=== PATIENT | male | born 1965 | race Caucasian/White ===

== ENCOUNTER 2023-03-08 15:14 | Inpatient (IN) | payer OTHER, SELFPAY ==
[2023-03-08] VITALS (13 sets, daily range): BP systolic 145–207; BP diastolic 92–119; PULSE 109–125; RESP 22–39; TEMP 37.2; O2SAT 87–97
--- NOTE | ~2023-03-08 | XR_ITS ---
Portable chest x-ray Comparison: 03/17/2023 Clinical History: Respiratory failure Findings: Endotracheal tube and NG tube are in satisfactory positions. Lungs remain clear. Cardiome diastinal silhouette is stable. Bones and soft tissues are unremarkable. Impression: Clear lungs. Stable support tubes. Reviewed, dictated and finalized at location . OCK MAKER Impression: Clear lungs. Stable support tubes.
--- NOTE | ~2023-03-08 | CT_ITS ---
EXAMINATION: CT brain wo con DATE: 03/14/2023 19:49 INDICATION: Altered mental status . TECHNIQUE: Computed tomography (CT) of the head was performed without intravenous contrast. The mA wa s adjusted according to patient size. Iterative reconstruction technique was employed. The dose-lengt h product was 681.00 mGy-cm. COMPARISON: 03/12/2023. FINDINGS: No acute intracranial hemorrhage or extra-axial fluid collection. No hydrocephalus, mass, or herniation. No acute ischemic infarct. Unremarkable dural venous sinus attenuation. No acute osseous abnormality. The aerated spaces are clear. Moderate atrophy and chronic white matter change. Atherosclerotic intracranial calcification. IMPRESSION: No acute intracranial process. Reviewed, dictated and finalized at location K. SAW OPERATOR
--- NOTE | ~2023-03-08 | CT_ITS ---
EXAMINATION: CT chest abdomen pelvis wo con DATE: 03/14/2023 19:49 INDICATION: Hypo, ANTWAN, sepsis, renal stone- combining orders . TECHNIQUE: Computed tomography (CT) of the chest, abdomen, and pelvis was performed without intraveno us contrast. Automated exposure control and iterative reconstruction technique were employed. The dos e-length product was 1492.78 mGy-cm. COMPARISON: CTPA 03/08/2023; CT abdomen pelvis 03/10/2023 FINDINGS: Examination is limited by lack of contrast, motion artifact, particularly in the upper abdomen, and b eam hardening from arm down positioning. CHEST: NG tube, terminating in the stomach. Thoracic aorta: No significant dilation or calcification. Lung parenchyma and airways: Dependent centrilobular nodular and reticular opacities in the bilateral lower lobes. Debris in dependent lower lobe bronchi. Thoracic inlet, axillae and chest wall: Heterogeneous, likely jeff mass measuring 3.5 x 11.5 in the right axilla. Large heterogeneous intramuscular collection in the latissimus dorsi muscle on the righ t with suggestion of layering, incompletely included in the [id number]. Multifocal intramuscular c ollections within the muscles of the right shoulder, also incompletely visualized. Considerable fat s tranding in the subcutaneous fat and intermuscular fat of the right shoulder. Small calcified right t hyroid nodule which requires no additional evaluation at this time. Mediastinum: No mass or lymphadenopathy. Heart and pericardium: Normal heart size. Trace pericardial effusion. Coronary artery calcifications: Absent. Pleura: No effusion or mass. Thoracic bones: No acute osseous finding in the chest. ABDOMEN/PELVIS: Liver: Normal. Biliary/Gallbladder: Gallbladder is distended. Multiple gallstones. No bile duct dilation. Pancreas: No mass or duct dilation. Spleen: Rim calcified mass in the splenic fossa, near the tip of the pancreas, with surrounding surgi loco clips, now measuring up to 4.4 cm. Adrenals:Left adrenal adenoma. Kidneys: Right renal atrophy. Unremarkable left kidney. Right renal stent, in good position, bypassin g a 16 mm proximal right ureteral stone. GI tract: No small or large bowel dilation. Normal appendix. Diverticulosis without diverticulitis. A fecal management system is in place. Mesentery/Peritoneum: No ascites, mass, or free air. Retroperitoneum: No mass Atherosclerotic abdominal aortic and/or arterial calcifications. Pelvis: The urinary bladder is decompressed by a Wilson catheter. Soft Tissues: Nodular subcutaneous opacities in the left lower quadrant, possible injection sites. Abdominopelvic bones: No acute osseous finding in the abdomen/pelvis. IMPRESSION: Bilateral dependent lower lobe mucous plugging/aspiration. Trace pericardial effusion. Considerable inflammatory/infectious change in the soft tissues and muscles of the right shoulder, wi th multiple intramuscular collections and heterogeneous axillary lymph node enlargement. These findin gs are new since the prior CTPA 03/08/2023. Gallbladder hydrops with cholelithiasis. Slightly decreased size of the rim calcified left upper quadrant mass near the tail of the pancreas. Reviewed, dictated and finalized at location K. RATURE TEACHER IMPRESSION: Bilateral dependent lower lobe mucous plugging/aspiration. Trace pericardial effusion. Considerable inflammatory/infectious change in the soft tissues and muscles of the right shoulder, with multiple intramuscular collections and heterogeneous a xillary lymph node enlargement. These findings are new since the prior CTPA 03/08/2023. Gallbladder hydrops with cholelithiasis. Slightly decreased size of the rim calcified left upper quadrant mass near the tail of the pancreas.
--- NOTE | ~2023-03-08 | XR_ITS ---
Portable chest x-ray Comparison: 03/10/2023 Clinical History: Respiratory failure Findings: Endotracheal tube and NG tube are in satisfactory positions. Lungs are clear, without foca l consolidation or pleural effusion. Cardiomediastinal silhouette is stable. Bones and soft tissues are unremarkable. Impression: Clear lungs. Support tubes, as above. Reviewed, dictated and finalized at location . H MAKER Impression: Clear lungs. Support tubes, as above.
--- NOTE | ~2023-03-08 | XR_ITS ---
Portable chest x-ray Comparison: 03/14/2023 Clinical History: Mucous plugging Findings: NG tube in satisfactory position. Lungs are clear, without focal consolidation or pleural effusion. Cardiomediastinal silhouette is stable. Bones and soft tissues are unremarkable. Impression: Clear lungs. NG tube. Reviewed, dictated and finalized at location . TENANCE OF WAY SUPERINTENDENT Impression: Clear lungs. NG tube.
--- NOTE | ~2023-03-08 | XR_ITS ---
Portable chest x-ray Comparison: 03/18/2023 Clinical History: Respiratory failure Findings: Endotracheal tube, NG tube, and right IJ line are in satisfactory positions. Lungs are xu ar, without focal consolidation or pleural effusion. Cardiomediastinal silhouette is stable. Bones a nd soft tissues are unremarkable. Impression: Clear lungs. Stable support tubes. Reviewed, dictated and finalized at location . ORT MERCHANDISER Impression: Clear lungs. Stable support tubes.
--- NOTE | ~2023-03-08 | XR_ITS ---
XR chest 1V portable 03/20/2023 06:26 Indication: Respiratory failure Procedure: AP portable chest Comparison: Comparison to multiple prior studies sequentially, with oldest reviewed study dated 03/05. Findings: NG tube in the stomach. Endotracheal tube tip 4.5 cm above the rashmi. Right IJ central juju e tip in the SVC. Heart size normal. No focal air space disease, pulmonary edema, pleural effusion or suspected pneumothorax. Impression: 1: No acute cardiopulmonary disease. Reviewed, dictated and finalized at location A. TER AIRCRAFT Impression: 1: No acute cardiopulmonary disease.
--- NOTE | ~2023-03-08 | CT_ITS ---
EXAMINATION: CT UE LT wo con DATE: 03/12/2023 10:48 INDICATION: Left elbow and forearm swelling. TECHNIQUE: Computed tomography (CT) of the left upper limb was performed without intravenous contrast . Automated exposure control and iterative reconstruction technique were employed. The dose-length pr oduct was 648.73 mGy-cm. COMPARISON: None FINDINGS: Bone alignment is normal. No fracture. There is mild elbow joint osteoarthritis. In the pro ximal left forearm, there is posterolateral skin thickening and subcutaneous fat stranding. There is a 7.4 x 2.9 x 6.6 cm subcutaneous mass. Lateral to the left ilium, there is a 13 x 11 mm subcutaneous mass. IMPRESSION: 1. Subcutaneous mass and fat stranding and skin thickening in the posterolateral proximal forearm, li darrian hematoma. 2. Nonspecific 13 mm subcutaneous mass lateral to the left ilium, most likely a hematoma or injection site. Reviewed, dictated and finalized at location E. Y GO ROUND ATTENDANT IMPRESSION: 1. Subcutaneous mass and fat stranding and skin thickening in the posterolatera l proximal forearm, likely hematoma. 2. Nonspecific 13 mm subcutaneous mass lateral to the left ilium, most likely a hematoma or injection site.
--- NOTE | ~2023-03-08 | XR_ITS ---
Portable chest x-ray Comparison: 03/20/2023 Clinical History: Respiratory failure Findings: Endotracheal tube, NG tube, and right IJ line are in place. Lungs are clear, without focal consolidation or pleural effusion. Cardiomediastinal silhouette is stable. Bones and soft tissues a re unremarkable. Impression: Clear lungs. Support tubes, as above. Reviewed, dictated and finalized at location . SSIAN ADMINISTRATOR Impression: Clear lungs. Support tubes, as above.
--- NOTE | ~2023-03-08 | XR_ITS ---
Portable chest x-ray Comparison: 03/15/2023 Clinical History: Respiratory failure Findings: Endotracheal tube and NG tube are in satisfactory positions. Lungs are clear, without foca l consolidation or pleural effusion. Cardiomediastinal silhouette is stable. Bones and soft tissues are unremarkable. Impression: Clear lungs. Support tubes, as above. Reviewed, dictated and finalized at location . OLEUM ENGINEERING TEACHER Impression: Clear lungs. Support tubes, as above.
--- NOTE | ~2023-03-08 | CT_ITS ---
CT head without contrast Indication: Unequal pupils COMPARISON: 03/08/2023 Technique: Serial scans were obtained through the brain without the administration of contrast. Dose reduction technique was used on this scan by utilizing automated exposure control and iterative recon struction technique. The dose-length product (DLP) was 681.00 mGy-cm. Findings: There is no evidence of intracranial hemorrhage, mass lesion, or acute infarct. The ventri cles and subarachnoid spaces are dilated, consistent with mild atrophy. Low attenuation regions are seen within the periventricular white matter bilaterally, likely representing changes from chronic mi crovascular ischemic disease. There is no evidence of edema, mass effect or midline shift. The visu alized paranasal sinuses and mastoid air cells are clear. Impression: No intracranial hemorrhage, mass, or acute infarct. Atrophy and chronic white matter changes, as above. Reviewed, dictated and finalized at location . PRINTING AND PHOTOCOPY SUPERVISOR Impression: No intracranial hemorrhage, mass, or acute infarct. Atrophy and chronic white matter changes, as above.
--- NOTE | ~2023-03-08 | US_ITS ---
EXAMINATION: US venous doppler UE RT DATE: 03/24/2023 22:38 INDICATION: Right upper limb swelling. TECHNIQUE: Grayscale ultrasound images without and with compression and Doppler ultrasound images of the right upper extremity veins were obtained. COMPARISON: Chest CT 03/14/2023 FINDINGS: The visualized portions of the right internal jugular vein, subclavian vein, axillary vein, brachial veins, basilic vein, and cephalic vein are patent. The right radial vein and ulnar vein are not evalu ated. There is a 13.5 x 3.8 cm hypoechoic and anechoic mass in anterior right upper arm. IMPRESSION: 1. No deep venous thrombosis. 2. Mass in anterior right upper arm, likely a hematoma. Reviewed, dictated and finalized at location E. RPRISE SYSTEMS ARCHITECT
--- NOTE | ~2023-03-08 | CT_ITS ---
EXAMINATION: CT brain wo con INDICATION: Encephalopathy COMPARISON: 03/14/2023 TECHNIQUE: Standard unenhanced head CT. The dose-length product (DLP) was 681.00 mGy-cm. The mA was a djusted according to patient size. Iterative reconstruction technique was employed. FINDINGS: No intracranial hemorrhage, acute infarction, or abnormal mass lesion. Old lacunar infarcts are again noted in the bilateral basal ganglia. The ventricles are normal. No abnormal mass effect o r midline shift. The mayberry-white matter differentiation is normal. The basal cisterns are patent. The orbits are normal. There is mild mucosal thickening of the paranasal sinuses. IMPRESSION: 1. Old lacunar infarctions bilateral basal ganglia without acute intracranial abnormality. Reviewed, dictated and finalized at location L. D COORDINATOR IMPRESSION: 1. Old lacunar infarctions bilateral basal ganglia without acute intracranial a bnormality.
--- NOTE | ~2023-03-08 | US_ITS ---
EXAMINATION: US_ABSCYSTIMG_US DATE: 03/15/2023 15:49 INDICATION: Right latissimus dorsi mass. TECHNIQUE: The skin overlying the right latissimus dorsi was prepped and draped in usual sterile fas ion. Anesthetic was administered with 1% lidocaine subcutaneously. An 18 gauge spinal needle was th en used to aspirate fluid under continuous sonographic guidance. The entry site was cleaned and dress ed. There were no immediate complications. FINDINGS: Ultrasound images demonstrate the needle in the right latissimus dorsi muscle. IMPRESSION: 1. Ultrasound-guided needle aspiration of a mass of the right latissimus dorsi muscle yielding 6 mL d ark red fluid. Reviewed, dictated and finalized at location A. FLOORMAN IMPRESSION: 1. Ultrasound-guided needle aspiration of a mass of the right latissimus dorsi muscle yielding 6 mL dark red fluid.
--- NOTE | ~2023-03-08 | XR_ITS ---
EXAMINATION: XR chest 1V portable INDICATION: Respiratory failure TECHNIQUE: Portable AP chest at 0542 hours COMPARISON: 03/12/2023 FINDINGS: There is mild retrocardiac opacity the left lung base. No pleural effusion or pneumothorax. The cardiomediastinal silhouette is normal. Surgical changes are noted in the left upper quadrant. IMPRESSION: 1. Minimal retrocardiac opacity of the left lung base, consistent with atelectasis versus pneumonia. Reviewed, dictated and finalized at location F. MAKER GIFT WRAPPING IMPRESSION: 1. Minimal retrocardiac opacity of the left lung base, consistent with atelecta sis versus pneumonia.
--- NOTE | ~2023-03-08 | XR_ITS ---
EXAMINATION: XR chest port-a-cath/central DATE: 03/18/2023 13:47 INDICATION: Central line placement. TECHNIQUE: A single frontal view of the chest was obtained. COMPARISON: Chest single view at 5:24 AM, chest CT 03/14/2023 FINDINGS: There are airspace opacities in the lower lung zones. No pleural effusion or pneumothorax. The heart size is normal. There are surgical clips in left abdomen. The endotracheal tube tip is 4.0 cm above the rashmi. The nasogastric tube tip is in the stomach. A right internal jugular central raymond ous catheter is seen with tip in the superior vena cava. IMPRESSION: 1. Central line tip in the superior vena cava. 2. Airspace opacities in the lower lung zones, consistent with atelectasis versus pneumonia. Reviewed, dictated and finalized at location A. LINE COOK IMPRESSION: 1. Central line tip in the superior vena cava. 2. Airspace opacities in the lower lung zones, consistent with atelectasis vers us pneumonia.
--- NOTE | ~2023-03-08 | CT_ITS ---
EXAMINATION: CTA chest PE protocol DATE: 03/08/2023 22:29 INDICATION: Hypoxia. COVID-19 positive. TECHNIQUE: Computed tomography angiography (CTA) of the chest was performed with 100 mL Omnipaque-350 intravenous contrast timed to evaluate the pulmonary arteries. Coronal maximum intensity projection 3D-reconstructions were created by the technologist. Automated exposure control and iterative reconst ruction technique were employed. The dose-length product was 869.24 mGy-cm. COMPARISON: None. FINDINGS: There is mild atelectasis bilaterally. There is mucous plugging in right mainstem bronchus. No pleural effusion. The heart size is normal. No pericardial effusion. There are acute pulmonary em boli in all lobes. There are gallstones in the gallbladder. Partially visualized is right-sided hydro nephrosis. There is a 5.1 cm mass in left upper quadrant with peripheral calcifications. There are guzman rgical clips in left upper quadrant. There is mild thoracic spondylosis. IMPRESSION: 1. Acute pulmonary emboli in all lobes. I called this result to Dr. Salguero. 2. Mucous plugging in right mainstem bronchus. 3. 5.1 cm mass with peripheral calcifications in the left upper quadrant of the abdomen. This finding may be an infarcted spleen. Correlate with surgical history. 4. Partially visualized right-sided hydronephrosis. Reviewed, dictated and finalized at location E. GATOR SPRINKLING SYSTEM IMPRESSION: 1. Acute pulmonary emboli in all lobes. I called this result to Dr. Salguero. 2. Mucous plugging in right mainstem bronchus. 3. 5.1 cm mass with peripheral calcifications in the left upper quadrant of the abdomen. This finding may be an infarcted spleen. Correlate with surgical hist ory. 4. Partially visualized right-sided hydronephrosis.
--- NOTE | ~2023-03-08 | XR_ITS ---
EXAMINATION: XR retrograde pyelo w/stent RT DATE: 03/10/2023 17:00 BATCH WEIGHER INDICATION: CYSTO RT RETROGRADE WITH STENT . TECHNIQUE: 4 fluoroscopic images and a cine clip of 76 images of the abdomen were obtained during cys toscopy and right retrograde pyelography with stent placement performed by the surgeon. I was not pre sent in the operating room. Fluoroscopy exposure time was 274.4 seconds. Air Kerma 78.97 mGy. DAP 3.7 8 mGym2. COMPARISON: CT abdomen pelvis, same date. FINDINGS: Multiple gallstones. Large right UPJ stone. Wire access to an upper pole calyx followed by stent plac ement with the proximal coil and upper pole calyx and the distal coil projecting over the bladder. IMPRESSION: Fluoroscopic documentation of cystoscopy and right retrograde pyelography with stent placement. Nikki agustin refer to the operative note for complete procedural details . Reviewed, dictated and finalized at location K. H WEIGHER IMPRESSION: Fluoroscopic documentation of cystoscopy and right retrograde pyelography with stent placement. Please refer to the operative note for complete procedural det ails .
--- NOTE | ~2023-03-08 | CT_ITS ---
EXAMINATION: CT abdomen pelvis wo con DATE: 03/10/2023 10:42 INDICATION: Renal stone. Hydronephrosis. TECHNIQUE: Computed tomography (CT) of the abdomen and pelvis was performed without intravenous contr ast. The dose-length product was 1282.05 mGy-cm. Automated exposure control and iterative reconstruct ion technique were employed. COMPARISON: Renal ultrasound dated 03/09/2023. FINDINGS: There is a proximal right ureteral stone near the UPJ at the L3 level measuring 1.8 x 0.9 x 0.9 cm. There is hydronephrosis with residual contrast in the right renal collecting system. Right k idney is atrophic. There are gallstones. NG tube in the stomach. There is a peripherally calcified pa ncreatic tail mass measuring 5.7 x 4.8 cm measuring 45 Hounsfield units. There are metallic foreign b odies in the left upper abdomen. There is dependent atelectasis. There is a small pericardial effusion. No significant pleural effusio n. Nonobstructive bowel gas pattern. Wilson catheter present in the bladder which is decompressed. Col onic diverticulosis without evidence for diverticulitis. IMPRESSION: 1. Proximal right ureteral stone near the UPJ measuring 1.8 cm with moderate hydronephrosis. 2: Hypodense peripherally calcified mass left upper abdomen consider infarcted spleen and pancreatic tail mass consider correlation with MRI abdomen without and with contrast.. 3: Cholelithiasis. Reviewed, dictated and finalized at location B. OYMENT SUPERVISOR IMPRESSION: 1. Proximal right ureteral stone near the UPJ measuring 1.8 cm with moderate hy dronephrosis. 2: Hypodense peripherally calcified mass left upper abdomen consider infarcted spleen and pancreatic tail mass consider correlation with MRI abdomen without a nd with contrast.. 3: Cholelithiasis.
--- NOTE | ~2023-03-08 | XR_ITS ---
EXAMINATION: XR chest 1V portable DATE: 03/08/2023 15:55 INDICATION: Altered mental status. TECHNIQUE: A single frontal view of the chest was obtained. COMPARISON: None. FINDINGS: There is no pneumonia, pleural effusion, or pneumothorax. The heart size is normal. There a re surgical clips in left abdomen. IMPRESSION: 1. No acute cardiopulmonary disease. Reviewed, dictated and finalized at location E. ER TENDER
--- NOTE | ~2023-03-08 | US_ITS ---
EXAMINATION: US venous doppler [facility] DATE: 03/10/2023 15:36 INDICATION: PE, recent hx of DVT . TECHNIQUE: Grayscale images without and with compression and Doppler images of the bilateral lower ex tremity veins were obtained. COMPARISON: None FINDINGS: Eccentric, nonocclusive and partially compressible thrombus in the right popliteal vein. The right co mmon femoral vein, profunda (deep) femoral vein, femoral vein, peroneal vein, posterior tibial veins, and greater saphenous vein are patent. Eccentric, nonocclusive and partially compressible thrombus in the left distal femoral vein and poste rior tibial vein. Occlusive noncompressible thrombus in the left posterior tibial vein. The left comm on femoral vein, profunda (deep) femoral vein, femoral vein, popliteal vein, peroneal vein, and grea ter saphenous vein are patent. IMPRESSION: Acute DVT in the left posterior tibial vein. Subacute nonocclusive DVT in the left distal femoral vein and right popliteal vein. Reviewed, dictated and finalized at location K. N WEIGHER IMPRESSION: Acute DVT in the left posterior tibial vein. Subacute nonocclusive DVT in the left distal femoral vein and right popliteal v ein.
--- NOTE | ~2023-03-08 | XR_ITS ---
Portable chest x-ray Comparison: 03/08/2023 Clinical History: Tube placement Findings: Endotracheal tube and NG tube are in satisfactory positions. Lungs are clear, without foca l consolidation or pleural effusion. Cardiomediastinal silhouette is stable. Bones and soft tissues are unremarkable. Impression: Support tubes, as above. Clear lungs. Reviewed, dictated and finalized at location . RACT LENS GENERATOR Impression: Support tubes, as above. Clear lungs.
--- NOTE | ~2023-03-08 | XR_ITS ---
EXAMINATION: XR chest 1V portable DATE: 03/30/2023 05:50 INDICATION: Mechanical ventilation. TECHNIQUE: A single frontal view of the chest was obtained. COMPARISON: Chest single view 03/26/2023, chest CT 03/29/2023 FINDINGS: There is no pneumonia, pleural effusion, or pneumothorax. The heart size is normal. The end otracheal tube tip is 3.8 cm above the rashmi. The nasogastric tube tip is in the stomach. A right in ternal jugular central venous catheter is seen with tip in the superior vena cava. There are surgical clips in left abdomen. IMPRESSION: 1. No acute cardiopulmonary disease. Reviewed, dictated and finalized at location E. LLE TYPIST
--- NOTE | ~2023-03-08 | XR_ITS ---
EXAMINATION: XR abdomen gastric tube insert INDICATION: Nasogastric tube placement TECHNIQUE: Portable AP KUB-NG at 1259 hours COMPARISON: None available FINDINGS: The nasogastric tube is in the stomach. There are surgical clips in the left upper quadrant . Stones are noted in the gallbladder. There is a partially imaged right internal ureteral stent with an adjacent 2.1 cm stone of the proximal ureter. IMPRESSION: 1. Nasogastric tube in the stomach. Reviewed, dictated and finalized at location F. K SHOP MECHANIC
--- NOTE | ~2023-03-08 | XR_ITS ---
Portable chest x-ray Comparison: 03/16/2023 Clinical History: Respiratory failure Findings: Endotracheal tube and NG tube are in satisfactory position. Lungs are clear, without focal consolidation or pleural effusion. Cardiomediastinal silhouette is stable. Bones and soft tissues a re unremarkable. Impression: Clear lungs. Support tubes, as above. Reviewed, dictated and finalized at location . ET ENGINEER Impression: Clear lungs. Support tubes, as above.
--- NOTE | ~2023-03-08 | XR_ITS ---
Portable chest x-ray Comparison: 03/24/2023 Clinical History: Respiratory failure Findings: Endotracheal tube, NG tube, and right IJ line are in satisfactory positions. Lungs remain clear. Cardiomediastinal silhouette is stable. Bones and soft tissues are unremarkable. Impression: Clear lungs. Support tubes, as above. Reviewed, dictated and finalized at location . MARKETING SALES REPRESENTATIVE Impression: Clear lungs. Support tubes, as above.
--- NOTE | ~2023-03-08 | US_ITS ---
US renal BI 03/09/2023 13:52 Procedure: Realtime transabdominal ultrasound of the kidneys and bladder. Indication: Right hydronephrosis Comparison: CT dated 03/08/2023 Findings: Renal echotexture is normal bilaterally without contour deforming mass. There is moderate r ight hydronephrosis. There is a proximal right ureteral stone near the expected location of the UPJ. This stone measures approximately 1.6 cm. The right kidney measures 10.1 cm and left kidney measures 11.6 cm. Bladder contains a Wilson catheter. Impression: 1: Right proximal ureteral stone measuring 1.6 cm causing moderate hydronephrosis. Reviewed, dictated and finalized at location L. ICULTURE SUPERVISOR Impression: 1: Right proximal ureteral stone measuring 1.6 cm causing moderate hydronephros is.
--- NOTE | ~2023-03-08 | XR_ITS ---
Portable chest x-ray Comparison: 03/09/2023 Clinical History: Respiratory failure Findings: Endotracheal tube and NG tube are in satisfactory positions. Lungs remain clear. Cardiome diastinal silhouette is stable. Bones and soft tissues are unremarkable. Impression: Stable support tubes. Clear lungs. Reviewed, dictated and finalized at location . SH MILL OPERATOR Impression: Stable support tubes. Clear lungs.
--- NOTE | ~2023-03-08 | CT_ITS ---
EXAMINATION: CT brain wo con DATE: 03/08/2023 20:31 INDICATION: Altered mental status. TECHNIQUE: Computed tomography (CT) of the head was performed without intravenous contrast. The mA wa s adjusted according to patient size. Iterative reconstruction technique was employed. The dose-lengt h product was 1059.33 mGy-cm. COMPARISON: None FINDINGS: There are old lacunar infarcts in the bilateral basal ganglia. There is no intracranial hem orrhage, acute infarction, or abnormal intracranial mass lesion. There are scattered areas of low att enuation in the cerebral white matter. The ventricles are normal in size. The orbits are normal. Ther e is mild mucosal thickening in the paranasal sinuses. The mastoid air cells are normal. IMPRESSION: 1. Old lacunar infarcts in the bilateral basal ganglia. 2. Moderate nonspecific cerebral white matter disease, which likely represents chronic small vessel i schemic disease. Reviewed, dictated and finalized at location E. LINES LABORER IMPRESSION: 1. Old lacunar infarcts in the bilateral basal ganglia. 2. Moderate nonspecific cerebral white matter disease, which likely represents chronic small vessel ischemic disease.
--- NOTE | ~2023-03-08 | XR_ITS ---
Portable chest x-ray Comparison: 03/11/2023 Clinical History: Respiratory failure Findings: Probable minimal central congestive change. No consolidation or pleural effusion. Cardiom ediastinal silhouette is stable. Bones and soft tissues are unremarkable. Impression: Probable minimal central congestive change. Reviewed, dictated and finalized at [facility]. LANE NAVIGATOR Impression: Probable minimal central congestive change.
--- NOTE | ~2023-03-08 | XR_ITS ---
EXAMINATION: XR chest 1V portable INDICATION: Respiratory failure TECHNIQUE: Portable AP chest at 0638 hours COMPARISON: 03/13/2023 FINDINGS: Left retrocardiac airspace opacities persist but have improved. No pleural effusion or pneu mothorax. The cardiomediastinal silhouette is normal. Surgical changes are noted in the left upper qu adrant. IMPRESSION: 1. Improving retrocardiac opacity of the left lung base, consistent with atelectasis versus pneumonia . Reviewed, dictated and finalized at location F. TY ANALYST IMPRESSION: 1. Improving retrocardiac opacity of the left lung base, consistent with atelec tasis versus pneumonia.
--- NOTE | ~2023-03-08 | CT_ITS ---
EXAMINATION: CT chest abdomen pelvis wo con DATE: 03/29/2023 09:59 INDICATION: Growing mass TECHNIQUE: Computed tomography (CT) of the chest, abdomen, and pelvis was performed without intraveno us contrast. Automated exposure control and iterative reconstruction technique were employed. Exam do se: 1680.50 mGy-cm total exam DLP. COMPARISON: 03/26/2023 portable AP chest 03/14/2023 CT chest abdomen pelvis 03/08/2023 CTA chest 03/10/2023 CT abdomen FINDINGS: CHEST CT: This noncontrast examination is not sensitive for detection of pulmonary emboli. Pulmonary embolism w as noted on 03/08/2023 CTA chest examination. Mild bilateral lower lobe infiltrate and/or atelectasis, right greater than left. Endotracheal tube is present in expected location. There is a nasogastric tube in the stomach. Normal heart size. No pericardial or pleural effusion. No thoracic aortic aneurysm. No hilar or mediastinal mass lesion or lymphadenopathy is detected. ABDOMEN/PELVIS CT: There are numerous stones in the dependent aspect of the gallbladder. No gallbladder wall thickening or pericholecystic fluid or fat stranding. No bile duct or pancreatic duct dilatation. No hepatic or pancreatic space-occupying mass lesion. Normal morphology of the adrenal glands. Approximately 4.3 x 5.2 cm posterior left upper quadrant soft tissue density within peripheral calcif ied rim is again noted, adjacent to multiple left upper quadrant surgical clips. Smooth small right kidney compared to normal size left kidney. There is right perinephric fluid/fat s tranding. Again noted is a large proximal right ureteral calculus measuring up to approximately 1.7 mm transver se, up to 1.46 cm AP and 2.1 cm vertical dimension. There is a right internal urinary stent with prox imal pigtail in the right renal pelvis, distal pigtail in the urinary bladder. The Wilson catheter in urinary bladder. The bladder is nearly completely evacuated, which may account for moderate prominenc e of the urinary bladder wall. Prostate calcifications. Normal appendix. No bowel obstruction or intraperitoneal free air is evident. Normal caliber of the abdominal aorta. No intraperitoneal or retroperitoneal or pelvic mass lesion or adenopathy or ascites is noted other than the previously reported left upper quadrant mass. There is an IVC filter beneath the level of renal veins. There are healing left anterior second, third and fourth rib fractures. Diffuse idiopathic skeletal hyperostosis of the thoracic spine. No suspicious osteolytic or osteoblastic lesions are noted. IMPRESSION: Mild bilateral lower lobe infiltrate and/or atelectasis, right greater than left ET and NG tubes in satisfactory position Cholelithiasis Posterior left upper quadrant peripherally calcified mass, stable since 03/08/2023 Large proximal right ureteral calculus; right internal urinary stent Right renal atrophy Prostate calcifications Normal appendix IVC filter Healing left anterior second through fourth rib fractures Reviewed, dictated and finalized at Location A. Reviewed, dictated and finalized at location A. IGINAL COMM[employer] COUNC[employer] MEMBER IMPRESSION: Mild bilateral lower lobe infiltrate and/or atelectasis, right gre ater than left ET and NG tubes in satisfactory position Cholelithiasis Posterior left upper quadrant peripherally calcified mass, stable since 03/08/20 23 Large proximal right ureteral calculus; right internal urinary stent Right renal atrophy Prostate calcifications Normal appendix IVC filter Healing left anterior second through fourth rib fractures
--- NOTE | ~2023-03-08 | XR_ITS ---
EXAMINATION: XR chest ET placement INDICATION: Endotracheal tube placement TECHNIQUE: Portable AP chest at 0941 hours COMPARISON: 0514 hours FINDINGS: An endotracheal tube has been inserted which ends approximately 4.5 cm above the rashmi. Th e nasogastric tube is in the stomach. The lungs are free of acute opacities. No pleural effusion or p neumothorax. Surgical changes are noted in the left upper quadrant. IMPRESSION: 1. Endotracheal tube in adequate position. Reviewed, dictated and finalized at location B. R REPAIRER
--- NOTE | 2023-03-08 15:22 | ECG_ITS ---
Measurements Intervals [place] Rate: 111 P: 55 AR: 152 QRS: -81 QRSD: 86 T: 3 QT: 362 QTc: 493 Interpretive Statements SINUS TACHYCARDIA POSSIBLE LEFT ATRIAL ENLARGEMENT [-0.1mV P WAVE IN V1/V2] PATTERN CONSISTENT WITH PULMONARY DISEASE POSSIBLE RIGHT VENTRICULAR CONDUCTION DELAY [RSR (QR) IN V1/V2] LEFT ANTERIOR FASCICULAR BLOCK [QRS AXIS <= -45, QR IN I, RS IN II] BASELINE ARTIFACT POOR R-WAVE PROGRESSION NO PREVIOUS ECG AVAILABLE FOR COMPARISON Electronically Signed On 03-09-2023 13:23:49 RN RADIATION by Sharon Wade M.D.
--- NOTE | 2023-03-08 15:35 | ED.GENADULT ---
HPI - General Adult General Chief complaint: Altered Mental Status <Ho Palafox MD - Last Filed: 03/08/23 19:56> Stated complaint: AMS, FTT <Ho Palafox MD - Last Filed: 03/08/23 19:56> Time Seen by Provider: 03/08/23 15:16 <Ho Palafox MD - Last Filed: 03/08/23 19:56> History of Present Illness HPI narrative: patient is a 57-year-old male who presents ER with reports of failure to thrive and altered mental status from his [facility]. There is very limited information on the patient. Apparently last month he was found by the side of the road and presented to a separate hospital. He then coded. it appears he is intubated on 02/22 and extubated on 02/26. This occurred at [facility] [place]. At this time patient is awake and alert and can follow commands but does not provide any answers. He appears very dry. <Ho Palafox MD - Last Filed: 03/08/23 19:56> Related Data Allergies/adverse reactions: Allergies Allergy/AdvReac Type Severity Reaction Status Date / Time No Known Allergies Allergy Verified 03/08/23 18:36 <Ho Palafox MD - Last Filed: 03/08/23 19:56> Review of Systems Review of Systems: ROS unobtainable: Yes unobtainable due to mental status <Ho Palafox MD - Last Filed: 03/08/23 19:56> [facility] Past Medical History Medical History: Medical History (Updated 03/08/23 @ 21:47 by Norma Salguero MD) CHF (congestive heart failure) DVT (deep venous thrombosis) Hypertension Psychiatric disorder <Ho Palafox MD - Last Filed: 03/08/23 19:56> Surgical History Surgical History: Surgical History (Updated 03/08/23 @ 17:32 by Ho Palafox MD) Surgical history unknown <Ho Palafox MD - Last Filed: 03/08/23 19:56> Exam Narrative: GENERAL: Chronically ill-appearing, well-nourished, and in no acute distress. HEAD: Normocephalic, atraumatic. EYES: PERRL and EOMI. ENT: Mucous membranes moist. dry mucous membranes with caked saliva to the teeth and lips. CHEST: Clear to auscultation. No respiratory distress. HEART: tachycardic and regular. Normal peripheral pulses. ABDOMEN: Soft, nontender, nondistended. EXTREMITIES: Normal range of motion. No edema. Lipoma versus hematoma left proximal forearm. SKIN: Warm, dry, no rash. NEURO: Awake alert but not oriented. Moves all extremities well. PSYCH: Normal mood and affect. <Ho Palafox MD - Last Filed: 03/08/23 19:56> Course Course Emergency Course: 1800: records requested from [facility] [place]. 1954: Awaiting records request. Patient did have a negative COVID test at his facility today but we will repeat another 1. Patient has been on 3 L at 93% according to [facility] records. It appears he is also on Lasix 20 mg, hydralazine 10 mg, metoprolol 25 mg, and Xarelto. Given lack of improvement after IV fluids will add on a CT scan of the brain. Urinalysis still pending. <Ho Palafox MD - Last Filed: 03/08/23 19:56> 1800: records requested from [facility] [place]. 1954: Awaiting records request. Patient did have a negative COVID test at his facility today but we will repeat another 1. Patient has been on 3 L at 93% according to [facility] records. It appears he is also on Lasix 20 mg, hydralazine 10 mg, metoprolol 25 mg, and Xarelto. Given lack of improvement after IV fluids will add on a CT scan of the brain. Urinalysis still pending. 2114: Head CT without acute abnormality. Patient is positive for COVID-19. Spoke with the hospitalist who has accepted him to IMU. Decadron has been ordered. <Norma Salguero MD - Last Filed: 03/08/23 21:47> Vital Signs Vital signs: Vital Signs Pulse Rate 116 H 03/08/23 15:12 Respiratory Rate 22 H 03/08/23 15:12 Blood Pressure 145/119 H 03/08/23 15:12 Pulse Oximetry 87 L 03/08/23 15:12 Oxygen Delivery Room Air 03/08/23 15:12 Temperature 99 F 03/08/23 15:30
[2023-03-08] MEDS: SODIUM CHLORIDE 0.9% IV 2,700 ML/1,000 ML BAG 999 ML IV CONT ×2 (16:40→19:34)
[2023-03-08 17:23] LABS: Basophils Absolute Auto 0.1 K/mm3 (0.0-0.1); Basophils Percent Auto 0.4 % (0.2-1.2); Eosinophils Absolute Auto 0.1 K/mm3 (0-0.3); Eosinophils Percent Auto 0.8 % (0-4.4); Hematocrit 49.2 % (42.0-52.0); Hemoglobin 15.8 g/dL (14.0-18.0); Immature Granulocyte Absolute 0.09 K/mm3 (0.00-0.031); Immature Granulocyte Percent A 0.6 % (0-0.5); Lymphocytes Absolute Auto 1.34 K/mm3 (0.9-3.2); Lymphocytes Percent Auto 8.3 % (18.3-44.2); Mean Corpuscular HGB Conc 32.1 g/dl (32-36); Mean Corpuscular Hemoglobin 31.2 pg (26-34); Mean Corpuscular Volume 97.2 fl (80-100); Mean Platelet Volume 10.6 fl (7.4-10.4); Monocytes Absolute Auto 2.1 K/mm3 (0.1-0.6); Monocytes Percent Auto 12.9 % (2.6-8.5); Neutrophils Absolute Auto 12.4 K/mm3 (1.3-6.7); Platelet Count Result 409 k/mm3 (150-375); Red Blood Count 5.06 M/mm3 (4.6-6.20); Red Cell Distribution Width 16.2 % (11.5-14.5); White Blood Count 16.2 K/mm3 (4.5-10.0)
[2023-03-08 17:37] LABS: INR 1.5; Prothrombin Time 18.5 Seconds (11.1-14.7)
[2023-03-08 17:38] LABS: Partial Thromboplastin Time 29.4 SECONDS (22.3-36.8)
[2023-03-08 17:44] LABS: Lactic Acid Reflex 1.3 mmol/L (0.7-2.0)
[2023-03-08 17:55] LABS: NT Pro B Type Natriuretic Pept 675 pg/mL (19.9-100)
[2023-03-08 18:01] LABS: Alanine Aminotransferase 55 U/L (6-50); Albumin Level 3.9 g/dL (3.5-5.1); Alkaline Phosphatase 207 U/L (38-126); Anion Gap 11 mmol/L (8-16); Aspartate Amino Transferase 46 U/L (17-59); Bilirubin,Total 4.2 mg/dL (0.2-1.3); Blood Urea Nitrogen 29 mg/dL (9-20); CRP 2.4 mg/dL (<1.0); Calcium 8.8 mg/dL (8.4-10.2); Carbon Dioxide 22 mmol/L (22-30); Chloride 114 mmol/L (98-107); Estimated CRCL calculation 59 ml/min; Estimated Glomerular Filt Rate 57; Glucose 108 mg/dL (65-110); Potassium 4.5 mmol/L (3.4-5.0); Sodium 147 mmol/L (137-145)
[2023-03-08] MEDS: hydrALAZINE HCL 20 MG/ML VIAL 10 MG IV PUSH (20:03)
[2023-03-08 20:07] LABS: Appearance Urine Cloudy (Clear); Bacteria Urine None Seen /hpf; Bilirubin Urine 2+ (Negative); Blood Urine 3+ (Negative); Color Urine Dark Yellow (Yellow); Glucose Urine UA Negative (Negative); Hyaline Casts Urine Present /lpf; Ketones Urine 1+ mg/dL (Negative); Leukocyte Esterase Ur 1+ LEU/UL (Negative); Nitrate Urine Negative (Negative); Protein Urine 1+ mg/dL (Negative); RBC Urine 51-100 /hpf (0-2); Specific Grav Ur 1.021 (1.001-1.035); Squamous Epithelial Cell Urine None seen /hpf (Few)
[2023-03-08 20:09] LABS: Add Urine Microscopic? YES
[2023-03-08 21:04] LABS: Alveolar/Arterial O2 Gradient 115.6 mmHg; Base Excess ABG -2.1 mEq/l (+/-2.0); Carboxyhemoglobin 1.8 % THb (0-2.0); Fractional Inspired Oxygen 28 %; HCO3 ABG 20.6 mEq/l (22.0-26.0); Methemoglobin ABG 0.5 %THb (0-1.5); Oxygen Content ABG 19.5 %vol (16.0-22.0); PCO2 ABG 30.4 mmHg (35.0-45.0); PO2 FiO2 Ratio Arterial Blood 1.72 %; Reduced Hemoglobin 13.2 %THb (0-5.0); Total Hemoglobin 16.5 g/dL (12.0-18.0); pH ABG 7.448 (7.350-7.450)
[2023-03-08 21:06] LABS: Oxygen Saturation ABG 86.3 % (95.0-100.0); Oxyhemoglobin 84.5 % THb (90.0-100.0); PO2 ABG 48.2 mmHg (80.0-100.0); Site Drawn RIGHT BRACHIAL
[2023-03-08 21:07] LABS: Device NASAL CANNULA; Modified Allen's Test Pass
[2023-03-08 21:12] LABS: Influenza A QL RT-PCR Negative (Negative); Influenza B QL RT-PCR Negative (Negative); SARS-CoV-2 RNA PCR Positive (Negative)
[2023-03-08 21:26] LABS: Ammonia < 9 umol/L (9-30)
[2023-03-08 21:42] LABS: Amphetamine Screen Urine Negative (Negative); Barbiturate Screen Urine Negative (Negative); Benzodiazepines Screen Urine Negative (Negative); Cannabinoid Screen Urine Negative (Negative); Cocaine Screen Urine Negative (Negative); Methadone Screen Urine Negative (Negative); Opiate Screen Urine Negative (Negative); Phencyclidine Screen Urine Negative (Negative)
[2023-03-08] MEDS: cefTRIAXone 2 GM/NS 100 ML 2 GM/100 ML BAG IVPB (21:47)
[2023-03-08] MEDS: AZITHROMYCIN 500 MG/NS 250 ML 500 MG/250 ML BAG 250 MG IVPB (22:26)
--- NOTE | 2023-03-08 23:00 | PC.NURSE ---
Pt O2 sensor placed on forehead. Pt satting at 91% on 4L NC. EDP Dr. Salguero made aware and okay with pt sats.
[2023-03-08] MEDS: HEPARIN SODIUM 5,000 UNITS/ML VIAL 6500 UNITS IV PUSH (23:11)
[2023-03-08] MEDS: HEPARIN SOD/D5W 100 UNITS/ML 25,000 UNITS/250 ML BAG 14 UNITS IV CONT (23:12)
[2023-03-09] VITALS (48 sets, daily range): BP systolic 96–182; BP diastolic 76–104; PULSE 88–123; RESP 16–35; TEMP 37.3–38.1; O2SAT 88–100; BMI 27.5
--- NOTE | 2023-03-09 | ECHO_ITS ---
Patient Info Name: Jacky Chavez Age: 57 years : 1965 Gender: Male Ht: 71 in Wt: 197 lbs BSA: 2.13 m2 HR: 107 bpm BP: 111 / 84 mmHg Heart Rhythm: Sinus Rhythm Technical Quality: Poor Exam Date: 03/09/2023 4:47 PM Exam Location: Echo Lab Patient Status: Inpatient Admit Date: 03/08/2023 Staff Ordering Physician: Virginia Aquino DO Cloth Examiner Hand: Margo Escamilla RDCS Attending Provider: Virginia Aquino DO Referring Physician: Miles NAIK; Exam Type: CA echo doppler color flow Study Info Indications - pul embolisim Complete two-dimensional, color flow and Doppler transthoracic echocardiogram is performed. Reason for Poor Study: poor echocardiographic windows Summary 1. Complete two-dimensional, color flow and Doppler transthoracic echocardiogram is performed. 2. Normal left ventricular size and with mild concentric hypertrophy, and with hyperdynamic left ventricular systolic function. Ejection fraction greater than 70%. Grade 1 diastolic dysfunction is present. 3. Right ventricle not well visualized but appears mildly hypokinetic. 4. Dilated inferior vena cava consistent with elevated right heart pressure. 5. Right ventricular systolic pressure cannot be adequate evaluated by this study. 6. No significant valve disease. 7. Normal sinus rhythm. 8. Technically difficult study due to the patient being on a ventilator etc. Left Ventricle Left ventricular chamber dimension is normal. Left ventricular systolic function is hyperdynamic, estimated at >70%. There is mildly increased left ventricular wall thickness. Left ventricular septal wall motion is normal. The left ventricular diastolic function is grade I diastolic dysfunction. Right Ventricle Right ventricular chamber dimension is normal. Right ventricular systolic function is reduced. Left Atria Left atrial chamber dimension is normal. Right Atria Right atrial chamber dimension is normal. Aortic Valve The aortic valve is trileaflet. There is no aortic valve sclerosis. There is no aortic valve stenosis. There is no aortic valve regurgitation. Pulmonic Valve The pulmonic valve is normal. There is no pulmonic valve stenosis. There is no pulmonic regurgitation. Mitral Valve The mitral valve has normal leaflets. There is no mitral valve stenosis. There is no mitral valve regurgitation. Tricuspid Valve The tricuspid valve leaflets are normal. There is no significant tricuspid valve stenosis. There is trace tricuspid valve regurgitation. No pulmonary hypertension, estimated pulmonary arterial systolic pressure is 22 mmHg. Pericardium/Pleural The pericardium appears normal. There is no pericardial effusion. Inferior Vena Cava Dilated inferior vena cava with >50% collapse upon inspiration consistent with Empty right atrial pressure, 15 mmHg. Aorta The aortic root size at the sinus of Valsalva is normal. The prox ascending aorta size is normal. Left Ventricular Outflow Tract Name Value Normal LVOT 2D LVOT Diameter 2.1 cm LVOT Doppler LVOT Peak Gradient 5 mmHg LVOT Mean Gradient 3 mmHg LVOT VTI 16 cm LVOT VT
[2023-03-09 00:12] LABS: Basophils Percent Auto 0.2 % (0.2-1.2); Eosinophils Absolute Auto 0.1 K/mm3 (0-0.3); Eosinophils Percent Auto 0.8 % (0-4.4); Hematocrit 51.4 % (42.0-52.0); Hemoglobin 16.3 g/dL (14.0-18.0); Immature Granulocyte Absolute 0.07 K/mm3 (0.00-0.031); Immature Granulocyte Percent A 0.4 % (0-0.5); Lymphocytes Absolute Auto 0.72 K/mm3 (0.9-3.2); Lymphocytes Percent Auto 4.4 % (18.3-44.2); Mean Corpuscular HGB Conc 31.7 g/dl (32-36); Mean Corpuscular Hemoglobin 31.3 pg (26-34); Mean Corpuscular Volume 98.7 fl (80-100); Mean Platelet Volume 10.7 fl (7.4-10.4); Monocytes Absolute Auto 1.8 K/mm3 (0.1-0.6); Neutrophils Absolute Auto 13.5 K/mm3 (1.3-6.7); Neutrophils Percent Auto 83.2 % (45.5-73.1); Platelet Count Result 375 k/mm3 (150-375); Red Blood Count 5.21 M/mm3 (4.6-6.20); Red Cell Distribution Width 16.7 % (11.5-14.5); White Blood Count 16.2 K/mm3 (4.5-10.0)
[2023-03-09 00:22] LABS: INR 1.7; Prothrombin Time 20.6 Seconds (11.1-14.7)
--- NOTE | 2023-03-09 00:44 | PC.NURSE ---
Heparin titrated at this time to pause for 1 hour. Will start again in 1 hour at 12mL/hr and redraw labs in 6 hours.
--- NOTE | 2023-03-09 01:52 | PC.NURSE ---
This RN contacted provider, Dr. Aquino regarding pt status. Pt is working harder to breathe and satting lower on same oxygen delivery method. Dr. Aquino to be down to assess pt shortly.
--- NOTE | 2023-03-09 01:54 | PM.IMHP ---
H&P: HPI History of Present Illness Date/Time: 03/09/23 01:54 Chief Complaint: ?Failure to thrive? Narrative: 57-year-old male who presented to the ER from [facility] via EMS due to failure to thrive. The patient's original medical history is not exactly known. The patient was found on the side of the road on February 04 in taken to [facility] (I am assuming in [place]). The patient was coded at that time and required intubation and was extubated on the 26 of February. He was discharged to the [facility] facility on a pureed diet. According to longterm records patient has history of psychiatric illness. On arrival to ER patient was noted to be tachycardic and hypoxic. Patient's COVID PCR was positive. Patient's blood pressures were uncontrolled with systolic blood pressures ranging between 150 and 210. The patient's temperature was elevated to 99?. Initially the patient's respiratory rate was in the 20s. But throughout the course of the ER stay the patient became progressively more tachypneic. He was mouth breathing his nasal cannula was placed into his oropharynx. Patient was continuing to desat requiring increasing oxygen up to 5 L and oxygen saturations were only 88%. Patient had accessory muscle use in nursing staff called. I went down to assess the patient and the patient had no gag reflex on exam and was not following commands. The patient was unable to protect his airway and subsequently intubated patient in the ER on intubation patient was noted have a large amount of purulence appearing mucus in the back of his oropharynx and required extensive amount of suctioning from his ET tube secretions were thick and difficult to suction. USP paperwork was reviewed. Patient case was discussed with the ER provider respiratory therapy and nursing staff at bedside. Patient was intubated emergently due to condition. Review of Systems Review of Systems: ROS unobtainable: Yes unobtainable due to endotracheal tube PMFSH Past Medical History Medical History CHF (congestive heart failure) DVT (deep venous thrombosis) Hypertension Psychiatric disorder Surgical History Surgical History Surgical history unknown Family History Family History (Updated 03/09/23 @ 03:58 by Virginia Aquino DO) Other Unknown family medical history Social History Social History (Updated 03/09/23 @ 04:00 by Virginia Aquino DO) Social History: Specific sulcal history is unknown. Patient is currently residing at [facility] since his hospitalization in late February. Code status: Full code Smoking status: Unknown if ever smoked Alcohol intake: unknown Substance use: unknown Meds Home Medications and Allergies Allergies Allergy/AdvReac Type Severity Reaction Status Date / Time No Known Allergies Allergy Verified 03/08/23 18:36 Vital Signs Vital Signs - 24 hr 03/08/23 15:12 03/08/23 15:18 03/08/23 15:30 Temperature 99 F Pulse Rate 116 H 118 H Respiratory Rate 22 H 30 H Blood Pressure 145/119 H 145/109 H Pulse Oximetry 87 L 94 94 Oxygen Delivery Room Air Nasal Cannula Room Air Oxygen Flow Rate 2 03/08/23 15:30 03/08/23 16:45 03/08/23 17:47 Temperature Pulse Rate 110 H 109 H Respiratory Rate 28 H 32 H Blood Pressure 170/99 H 162/102 H Pulse Oximetry 95 95 Oxygen Delivery Room Air Oxygen Flow Rate 03/08/23 19:46 03/08/23 20:16 03/08/23 20:34 Temperature Pulse Rate 119 H 119 H 119 H Respiratory Rate 28 H 34 H 34 H Blood Pressure 189/96 H 207/92 H 178/102 H Pulse Oximetry 95 97 90 Oxygen Delivery Oxygen Flow Rate 03/08/23 21:46 03/08/23 22:27 03/08/23 22:31 Temperature Pulse Rate 119 H 125 H 125 H Respiratory Rate 32 H 32 H 33 H Blood Pressure 192/104 H 187/102 H 182/112 H Puls
[2023-03-09] MEDS: PROPOFOL IV EMULSION 100 ML 2.69 MG IV CONT (02:28)
--- NOTE | 2023-03-09 02:40 | PC.NURSE ---
Addendum entered by Thuan Summers RN 03/09/23 05:58: 0220 - HR 132, 98% BVM by RT, RR 25, 150/99 220 - OG placed by Dr. Aquino 222 - HR 117, 100% BVM by RT, 20RR, 159/225 - xray at bedside for post ET placement and OG XR 227 - prop started at 5mcg/min VORB from Dr. Aquino. All completed at 0200, not 1999. Original Note: 021- Dr. Aquino to intubate pt. VORB 20 etomidate, 100 succinylcholine. RT called, suction and BVM set up. Crash cart and glidecope at bedside. 0216 - HR 122, 90% BVM by RT, 36RR, 182/116 0217 - 20 etomidate pushed by GINGER Trimble and flushed 0218 - 100 succinylcholine pushed by GINGER Trimble and flushed HR 98, 93% bagged by RT 0219 - ET tube palced by Dr. Aquino. 26 at the lip. color change, equal chest rise and fall, bilat breath sounds, RT bagging pt. 2020 - HR 132, 98% BVM by RT, RR 25, 150/99 2020 - OG placed by Dr. Aquino 2022 - HR 117, 100% BVM by RT, 20RR, 159/2025 - xray at bedside for post ET placement and OG XR 2027 - prop started at 5mcg/min VORB from Dr. Aquino.
[2023-03-09 03:50] LABS: Alveolar/Arterial O2 Gradient 332.4 mmHg; Arterial Blood Gas PEEP 5 cmH2O; Arterial Blood Gas Tidal Volume 500 ml; Arterial Blood Gas Vent Mode CMV; Arterial Blood Gas Ventilator rate 18 /MIN; Base Excess ABG -4.7 mEq/l (+/-2.0); Device VENTILATOR; Fractional Inspired Oxygen 100 %; HCO3 ABG 19.3 mEq/l (22.0-26.0); Oxygen Content ABG 23.2 %vol (16.0-22.0); Oxygen Saturation ABG 99.8 % (95.0-100.0); Oxyhemoglobin 97.8 % THb (90.0-100.0); PCO2 ABG 33.1 mmHg (35.0-45.0); PO2 ABG 347.5 mmHg (80.0-100.0); PO2 FiO2 Ratio Arterial Blood 3.47 %; Site Drawn RIGHT BRACHIAL; Total Hemoglobin 16.3 g/dL (12.0-18.0); pH ABG 7.383 (7.350-7.450)
[2023-03-09] MEDS: VANCOMYCIN 1,250 MG/NS 250 ML 1,250 MG/250 ML BAG 166.67 MG IVPB (04:09)
--- NOTE | 2023-03-09 04:31 | WPDPROCEDUR ---
Procedures Intubation Intubation Date: 03/09/23 Intubation Time: 02:15 Consent: Performed emergently Sedative: etomidate Mg given: 20 Paralytic: succinylcholine Mg given: 100 Laryngoscope: fiber optic video scope ET tube size: 8 Tube secured depth (cm): 26 Tube secured location: lips Tube placement confirmation: visualized tube passing through cords, equal breath sounds bilaterally, no breath sounds over epigastrium and confirmation by capnometry Patient tolerated procedure: well Intubation complications: none
[2023-03-09 04:58] LABS: MRSA (PCR) NOT DETECTED (NOT DETECTE)
[2023-03-09] MEDS: REMDESIVIR 200 MG/NS 250 ML 200 MG/250 ML BAG 250 MG IVPB (05:42)
[2023-03-09 05:52] LABS: Basophils Percent Auto 0.2 % (0.2-1.2); Hematocrit 47.3 % (42.0-52.0); Immature Granulocyte Absolute 0.11 K/mm3 (0.00-0.031); Immature Granulocyte Percent A 0.8 % (0-0.5); Lymphocytes Absolute Auto 0.32 K/mm3 (0.9-3.2); Lymphocytes Percent Auto 2.2 % (18.3-44.2); Mean Corpuscular HGB Conc 31.7 g/dl (32-36); Mean Corpuscular Hemoglobin 31.4 pg (26-34); Mean Corpuscular Volume 99.2 fl (80-100); Mean Platelet Volume 10.9 fl (7.4-10.4); Monocytes Absolute Auto 1.1 K/mm3 (0.1-0.6); Monocytes Percent Auto 7.3 % (2.6-8.5); Neutrophils Percent Auto 89.5 % (45.5-73.1); Platelet Count Result 337 k/mm3 (150-375); Red Blood Count 4.77 M/mm3 (4.6-6.20); Red Cell Distribution Width 16.8 % (11.5-14.5); White Blood Count 14.5 K/mm3 (4.5-10.0)
[2023-03-09 06:07] LABS: Triglycerides 88 mg/dL (<150)
--- NOTE | 2023-03-09 06:45 | ADMGEN ---
0635 This patient, Jacky Chavez, was admitted to Intensive Care Unit-1. Patient/family oriented to hospital policies and general routines including ID bracelet, bed and alarms, visiting hours, pain management, procedures, bathroom and other care routines, personal items, smoking policy, room service/diet, and visiting hours. Information on how to activate the Rapid Response Team has been discussed. Patient/Family are encouraged to report perceived risks to care and to ask questions if they do not understand what they are told or what they should do.
[2023-03-09] MEDS: IPRATROPIUM BR 0.02% INH SOLN 0.5 MG/2.5 ML VIAL INHALATION ×3 (07:41→20:41)
[2023-03-09] MEDS: LEVALBUTEROL NEB 1.25 MG/3 ML INHALATION ×3 (07:41→20:42)
[2023-03-09] MEDS: ACETYLCYSTEINE 20% INHAL SOLN 800 MG/4 ML VIAL 200 MG INHALATION ×2 (07:42→14:10)
[2023-03-09 08:24] LABS: Alanine Aminotransferase 47 U/L (6-50); Albumin Level 3.5 g/dL (3.5-5.1); Alkaline Phosphatase 165 U/L (38-126); Anion Gap 10 mmol/L (8-16); Aspartate Amino Transferase 45 U/L (17-59); Bilirubin,Total 2.4 mg/dL (0.2-1.3); Blood Urea Nitrogen 31 mg/dL (9-20); Calcium 8.5 mg/dL (8.4-10.2); Carbon Dioxide 22 mmol/L (22-30); Chloride 115 mmol/L (98-107); Creatine Kinase 103 U/L (55-170); Estimated CRCL calculation 51 ml/min; Estimated Glomerular Filt Rate 48; Glucose 139 mg/dL (65-110); Magnesium 2.2 mg/dL (1.6-2.3); Phosphorus 4.3 mg/dL (2.5-4.5); Potassium 4.9 mmol/L (3.4-5.0); Sodium 147 mmol/L (137-145)
[2023-03-09 08:25] LABS: Lactic Acid Reflex 1.4 mmol/L (0.7-2.0)
[2023-03-09 08:27] LABS: Partial Thromboplastin Time 59.8 SECONDS (22.3-36.8)
[2023-03-09] MEDS: HEPARIN SOD/D5W 100 UNITS/ML 25,000 UNITS/250 ML BAG 14 UNITS IV CONT (08:37)
[2023-03-09] MEDS: SODIUM CHLORIDE 0.9% IV 1,000 ML 100 ML IV CONT (08:38)
[2023-03-09] MEDS: PANTOPRAZOLE SODIUM IV 40 MG VIAL IV PUSH (08:39)
[2023-03-09] MEDS: predniSONE 10 MG TABLET FEED TUBE (08:39)
[2023-03-09] MEDS: PIPERACILLIN/TAZ 4.5G/NS 100ML 4.5 GM/100 ML BAG IVPB ×4 (08:39→23:13)
[2023-03-09] MEDS: MINERAL OIL/WHITE PETROLATUM OINTMENT 1 APPLIC EACH EYE ×2 (08:39→20:40)
[2023-03-09 08:47] LABS: Procalcitonin 0.3 ng/mL
[2023-03-09] MEDS: HEPARIN SODIUM 5,000 UNITS/ML VIAL 3000 UNITS IV PUSH (09:05)
[2023-03-09] MEDS: ZIPRASIDONE HCL 20 MG CAPSULE FEED TUBE ×3 (09:05→17:35)
[2023-03-09] MEDS: VANCOMYCIN 1,000 MG/NS 250 ML 1,000 MG/250 ML BAG 250 MG IVPB (09:05)
--- NOTE | 2023-03-09 10:28 | PHAR ---
03/09 TALKED TO SHIVANI GARCIA BARICITINIB RENAL DOSE ADJUSTMENT TO 2 MG DAILY (GFR = 48)
[2023-03-09] MEDS: SODIUM CHLORIDE 0.45% 1,000 ML 100 ML IV CONT (10:54)
[2023-03-09] MEDS: BARICITINIB 2 MG TABLET PO (10:54)
[2023-03-09] MEDS: PROPOFOL IV EMULSION 100 ML 13.43 MG IV CONT ×2 (10:55→17:35)
--- NOTE | 2023-03-09 11:05 | WPDCNINT ---
Assessment and Plan Assessment and plan (1) Acute hypoxic respiratory failure: Code(s): J96.01 - Acute respiratory failure with hypoxia Status: Acute Assessment and Plan: Patient presented with altered mental status, bilateral PEs, acute hypoxic respiratory failure -03/08: intubated in the ER -remains on CMV mode of ventilation, peep of 5, 60% FiO2 wean FiO2 to maintain O2 sats greater than 92% -will tidal volume strategy -continue bronchodilators -start Pulmozyme and Mucomyst -continue propofol for sedation, maintain RASS of 0 to -2 (2) Bilateral pulmonary embolism: Code(s): I26.99 - Other pulmonary embolism without acute cor pulmonale Status: Acute Assessment and Plan: Continue heparin infusion -check echocardiogram (3) COVID-19: Code(s): U07.1 - COVID-19 Status: Acute Assessment and Plan: Patient was positive COVID-19 PCR here in the ER on admission -lungs are clear on chest x-ray -started on dexamethasone -will discontinue Remdesivir -start baricitinib, renally dosed (4) Sepsis: Qualifiers: Sepsis type: sepsis due to unspecified organism Sepsis acute organ dysfunction status: with acute organ dysfunction Severe sepsis acute organ dysfunction type: acute respiratory failure Acute respiratory failure type: with hypoxia Severe sepsis shock status: without septic shock Qualified Code(s): A41.9 - Sepsis, unspecified organism; R65.20 - Severe sepsis without septic shock; J96.01 - Acute respiratory failure with hypoxia Code(s): A41.9 - Sepsis, unspecified organism Status: Acute Assessment and Plan: Patient presented with acute respiratory failure, tachycardia, tachypnea, normal lactic acid -patient started on vancomycin and Zosyn for possible aspiration -sputum, urine and blood cultures have been obtained and pending -patient is not requiring any pressors -adequately fluid-resuscitated (5) Encephalopathy: Code(s): G93.40 - Encephalopathy, unspecified Status: Acute Assessment and Plan: Encephalopathy could be related to sepsis, hypoxia -ammonia levels within normal limits -will treat underlying cause Plan DVT prophylaxis: Heparin infusion for pulmonary embolism Stress ulcer prophylaxis: Protonix Nutrition: Will start tube feeds Code Status: Full code Critical Care Time Spent: 47 minutes Due to a high probability of clinically significant, life threatening deterioration, the patient required my highest level of preparedness to intervene emergently and I personally spent this critical care time directly and personally managing the patient. This critical care time included obtaining a history; examining the patient; pulse oximetry; ordering and review of studies; arranging urgent treatment with development of a management plan; evaluation of patient's response to treatment; frequent reassessment; and discussions with other providers. It was exclusive of separately billable procedures and treating other patients and teaching time. Please see Assessment and Plan section and the rest of the note for further information on patient assessment and treatment This dictation may have been done utilizing a voice recognition system. Attempts have been made to correct errors. However, there may be uncorrected grammatical, spelling, and recognitions errors present. [employer] Consult Note Consult date: 03/09/23 Reason for consult: Acute hypoxic respiratory failure, pulmonary embolism, altered mental status, tachycardia, HPI: Jacky Chavez is a 57 year old male with past medical history of DVT, CHF, essential hypertension, psychiatric disorder presented to the ER on 03/08/2023 with complains of acute hypoxia altered mental status, tachycardia, patient was recently admitted at [facility] in [facility] when he had a cardiac arrest requiring intubation. Extubated on 02/26/2023. [facility]
[2023-03-09] MEDS: DORNASE ALFA INH SOLN 1 MG/ML 2.5 ML AMP 2.5 MG INHALATION ×2 (14:16→20:41)
[2023-03-09 15:18] LABS: Partial Thromboplastin Time 151.3 SECONDS (22.3-36.8)
[2023-03-09 21:51] LABS: Partial Thromboplastin Time 118.5 SECONDS (22.3-36.8)
[2023-03-09 23:30] LABS: Glucose Point of Care 126 mg/dl (65-105)
[2023-03-10] VITALS (30 sets, daily range): BP systolic 92–124; BP diastolic 67–86; PULSE 80–102; RESP 17–25; TEMP 36.6–37.2; O2SAT 95–100
[2023-03-10] MEDS: PROPOFOL IV EMULSION 100 ML 13.43 MG IV CONT ×3 (01:30→14:16)
[2023-03-10] MEDS: IPRATROPIUM BR 0.02% INH SOLN 0.5 MG/2.5 ML VIAL INHALATION ×4 (01:47→21:23)
[2023-03-10] MEDS: LEVALBUTEROL NEB 1.25 MG/3 ML INHALATION ×4 (01:47→21:23)
[2023-03-10] MEDS: VANCOMYCIN 1,250 MG/NS 250 ML 1,250 MG/250 ML BAG 166.67 MG IVPB (04:04)
[2023-03-10 04:18] LABS: Basophils Percent Auto 0.2 % (0.2-1.2); Hematocrit 43.2 % (42.0-52.0); Hemoglobin 13.7 g/dL (14.0-18.0); Immature Granulocyte Absolute 0.06 K/mm3 (0.00-0.031); Immature Granulocyte Percent A 0.5 % (0-0.5); Lymphocytes Absolute Auto 1.81 K/mm3 (0.9-3.2); Lymphocytes Percent Auto 14.9 % (18.3-44.2); Mean Corpuscular HGB Conc 31.7 g/dl (32-36); Mean Corpuscular Hemoglobin 31.6 pg (26-34); Mean Corpuscular Volume 99.8 fl (80-100); Mean Platelet Volume 11.1 fl (7.4-10.4); Monocytes Absolute Auto 2.1 K/mm3 (0.1-0.6); Monocytes Percent Auto 17.4 % (2.6-8.5); Neutrophils Absolute Auto 8.1 K/mm3 (1.3-6.7); Platelet Count Result 320 k/mm3 (150-375); Red Blood Count 4.33 M/mm3 (4.6-6.20); White Blood Count 12.1 K/mm3 (4.5-10.0)
[2023-03-10 04:27] LABS: Lactic Acid Reflex 1.2 mmol/L (0.7-2.0)
[2023-03-10 04:28] LABS: Alanine Aminotransferase 36 U/L (6-50); Albumin Level 3.2 g/dL (3.5-5.1); Alkaline Phosphatase 134 U/L (38-126); Anion Gap 11 mmol/L (8-16); Aspartate Amino Transferase 33 U/L (17-59); Bilirubin,Total 1.2 mg/dL (0.2-1.3); Blood Urea Nitrogen 49 mg/dL (9-20); Calcium 8.2 mg/dL (8.4-10.2); Carbon Dioxide 21 mmol/L (22-30); Chloride 113 mmol/L (98-107); Estimated CRCL calculation 32 ml/min; Estimated Glomerular Filt Rate 28; Glucose 127 mg/dL (65-110); Magnesium 2.4 mg/dL (1.6-2.3); Phosphorus 5.2 mg/dL (2.5-4.5); Potassium 4.2 mmol/L (3.4-5.0); Sodium 145 mmol/L (137-145)
[2023-03-10 04:51] LABS: Alveolar/Arterial O2 Gradient 151.7 mmHg; Base Excess ABG -3.5 mEq/l (+/-2.0); Carboxyhemoglobin 0.2 % THb (0-2.0); Fractional Inspired Oxygen 40 %; Methemoglobin ABG 0.2 %THb (0-1.5); Modified Allen's Test Pass; Oxygen Content ABG 19.4 %vol (16.0-22.0); Oxygen Saturation ABG 96.1 % (95.0-100.0); Oxyhemoglobin 95.5 % THb (90.0-100.0); PCO2 ABG 41.1 mmHg (35.0-45.0); PO2 ABG 86.2 mmHg (80.0-100.0); PO2 FiO2 Ratio Arterial Blood 2.15 %; Reduced Hemoglobin 4.1 %THb (0-5.0); Site Drawn RIGHT RADIAL; Total Hemoglobin 14.4 g/dL (12.0-18.0); pH ABG 7.346 (7.350-7.450)
[2023-03-10 04:52] LABS: Arterial Blood Gas PEEP 5 cmH2O; Arterial Blood Gas Tidal Volume 480 ml; Arterial Blood Gas Vent Mode CMV; Arterial Blood Gas Ventilator rate 16 /MIN; Device VENTILATOR
[2023-03-10] MEDS: PIPERACILLIN/TAZ 4.5G/NS 100ML 4.5 GM/100 ML BAG IVPB (05:51)
[2023-03-10] MEDS: ACETYLCYSTEINE 20% INHAL SOLN 800 MG/4 ML VIAL 200 MG INHALATION ×3 (07:50→21:23)
[2023-03-10] MEDS: DORNASE ALFA INH SOLN 1 MG/ML 2.5 ML AMP 2.5 MG INHALATION ×2 (07:51→21:23)
--- NOTE | 2023-03-10 08:26 | PM.IMPN ---
Progress Note: A&P Assessment and Plan (1) Acute hypoxic respiratory failure: Code(s): J96.01 - Acute respiratory failure with hypoxia Status: Acute Assessment and Plan: Patient presented to the ED from a NH with altered mental status and found to have bilateral PEs and acute hypoxic respiratory failure -On presentation (03/08), patient unable to protect airway and noted to have a large amount of purulent mat'l in the oropharynx requiring suctioning. He was intubated in the ER. -CXR was clear. CTA chest showing acute PE in all lobes with mucous plugging in right mainstem bronchus. COVID positive. -Consider aspiration -Remains on mechanical ventilation, peep of 5, FiO2 30% -Continue bronchodilators. Continue anticoagulation. Continue Baricitinib and Dexamethasone -Also on Zosyn and Vanco. Consider adjusting since he has ANTWAN. -Pulmozyme and Mucomyst started -Continue propofol for sedation Apprecaite tool profiling machine set up operator input (2) Bilateral pulmonary embolism: Code(s): I26.99 - Other pulmonary embolism without acute cor pulmonale Status: Acute Assessment and Plan: Patient presents with altered mental status and found to have respiratory distress. -CXR was clear -CTA chest showing acute PE in all lobes with mucous plugging in right mainstem bronchus. -Patient with Bilat LE DVT at prior hospital and was on Xarelto at the [facility] prior to admission. --No DVT in the Bilat UE but had left cephalic vein thrombus. -Echo at the outside hosp showed moderately dilated RV with moderately reduced systolic fxn -Echo here showing EF 70%, Grade i diastolic dysfunction and RV hypokinesis -Probably had PE prior to admission at outside hospital -Continue heparin infusion -check doppler (3) COVID-19: Code(s): U07.1 - COVID-19 Status: Acute Assessment and Plan: Patient was positive COVID-19 PCR here in the ER on admission -Lungs are clear on chest x-ray -Started on dexamethasone and baricitinib, renally dosed -Repeat CXR remains clear and is 100% on 30% FiO2 -Resp failure felt related to mucous plug (4) Sepsis: Code(s): A41.9 - Sepsis, unspecified organism Status: Acute Assessment and Plan: Patient presented with acute respiratory failure, tachycardia, tachypnea, elevated WBC but normal lactic acid -patient started on vancomycin and Zosyn for possible aspiration -sputum, urine and blood cultures have been obtained and pending -patient is not requiring any pressors -adequately fluid-resuscitated -consider changing to Unasyn from Zosyn to decrease risk of worsening ANTWAN (5) Encephalopathy: Code(s): G93.40 - Encephalopathy, unspecified Status: Acute Assessment and Plan: Encephalopathy could be related to sepsis and hypoxia -ammonia levels within normal limits -Head CT showin gold lacunar infarcts in the bilateral basal ganglia and moderate nonspecific white matter dz. -reassess off sedation. (6) ANTWAN (acute kidney injury): Status: Acute Assessment and Plan: Patient with normal renal function on admission at 1.3 -Cr climbed today to 2.4 -Etilogy probably sepsis and/or obstructing stone and/or contrast and/or ATN -Consider also dehydration. Was on Lasix prior to admission -Renal US showing right proximal ureteral stone measuring 1.6cm causing moderate hydro but with normal renal echotexture. -UOP 500 yesterday and 375mL so far today. -start IV fluids if okay with tool profiling machine set up operator. Monitor UOP, electorlytes and renal function (7) Hydronephrosis with renal and ureteral calculous obstruction: Status: Acute Assessment and Plan: Patient with ANTWAN prompting a renal US which showed right proximal ureteral stone measuring 1.6cm causing moderate hydro -May be contributing to the sepsis picture. UA concerning for UTI. -Urology consult -Continue abx. -Follow up on UCx results Plan Patient on Prednisone 20mg daily on admission
[2023-03-10] MEDS: PANTOPRAZOLE SODIUM IV 40 MG VIAL IV PUSH (08:29)
[2023-03-10] MEDS: MINERAL OIL/WHITE PETROLATUM OINTMENT 1 APPLIC EACH EYE ×2 (08:29→21:40)
[2023-03-10] MEDS: ZIPRASIDONE HCL 20 MG CAPSULE FEED TUBE ×3 (08:29→18:05)
--- NOTE | 2023-03-10 10:48 | PCNFU ---
Nutrition Follow-Up Complete: Inadequate Oral Intake as related to mechanical vent as evidenced by NPO. goal: Meet estimated nutritional needs. Patient is progressing towards goal. We will continue current goal. Pt current nutrition is Vital AF 1.2 at 60 ml/hr. Last recorded weight is 88.6 kg, up from 87 kg on admit. Bowel Motility:No BM reported. Labs Reviewed:Glu 127,BUN 49, GFR 28, Mg 2.4,Alb 3.2 Meds Noted:Heparin, Vancomycin, Zosyn,, Protonix, Decadron, Propofol at 30 jxft=381 kcals. Skin:Bilateral Buttock-maceration Additional Notes: Patient remains on mechanical vent. Tube feedings on hold for CT scan. Vital AF 1.2 at 60 ml/hr providing 1584 kcals/99 gms protein/1071 ml water. Flush 30 ml q 4 hours. Propofol providing an additional 355 kcals. TG being monitored 03/09 TG 88 WNL. Agree with diet orders at this time. Will monitor weight, labs, skin, tube feeding tolerance in ICU rounds and reassessing every Wednesday and Wednesday.
[2023-03-10 11:33] LABS: Partial Thromboplastin Time 38.8 SECONDS (22.3-36.8)
[2023-03-10] MEDS: HEPARIN SODIUM 5,000 UNITS/ML VIAL 6500 UNITS IV PUSH (11:47)
[2023-03-10] MEDS: PIPERACILLN/TAZ 3.375GM/NS50ML 3.375 GM/50 ML BAG IVPB ×3 (11:48→23:45)
[2023-03-10] MEDS: BARICITINIB 2 MG TABLET PO (11:49)
--- NOTE | 2023-03-10 12:23 | WPDURCON ---
Assessment and Plan Assessment and plan (1) Hydronephrosis with renal and ureteral calculous obstruction: Status: Acute (2) ANTWAN (acute kidney injury): Status: Acute (3) Encephalopathy: Code(s): G93.40 - Encephalopathy, unspecified Status: Acute (4) Sepsis: Qualifiers: Sepsis type: sepsis due to unspecified organism Sepsis acute organ dysfunction status: with acute organ dysfunction Severe sepsis acute organ dysfunction type: acute respiratory failure Acute respiratory failure type: with hypoxia Severe sepsis shock status: without septic shock Qualified Code(s): A41.9 - Sepsis, unspecified organism; R65.20 - Severe sepsis without septic shock; J96.01 - Acute respiratory failure with hypoxia Code(s): A41.9 - Sepsis, unspecified organism Status: Acute Plan 57-year-old man with sepsis, possibly of urinary origin, acute renal insufficiency, large right proximal ureteral stone --I reviewed the imaging and laboratory studies. I discussion with the patient's ICU physician. Recommend intervention to drain the right kidney which hopefully will improve his clinical picture. As the patient has no family available consent will be obtained via hospital staff physicians. --risk of ureteral stent insertion include but are not limited to inability to place a stent, each for additional operations, injury to the kidney ureter bladder, complications from anesthetic, worsening sepsis, inability of stent placement to improve his clinical picture. --plan emergent cystoscopy, right retrograde pyelogram right ureteral stent insertion. --continue broad-spectrum antibiotics, laboratory monitoring, and ICU care. Urology Consult Note HPI Date Seen: 03/10/23 Requesting Physician: Virginia Aquino DO Primary Care Provider: Tomás Alvares MD Consult Narrative Narrative: Jacky Chavez is a 57 year old male admitted to the [facility]ensive [facility]. History obtained from the chart as well as from the ICU team. The patient apparently was found down initially and managed at [facility], discharged to a nursing facility and then admitted to [facility] yesterday with concerns in regards to respiratory sepsis. Patient underwent renal ultrasound this morning showing right hydronephrosis, therefore a CT scan was performed showing moderate right hydronephrosis secondary to a 1.8cm proximal ureteral stone. Urology was called to assess the patient. [facility] Past Medical History Medical History CHF (congestive heart failure) DVT (deep venous thrombosis) Hypertension Psychiatric disorder Surgical History Surgical History Surgical history unknown Family History Family History (Updated 03/09/23 @ 03:58 by Virginia Aquino DO) Other Unknown family medical history Social History Social History (Updated 03/09/23 @ 04:00 by Virginia Aquino DO) Social History: Specific sulcal history is unknown. Patient is currently residing at [facility] since his hospitalization in late February. Code status: Full code Smoking status: Unknown if ever smoked Additional smoking assessment comments: unknown Alcohol intake: unknown Substance use: unknown Lack of Transportation: No Lack of Food: Never True Current Housing: I Have Housing Concerned About Future Housing: No Difficulty Paying Gas/Electric Bills: No Difficulty Paying for Meds: No Currently Unemployed: No Education: Don't Know Difficulty w/ Childcare or Family Care: No Spiritual care concerns: No Meds Home Medications and Allergies Home Medications Medication Instructions Recorded Confirmed Type acetaminophen 650 mg rectal 650 mg RECTAL Q8H PRN pain 1-3 or 03/09/23 03/09/23 History suppository fever albuterol sulfate 2.5 mg/3 mL 2.5 mg inhalation
--- NOTE | 2023-03-10 12:57 | WPDANESEPP ---
Anes - Eval Pre Procedure Procedure: Operation Date: 03/10/23 15:00 Proposed Procedures p Cystoscopy, Right Retrograde Pyelogram, Right Stent Placement - Ash Tracy MD Date/Time: 03/10/23 12:57 Surgeon: Rajinder<del>patricio,</del> <del>Ash</del> Preop Diagnosis: Right Hydronephrosis with renal and ureteral calculus Pre Op Diagnosis: COVID Pneumonia Patient Data Age: 57 Gender: M Height: 1.78 m Weight: 88.6 kg Last Vital Signs Temp 98.9 F 03/10/23 12:00 Pulse 96 03/10/23 12:00 Resp 23 H 03/10/23 12:00 BP 118/81 03/10/23 12:00 Pulse Ox 100 03/10/23 12:00 O2 Del Method Mechanical Ventilation 03/10/23 12:00 O2 Flow Rate 4 03/09/23 01:58 FiO2 30 03/10/23 12:00 Allergies Allergy/AdvReac Type Severity Reaction Status Date / Time No Known Allergies Allergy Verified 03/08/23 18:36 Home Medications Medication Instructions Recorded Confirmed Type acetaminophen 650 mg rectal 650 mg RECTAL Q8H PRN pain 1-3 or 03/09/23 03/09/23 History suppository fever albuterol sulfate 2.5 mg/3 mL 2.5 mg inhalation Q6H 03/09/23 03/09/23 History (0.083 %) solution for nebulization furosemide 20 mg tablet 20 mg PO DAILY 03/09/23 03/09/23 History hydralazine 10 mg tablet 10 mg PO Q8H 03/09/23 03/09/23 History metoprolol tartrate 25 mg tablet 25 mg PO BID 03/09/23 03/09/23 History prednisone 10 mg tablet 10 mg PO DAILY 03/09/23 03/09/23 History rivaroxaban 15 mg tablet (Xarelto) 15 mg PO BID 03/09/23 03/09/23 History ziprasidone HCl 20 mg capsule 20 mg PO TID 03/09/23 03/09/23 History Laboratory Tests 03/09/23 03/09/23 03/09/23 14:58 21:29 23:13 WBC RBC Hgb Hct MCV MCH MCHC RDW Plt Count MPV Immature Gran % (Auto) Neut % (Auto) Lymph % (Auto) [place] % (Auto) Eos % (Auto) Baso % (Auto) Lymph # (Auto) [place] # (Auto) Eos # (Auto) Baso # (Auto) Abs Immat Gran (auto) Absolute Neuts (auto) Absolute Nucleated RBC Nucleated RBC % APTT 151.3 H SECONDS 118.5 H SECONDS (22.3-36.8) (22.3-36.8) Puncture Site ABG pH ABG pCO2 ABG pO2 ABG PO2/FiO2 Ratio ABG HCO3 ABG O2 Saturation ABG O2 Content ABG Base Excess A-a Gradient Oxyhemoglobin Carboxyhemoglobin Methemoglobin Reduced Hemoglobin Total Hemoglobin O2 Delivery Device O2 Liters/Min Minute Volume Vent Rate Vent Mode FiO2 Tidal Volume PEEP Peak Inspir Pressure Pressure Support Sodium Potassium Chloride Carbon Dioxide Anion Gap BUN Creatinine Estim Creat Clear Calc Estimated GFR Glucose POC Capillary Glucose 126 H mg/dl (65-105) Lactic Acid Calcium Phosphorus Magnesium Total Bilirubin AST ALT Alkaline Phosphatase Total Protein Albumin 03/10/23 03/10/23 03/10/23 04:05 04:38 11:17 WBC 12.1 H K/mm3 (4.5-10.0) RBC 4.33 L M/mm3 (4.6-6.20) Hgb 13.7 L g/dL (14.0-18.0) Hct 43.2 % (42.0-52.0) MCV 99.8 fl (80-100) MCH 31.6 pg (26-34) MCHC 31.7 L g/dl (32-36) RDW 17.0 H % (11.5-14.5) Plt Count 320 k/mm3 (150-375) MPV 11.1 H fl (7.4-10.4) Immature Gran % (Auto) 0.5 %
--- NOTE | 2023-03-10 13:34 | WPDINTPN ---
Progress Note: A&P Assessment and Plan (1) Acute hypoxic respiratory failure: Code(s): J96.01 - Acute respiratory failure with hypoxia Status: Acute Assessment and Plan: Patient presented with altered mental status, bilateral PEs, acute hypoxic respiratory failure, mucus plugging question aspiration -03/08: intubated in the ER -remains on CMV mode of ventilation, peep of 5, 60% FiO2 wean FiO2 to maintain O2 sats greater than 92% -low tidal volume strategy -continue bronchodilators -start Pulmozyme and Mucomyst -continue propofol for sedation, maintain RASS of 0 to -2 -hold weaning as patient is going to operating room - Continue Zosyn (2) Bilateral pulmonary embolism: Code(s): I26.99 - Other pulmonary embolism without acute cor pulmonale Status: Acute Assessment and Plan: CTA chest-acute pulmonary embolism in all lobes Continue heparin infusion Echocardiogram Summary ? 1. Complete two-dimensional, color flow and Doppler transthoracic echocardiogram is performed. ? 2. Normal left ventricular size and with mild concentric hypertrophy, and with hyperdynamic left ventricular systolic function.? Ejection fraction greater than 70%.? Grade 1 diastolic dysfunction is present. ? 3. Right ventricle not well visualized but appears mildly hypokinetic. ? 4. Dilated inferior vena cava consistent with elevated right heart pressure. ? 5. Right ventricular systolic pressure cannot be adequate evaluated by this study. ? 6. No significant valve disease. ? 7. Normal sinus rhythm. ? 8. Technically difficult study due to the patient being on a ventilator etc. (3) COVID-19: Code(s): U07.1 - COVID-19 Status: Acute Assessment and Plan: Patient was positive COVID-19 PCR here in the ER on admission -lungs are clear on chest x-ray -patient was started on dexamethasone which will be continued -not on Remdesivir -although patient is on ventilator, patient does not appear to have COVID pneumonia. Will discontinue baricitinib in light of sepsis from UTI and aspiration pneumonia (4) Sepsis: Qualifiers: Sepsis type: sepsis due to unspecified organism Sepsis acute organ dysfunction status: with acute organ dysfunction Severe sepsis acute organ dysfunction type: acute respiratory failure Acute respiratory failure type: with hypoxia Severe sepsis shock status: without septic shock Qualified Code(s): A41.9 - Sepsis, unspecified organism; R65.20 - Severe sepsis without septic shock; J96.01 - Acute respiratory failure with hypoxia Code(s): A41.9 - Sepsis, unspecified organism Status: Acute Assessment and Plan: Patient presented with acute respiratory failure, tachycardia, tachypnea, normal lactic acid -patient was started on vancomycin and Zosyn for possible aspiration and UTI -blood cultures growing Gram-positive bacilli in 1 bottle, urine and sputum cultures are pending -patient is not requiring any pressors -adequately fluid-resuscitated -discontinue vancomycin but continue Zosyn (5) Encephalopathy: Code(s): G93.40 - Encephalopathy, unspecified Status: Acute Assessment and Plan: Encephalopathy could be related to sepsis, hypoxia -ammonia levels within normal limits Head CT IMPRESSION: 1. Old lacunar infarcts in the bilateral basal ganglia. 2. Moderate nonspecific cerebral white matter disease, which likely represents chronic small vessel ischemic disease. (6) Hydronephrosis with renal and ureteral calculous obstruction: Status: Acute Assessment and Plan: Renal ultrasound - Right proximal ureteral stone measuring 1.6 cm causing moderate hydronephrosis. CT abdomen pelvis - 1. Proximal right ureteral stone near the UPJ measuring 1.8 cm with moderate hydronephrosis. Patient has a right ureteral stone which is obstructing and causing hydronephrosis and renal. Discussed with Urology and plan to place a stent. Patient does not have any family or guardian to pr
--- NOTE | 2023-03-10 15:00 | WPDHPUPDATE1 ---
History and Physical Update Update Date/Time: 03/10/23 15:00 History and Physical has been reviewed, including an updated exam of the patient. There are NO changes in the patient's condition. Risks, benefits, and alternatives have been discussed and questions answered. Patient agrees to proceed with procedure.
--- NOTE | 2023-03-10 16:43 | P.PNAN_ITS ---
Anes - Eval Final PreProcedure Day of Procedure 03/10/23 16:43 Patient weight: overweight Heart: regular rate and rhythm Lungs: clear to auscultation Airway: other (intubated) Neurological: other (sedated) Last oral intake: >/= 8 hours ASA classification: IV Emergent: yes Anesthetic plan: proceed Anesthesia type and monitoring: general ETT and standard monitoring Results Review: All pre-operative results and documents have been reviewed as part of the pre- operative evaluation. Informed Consent: The patient's anesthetic plan and its attendant risks and benefits were discussed with the patient/family/POA. Questions were solicited and answers provided to the satisfaction of the patient/family/POA.
--- NOTE | 2023-03-10 17:30 | P.OP_ITS ---
Procedure Note - Detailed Date of Procedure 03/10/23 Pre-op Diagnosis Right ureteral stone, hydronephrosis, sepsis Post-op Diagnosis Same Procedure Performed Cystoscopy, right retrograde pyelogram, right ureteral stent insertion Surgeon Ash Tracy MD Anesthesia General Findings Large right proximal ureteral stone and associated hydronephrosis. Extreme tortuosity of the right ureter. Description of Procedure Consent was obtained from medical team. Patient taken the operating room. He is receiving IV antibiotics in the ICU. He was prepped and draped in the normal sterile fashion in the dorsal lithotomy position. A 22 [place] cystoscope was inserted through the urethra into the bladder. Inspection of the bladder revealed trabeculation and many small stone fragments. No mass. Plain film x- ray revealed the large stone in the area of the right proximal ureter. The right ureteral orifice was cannulated in a retrograde pyelogram was performed. Retrograde pyelogram revealed extreme tortuosity of the right ureter and then hydronephrosis above the level of the stone. We were able to manipulate the wire beyond the level of the stone with some difficulty. We were unable to advance a 5 [place] open-ended catheter over the wire. We therefore removed the angiographic catheter. Under fluoroscopic guidance, pressure was placed onto the 4.8 very blink stent and we were able to manipulate the stent beyond the level of the stone into the renal pelvis. There was a curl in the renal pelvis and then a curl the bladder. We then cannulated the distal end of the ureter with a 5 [place] catheter and again retrograde pyelogram was performed confirming appropriate placement of the stent. We then emptied the bladder with an 18 [place] Wilson catheter. Patient was then taken back to the ICU in critical condition Pathology None sent Complications No immediate complications Condition Critical Disposition ICU
[2023-03-10 18:19] LABS: Glucose Point of Care 110 mg/dl (65-105)
[2023-03-10] MEDS: HEPARIN SOD/D5W 100 UNITS/ML 25,000 UNITS/250 ML BAG 13 UNITS IV CONT (21:39)
[2023-03-10] MEDS: FLUCONAZOLE 200 MG/NACL 100 ML 200 MG/100 ML BAG 100 MG IVPB (21:40)
[2023-03-10] MEDS: PROPOFOL IV EMULSION 100 ML 8.06 MG IV CONT (21:40)
[2023-03-10 23:52] LABS: Glucose Point of Care 103 mg/dl (65-105)
[2023-03-11] VITALS (28 sets, daily range): BP systolic 89–158; BP diastolic 63–100; PULSE 83–111; RESP 17–29; TEMP 37–38.7; O2SAT 93–100
[2023-03-11 01:26] LABS: Partial Thromboplastin Time 40.1 SECONDS (22.3-36.8)
[2023-03-11] MEDS: HEPARIN SODIUM 5,000 UNITS/ML VIAL 6500 UNITS IV PUSH (01:59)
[2023-03-11] MEDS: IPRATROPIUM BR 0.02% INH SOLN 0.5 MG/2.5 ML VIAL INHALATION ×4 (02:52→20:36)
[2023-03-11] MEDS: ACETYLCYSTEINE 20% INHAL SOLN 800 MG/4 ML VIAL 200 MG INHALATION ×4 (02:52→20:36)
[2023-03-11] MEDS: LEVALBUTEROL NEB 1.25 MG/3 ML INHALATION ×4 (02:52→20:37)
[2023-03-11 03:58] LABS: Basophils Absolute Auto 0.1 K/mm3 (0.0-0.1); Basophils Percent Auto 0.3 % (0.2-1.2); Eosinophils Percent Auto 0.1 % (0-4.4); Hematocrit 45.5 % (42.0-52.0); Hemoglobin 14.3 g/dL (14.0-18.0); Immature Granulocyte Absolute 0.07 K/mm3 (0.00-0.031); Immature Granulocyte Percent A 0.4 % (0-0.5); Lymphocytes Percent Auto 15.8 % (18.3-44.2); Mean Corpuscular HGB Conc 31.4 g/dl (32-36); Mean Corpuscular Hemoglobin 31.4 pg (26-34); Mean Platelet Volume 11.4 fl (7.4-10.4); Monocytes Absolute Auto 1.7 K/mm3 (0.1-0.6); Monocytes Percent Auto 10.2 % (2.6-8.5); Neutrophils Absolute Auto 12.5 K/mm3 (1.3-6.7); Neutrophils Percent Auto 73.2 % (45.5-73.1); Platelet Count Result 335 k/mm3 (150-375); Red Blood Count 4.55 M/mm3 (4.6-6.20); Red Cell Distribution Width 17.6 % (11.5-14.5); White Blood Count 17.1 K/mm3 (4.5-10.0)
[2023-03-11 04:17] LABS: Lactic Acid Reflex 2.1 mmol/L (0.7-2.0)
[2023-03-11 04:18] LABS: Alanine Aminotransferase 33 U/L (6-50); Albumin Level 3.5 g/dL (3.5-5.1); Alkaline Phosphatase 129 U/L (38-126); Anion Gap 10 mmol/L (8-16); Aspartate Amino Transferase 40 U/L (17-59); Bilirubin,Total 1.1 mg/dL (0.2-1.3); Blood Urea Nitrogen 54 mg/dL (9-20); Calcium 8.2 mg/dL (8.4-10.2); Carbon Dioxide 21 mmol/L (22-30); Chloride 115 mmol/L (98-107); Estimated CRCL calculation 39 ml/min; Estimated Glomerular Filt Rate 35; Glucose 119 mg/dL (65-110); Magnesium 2.3 mg/dL (1.6-2.3); Phosphorus 4.1 mg/dL (2.5-4.5); Potassium 4.3 mmol/L (3.4-5.0); Sodium 146 mmol/L (137-145); Triglycerides 80 mg/dL (<150)
[2023-03-11 05:43] LABS: Alveolar/Arterial O2 Gradient 97.6 mmHg; Base Excess ABG -2.6 mEq/l (+/-2.0); Carboxyhemoglobin 0.3 % THb (0-2.0); Fractional Inspired Oxygen 30 %; HCO3 ABG 21.4 mEq/l (22.0-26.0); Methemoglobin ABG 0.3 %THb (0-1.5); Oxygen Saturation ABG 95.1 % (95.0-100.0); Oxyhemoglobin 94.5 % THb (90.0-100.0); PCO2 ABG 35.5 mmHg (35.0-45.0); PO2 ABG 74.6 mmHg (80.0-100.0); PO2 FiO2 Ratio Arterial Blood 2.49 %; Reduced Hemoglobin 4.9 %THb (0-5.0); Total Hemoglobin 16.6 g/dL (12.0-18.0); pH ABG 7.399 (7.350-7.450)
[2023-03-11 05:45] LABS: Arterial Blood Gas Vent Mode CMV; Arterial Blood Gas Ventilator rate 16 /MIN; Device VENTILATOR; Modified Allen's Test Pass; Site Drawn LEFT RADIAL
[2023-03-11 05:46] LABS: Arterial Blood Gas PEEP 5 cmH2O; Arterial Blood Gas Tidal Volume 480 ml
[2023-03-11] MEDS: PIPERACILLN/TAZ 3.375GM/NS50ML 3.375 GM/50 ML BAG IVPB ×3 (05:58→17:30)
[2023-03-11 06:55] LABS: Reflex Lactic Acid Yes or No Add Lactic
[2023-03-11] MEDS: PROPOFOL IV EMULSION 100 ML 13.43 MG IV CONT (07:03)
--- NOTE | 2023-03-11 07:23 | WPDUROPN2 ---
Progress Note: A&P Assessment and Plan (1) Hydronephrosis with renal and ureteral calculous obstruction: Status: Acute (2) ANTWAN (acute kidney injury): Status: Acute (3) Sepsis: Qualifiers: Sepsis type: sepsis due to unspecified organism Sepsis acute organ dysfunction status: with acute organ dysfunction Severe sepsis acute organ dysfunction type: acute respiratory failure Acute respiratory failure type: with hypoxia Severe sepsis shock status: without septic shock Qualified Code(s): A41.9 - Sepsis, unspecified organism; R65.20 - Severe sepsis without septic shock; J96.01 - Acute respiratory failure with hypoxia Code(s): A41.9 - Sepsis, unspecified organism Status: Acute Assessment and Plan: Marginal u/o but serum creat. improved ovenight. Large, calcified right proximal ureteral calculus - will need definitive intervention once medically improved/stable. Likely, best option will be with serial ESWL. Subjective Subjective Date/Time Seen: 03/11/23 07:23 Interval history: Intubated/sedated Review of Systems Review of Systems: ROS unobtainable: Yes unobtainable due to endotracheal tube Exam Const: General: no acute distress Resp: Effort & Inspection: normal respiratory effort GI: Inspection: non-distended GI Palp: No abdominal tenderness and No Guarding due to palpation present (GI) Auscultation: normal bowel sounds Urinary Catheter: Urinary Catheter: patent and draining and urine clear Objective Data Vital Signs Vital Signs: Vital Signs - 24 hr 03/10/23 07:55 03/10/23 07:55 03/10/23 08:00 Temperature 98.7 F Pulse Rate 88 88 89 Respiratory Rate 18 23 H Blood Pressure 122/79 Pulse Oximetry 100 100 Oxygen Delivery Mechanical Ventilation Fraction of Inspired Oxygen 30 03/10/23 08:31 03/10/23 08:00 03/10/23 08:00 Temperature Pulse Rate 90 89 Respiratory Rate 23 H Blood Pressure Pulse Oximetry Oxygen Delivery Fraction of Inspired Oxygen 30 03/10/23 08:00 03/10/23 10:00 03/10/23 10:00 Temperature Pulse Rate 88 86 Respiratory Rate 20 Blood Pressure 92/67 L Pulse Oximetry 100 100 Oxygen Delivery Mechanical Ventilation Fraction of Inspired Oxygen 30 03/10/23 10:45 03/10/23 12:00 03/10/23 12:00 Temperature 98.9 F Pulse Rate 86 98 Respiratory Rate 23 H Blood Pressure 118/81 Pulse Oximetry 99 100 100 Oxygen Delivery Mechanical Ventilation Mechanical Ventilation Fraction of Inspired Oxygen 30 30 03/10/23 12:00 03/10/23 12:00 03/10/23 13:35 Temperature Pulse Rate 96 95 Respiratory Rate Blood Pressure Pulse Oximetry 100 Oxygen Delivery Mechanical Ventilation Fraction of Inspired Oxygen 30 30 03/10/23 13:35 03/10/23 13:52 03/10/23 14:16 Temperature Pulse Rate 95 100 100 Respiratory Rate 24 H 25 H 25 H Blood Pressure Pulse Oximetry Oxygen Delivery Fraction of Inspired Oxygen 03/10/23 14:00 03/10/23 14:00 03/10/23 16:00 Temperature Pulse Rate 95 102 H 95 Respiratory Rate 23 H Blood Pressure 123/83 Pulse Oximetry 100 Oxygen Delivery Fraction of Inspired Oxygen 03/10/23 16:00 03/10/23 16:00 03/10/23 16:00 Temperature 98 F Pulse Rate 93 Respiratory Rate 22 H Blood Pressure 104/78 Pulse Oximetry 100 100 Oxygen Delivery Mechanical Ventilation Fraction of Inspired Oxygen 30 30 03/10/23 18:00 03/10/23 18:00 03/10/23 16:00 Temperature Pulse Rate 91 85 85 Respiratory Rate 24 H 24 H Blood Pressure 119/82 Pulse Oximetry 100 Oxygen Delivery Fraction of Inspired Oxygen 03/10/23 18:00 03/10/23 19:16 03/10/23 19:38 Temperature Pulse Rate 85 81 81 Respiratory Rate 24 H 20 Blood Pressure Pulse Oximetry Oxygen Delivery Fraction of Inspired Oxygen 03/10/23 19:39 03/10/23 19:39 03/10/23 20:00 Temperature 98.1 F Pulse Rate 81 81 Respiratory Rate 20 20 Blood Press
[2023-03-11] MEDS: DORNASE ALFA INH SOLN 1 MG/ML 2.5 ML AMP 2.5 MG INHALATION ×2 (07:53→20:36)
[2023-03-11 07:55] LABS: Lactic Acid 1.4 mmol/L (0.7-2.0)
[2023-03-11 08:10] LABS: Partial Thromboplastin Time 98.6 SECONDS (22.3-36.8)
[2023-03-11] MEDS: PANTOPRAZOLE SODIUM IV 40 MG VIAL IV PUSH (08:34)
[2023-03-11] MEDS: ZIPRASIDONE HCL 20 MG CAPSULE FEED TUBE ×3 (08:34→17:32)
[2023-03-11] MEDS: MINERAL OIL/WHITE PETROLATUM OINTMENT 1 APPLIC EACH EYE (08:34)
[2023-03-11] MEDS: DEXTROSE 5% 1,000 ML 1,000 ML 100 ML IVPB (09:12)
--- NOTE | 2023-03-11 09:30 | WPDINTPN ---
Progress Note: A&P Assessment and Plan (1) Acute hypoxic respiratory failure: Code(s): J96.01 - Acute respiratory failure with hypoxia Status: Acute Assessment and Plan: Patient presented with altered mental status, bilateral PEs, acute hypoxic respiratory failure, mucus plugging question aspiration -03/08: intubated in the ER -remains on CMV mode of ventilation, peep of 5, 30% FiO2 wean FiO2 to maintain O2 sats greater than 92% With discontinue sedation and placed patient on PSV. Patient is tolerating 8/8 at this time. Will evaluate for extubation depending on his mental status and results of pressure support trial - Continue Zosyn (2) Bilateral pulmonary embolism: Code(s): I26.99 - Other pulmonary embolism without acute cor pulmonale Status: Acute Assessment and Plan: CTA chest-acute pulmonary embolism in all lobes Continue heparin infusion Not in shock Echocardiogram Summary ? 1. Complete two-dimensional, color flow and Doppler transthoracic echocardiogram is performed. ? 2. Normal left ventricular size and with mild concentric hypertrophy, and with hyperdynamic left ventricular systolic function.? Ejection fraction greater than 70%.? Grade 1 diastolic dysfunction is present. ? 3. Right ventricle not well visualized but appears mildly hypokinetic. ? 4. Dilated inferior vena cava consistent with elevated right heart pressure. ? 5. Right ventricular systolic pressure cannot be adequate evaluated by this study. ? 6. No significant valve disease. ? 7. Normal sinus rhythm. ? 8. Technically difficult study due to the patient being on a ventilator etc. (3) COVID-19: Code(s): U07.1 - COVID-19 Status: Acute Assessment and Plan: Patient was positive COVID-19 PCR here in the ER on admission -lungs are clear on chest x-ray accept the mucus plugging and probable aspiration pneumonia -patient was started on dexamethasone which will be continued -he was not started on Remdesivir -although patient is on ventilator, patient does not appear to have COVID pneumonia. Will discontinue baricitinib in light of sepsis from UTI and aspiration pneumonia (4) Sepsis: Qualifiers: Acute respiratory failure type: with hypoxia Sepsis acute organ dysfunction status: with acute organ dysfunction Sepsis type: sepsis due to unspecified organism Severe sepsis acute organ dysfunction type: acute respiratory failure Severe sepsis shock status: without septic shock Qualified Code(s): A41.9 - Sepsis, unspecified organism; R65.20 - Severe sepsis without septic shock; J96.01 - Acute respiratory failure with hypoxia Code(s): A41.9 - Sepsis, unspecified organism Status: Acute Assessment and Plan: Patient presented with acute respiratory failure, tachycardia, tachypnea, normal lactic acid -patient was started on vancomycin and Zosyn for possible aspiration and UTI -blood cultures growing Gram-positive bacilli in 1 bottle, urine and sputum cultures are pending -patient is not requiring any pressors -adequately fluid-resuscitated -discontinued vancomycin but continue Zosyn Urine culture is also growing Shanon glabrata-started on high-dose fluconazole (5) Encephalopathy: Code(s): G93.40 - Encephalopathy, unspecified Status: Acute Assessment and Plan: Encephalopathy could be related to sepsis, hypoxia -ammonia levels within normal limits Head CT IMPRESSION: 1. Old lacunar infarcts in the bilateral basal ganglia. 2. Moderate nonspecific cerebral white matter disease, which likely represents chronic small vessel ischemic disease. Hold propofol (6) Hydronephrosis with renal and ureteral calculous obstruction: Status: Acute Assessment and Plan: Renal ultrasound - Right proximal ureteral stone measuring 1.6 cm causing moderate hydronephrosis. CT abdomen pelvis - 1. Proximal right ureteral stone near the UPJ measuring 1.8 cm with moderate hydronephrosis. 03/10 Patient
--- NOTE | 2023-03-11 10:48 | PCFNICU ---
ICU Rounding Note: Pt current nutrition is Vital AF 1.2 at 60 ml/hr. Last recorded weight is 86.5 kg-stable Bowel Motility:loosing stools noted per nursing. No documentation on BM. Labs Reviewed:Glu 119, BUN 54, Cr 2.0,GFR 35 Meds Noted:Propofol 13.43 ml/gm=368 kcals,Heparin, Vancomycin Skin: WNL Additional Notes: Patient remains on mechanical vent and tube feedings of Vital AF 1.2 at 60 ml/hr. Tolerating per nursing. Patient is having large amounts of stool. Discussed with Plush Finisher today recommending Banatrol Plus TF BID for stool bulking. Agree with diet orders. Following daily in ICU rounds. Will monitor weight, labs, skin, tube feeding tolerance in ICU rounds and reassessing every Wednesday and Wednesday.
[2023-03-11] MEDS: HEPARIN SOD/D5W 100 UNITS/ML 25,000 UNITS/250 ML BAG 16 UNITS IV CONT (12:41)
[2023-03-11] MEDS: FLUCONAZOLE 100 MG TABLET 200 MG PO (12:42)
[2023-03-11 12:57] LABS: Glucose Point of Care 153 mg/dl (65-105)
--- NOTE | 2023-03-11 13:51 | WPDANESPN ---
Anes - Prog Note Post-Op Date/Time: 03/11/23 13:51 Vital Signs: Last Vital Signs Temp 37.6 C 03/11/23 12:00 Pulse 96 03/11/23 12:00 Resp 22 H 03/11/23 12:00 BP 135/80 03/11/23 12:00 Pulse Ox 96 03/11/23 12:00 O2 Del Method Mechanical Ventilation 03/11/23 12:00 O2 Flow Rate 4 03/09/23 01:58 FiO2 30 03/11/23 12:00 Pain Score (VAS): 0 I/O: Intake & Output 03/10/23 03/11/23 03/11/23 23:59 07:59 15:59 Intake Total 367 880 250 Output Total 410 650 Balance -43 230 250 Laboratory Tests 03/11/23 03:37 03/11/23 03:37 03/10/23 03/10/23 03/11/23 18:00 23:44 00:21 WBC RBC Hgb Hct MCV MCH MCHC RDW Plt Count MPV Immature Gran % (Auto) Neut % (Auto) Lymph % (Auto) Eagle % (Auto) Eos % (Auto) Baso % (Auto) Lymph # (Auto) Eagle # (Auto) Eos # (Auto) Baso # (Auto) Abs Immat Gran (auto) Absolute Neuts (auto) Absolute Nucleated RBC Nucleated RBC % APTT 40.1 H Puncture Site ABG pH ABG pCO2 ABG pO2 ABG PO2/FiO2 Ratio ABG HCO3 ABG O2 Saturation ABG O2 Content ABG Base Excess A-a Gradient Oxyhemoglobin Carboxyhemoglobin Methemoglobin Reduced Hemoglobin Total Hemoglobin O2 Delivery Device O2 Liters/Min Minute Volume Vent Rate Vent Mode FiO2 Tidal Volume PEEP Peak Inspir Pressure Pressure Support Sodium Potassium Chloride Carbon Dioxide Anion Gap BUN Creatinine Estim Creat Clear Calc Estimated GFR Glucose POC Capillary Glucose 110 H 103 Lactic Acid Calcium Phosphorus Magnesium Total Bilirubin AST ALT Alkaline Phosphatase Total Protein Albumin Triglycerides 03/11/23 03/11/23 03/11/23 03:37 05:15 07:38 WBC 17.1 H RBC 4.55 L Hgb 14.3 Hct 45.5 MCV 100.0 MCH 31.4 MCHC 31.4 L RDW 17.6 H Plt Count 335 MPV 11.4 H Immature Gran % (Auto) 0.4 Neut % (Auto) 73.2 H Lymph % (Auto) 15.8 L Eagle % (Auto) 10.2 H Eos % (Auto) 0.1 Baso % (Auto) 0.3 Lymph # (Auto) 2.70 Eagle # (Auto) 1.7 H Eos # (Auto) 0.0 Baso # (Auto) 0.1 Abs Immat Gran (auto) 0.07 H Absolute Neuts (auto) 12.5 H Absolute Nucleated RBC 0.0 Nucleated RBC % 0.0 APTT 98.6 H Puncture Site Left radial ABG pH 7.399 ABG pCO2 35.5 ABG pO2 74.6 L ABG PO2/FiO2 Ratio 2.49 ABG HCO3 21.4 L ABG O2 Saturation 95.1 ABG O2 Content 22.0 ABG Base Excess -2.6 A-a Gradient 97.6 Oxyhemoglobin 94.5 Carboxyhemoglobin 0.3 Methemoglobin 0.3 Reduced Hemoglobin 4.9 Total Hemoglobin 16.6 O2 Delivery Device Ventilator O2 Liters/Min Not Reportable Minute Volume Not Reportable Vent Rate 16 Vent Mode Cmv FiO2 30 Tidal Volume 480 PEEP 5 Peak Inspir Pressure Not Reportable Pressure Support Not Reportable Sodium 146 H Potassium 4.3 Chloride 115 H Carbon Dioxide 21 L Anion Gap 10 BUN 54 H Creatinine 2.00 H Estim Creat Clear Calc 39 Estimated GFR 35 L Glucose 119 H POC Capillary Glucose Lactic Acid 2.1 H 1.4 Calcium 8.2 L Phosphorus 4.1 Magnesium 2.3 Total Bilirubin 1.1 AST 40 ALT 33 Alkaline Phosphatase 129 H Total Protein 8.0 Albumin 3.5 Triglycerides 80 03/11/23 12:12 WBC RBC Hgb Hct MCV MCH MCHC RDW Plt Count MPV Immature Gran % (Auto) Neut % (Auto) Lymph % (Auto) Eagle % (Auto) Eos % (Auto) Baso % (Auto) Lymph # (Auto) Eagle # (Auto) Eos # (Auto) Baso # (Auto) Abs Immat Gran (auto) Absolute Neuts (auto) Absolute Nucleated RBC Nucleated RBC % APTT Puncture Site ABG pH ABG pCO2 ABG pO2 ABG PO2/FiO2 Ratio ABG HCO3 ABG O2 Saturation ABG O2 Content ABG Base Excess A-a Gradient Oxyhemoglobin Carboxyhemoglobin
[2023-03-11 14:13] LABS: Partial Thromboplastin Time 110.6 SECONDS (22.3-36.8)
[2023-03-11 14:44] LABS: Alveolar/Arterial O2 Gradient 94.9 mmHg; Base Excess ABG -1.5 mEq/l (+/-2.0); Carboxyhemoglobin 0.3 % THb (0-2.0); Fractional Inspired Oxygen 30 %; HCO3 ABG 22.4 mEq/l (22.0-26.0); Methemoglobin ABG 0.3 %THb (0-1.5); Oxygen Content ABG 18.9 %vol (16.0-22.0); Oxygen Saturation ABG 95.8 % (95.0-100.0); PCO2 ABG 35.1 mmHg (35.0-45.0); PO2 ABG 77.8 mmHg (80.0-100.0); PO2 FiO2 Ratio Arterial Blood 2.59 %; Reduced Hemoglobin 4.4 %THb (0-5.0); Total Hemoglobin 14.1 g/dL (12.0-18.0); pH ABG 7.422 (7.350-7.450)
[2023-03-11 15:19] LABS: Device VENTILATOR; Modified Allen's Test Pass; Site Drawn RIGHT RADIAL
[2023-03-11 15:20] LABS: Arterial Blood Gas PEEP 5 cmH2O; Arterial Blood Gas Vent Mode SPONTANEOUS
[2023-03-11 15:21] LABS: Arterial Blood Gas Pressure Support 8 cmH2O
--- NOTE | 2023-03-11 16:58 | PM.IMPN ---
Progress Note: A&P Assessment and Plan (1) Acute hypoxic respiratory failure: Code(s): J96.01 - Acute respiratory failure with hypoxia Status: Acute Assessment and Plan: Patient presented to the ED from a NH with altered mental status and found to have bilateral PEs and acute hypoxic respiratory failure -On presentation (03/08), patient unable to protect airway and noted to have a large amount of purulent mat'l in the oropharynx requiring suctioning. He was intubated in the ER. -CXR was clear. CTA chest showing acute PE in all lobes with mucous plugging in right mainstem bronchus. COVID positive. -Consider aspiration and/or mucous plugging and/or PE causing the resp failure -Weaned vent and was able to be extubated on 03/11 -Continue bronchodilators. Continue anticoagulation. Continue Dexamethasone; Baricitinib stopped 03/10 -On Zosyn and Vanco on admission but narrowed to Zosyn only -Pulmozyme and Mucomyst started -Continue propofol for sedation Appreciate marketing program manager input (2) Bilateral pulmonary embolism: Code(s): I26.99 - Other pulmonary embolism without acute cor pulmonale Status: Acute Assessment and Plan: Patient presents with altered mental status and found to have respiratory distress. -CXR was clear -CTA chest showing acute PE in all lobes with mucous plugging in right mainstem bronchus. -Patient with Bilat LE DVT at prior hospital and was on Xarelto at the senior care prior to admission. -Echo at the outside hosp showed moderately dilated RV with moderately reduced systolic fxn -Echo here showing EF 70%, Grade i diastolic dysfunction and RV hypokinesis -Doppler here showing acute DVT in left posterior tibial vein and subacute nonocclusive DVT in the left distal femoral vein and right popliteal vein -Probably had PE prior to admission at outside hospital -Continue heparin infusion (3) COVID-19: Code(s): U07.1 - COVID-19 Status: Acute Assessment and Plan: Patient was positive COVID-19 PCR here in the ER on admission -Lungs are clear on chest x-ray -Started on dexamethasone and baricitinib, renally dosed -Repeat CXR today showing clear lungs -Extubated today. -Baricitinib stopped. Cont Dexa (4) Sepsis: Qualifiers: Sepsis type: sepsis due to unspecified organism Sepsis acute organ dysfunction status: with acute organ dysfunction Severe sepsis acute organ dysfunction type: acute respiratory failure Acute respiratory failure type: with hypoxia Severe sepsis shock status: without septic shock Qualified Code(s): A41.9 - Sepsis, unspecified organism; R65.20 - Severe sepsis without septic shock; J96.01 - Acute respiratory failure with hypoxia Code(s): A41.9 - Sepsis, unspecified organism Status: Acute Assessment and Plan: Patient presented with acute respiratory failure, tachycardia, tachypnea, elevated WBC but normal lactic acid -patient started on vancomycin and Zosyn for possible aspiration but narrowed to Zosyn -BCx 03/08: GPB in aerobic bottle -UCx 03/08: Shanon glabrata -Sputum Cx 03/09: pending -patient is not requiring any pressors -adequately fluid-resuscitated -continue Zosyn; Diflucan added (5) Encephalopathy: Code(s): G93.40 - Encephalopathy, unspecified Status: Acute Assessment and Plan: Encephalopathy could be related to sepsis and hypoxia -ammonia levels within normal limits -Head CT showing old lacunar infarcts in the bilateral basal ganglia and moderate nonspecific white matter dz. -alert nut obtunded. Continue to monitor. Call NH to find out his baseline mental function (6) ANTWAN (acute kidney injury): Status: Acute Assessment and Plan: Patient with normal renal function on admission at 1.3 -Cr climbed to 2.4 -Etiology probably sepsis and/or obstructing stone and/or contrast and/or ATN -Consider also dehydration. Was on Lasix prior to admission -Renal US showing right proxim
[2023-03-11 18:06] LABS: Glucose Point of Care 125 mg/dl (65-105)
[2023-03-11 18:46] LABS: Pneumococcal Antigen Urine Not Detected (Not Detected)
[2023-03-11 21:45] LABS: Partial Thromboplastin Time 89.4 SECONDS (22.3-36.8)
[2023-03-12] VITALS (20 sets, daily range): BP systolic 123–173; BP diastolic 84–115; PULSE 68–96; RESP 19–24; TEMP 36.5–37.1; O2SAT 92–100
[2023-03-12] MEDS: DEXTROSE 50% 25 GM/50 ML SYRINGE IV PUSH (00:48)
[2023-03-12] MEDS: PIPERACILLN/TAZ 3.375GM/NS50ML 3.375 GM/50 ML BAG IVPB ×4 (00:48→17:14)
[2023-03-12] MEDS: hydrALAZINE HCL 20 MG/ML VIAL 10 MG IV PUSH ×2 (00:50→09:50)
[2023-03-12 00:54] LABS: Glucose Point of Care 71 mg/dl (65-105)
[2023-03-12] MEDS: IPRATROPIUM BR 0.02% INH SOLN 0.5 MG/2.5 ML VIAL INHALATION ×2 (03:03→07:15)
[2023-03-12] MEDS: ACETYLCYSTEINE 20% INHAL SOLN 800 MG/4 ML VIAL 200 MG INHALATION ×2 (03:03→07:15)
[2023-03-12] MEDS: LEVALBUTEROL NEB 1.25 MG/3 ML INHALATION ×2 (03:04→07:15)
[2023-03-12 04:54] LABS: Basophils Percent Auto 0.1 % (0.2-1.2); Hematocrit 43.2 % (42.0-52.0); Hemoglobin 13.5 g/dL (14.0-18.0); Immature Granulocyte Absolute 0.04 K/mm3 (0.00-0.031); Immature Granulocyte Percent A 0.4 % (0-0.5); Lymphocytes Percent Auto 12.9 % (18.3-44.2); Mean Corpuscular HGB Conc 31.3 g/dl (32-36); Mean Corpuscular Hemoglobin 31.2 pg (26-34); Mean Corpuscular Volume 99.8 fl (80-100); Monocytes Percent Auto 18.8 % (2.6-8.5); Neutrophils Absolute Auto 7.4 K/mm3 (1.3-6.7); Neutrophils Percent Auto 67.8 % (45.5-73.1); Platelet Count Result 306 k/mm3 (150-375); Red Blood Count 4.33 M/mm3 (4.6-6.20); Red Cell Distribution Width 17.2 % (11.5-14.5); White Blood Count 10.9 K/mm3 (4.5-10.0)
[2023-03-12 05:30] LABS: Partial Thromboplastin Time 119.7 SECONDS (22.3-36.8)
[2023-03-12 05:45] LABS: Alveolar/Arterial O2 Gradient 174.7 mmHg; Base Excess ABG 0.5 mEq/l (+/-2.0); Carboxyhemoglobin 0.3 % THb (0-2.0); Device NASAL CANNULA; Fractional Inspired Oxygen 32 %; HCO3 ABG 23.4 mEq/l (22.0-26.0); Methemoglobin ABG 0.2 %THb (0-1.5); Modified Allen's Test Pass; Oxygen Content ABG 18.9 %vol (16.0-22.0); Oxyhemoglobin 93.9 % THb (90.0-100.0); PO2 FiO2 Ratio Arterial Blood 2.16 %; Reduced Hemoglobin 5.6 %THb (0-5.0); Site Drawn RIGHT RADIAL; Total Hemoglobin 14.3 g/dL (12.0-18.0); pH ABG 7.469 (7.350-7.450)
[2023-03-12] MEDS: LABETALOL HCL INJ 100 MG/20 ML VIAL 20 MG IV PUSH ×2 (05:46→11:46)
[2023-03-12 05:48] LABS: Alanine Aminotransferase 29 U/L (6-50); Albumin Level 3.3 g/dL (3.5-5.1); Alkaline Phosphatase 119 U/L (38-126); Anion Gap 7 mmol/L (8-16); Aspartate Amino Transferase 35 U/L (17-59); Bilirubin,Total 1.1 mg/dL (0.2-1.3); Blood Urea Nitrogen 35 mg/dL (9-20); Calcium 8.4 mg/dL (8.4-10.2); Carbon Dioxide 22 mmol/L (22-30); Chloride 114 mmol/L (98-107); Estimated CRCL calculation 55 ml/min; Estimated Glomerular Filt Rate 52; Glucose 96 mg/dL (65-110); Magnesium 2.2 mg/dL (1.6-2.3); Phosphorus 2.7 mg/dL (2.5-4.5); Potassium 4.2 mmol/L (3.4-5.0); Sodium 143 mmol/L (137-145)
[2023-03-12 06:54] LABS: Legionella pneumophila Ag Ur Not Detected (Not Detected)
[2023-03-12] MEDS: DORNASE ALFA INH SOLN 1 MG/ML 2.5 ML AMP 2.5 MG INHALATION (07:33)
[2023-03-12] MEDS: PANTOPRAZOLE SODIUM IV 40 MG VIAL IV PUSH (08:25)
[2023-03-12] MEDS: ZIPRASIDONE HCL 20 MG CAPSULE FEED TUBE ×3 (08:25→16:58)
[2023-03-12] MEDS: FLUCONAZOLE 100 MG TABLET 200 MG PO (08:25)
[2023-03-12] MEDS: MINERAL OIL/WHITE PETROLATUM OINTMENT 1 APPLIC EACH EYE (08:26)
[2023-03-12] MEDS: HEPARIN SOD/D5W 100 UNITS/ML 25,000 UNITS/250 ML BAG 12 UNITS IV CONT (08:28)
--- NOTE | 2023-03-12 09:09 | PCSTNOTE ---
Please refer to the Bedside Swallow Evaluation in the EMR. Please note, silent aspiration cannot be ruled out at bedside. Bedside swallow Evaluation: This confused pt was positioned upright in the bed for testing; pt was verbalizing but nonsensical. Vocal quality was clear. Prior to oral presentations and upon positioning pt upright, weak coughing was noted. Upon oral exam: secretions noted on tongue, poor dentition/missing teeth. Pt did not follow directions for oral motor exam and did not dry swallow on command; Pt was presented with multiple trials of ice chips which elicited intermittent weak coughing, sluggish laryngeal elevation but clear vocal quality. No oral leakage occurred but lingual pumping was noted. Upon completion of pudding trials no overt s/s of aspiration were exhibited, sluggish laryngeal elevation was noted ; vocal quality clear. Oral stage appeared to be within functional limits with no pocketing or leakage, but again, lingual pumping. Applesauce trials: functional oral stage; sluggish laryngeal elevation and delayed weak cough but clear vocal quality. Impression: unable to definitively r/o aspiration. Pt presented with weak laryngeal elevation and inconsistent overt s/s of aspiration. Recommendation: ice chips for next 24 hours in order to facilitate & promote swallowing; repeat bedside swallow evaluation tomorrow. If any pulmonary distress is noted and felt to be related to ice chips, strict NPO then recommended. Thank you for this referral.
--- NOTE | 2023-03-12 10:11 | WPDINTPN ---
Progress Note: A&P Assessment and Plan (1) Acute hypoxic respiratory failure: Code(s): J96.01 - Acute respiratory failure with hypoxia Status: Acute Assessment and Plan: Patient presented with altered mental status, bilateral PEs, acute hypoxic respiratory failure, mucus plugging question aspiration -03/08: intubated in the ER -remains on CMV mode of ventilation, peep of 5, 30% FiO2 wean FiO2 to maintain O2 sats greater than 92% With discontinue sedation and placed patient on PSV. Patient is tolerating 8/8 at this time. Will evaluate for extubation depending on his mental status and results of pressure support trial - Continue Zosyn (2) Bilateral pulmonary embolism: Code(s): I26.99 - Other pulmonary embolism without acute cor pulmonale Status: Acute Assessment and Plan: CTA chest-acute pulmonary embolism in all lobes Continue heparin infusion Not in shock Echocardiogram Summary ? 1. Complete two-dimensional, color flow and Doppler transthoracic echocardiogram is performed. ? 2. Normal left ventricular size and with mild concentric hypertrophy, and with hyperdynamic left ventricular systolic function.? Ejection fraction greater than 70%.? Grade 1 diastolic dysfunction is present. ? 3. Right ventricle not well visualized but appears mildly hypokinetic. ? 4. Dilated inferior vena cava consistent with elevated right heart pressure. ? 5. Right ventricular systolic pressure cannot be adequate evaluated by this study. ? 6. No significant valve disease. ? 7. Normal sinus rhythm. ? 8. Technically difficult study due to the patient being on a ventilator etc. (3) COVID-19: Code(s): U07.1 - COVID-19 Status: Acute Assessment and Plan: Patient was positive COVID-19 PCR here in the ER on admission -lungs are clear on chest x-ray accept the mucus plugging and probable aspiration pneumonia -patient was started on dexamethasone which will be continued -he was not started on Remdesivir -although patient is on ventilator, patient does not appear to have COVID pneumonia. Will discontinue baricitinib in light of sepsis from UTI and aspiration pneumonia (4) Sepsis: Qualifiers: Sepsis type: sepsis due to unspecified organism Sepsis acute organ dysfunction status: with acute organ dysfunction Severe sepsis acute organ dysfunction type: acute respiratory failure Acute respiratory failure type: with hypoxia Severe sepsis shock status: without septic shock Qualified Code(s): A41.9 - Sepsis, unspecified organism; R65.20 - Severe sepsis without septic shock; J96.01 - Acute respiratory failure with hypoxia Code(s): A41.9 - Sepsis, unspecified organism Status: Acute Assessment and Plan: Patient presented with acute respiratory failure, tachycardia, tachypnea, normal lactic acid -patient was started on vancomycin and Zosyn for possible aspiration and UTI -blood cultures growing Gram-positive bacilli in 1 bottle, urine and sputum cultures are pending -patient is not requiring any pressors -adequately fluid-resuscitated -discontinued vancomycin but continue Zosyn Urine culture is also growing Shanon glabrata-started on high-dose fluconazole (5) Encephalopathy: Code(s): G93.40 - Encephalopathy, unspecified Status: Acute Assessment and Plan: Encephalopathy could be related to sepsis, hypoxia Patient has background psychiatric illness -ammonia levels within normal limits Head CT IMPRESSION: 1. Old lacunar infarcts in the bilateral basal ganglia. 2. Moderate nonspecific cerebral white matter disease, which likely represents chronic small vessel ischemic disease. Now weak and alert but not oriented (6) Hydronephrosis with renal and ureteral calculous obstruction: Status: Acute Assessment and Plan: Renal ultrasound - Right proximal ureteral stone measuring 1.6 cm causing moderate hydronephrosis. CT abdomen pelvis - 1. Proximal right ureteral stone near the
--- NOTE | 2023-03-12 11:09 | PCFNICU ---
ICU Rounding Note: Pt current nutrition is NPO. Nutrition recommendation: advance diet as tolerated when medically ready. Last recorded weight is 84.7 kg, down from 87 kg on admit. Bowel Motility:FMS Labs Reviewed:GFR 52, BUN 35, Alb 3.3,Hgb 13.5 Meds Noted:Protonix,Zosyn, Heparin Skin:Bilateral Buttock-Maceration. Additional Notes: Patient has been extubated. Tube feedings have been discontinued. Bedside swallow evaluation inconclusive. Will repeat tomorrow. Discussion with Poultry Scalder changing Banatrol Plus to PO. okayed orders. Following in ICU rounds. Will monitor weight, labs, skin, tube feeding tolerance in ICU rounds and reassessing every 3 days.
[2023-03-12 11:41] LABS: Glucose Point of Care 75 mg/dl (65-105)
--- NOTE | 2023-03-12 11:47 | PCOTNOTE ---
Initiated evaluation for occupational therapy. Pt. demonstrated limited awareness and orientation, unable to follow directions. Pt. not appropriate for skilled services at this time. Nursing aware.
[2023-03-12] MEDS: FUROSEMIDE INJ 40 MG/4 ML VIAL IV PUSH (11:48)
--- NOTE | 2023-03-12 18:12 | PM.IMPN ---
Progress Note: A&P Assessment and Plan (1) Acute hypoxic respiratory failure: Code(s): J96.01 - Acute respiratory failure with hypoxia Status: Acute Assessment and Plan: Patient presented to the ED from a NH with altered mental status and found to have bilateral PEs and acute hypoxic respiratory failure -On presentation (03/08), patient unable to protect airway and noted to have a large amount of purulent mat'l in the oropharynx requiring suctioning. He was intubated in the ER. -CXR was clear. CTA chest showing acute PE in all lobes with mucous plugging in right mainstem bronchus. COVID positive. -Consider aspiration and/or mucous plugging and/or PE causing the resp failure -Weaned vent and was able to be extubated on 03/11 -Bronchodilators stopped. Continue anticoagulation. Continue Dexamethasone; Baricitinib stopped 03/10 -On Zosyn and Vanco on admission but narrowed to Zosyn only for possible aspiration -Pulmozyme and Mucomyst started but now stopped -ST evaluation noted and to be repeated tomorrow. Okay for ice chips Appreciate survey compiler input (2) Bilateral pulmonary embolism: Code(s): I26.99 - Other pulmonary embolism without acute cor pulmonale Status: Acute Assessment and Plan: Patient presents with altered mental status and found to have respiratory distress. -CXR was clear -CTA chest showing acute PE in all lobes with mucous plugging in right mainstem bronchus. -Patient with Bilat LE DVT at prior hospital and was on Xarelto at the skilled nursing prior to admission. -Echo at the outside hosp showed moderately dilated RV with moderately reduced systolic fxn -Echo here showing EF 70%, Grade I diastolic dysfunction and RV hypokinesis -Doppler here showing acute DVT in left posterior tibial vein and subacute nonocclusive DVT in the left distal femoral vein and right popliteal vein -Probably had PE prior to admission at outside hospital -Continue heparin infusion (3) COVID-19: Code(s): U07.1 - COVID-19 Status: Acute Assessment and Plan: Patient was positive COVID-19 PCR here in the ER on admission -Lungs are clear on chest x-ray -Started on dexamethasone and baricitinib, renally dosed -Repeat CXR today showing clear lungs -Extubated 03/11 -Baricitinib stopped. Cont Dexa (4) Sepsis: Qualifiers: Sepsis type: sepsis due to unspecified organism Sepsis acute organ dysfunction status: with acute organ dysfunction Severe sepsis acute organ dysfunction type: acute respiratory failure Acute respiratory failure type: with hypoxia Severe sepsis shock status: without septic shock Qualified Code(s): A41.9 - Sepsis, unspecified organism; R65.20 - Severe sepsis without septic shock; J96.01 - Acute respiratory failure with hypoxia Code(s): A41.9 - Sepsis, unspecified organism Status: Acute Assessment and Plan: Patient presented with acute respiratory failure, tachycardia, tachypnea, elevated WBC but normal lactic acid -patient started on vancomycin and Zosyn for possible aspiration but narrowed to Zosyn -BCx 03/08: Corynebacterium species -UCx 03/08: Shanon glabrata -Sputum Cx 03/09: Yeast -patient is not requiring any pressors -adequately fluid-resuscitated -continue Zosyn; Diflucan (5) Encephalopathy: Code(s): G93.40 - Encephalopathy, unspecified Status: Acute Assessment and Plan: Encephalopathy could be related to sepsis and hypoxia -ammonia levels within normal limits -Head CT showing old lacunar infarcts in the bilateral basal ganglia and moderate nonspecific white matter dz. -alert but obtunded. Continue to monitor. (6) ANTWAN (acute kidney injury): Status: Acute Assessment and Plan: Patient with normal renal function on admission at 1.3 -Cr climbed to 2.4 -Etiology probably sepsis and/or obstructing stone and/or contrast and/or ATN -Consider also dehydration. Was on Lasix prior to admission -Renal US s
[2023-03-12 18:13] LABS: Partial Thromboplastin Time 75.2 SECONDS (22.3-36.8)
[2023-03-12 18:14] LABS: Glucose Point of Care 104 mg/dl (65-105)
[2023-03-12 23:14] LABS: Glucose Point of Care 83 mg/dl (65-105)
[2023-03-13] VITALS (13 sets, daily range): BP systolic 128–160; BP diastolic 91–100; PULSE 69–94; RESP 16–25; TEMP 36.1–36.8; O2SAT 94–100
[2023-03-13] MEDS: PIPERACILLN/TAZ 3.375GM/NS50ML 3.375 GM/50 ML BAG IVPB ×4 (00:28→17:28)
[2023-03-13 04:38] LABS: Basophils Percent Auto 0.1 % (0.2-1.2); Hematocrit 48.8 % (42.0-52.0); Immature Granulocyte Absolute 0.03 K/mm3 (0.00-0.031); Immature Granulocyte Percent A 0.4 % (0-0.5); Lymphocytes Absolute Auto 1.33 K/mm3 (0.9-3.2); Lymphocytes Percent Auto 17.8 % (18.3-44.2); Mean Corpuscular HGB Conc 30.7 g/dl (32-36); Mean Corpuscular Hemoglobin 31.3 pg (26-34); Mean Corpuscular Volume 101.9 fl (80-100); Mean Platelet Volume 11.2 fl (7.4-10.4); Monocytes Percent Auto 13.7 % (2.6-8.5); Neutrophils Absolute Auto 5.1 K/mm3 (1.3-6.7); Platelet Count Result 298 k/mm3 (150-375); Red Blood Count 4.79 M/mm3 (4.6-6.20); Red Cell Distribution Width 17.3 % (11.5-14.5); White Blood Count 7.5 K/mm3 (4.5-10.0)
[2023-03-13 04:52] LABS: Alanine Aminotransferase 29 U/L (6-50); Albumin Level 3.7 g/dL (3.5-5.1); Alkaline Phosphatase 114 U/L (38-126); Anion Gap 10 mmol/L (8-16); Aspartate Amino Transferase 33 U/L (17-59); Bilirubin,Total 1.4 mg/dL (0.2-1.3); Blood Urea Nitrogen 36 mg/dL (9-20); Calcium 8.7 mg/dL (8.4-10.2); Carbon Dioxide 20 mmol/L (22-30); Chloride 112 mmol/L (98-107); Estimated CRCL calculation 48 ml/min; Estimated Glomerular Filt Rate 45; Glucose 106 mg/dL (65-110); Magnesium 2.2 mg/dL (1.6-2.3); Phosphorus 4.2 mg/dL (2.5-4.5); Potassium 4.1 mmol/L (3.4-5.0); Sodium 142 mmol/L (137-145); Triglycerides 135 mg/dL (<150)
[2023-03-13 04:56] LABS: Partial Thromboplastin Time 77.7 SECONDS (22.3-36.8)
[2023-03-13 05:24] LABS: Alveolar/Arterial O2 Gradient 90.8 mmHg; Base Excess ABG 1.9 mEq/l (+/-2.0); Carboxyhemoglobin 0.3 % THb (0-2.0); Fractional Inspired Oxygen 28 %; HCO3 ABG 25.5 mEq/l (22.0-26.0); Methemoglobin ABG 0.1 %THb (0-1.5); Oxygen Content ABG 19.7 %vol (16.0-22.0); Oxygen Saturation ABG 93.9 % (95.0-100.0); Oxyhemoglobin 92.8 % THb (90.0-100.0); PCO2 ABG 36.9 mmHg (35.0-45.0); PO2 ABG 65.3 mmHg (80.0-100.0); PO2 FiO2 Ratio Arterial Blood 2.33 %; Reduced Hemoglobin 6.8 %THb (0-5.0); Total Hemoglobin 15.1 g/dL (12.0-18.0); pH ABG 7.458 (7.350-7.450)
[2023-03-13 05:25] LABS: Modified Allen's Test Pass; Site Drawn RIGHT RADIAL
[2023-03-13 05:27] LABS: Device NASAL CANNULA
[2023-03-13] MEDS: HEPARIN SOD/D5W 100 UNITS/ML 25,000 UNITS/250 ML BAG 12 UNITS IV CONT (05:39)
--- NOTE | 2023-03-13 05:56 | PC.NURSE ---
This patient, Jacky Chavez, was transferred to [[id number]] on 03/13/23 at 0552. Personal belongings sent with patient. Report given to [Kristyn Isabel RN]. Appropriate documentation sent with patient.
--- NOTE | 2023-03-13 06:41 | PC.NURSE ---
This patient, Jacky Chavez, was received from ICU-1 on 03/13/23 at 0553. Patient/family oriented to unit policies and routines
[2023-03-13 06:56] LABS: Glucose Point of Care 91 mg/dl (65-105)
[2023-03-13] MEDS: PANTOPRAZOLE SODIUM IV 40 MG VIAL IV PUSH (09:25)
[2023-03-13 12:39] LABS: Glucose Point of Care 129 mg/dl (65-105)
--- NOTE | 2023-03-13 13:15 | PM.IMPN ---
Progress Note: A&P Assessment and Plan (1) Acute hypoxic respiratory failure: Code(s): J96.01 - Acute respiratory failure with hypoxia Status: Acute Assessment and Plan: Patient presented to the ED from a NH with altered mental status and found to have bilateral PEs and acute hypoxic respiratory failure -On presentation (03/08), patient unable to protect airway and noted to have a large amount of purulent mat'l in the oropharynx requiring suctioning. He was intubated in the ER. -CXR was clear. CTA chest showing acute PE in all lobes with mucous plugging in right mainstem bronchus. COVID positive. -Consider aspiration and/or mucous plugging and/or PE causing the resp failure -Weaned vent and was able to be extubated on 03/11 -Bronchodilators stopped. Continue anticoagulation. Continue Dexamethasone; Baricitinib stopped 03/10 -On Zosyn and Vanco on admission but narrowed to Zosyn only for possible aspiration -Pulmozyme and Mucomyst started but now stopped -ST evaluation noted and to be repeated today Wean O2 as tolerated. (2) Bilateral pulmonary embolism: Code(s): I26.99 - Other pulmonary embolism without acute cor pulmonale Status: Acute Assessment and Plan: Patient presents with altered mental status and found to have respiratory distress. -CXR was clear but CTA chest showing acute PE in all lobes with mucous plugging in right mainstem bronchus. -Patient with Bilat LE DVT at prior hospital and was on Xarelto at the assisted prior to admission. -Echo at the outside hosp showed moderately dilated RV with moderately reduced systolic fxn -Echo here showing EF 70%, Grade I diastolic dysfunction and RV hypokinesis -Doppler here showing acute DVT in left posterior tibial vein and subacute nonocclusive DVT in the left distal femoral vein and right popliteal vein -Black stools noted but Hgb stable. -Continue heparin infusion -Check stool guaiac and serial HH (3) COVID-19: Code(s): U07.1 - COVID-19 Status: Acute Assessment and Plan: Patient was positive COVID-19 PCR here in the ER on admission -Lungs are clear on chest x-ray -Started on dexamethasone and baricitinib, renally dosed -Repeat CXR today showing left lung atelectasis -Extubated 03/11 -Baricitinib stopped. Cont Dexamethasone Wean O2 as tolerated (4) Sepsis: Qualifiers: Sepsis type: sepsis due to unspecified organism Sepsis acute organ dysfunction status: with acute organ dysfunction Severe sepsis acute organ dysfunction type: acute respiratory failure Acute respiratory failure type: with hypoxia Severe sepsis shock status: without septic shock Qualified Code(s): A41.9 - Sepsis, unspecified organism; R65.20 - Severe sepsis without septic shock; J96.01 - Acute respiratory failure with hypoxia Code(s): A41.9 - Sepsis, unspecified organism Status: Acute Assessment and Plan: Patient presented with acute respiratory failure, tachycardia, tachypnea, elevated WBC but normal lactic acid -patient started on vancomycin and Zosyn for possible aspiration but narrowed to Zosyn -BCx 03/08: Corynebacterium species felt to be a contaminant -UCx 03/08: Shanon glabrata -Sputum Cx 03/09: Yeast and Klebsiella. -patient is not requiring any pressors -adequately fluid-resuscitated -continue Zosyn; Diflucan (5) Encephalopathy: Code(s): G93.40 - Encephalopathy, unspecified Status: Acute Assessment and Plan: Encephalopathy could be related to sepsis and hypoxia. Unclear on baseline mental status -ammonia levels within normal limits -Head CT showing old lacunar infarcts in the bilateral basal ganglia and moderate nonspecific white matter dz. -alert but obtunded. Contact NH to get baseline mental status. Continue to monitor. (6) ANTWAN (acute kidney injury): Status: Acute Assessment and Plan: Patient with normal renal function on admission at 1.3 but Cr climbed to 2.4
[2023-03-13 14:41] LABS: IFOB Positive Control Positive; Immunochemical Fecal Occult Bl Negative (N)
[2023-03-13] MEDS: DEXTROSE 5%/0.9% SOD CHL 1,000 ML 70 ML IV CONT (17:32)
[2023-03-13 17:42] LABS: Hematocrit 45.7 % (42.0-52.0); Hemoglobin 14.7 g/dL (14.0-18.0)
[2023-03-13 19:18] LABS: Glucose Point of Care 123 mg/dl (65-105)
[2023-03-13 23:36] LABS: Hematocrit 53.2 % (42.0-52.0); Hemoglobin 16.1 g/dL (14.0-18.0)
[2023-03-14] VITALS (25 sets, daily range): BP systolic 53–150; BP diastolic 41–104; PULSE 64–121; RESP 16–28; TEMP 35.5–36.6; O2SAT 93–100
[2023-03-14 00:37] LABS: Glucose Point of Care 142 mg/dl (65-105)
[2023-03-14] MEDS: PIPERACILLN/TAZ 3.375GM/NS50ML 3.375 GM/50 ML BAG IVPB ×4 (00:46→17:37)
[2023-03-14] MEDS: HEPARIN SOD/D5W 100 UNITS/ML 25,000 UNITS/250 ML BAG 12 UNITS IV CONT (02:49)
[2023-03-14 05:23] LABS: Basophils Percent Auto 0.2 % (0.2-1.2); Hematocrit 50.1 % (42.0-52.0); Hemoglobin 15.2 g/dL (14.0-18.0); Immature Granulocyte Absolute 0.07 K/mm3 (0.00-0.031); Immature Granulocyte Percent A 0.5 % (0-0.5); Lymphocytes Percent Auto 16.1 % (18.3-44.2); Mean Corpuscular HGB Conc 30.3 g/dl (32-36); Mean Corpuscular Hemoglobin 31.1 pg (26-34); Mean Corpuscular Volume 102.7 fl (80-100); Mean Platelet Volume 11.6 fl (7.4-10.4); Monocytes Absolute Auto 1.5 K/mm3 (0.1-0.6); Monocytes Percent Auto 11.6 % (2.6-8.5); Neutrophils Absolute Auto 9.3 K/mm3 (1.3-6.7); Neutrophils Percent Auto 71.6 % (45.5-73.1); Platelet Count Result 338 k/mm3 (150-375); Red Blood Count 4.88 M/mm3 (4.6-6.20); Red Cell Distribution Width 16.7 % (11.5-14.5); White Blood Count 13.1 K/mm3 (4.5-10.0)
[2023-03-14 05:39] LABS: Partial Thromboplastin Time 81.3 SECONDS (22.3-36.8)
[2023-03-14] MEDS: PANTOPRAZOLE SODIUM IV 40 MG VIAL IV PUSH (09:15)
--- NOTE | 2023-03-14 11:08 | PCSTNOTE ---
Orders received for bedside swallowing evaluation. Attempted to complete evaluation, but patient not responding to verbal prompts or cues today. Patient will remain on list to evaluate tomorrow, if able to participate.
--- NOTE | 2023-03-14 11:22 | PM.IMPN ---
Progress Note: A&P Assessment and Plan (1) Encephalopathy: Code(s): G93.40 - Encephalopathy, unspecified Status: Acute Assessment and Plan: Encephalopathy present on admission could be related to sepsis and hypoxia. Unclear on baseline mental status -No neuro exam at time of last discharge. -ammonia levels within normal limits -Head CT showing old lacunar infarcts in the bilateral basal ganglia and moderate nonspecific white matter dz which is similar to prior CT -not interactive No answer at Tanika Chavez's number. Message left. Spoke with NH: Patient was AOx1, speech clear and was refusing to eat or take his medications. He was admitted there on 03/05 Change could be related to being off his Geodon and/or catatonia related to underlying neuro disease. He may have chronic encephalopathy possibly from recent cardiac arrest. Won't be able to obtain speech evaluation now so will place NGT and resume Geodon. Check ammonia level and CT brain. CXR noted Check EEG. Consider MRI but would need clearance by radiology since he has metallic FB upper abdomen Neuro consult. Continue to monitor. (2) Acute hypoxic respiratory failure: Code(s): J96.01 - Acute respiratory failure with hypoxia Status: Acute Assessment and Plan: Patient presented to the ED from a NH with altered mental status and found to have bilateral PEs and acute hypoxic respiratory failure -On presentation (03/08), patient unable to protect airway and noted to have a large amount of purulent mat'l in the oropharynx requiring suctioning. He was intubated in the ER. -CXR was clear. CTA chest showing acute PE in all lobes with mucous plugging in right mainstem bronchus. COVID positive. -Consider aspiration and/or mucous plugging and/or PE causing the resp failure -Weaned vent and was able to be extubated on 03/11 -Bronchodilators stopped. Continue anticoagulation. Continue Dexamethasone; Baricitinib stopped 03/10 -On Zosyn and Vanco on admission but narrowed to Zosyn only for possible aspiration -Pulmozyme and Mucomyst started but now stopped -ST evaluation noted but now unable to re-evaluate Wean O2 as tolerated. (3) Bilateral pulmonary embolism: Code(s): I26.99 - Other pulmonary embolism without acute cor pulmonale Status: Acute Assessment and Plan: Patient presents with altered mental status and found to have respiratory distress. -CXR was clear but CTA chest showing acute PE in all lobes with mucous plugging in right mainstem bronchus. -Patient with Bilat LE DVT at prior hospital [facility]. -Echo at the outside hosp showed moderately dilated RV with moderately reduced systolic fxn -Echo here showing EF 70%, Grade I diastolic dysfunction and RV hypokinesis -Stool guaiac negative -Doppler here showing acute DVT in left posterior tibial vein and subacute nonocclusive DVT in the left distal femoral vein and right popliteal vein -Per NH: patient was refusing medications which could explain his worsening VTE findings on Xarelto. -Continue heparin infusion (4) COVID-19: Code(s): U07.1 - COVID-19 Status: Acute Assessment and Plan: Patient was positive COVID-19 PCR here in the ER on admission -Lungs were clear on chest x-ray -Started on dexamethasone and baricitinib but now just on Dexamethasone -Extubated 03/11 -Repeat CXR today showing improving retrocardiac opacity at the left lung base Wean O2 as tolerated (5) Sepsis: Qualifiers: Sepsis type: sepsis due to unspecified organism Sepsis acute organ dysfunction status: with acute organ dysfunction Severe sepsis acute organ dysfunction type: acute respiratory failure Acute respiratory failure type: with hypoxia Severe sepsis shock status: without septic shock Qualified Code(s): A41.9 - Sepsis, unspecified organism; R65.20 - Severe sepsis without septic shock; J96.01 - Acute respiratory failure
--- NOTE | 2023-03-14 11:50 | ECG_ITS ---
Measurements Intervals [place] Rate: 107 P: 80 IN: 163 QRS: 194 QRSD: 101 T: 38 QT: 346 QTc: 462 Interpretive Statements SINUS TACHYCARDIA POSSIBLE RIGHT ATRIAL ENLARGEMENT [0.25mV P WAVE] INDETERMINATE AXIS POSSIBLE RIGHT VENTRICULAR HYPERTROPHY [SOME/ALL OF: PROMINENT R IN V1, LATE TRANSITION, RAD, JESUS, SSS] ABNORMAL ECG COMPARED TO ECG 03/08/2023 17:59:29 NO SIGNIFICANT CHANGES Electronically Signed On 03-15-2023 12:33:18 MULTI DISCIPLINED LANGUAGE ANALYST by Dez Bowen M.D.
[2023-03-14 11:54] LABS: Alanine Aminotransferase 80 U/L (6-50); Albumin Level 3.4 g/dL (3.5-5.1); Alkaline Phosphatase 150 U/L (38-126); Anion Gap 9 mmol/L (8-16); Aspartate Amino Transferase 134 U/L (17-59); Bilirubin,Total 1.6 mg/dL (0.2-1.3); Blood Urea Nitrogen 49 mg/dL (9-20); Calcium 8.6 mg/dL (8.4-10.2); Carbon Dioxide 21 mmol/L (22-30); Chloride 114 mmol/L (98-107); Estimated CRCL calculation 37 ml/min; Estimated Glomerular Filt Rate 33; Glucose 212 mg/dL (65-110); Magnesium 2.3 mg/dL (1.6-2.3); Phosphorus 4.5 mg/dL (2.5-4.5); Potassium 4.3 mmol/L (3.4-5.0); Sodium 144 mmol/L (137-145)
[2023-03-14 12:44] LABS: Glucose Point of Care 223 mg/dl (65-105)
[2023-03-14 13:04] LABS: Free T4 Free Thyroxine Reflex 1.41 ng/dL (0.78-2.19)
[2023-03-14 13:44] LABS: Ammonia < 9 umol/L (9-30)
[2023-03-14] MEDS: SODIUM CHLORIDE 0.9% IV 1,000 ML 999 ML IV CONT ×2 (13:46→14:20)
[2023-03-14 13:54] LABS: Creatine Kinase 35 U/L (55-170)
[2023-03-14 14:02] LABS: Complement C3 107 mg/dL (88-165)
[2023-03-14 14:04] LABS: CRP 1.3 mg/dL (<1.0)
[2023-03-14 14:27] LABS: Total Triiodothyronine (T3) 0.75 NG/ML (0.97-1.69)
[2023-03-14 14:28] LABS: HIV 1/2 Ab P24 Ag Result Negative (Negative)
--- NOTE | 2023-03-14 14:33 | WPDINTPN ---
Progress Note: A&P Assessment and Plan (1) Acute hypoxic respiratory failure: Code(s): J96.01 - Acute respiratory failure with hypoxia Status: Acute Assessment and Plan: Patient patient initially presented with altered mental status, bilateral PEs, acute hypoxic respiratory failure, mucus plugging question aspiration -03/08: intubated in the ER and was extubated in the ICU Now on [address] scan pending to evaluate for any pneumonia Currently on zosyn which will be continued (2) Bilateral pulmonary embolism: Code(s): I26.99 - Other pulmonary embolism without acute cor pulmonale Status: Acute Assessment and Plan: CTA chest-acute pulmonary embolism in all lobes Currently on heparin infusion Echocardiogram Summary ? 1. Complete two-dimensional, color flow and Doppler transthoracic echocardiogram is performed. ? 2. Normal left ventricular size and with mild concentric hypertrophy, and with hyperdynamic left ventricular systolic function.? Ejection fraction greater than 70%.? Grade 1 diastolic dysfunction is present. ? 3. Right ventricle not well visualized but appears mildly hypokinetic. ? 4. Dilated inferior vena cava consistent with elevated right heart pressure. ? 5. Right ventricular systolic pressure cannot be adequate evaluated by this study. ? 6. No significant valve disease. ? 7. Normal sinus rhythm. ? 8. Technically difficult study due to the patient being on a ventilator etc. (3) COVID-19: Code(s): U07.1 - COVID-19 Status: Acute Assessment and Plan: Patient was positive COVID-19 PCR here in the ER on admission -lungs are clear on chest x-ray accept the mucus plugging and probable aspiration pneumonia -patient was started on dexamethasone which he still on -he was not started on Remdesivir -although patient is on ventilator, patient does not appear to have COVID pneumonia. Will discontinue baricitinib in light of sepsis from UTI and aspiration pneumonia (4) Sepsis: Qualifiers: Acute respiratory failure type: with hypoxia Sepsis acute organ dysfunction status: with acute organ dysfunction Sepsis type: sepsis due to unspecified organism Severe sepsis acute organ dysfunction type: acute respiratory failure Severe sepsis shock status: without septic shock Qualified Code(s): A41.9 - Sepsis, unspecified organism; R65.20 - Severe sepsis without septic shock; J96.01 - Acute respiratory failure with hypoxia Code(s): A41.9 - Sepsis, unspecified organism Status: Acute Assessment and Plan: Patient presented with acute respiratory failure, tachycardia, tachypnea, normal lactic acid -patient was started on vancomycin and Zosyn for possible aspiration and UTI -blood cultures growing Gram-positive bacilli in 1 bottle, urine and sputum cultures are pending -patient is not requiring any pressors -adequately fluid-resuscitated -discontinued vancomycin but continue Zosyn Urine culture is also growing Shanon glabrata-started on high-dose fluconazole (5) Encephalopathy: Code(s): G93.40 - Encephalopathy, unspecified Status: Acute Assessment and Plan: Encephalopathy could be related to sepsis, hypoxia Patient has background psychiatric illness -ammonia levels within normal limits Head CT IMPRESSION: 1. Old lacunar infarcts in the bilateral basal ganglia. 2. Moderate nonspecific cerebral white matter disease, which likely represents chronic small vessel ischemic disease. Repeat head CT ordered. ABGs ordered and pending Hold Brown (6) Hydronephrosis with renal and ureteral calculous obstruction: Status: Acute Assessment and Plan: Renal ultrasound - Right proximal ureteral stone measuring 1.6 cm causing moderate hydronephrosis. CT abdomen pelvis - 1. Proximal right ureteral stone near the UPJ measuring 1.8 cm with moderate hydronephrosis. 03/10 Patient has a right ureteral stone which is obstructing and causing hydronephrosi
[2023-03-14 14:36] LABS: Alveolar/Arterial O2 Gradient 36.6 mmHg; Base Excess ABG -6.3 mEq/l (+/-2.0); HCO3 ABG 17.9 mEq/l (22.0-26.0); Oxygen Content ABG 15.5 %vol (16.0-22.0); Oxygen Saturation ABG 93.5 % (95.0-100.0); Oxyhemoglobin 91.6 % THb (90.0-100.0); PCO2 ABG 31.4 mmHg (35.0-45.0); PO2 ABG 68.3 mmHg (80.0-100.0); PO2 FiO2 Ratio Arterial Blood 3.42 %; pH ABG 7.373 (7.350-7.450)
[2023-03-14 14:37] LABS: Device NASAL CANNULA; Fractional Inspired Oxygen 28 %; Modified Allen's Test Pass; Site Drawn LEFT RADIAL
[2023-03-14 15:04] LABS: Folic Acid 6.7 ng/mL (2.76->20)
[2023-03-14 15:10] LABS: Lactic Acid Reflex 1.5 mmol/L (0.7-2.0)
[2023-03-14] MEDS: LACTATED RINGERS 1,000 ML 125 ML IV CONT ×2 (15:20→20:46)
[2023-03-14 15:26] LABS: Troponin I 0.051 ng/mL (0.000-0.034)
--- NOTE | 2023-03-14 15:39 | PC.NURSE ---
This patient, Jacky Chavez, was transferred to ICU 4 on 03/14/23 at 1510. Personal belongings sent with patient. Report given to Babak MILES. Appropriate documentation sent with patient.
[2023-03-14 16:01] LABS: Procalcitonin 0.3 ng/mL
--- NOTE | 2023-03-14 18:50 | PC.NURSE ---
Dr Pina and Erlinda, COMPUTER PERIPHERAL EQUIPMENT OPERATOR to bedside. Patient hypotensive, obtunded. LR bolus initiated. CT head and ABG ordered.
[2023-03-14] MEDS: LACTATED RINGERS 1,000 ML 999 ML IV CONT (19:07)
[2023-03-14 19:25] LABS: Alveolar/Arterial O2 Gradient 105.3 mmHg; Base Excess ABG -7.3 mEq/l (+/-2.0); Device NASAL CANNULA; Fractional Inspired Oxygen 32 %; HCO3 ABG 15.5 mEq/l (22.0-26.0); Oxygen Content ABG 15.2 %vol (16.0-22.0); Oxygen Saturation ABG 97.5 % (95.0-100.0); Oxyhemoglobin 95.5 % THb (90.0-100.0); PCO2 ABG 24.1 mmHg (35.0-45.0); PO2 ABG 94.7 mmHg (80.0-100.0); PO2 FiO2 Ratio Arterial Blood 2.96 %; Site Drawn RIGHT BRACHIAL; Total Hemoglobin 11.2 g/dL (12.0-18.0); pH ABG 7.426 (7.350-7.450)
[2023-03-14 20:32] LABS: Troponin I 0.079 ng/mL (0.000-0.034)
[2023-03-14] MEDS: NOREPINEPHRINE 8 MG/D5W 250 ML 8 MG/250 ML BAG 9.38 MG IV CONT (20:45)
[2023-03-14] MEDS: MIDODRINE HCL 10 MG TABLET PO (21:04)
[2023-03-14 21:54] LABS: Basophils Percent Auto 0.3 % (0.2-1.2); Hematocrit 30.4 % (42.0-52.0); Hemoglobin 9.3 g/dL (14.0-18.0); Immature Granulocyte Absolute 0.27 K/mm3 (0.00-0.031); Lymphocytes Absolute Auto 1.21 K/mm3 (0.9-3.2); Lymphocytes Percent Auto 8.9 % (18.3-44.2); Mean Corpuscular HGB Conc 30.6 g/dl (32-36); Mean Corpuscular Volume 101.3 fl (80-100); Mean Platelet Volume 11.6 fl (7.4-10.4); Monocytes Absolute Auto 1.3 K/mm3 (0.1-0.6); Monocytes Percent Auto 9.3 % (2.6-8.5); Neutrophils Absolute Auto 10.8 K/mm3 (1.3-6.7); Neutrophils Percent Auto 79.5 % (45.5-73.1); Platelet Count Result 247 k/mm3 (150-375); Red Cell Distribution Width 16.7 % (11.5-14.5); White Blood Count 13.6 K/mm3 (4.5-10.0)
[2023-03-14] MEDS: CENTRAL LINE FLUSH 10 ML IV PUSH (21:55)
--- NOTE | 2023-03-14 22:05 | P.PCNBED_ITS ---
Procedures Central Line Placement Right Femoral: Central Line Date: 03/14/23 Central Line Time: 21:35 Performed Emergently - Given emergent patient condition, temporal constraints may have precluded informed consent.: Yes Consent: No surrogate available to provide informed consent. Patient currently obtunded and unable to discuss the placement of a central venous catheter, including its clinical necessity/indication & associated potential risks, benefits and alternatives. Performed emergently due to patient deterioration. Time Out Performed: Yes Patient Position: supine Patient placed on monitor/pulse ox: Yes Provider Prep: mask, sterile gown, sterile gloves, Max. sterile barrier precautions, cap and hand hygiene with conventional soap/water or alcohol based hand rub Central line prep: Povidone-Iodine 1%, 2% Chlorhexidine scrub and sterile full body sheet applied Local anesthesia used: lidocaine 1% Amount of anesthesia used (ml): 3.5 Sterile US Technique with sterile gel/sterile probe covers: Yes Central line lumen inserted: triple Spanish: 8 Length (cm): 20 Depth of Insertion (cm): 20 Post Procedure: sutured in place, good blood return, all ports aspirated, flushed, capped, transparent dressing, antimicrobial product and aseptic technique maintained throughout procedure Post procedure x-ray: other (blood easily aspirated from all hubs and flushed easily. ) Complications: none Additional comments: Constance Lozoya MD at bedside as poe.
[2023-03-14 22:06] LABS: Partial Thromboplastin Time 37.3 SECONDS (22.3-36.8)
[2023-03-14 22:07] LABS: Anion Gap 6 mmol/L (8-16); Blood Urea Nitrogen 55 mg/dL (9-20); Calcium 7.8 mg/dL (8.4-10.2); Carbon Dioxide 20 mmol/L (22-30); Chloride 118 mmol/L (98-107); Estimated CRCL calculation 27 ml/min; Estimated Glomerular Filt Rate 23; Glucose 128 mg/dL (65-110); Magnesium 1.9 mg/dL (1.6-2.3); Sodium 144 mmol/L (137-145)
[2023-03-14 22:57] LABS: Troponin I 0.085 ng/mL (0.000-0.034)
[2023-03-15] VITALS (65 sets, daily range): BP systolic 81–161; BP diastolic 40–109; PULSE 75–103; RESP 2–265; TEMP 36.1–37.3; O2SAT 89–100
--- NOTE | 2023-03-15 | ECHO_ITS ---
Patient Info Name: Jacky Chavez Age: 57 years : 1965 Gender: Male Ht: 70 in Wt: 192 lbs BSA: 2.09 m2 HR: 112 bpm BP: 95 / 74 mmHg Heart Rhythm: Sinus Rhythm Technical Quality: Poor Exam Date: 03/15/2023 9:50 AM Exam Location: Echo Lab Exam Room: ICU4 Patient Status: Inpatient Admit Date: 03/08/2023 Staff Ordering Physician: Adan Mari MD [employer]: Susy Szymanski RDCS Attending Provider: Virginia Aquino DO Exam Type: CA echo limited w contrast Study Info Indications - PE CARDIOGENIC SHOCK Limited two-dimensional transthoracic echocardiogram is performed with contrast. Contrast/Agitated Saline Contrast/Ag. Saline: Definity Amount: --- ml Administered By: Susy Szymanski [facility] Existing IV Access: Yes IV Access Condition: patent with no signs of infiltration Reason for Poor Study: poor echocardiographic windows Summary 1. Definity contrast injected to improve visualization. 2. Severe concentric left ventricular hypertrophy with hyperdynamic systolic function. 3. Normal right ventricular size and normal RV systolic function. 4. Normal appearing cardiac valves. 5. No pericardial effusion. 6. These findings do not support the diagnosis of cardiogenic shock. Left Ventricle Left ventricular chamber dimension is normal. Left ventricular systolic function is hyperdynamic, estimated at >70%. There is severe concentric increased left ventricular wall thickness. Right Ventricle Right ventricular chamber dimension is normal. Right ventricular systolic function is normal. Left Atria Left atrial chamber dimension is normal. Right Atria Right atrial chamber dimension is normal. Aortic Valve The aortic valve is normal. Pulmonic Valve The pulmonic valve is not well visualized. Mitral Valve The mitral valve has normal leaflets. Tricuspid Valve The tricuspid valve leaflets are normal. Pericardium/Pleural The pericardium appears normal. Aorta The aortic root size at the sinus of Valsalva is normal. Tricuspid Valve Name Value Normal TV Regurgitation Doppler TR Peak Velocity 321 cm/s TR Peak Gradient 37 mmHg Estimated PAP/RSVP RA Pressure 10 mmHg <=5 PA Systolic Pressure 51 mmHg <36 RV Systolic Pressure 51 mmHg <36 Report Signatures
[2023-03-15] MEDS: PIPERACILLN/TAZ 3.375GM/NS50ML 3.375 GM/50 ML BAG IVPB ×2 (00:18→06:15)
[2023-03-15 00:37] LABS: Glucose Point of Care 160 mg/dl (65-105)
[2023-03-15 00:37] LABS: Glucose Point of Care 118 mg/dl (65-105)
[2023-03-15 04:36] LABS: Hematocrit 29.1 % (42.0-52.0); Hemoglobin 9.3 g/dL (14.0-18.0); Mean Corpuscular Hemoglobin 31.8 pg (26-34); Mean Corpuscular Volume 99.7 fl (80-100); Platelet Count Result 244 k/mm3 (150-375); Red Blood Count 2.92 M/mm3 (4.6-6.20); Red Cell Distribution Width 16.4 % (11.5-14.5); White Blood Count 21.6 K/mm3 (4.5-10.0)
[2023-03-15 04:39] LABS: Alveolar/Arterial O2 Gradient 186.6 mmHg; Base Excess ABG -9.1 mEq/l (+/-2.0); Carboxyhemoglobin 0.3 % THb (0-2.0); Fractional Inspired Oxygen 40 %; HCO3 ABG 15.1 mEq/l (22.0-26.0); Methemoglobin ABG 0.5 %THb (0-1.5); Oxygen Content ABG 12.9 %vol (16.0-22.0); Oxygen Saturation ABG 92.9 % (95.0-100.0); Oxyhemoglobin 87.9 % THb (90.0-100.0); PCO2 ABG 27.6 mmHg (35.0-45.0); PO2 ABG 66.9 mmHg (80.0-100.0); PO2 FiO2 Ratio Arterial Blood 1.67 %; Reduced Hemoglobin 11.3 %THb (0-5.0); Total Hemoglobin 10.4 g/dL (12.0-18.0); pH ABG 7.356 (7.350-7.450)
[2023-03-15 04:42] LABS: Site Drawn RIGHT BRACHIAL
[2023-03-15 04:43] LABS: Device NASAL CANNULA
[2023-03-15 04:49] LABS: Partial Thromboplastin Time 78.5 SECONDS (22.3-36.8)
[2023-03-15 04:54] LABS: Albumin Level 2.5 g/dL (3.5-5.1); Alkaline Phosphatase 97 U/L (38-126); Anion Gap 11 mmol/L (8-16); Bilirubin,Total 1.4 mg/dL (0.2-1.3); Blood Urea Nitrogen 64 mg/dL (9-20); Calcium 7.8 mg/dL (8.4-10.2); Carbon Dioxide 16 mmol/L (22-30); Chloride 115 mmol/L (98-107); Glucose 112 mg/dL (65-110); Phosphorus 7.4 mg/dL (2.5-4.5); Potassium 5.4 mmol/L (3.4-5.0); Sodium 142 mmol/L (137-145)
[2023-03-15 04:57] LABS: Creatinine Urine 23.9 mg/dL
[2023-03-15 05:00] LABS: Estimated CRCL calculation 25 ml/min; Estimated Glomerular Filt Rate 20; Sodium Urine Random 131 meq/L
[2023-03-15 05:17] LABS: Alanine Aminotransferase 1909 U/L (6-50)
[2023-03-15 05:34] LABS: Eosinophil Urine None Seen % (None Seen); Urine Eos QC 2nd Tech Confirmed
[2023-03-15 06:12] LABS: Aspartate Amino Transferase 3999 U/L (17-59)
[2023-03-15] MEDS: CENTRAL LINE FLUSH 10 ML IV PUSH ×3 (06:15→22:30)
[2023-03-15] MEDS: LACTATED RINGERS 1,000 ML 125 ML IV CONT ×2 (08:31)
[2023-03-15] MEDS: NOREPINEPHRINE 8 MG/D5W 250 ML 8 MG/250 ML BAG 33.75 MG IV CONT (08:31)
[2023-03-15] MEDS: PANTOPRAZOLE SODIUM IV 40 MG VIAL IV PUSH (08:33)
[2023-03-15] MEDS: MIDODRINE HCL 10 MG TABLET PO ×3 (08:33→16:50)
[2023-03-15] MEDS: FLUCONAZOLE 200 MG/NACL 100 ML 200 MG/100 ML BAG 100 MG IVPB (08:33)
--- NOTE | 2023-03-15 08:35 | PCSTNOTE ---
GINGER Roberts, reported patient remains unable to participate in a Bedside Swallow Evaluation this date. Order will remain open and evaluation will be attempted again tomorrow. Will discontinue the order if patient unable to participate.
[2023-03-15] MEDS: ETOMIDATE 20 MG/10 ML AMPUL IV PUSH (09:18)
[2023-03-15] MEDS: ROCURONIUM BROMIDE 50 MG/5 ML VIAL IV PUSH (09:19)
[2023-03-15] MEDS: MIDAZOLAM HCL (*CRX) 2 MG/2 ML VIAL 4 MG IV PUSH (09:20)
[2023-03-15] MEDS: FENTANYL 2,500MCG/NS250ML(*CRX 2,500 MCG/250 ML BAG IV CONT (09:25)
[2023-03-15] MEDS: RAPID SEQUENCE INTUBATION KIT 1 EACH (09:28)
--- NOTE | 2023-03-15 09:39 | WPDPROCEDUR ---
Procedures Intubation Intubation Date: 03/15/23 Intubation Time: 09:15 A pre-procedural Time-Out was completed immediately before starting the procedure and confirmed: Patient Identification, Site, Procedure, Patient Position and the Availability of Requisite Equipment: Yes Sedative: etomidate Mg given: 20 Paralytic: rocuronium Mg given: 50 Laryngoscope: fiber optic video scope Assist device used: fiber optic device ET tube size: 7.5 Tube secured depth (cm): 23 Tube secured location: lips Tube placement confirmation: visualized tube passing through cords, equal breath sounds bilaterally, no breath sounds over epigastrium and confirmation by capnometry Patient tolerated procedure: well Intubation complications: none
[2023-03-15] MEDS: PERFLUTREN LIPID MICROSPHERES 1.5 ML VIAL DILUTED TO 10 ML TOTAL VOLUME IV PUSH (10:10)
[2023-03-15] MEDS: MIDAZOLAM 100MG/NS 100ML(*CRX) 100 MG/100 ML BAG IV CONT (10:28)
[2023-03-15] MEDS: SODIUM ZIRCONIUM CYCLOSILICATE 10 GM POWD.PACK FEED TUBE ×2 (10:28→17:30)
--- NOTE | 2023-03-15 10:35 | IVDEFINITY ---
Prior to administration of IV Definity the patient was educated on the risks and benefits of the imaging enhancing agent including potential adverse side effects. The patient verbalized understanding. Allergies were verified. No exclusion criteria were identified and at least one of the following inclusion criteria were met: 1) physician request, 2) patient technically difficult to image (per the [place] [employer] Echocardi[employer] guidelines of two or more segments not discernable within the apical view), or 3) questionable left ventricular function. ?
[2023-03-15] MEDS: MEROPENEM 500 MG in SODIUM CHLORIDE 0.9% IV 100 ML 200 ML IVPB ×2 (10:43→23:23)
[2023-03-15] MEDS: LINEZOLID 600 MG/300 ML 600 MG/300 ML SOLN 300 MG IVPB ×2 (10:43→22:21)
[2023-03-15 10:54] LABS: Alveolar/Arterial O2 Gradient 497.7 mmHg; Base Excess ABG -11.3 mEq/l (+/-2.0); Fractional Inspired Oxygen 100 %; HCO3 ABG 16.1 mEq/l (22.0-26.0); Oxygen Content ABG 14.6 %vol (16.0-22.0); Oxygen Saturation ABG 98.8 % (95.0-100.0); Oxyhemoglobin 97.3 % THb (90.0-100.0); PCO2 ABG 42.5 mmHg (35.0-45.0); PO2 ABG 172.8 mmHg (80.0-100.0); PO2 FiO2 Ratio Arterial Blood 1.73 %; Total Hemoglobin 10.4 g/dL (12.0-18.0)
--- NOTE | 2023-03-15 10:54 | PCFNICU ---
ICU Rounding Note: Pt current nutrition is Tube feeding - starting Nepro @ trickle feeding 20 ml/h. Nutrition recommendation: Recommend goal rate 50 ml/h: 1980 kcal (~100% EER), 89 g protein (~85% estimated needs), 800 ml free water Prosource +1 to be added when appropriate to better meet protein needs. Last recorded weight is 87.1 kg. Bowel Motility: Liquid stool per FMS Labs Reviewed: Hgb 9.3, Hct 29.1, K+ 5.4, BUN 64, Cre 3.2, Glu 112 Meds Noted: Versed, Levophed @ 17 mcg Skin: maceration Additional Notes: Pt was re-intubated after being extubated 02.10.23, now requiring pressors. Before re-intubation he failed bedside swallow test several times. Recommend starting tube feeding back at a trickle until pressors stabilize. Following daily in ICU rounds. Will monitor weight, labs, skin, tube feeding tolerance in ICU rounds and reassessing every Wednesday and Wednesday. .
[2023-03-15 10:56] LABS: Device VENTILATOR; Modified Allen's Test Pass; Site Drawn RIGHT RADIAL; pH ABG 7.197 (7.350-7.450)
[2023-03-15 10:57] LABS: Arterial Blood Gas PEEP 8 cmH2O; Arterial Blood Gas Tidal Volume 450 ml; Arterial Blood Gas Vent Mode CMV; Arterial Blood Gas Ventilator rate 18 /MIN
--- NOTE | 2023-03-15 11:17 | PCSTNOTE ---
Patient has been intubated. Will discontinue the bedside swallow evaluation order placed yesterday and request new order when patient is able. Spoke with GINGER Roberts, who voiced understanding.
[2023-03-15] MEDS: SODIUM BICARBONATE 8.4% 50 MEQ/50 ML SYRINGE 100 MEQ IV PUSH (11:23)
[2023-03-15] MEDS: LACTATED RINGERS 1,000 ML 999 ML IV CONT (11:25)
[2023-03-15 11:26] LABS: Fibrinogen 266 mg/dl (215-510); INR 2.9; Partial Thromboplastin Time 52.2 SECONDS (22.3-36.8); Prothrombin Time 32.8 Seconds (11.1-14.7)
[2023-03-15 11:42] LABS: Glucose Point of Care 142 mg/dl (65-105)
[2023-03-15] MEDS: SODIUM BICARBONATE 8.4% 150 MEQ in WATER, STERILE FOR INJECTION 950 ML 50 MEQ IV CONT (12:12)
[2023-03-15 12:18] LABS: Hematocrit 25.1 % (42.0-52.0); Hemoglobin 7.7 g/dL (14.0-18.0); Mean Corpuscular HGB Conc 30.7 g/dl (32-36); Mean Corpuscular Hemoglobin 31.4 pg (26-34); Mean Corpuscular Volume 102.4 fl (80-100); Mean Platelet Volume 11.9 fl (7.4-10.4); Platelet Count Result 194 k/mm3 (150-375); Red Blood Count 2.45 M/mm3 (4.6-6.20); Red Cell Distribution Width 16.3 % (11.5-14.5); White Blood Count 22.8 K/mm3 (4.5-10.0)
--- NOTE | 2023-03-15 12:43 | PM.CNGS ---
Assessment and Plan Assessment and plan (1) Bilateral pulmonary embolism: Code(s): I26.99 - Other pulmonary embolism without acute cor pulmonale Status: Acute Assessment and Plan: has failed anticoagulation at this point, continue to hold anticoagulation in light of planned IVC filter placement, follow INR and may need reversal prior to procedure (2) Acute hypoxic respiratory failure: Code(s): J96.01 - Acute respiratory failure with hypoxia Status: Acute Assessment and Plan: continue vent management per wound nurse team (3) COVID-19: Code(s): U07.1 - COVID-19 Status: Acute Assessment and Plan: continue precautions, respiratory failure likely secondary to sepsis History of Present Illness Consult details Consult date: 03/15/23 Reason for consult: other (IVC filter) Requesting physician: Adan Mari MD Narrative: The patient is a 57-year-old male with multiple medical issues, including respiratory failure requiring intubation, that we are requested to see regarding placement of IVC filter. Of note, all history is obtained via nursing and chart given patient's respiratory status, sedation. The patient bilateral PEs and lower extremity DVT and was previously on heparin drip. The patient has developed multiple spontaneous hematomas and has dropped his hemoglobin by 6 units. Given these findings, the heparin drip has been stopped and we were consulted for IVC placement. Review of Systems Review of Systems: ROS unobtainable: Yes unobtainable due to endotracheal tube PMFSH Past Medical History Medical History Cardiac arrest [place] 02/2023 unwitnessed arrest. CHF (congestive heart failure) DVT (deep venous thrombosis) Hypertension Psychiatric disorder Surgical History Surgical History Surgical history unknown Family History Family History Other Unknown family medical history Social History Social History Social History: Specific sulcal history is unknown. Patient is currently residing at [facility] since his hospitalization in late February. Code status: Full code Smoking status: Unknown if ever smoked Additional smoking assessment comments: unknown Alcohol intake: unknown Substance use: unknown Lack of Transportation: No Lack of Food: Never True Current Housing: I Have Housing Concerned About Future Housing: No Difficulty Paying Gas/Electric Bills: No Difficulty Paying for Meds: No Currently Unemployed: No Education: Don't Know Difficulty w/ Childcare or Family Care: No Spiritual care concerns: No Meds Home Medications and Allergies Home Medications Medication Instructions Recorded Confirmed Type acetaminophen 650 mg rectal 650 mg RECTAL Q8H PRN pain 1-3 or 03/09/23 03/09/23 History suppository fever albuterol sulfate 2.5 mg/3 mL 2.5 mg inhalation Q6H 03/09/23 03/09/23 History (0.083 %) solution for nebulization furosemide 20 mg tablet 20 mg PO DAILY 03/09/23 03/09/23 History hydralazine 10 mg tablet 10 mg PO Q8H 03/09/23 03/09/23 History metoprolol tartrate 25 mg tablet 25 mg PO BID 03/09/23 03/09/23 History prednisone 10 mg tablet 10 mg PO DAILY 03/09/23 03/09/23 History rivaroxaban 15 mg tablet (Xarelto) 15 mg PO BID 03/09/23 03/09/23 History ziprasidone HCl 20 mg capsule 20 mg PO TID 03/09/23 03/09/23 History Allergies Allergy/AdvReac Type Severity Reaction Status Date / Time No Known Allergies Allergy Verified 03/08/23 18:36 Vital Signs Vital Signs - 24 hr 03/14/23 14:00 03/14/23 13:15 03/14/23 15:18 Temperature 35.7 C L Pulse Rate 94 102 H Respiratory Rate 20 Blood Pressure 72/51 L 98/76 L Pulse Oximetry 95 Oxygen Delivery Ox
--- NOTE | 2023-03-15 13:24 | WPDINTPN ---
Progress Note: A&P Assessment and Plan (1) Shock: Code(s): R57.9 - Shock, unspecified Status: Acute Assessment and Plan: 03/14 patient was transferred to ICU due to hypotension. Hypotension likely secondary to hypovolemia but could be a new sepsis His procalcitonin lactic acid levels were normal nicom assessment showed patient to be fluid responsive and he was given 2 L fluid bolus now Will continue IV fluids Initially after IV fluid bolus patient blood pressure improved but later in the evening patient became hypotensive again A central venous catheter was placed and patient was started on Levophed Labs were performed and showed drop in hemoglobin. Initially it was thought to be dilutional patient had received significant amount IV fluids and there was no obvious sign of bleeding. CT scan was also pending at that Overnight patient continued to require increased pressor dose Is stat limited echo was done this morning as patient has PE and DVT assess for RV function and as per my verbal communication with food cooking machine operator patient does not appear to be in RV failure. CT scan reviewed showed inflammatory infectious changes and soft tissue muscle in right shoulder with multiple intramuscular collection. I spoke to Dr. Ibarra with Radiology and he feels that these are hematoma which may be infected Heparin infusion was discontinued early this morning. Patient is coagulopathic secondary to DIC Consult IR for aspiration of the hematoma to evaluate for any infection Plan to transfuse 2 units of PRBC, 3 years of FFP. Vitamin K is ordered Continue IV fluids and vasopressors Will repeat blood cultures and urine culture have been sent and are pending Continue empiric Zyvox and meropenem (2) Acute hypoxic respiratory failure: Code(s): J96.01 - Acute respiratory failure with hypoxia Status: Acute Assessment and Plan: Patient patient initially presented with altered mental status, bilateral PEs, acute hypoxic respiratory failure, mucus plugging question aspiration -03/08: intubated in the ER and was extubated in the ICU - 03/15 reintubated due to hypoxia and altered mental status. Chest x-ray ABG and vent settings reviewed (3) Bilateral pulmonary embolism: Code(s): I26.99 - Other pulmonary embolism without acute cor pulmonale Status: Acute Assessment and Plan: CTA chest-acute pulmonary embolism in all lobes Patient was on heparin drip which has been discontinued now due to hematoma Plan to place IVC filter. Surgery consulted Repeat limited echo ordered Echocardiogram Summary ? 1. Complete two-dimensional, color flow and Doppler transthoracic echocardiogram is performed. ? 2. Normal left ventricular size and with mild concentric hypertrophy, and with hyperdynamic left ventricular systolic function.? Ejection fraction greater than 70%.? Grade 1 diastolic dysfunction is present. ? 3. Right ventricle not well visualized but appears mildly hypokinetic. ? 4. Dilated inferior vena cava consistent with elevated right heart pressure. ? 5. Right ventricular systolic pressure cannot be adequate evaluated by this study. ? 6. No significant valve disease. ? 7. Normal sinus rhythm. ? 8. Technically difficult study due to the patient being on a ventilator etc. (4) COVID-19: Code(s): U07.1 - COVID-19 Status: Acute Assessment and Plan: Patient was positive COVID-19 PCR here in the ER on admission -lungs are clear on chest x-ray accept the mucus plugging and probable aspiration pneumonia -patient was started on dexamethasone which he still on. Switch to hydrocortisone -he was not started on Remdesivir -although patient is on ventilator, patient does not appear to have COVID pneumonia. Will discontinue baricitinib in light of sepsis from UTI and aspiration pneumonia (5) Sepsis: Qualifiers: Sepsis type: sepsis due to unspecified organism Sepsis acute organ dysfunction status: with acute organ d
[2023-03-15] MEDS: SODIUM CHLORIDE 0.9% IV 250 ML 30 ML IV CONT ×2 (14:02→16:23)
[2023-03-15] MEDS: PHYTONADIONE ADULT INJ 10 MG in DEXTROSE 5% IN WATER 50 ML 100 MG IVPB (14:06)
[2023-03-15] MEDS: HYDROCORTISONE SODIUM SUCCINATE 100 MG/2 ML VIAL IV PUSH ×2 (14:12→22:21)
--- NOTE | 2023-03-15 15:09 | PC.NURSE ---
Spoke with Yulia, at Dr. Tracy's office to see if it was ok from Urology's stand point to change pt's urinary catheter out for a temp fairchild. New order to change urinary catheter to temp fairchild catheter per Urology.
[2023-03-15 15:19] LABS: Chloride Rand Ur 118 mmol/L (32-290); Chloride/Creatinine Rand Ur 131 (23-275); Creatinine Random Urine 90 mg/dL (20-320)
--- NOTE | 2023-03-15 16:25 | PM.IMPN ---
Progress Note: A&P Assessment and Plan (1) Shock: Code(s): R57.9 - Shock, unspecified Status: Acute Assessment and Plan: Patient developed HoTN in IMU and transferred back to ICU on 03/14. He was fluid responisve initially but worsened requiring central line and pressors. Consider sepsis and/or hypovolemia from anemia/Acute Blood Loss and/or recurrent PE Procalcitonin and lactic acid levels were normal Cultures obtained and abx adjusted Solu-Cortef started. CT scan reviewed showed inflammatory infectious changes and soft tissue muscle in right shoulder with multiple intramuscular collection s/p fluid removal for culture Heparin infusion was discontinued this morning due to drap in Hgb.?Concern for DIC PRBC and FFP ordered Continue IV fluids and vasopressors Continue empiric Zyvox and meropenem Appreciate strip feeder input (2) Acute hypoxic respiratory failure: Code(s): J96.01 - Acute respiratory failure with hypoxia Status: Acute Assessment and Plan: Patient presented to the ED from a [place] with altered mental status and found to have bilateral PEs and acute hypoxic respiratory failure -On presentation (03/08), patient unable to protect airway and noted to have a large amount of purulent mat'l in the oropharynx requiring suctioning. He was intubated in the ER. -CXR was clear. CTA chest showing acute PE in all lobes with mucous plugging in right mainstem bronchus. COVID positive. -Consider aspiration and/or mucous plugging and/or PE causing the resp failure -Bronchodilators stopped. Continue anticoagulation. Continue Dexamethasone; Baricitinib stopped 03/10 -On Zosyn and Vanco on admission but narrowed to Zosyn only for possible aspiration -Pulmozyme and Mucomyst started but now stopped -Weaned vent and was able to be extubated on 03/11 Patient moved back to the ICU on 03/14 for HoTN. Condition worsened overnight and required intuabtion this morning. ABG 7.197/42/172 on MV. Bicarb ordered and vent adjusted. Vent management per strip feeder. (3) Bilateral pulmonary embolism: Code(s): I26.99 - Other pulmonary embolism without acute cor pulmonale Status: Acute Assessment and Plan: Patient presents with altered mental status and found to have respiratory distress. -CXR was clear but CTA chest showing acute PE in all lobes with mucous plugging in right mainstem bronchus. -Patient with Bilat LE DVT at prior hospital and was on Xarelto at the half-way prior to admission. -Echo at the outside hosp showed moderately dilated RV with moderately reduced systolic fxn -Echo here showing EF 70%, Grade I diastolic dysfunction and RV hypokinesis -Stool guaiac negative -Doppler here showing acute DVT in left posterior tibial vein and subacute nonocclusive DVT in the left distal femoral vein and right popliteal vein -Per NH: patient was refusing medications which could explain his worsening VTE findings on Xarelto. Heparin held due to drop in HH and concern for DIC. IVC filter placement (4) ANTWAN (acute kidney injury): Status: Acute Assessment and Plan: Patient with normal renal function on admission at 1.3 but Cr climbed to 2.4 -Etiology probably sepsis and/or obstructing stone and/or contrast and/or ATN -Consider also dehydration. Was on Lasix prior to admission -Renal US showing right proximal ureteral stone measuring 1.6cm causing moderate hydro but with normal renal echotexture. Cr improved to 1.4 but climbed felt related to HoTN and sepsis Cr has climbed to 3.2 and now he is oliguric Also with metabolic acidosis and hyperkalemia Monitor UOP, electrolytes and renal function Continue IV fluids (5) COVID-19: Code(s): U07.1 - COVID-19 Status: Acute Assessment and Plan: Patient was positive COVID-19 PCR here in the ER on admission -Lungs were clear on chest x-ray -Started on dexamethasone and baricitinib but narrow
[2023-03-15] MEDS: NOREPINEPHRINE 8 MG/D5W 250 ML 8 MG/250 ML BAG 13.13 MG IV CONT (16:49)
--- NOTE | 2023-03-15 17:35 | PC.NURSE ---
Dr. Pina notified of pt having no urine output. RN flushed Wilson catheter with 30ml and got only the 30ml back. RN changed catheter per Urology and flushed new catheter with 30ml, and again only received the 30ml back
[2023-03-15 17:52] LABS: Hematocrit 27.9 % (42.0-52.0); Hemoglobin 8.9 g/dL (14.0-18.0); Mean Corpuscular HGB Conc 31.9 g/dl (32-36); Mean Corpuscular Volume 93.9 fl (80-100); Platelet Count Result 151 k/mm3 (150-375); Red Blood Count 2.97 M/mm3 (4.6-6.20); White Blood Count 18.7 K/mm3 (4.5-10.0)
[2023-03-15 18:24] LABS: Glucose Point of Care 131 mg/dl (65-105)
[2023-03-15 20:15] LABS: Alveolar/Arterial O2 Gradient 169.4 mmHg; Base Excess ABG -4.1 mEq/l (+/-2.0); Fractional Inspired Oxygen 40 %; HCO3 ABG 20.5 mEq/l (22.0-26.0); Oxygen Content ABG 13.1 %vol (16.0-22.0); Oxygen Saturation ABG 94.9 % (95.0-100.0); Oxyhemoglobin 92.3 % THb (90.0-100.0); PCO2 ABG 35.6 mmHg (35.0-45.0); PO2 ABG 74.9 mmHg (80.0-100.0); PO2 FiO2 Ratio Arterial Blood 1.87 %; pH ABG 7.379 (7.350-7.450)
[2023-03-15 20:16] LABS: Device VENTILATOR; Modified Allen's Test Unable to perform; Site Drawn LEFT RADIAL
[2023-03-15 20:17] LABS: Arterial Blood Gas PEEP 8 cmH2O; Arterial Blood Gas Tidal Volume 450 ml; Arterial Blood Gas Vent Mode CMV; Arterial Blood Gas Ventilator rate 22 /MIN
--- NOTE | 2023-03-15 21:01 | PC.NURSE ---
Tube feed residual 550. Dr. Mari notified; received order to hold tube feed until reevaluation in AM on 03/16. Physician to nurse communication order entered. Residual discarded and NG flushed with 60 cc water and clamped. Will continue to monitor.
[2023-03-15] MEDS: MINERAL OIL/WHITE PETROLATUM OINTMENT 1 APPLIC EACH EYE (22:22)
[2023-03-15 23:30] LABS: Glucose Point of Care 96 mg/dl (65-105)
[2023-03-16] VITALS (38 sets, daily range): BP systolic 120–159; BP diastolic 82–101; PULSE 66–114; RESP 18–68; TEMP 35.7–36.6; O2SAT 93–100
[2023-03-16 00:24] LABS: Hematocrit 25.4 % (42.0-52.0); Hemoglobin 8.3 g/dL (14.0-18.0); Mean Corpuscular HGB Conc 32.7 g/dl (32-36); Mean Corpuscular Hemoglobin 30.5 pg (26-34); Mean Corpuscular Volume 93.4 fl (80-100); Mean Platelet Volume 12.3 fl (7.4-10.4); Platelet Count Result 151 k/mm3 (150-375); Red Blood Count 2.72 M/mm3 (4.6-6.20); Red Cell Distribution Width 17.8 % (11.5-14.5); White Blood Count 19.2 K/mm3 (4.5-10.0)
[2023-03-16 05:25] LABS: Alveolar/Arterial O2 Gradient 102.3 mmHg; Base Excess ABG -1.4 mEq/l (+/-2.0); Fractional Inspired Oxygen 30 %; HCO3 ABG 22.6 mEq/l (22.0-26.0); Oxygen Content ABG 12.3 %vol (16.0-22.0); Oxygen Saturation ABG 94.8 % (95.0-100.0); Oxyhemoglobin 91.8 % THb (90.0-100.0); PCO2 ABG 34.8 mmHg (35.0-45.0); PO2 ABG 70.7 mmHg (80.0-100.0); PO2 FiO2 Ratio Arterial Blood 2.36 %; Total Hemoglobin 9.5 g/dL (12.0-18.0)
[2023-03-16 05:26] LABS: Arterial Blood Gas Ventilator rate 22 /MIN; Device VENTILATOR; Modified Allen's Test Unable to perform; Site Drawn RIGHT RADIAL
[2023-03-16 05:27] LABS: Arterial Blood Gas PEEP 8 cmH2O; Arterial Blood Gas Tidal Volume 450 ml; Arterial Blood Gas Vent Mode CMV
[2023-03-16] MEDS: HYDROCORTISONE SODIUM SUCCINATE 100 MG/2 ML VIAL IV PUSH ×3 (05:55→20:39)
[2023-03-16] MEDS: CENTRAL LINE FLUSH 10 ML IV PUSH ×3 (05:55→20:39)
[2023-03-16 06:02] LABS: Hematocrit 26.9 % (42.0-52.0); Hemoglobin 8.7 g/dL (14.0-18.0); Mean Corpuscular HGB Conc 32.3 g/dl (32-36); Mean Corpuscular Hemoglobin 30.3 pg (26-34); Mean Corpuscular Volume 93.7 fl (80-100); Mean Platelet Volume 12.3 fl (7.4-10.4); Platelet Count Result 163 k/mm3 (150-375); Red Blood Count 2.87 M/mm3 (4.6-6.20); Red Cell Distribution Width 17.8 % (11.5-14.5); White Blood Count 21.2 K/mm3 (4.5-10.0)
[2023-03-16 06:16] LABS: INR 1.6; Prothrombin Time 19.8 Seconds (11.1-14.7)
[2023-03-16 06:17] LABS: Partial Thromboplastin Time 32.8 SECONDS (22.3-36.8)
[2023-03-16 06:39] LABS: Glucose Point of Care 96 mg/dl (65-105)
[2023-03-16 07:11] LABS: Albumin Level 2.6 g/dL (3.5-5.1); Alkaline Phosphatase 87 U/L (38-126); Anion Gap 11 mmol/L (8-16); Bilirubin,Total 1.5 mg/dL (0.2-1.3); Blood Urea Nitrogen 89 mg/dL (9-20); Calcium 6.9 mg/dL (8.4-10.2); Carbon Dioxide 23 mmol/L (22-30); Chloride 108 mmol/L (98-107); Estimated CRCL calculation 17 ml/min; Estimated Glomerular Filt Rate 12; Glucose 114 mg/dL (65-110); Magnesium 1.9 mg/dL (1.6-2.3); Potassium 4.7 mmol/L (3.4-5.0); Sodium 142 mmol/L (137-145)
[2023-03-16 07:22] LABS: Alanine Aminotransferase 2411 U/L (6-50); Aspartate Amino Transferase 3286 U/L (17-59)
[2023-03-16] MEDS: MIDODRINE HCL 10 MG TABLET PO (09:08)
[2023-03-16] MEDS: LINEZOLID 600 MG/300 ML 600 MG/300 ML SOLN 300 MG IVPB ×2 (09:08→20:39)
[2023-03-16] MEDS: SODIUM ZIRCONIUM CYCLOSILICATE 10 GM POWD.PACK FEED TUBE ×2 (09:08→18:03)
[2023-03-16] MEDS: MINERAL OIL/WHITE PETROLATUM OINTMENT 1 APPLIC EACH EYE ×2 (09:09→20:39)
[2023-03-16] MEDS: PANTOPRAZOLE SODIUM IV 40 MG VIAL IV PUSH (09:09)
[2023-03-16] MEDS: FLUCONAZOLE 200 MG/NACL 100 ML 200 MG/100 ML BAG 100 MG IVPB (09:09)
--- NOTE | 2023-03-16 09:11 | WPDINTPN ---
Progress Note: A&P Assessment and Plan (1) Shock: Code(s): R57.9 - Shock, unspecified Status: Acute Assessment and Plan: 03/14 patient was transferred to ICU due to hypotension. Hypotension likely secondary to hypovolemia but could be a new sepsis His procalcitonin lactic acid levels were normal nicom assessment showed patient to be fluid responsive and he was given 2 L fluid bolus now Will continue IV fluids Initially after IV fluid bolus patient blood pressure improved but later in the evening patient became hypotensive again A central venous catheter was placed and patient was started on Levophed Labs were performed and showed drop in hemoglobin. Initially it was thought to be dilutional patient had received significant amount IV fluids and there was no obvious sign of bleeding. CT scan was also pending at that 03/15 Overnight patient continued to require increased pressor dose Status limited echo was done this morning as patient has PE and DVT assess for RV function and as per my verbal communication with skip loader patient does not appear to be in RV failure. CT scan reviewed showed inflammatory infectious changes and soft tissue muscle in right shoulder with multiple intramuscular collection. I spoke to Dr. Ibarra with Radiology and he feels that these are hematoma which may be infected Heparin infusion was discontinued early this morning. Patient is coagulopathic secondary to DIC Patient underwent aspiration of the hematoma to evaluate for any infection and cultures have been sent Patient was transfused 2 units of PRBC, 3 years of FFP. Vitamin K was administered, 20 mg of protamine was given Patient was treated with iV fluids and vasopressors 03/16 improvement in hemodynamics and patient is now off of vasopressors Aspirate, blood cultures and urine culture are pending Continue empiric Zyvox and meropenem Will discontinue further IV fluids (2) Acute hypoxic respiratory failure: Code(s): J96.01 - Acute respiratory failure with hypoxia Status: Acute Assessment and Plan: Patient patient initially presented with altered mental status, bilateral PEs, acute hypoxic respiratory failure, mucus plugging question aspiration -03/08: intubated in the ER and was extubated in the ICU - 03/15 reintubated due to hypoxia and altered mental status. Chest x-ray ABG and vent settings reviewed (3) Bilateral pulmonary embolism: Code(s): I26.99 - Other pulmonary embolism without acute cor pulmonale Status: Acute Assessment and Plan: CTA chest-acute pulmonary embolism in all lobes Patient was on heparin drip which has been discontinued now due to hematoma General surgery consulted and plan to plan to place IVC filter later today. Patient unable to provide any consent and no family available hence procedure will be done as medical necessity in emergent situation Repeat limited echo results discussed with Cardiology Echocardiogram Summary ? 1. Complete two-dimensional, color flow and Doppler transthoracic echocardiogram is performed. ? 2. Normal left ventricular size and with mild concentric hypertrophy, and with hyperdynamic left ventricular systolic function.? Ejection fraction greater than 70%.? Grade 1 diastolic dysfunction is present. ? 3. Right ventricle not well visualized but appears mildly hypokinetic. ? 4. Dilated inferior vena cava consistent with elevated right heart pressure. ? 5. Right ventricular systolic pressure cannot be adequate evaluated by this study. ? 6. No significant valve disease. ? 7. Normal sinus rhythm. ? 8. Technically difficult study due to the patient being on a ventilator etc. (4) COVID-19: Code(s): U07.1 - COVID-19 Status: Acute Assessment and Plan: Patient was positive COVID-19 PCR here in the ER on admission -lungs are clear on chest x-ray accept the mucus plugging and probable aspiration pneumonia -patient was started on dexamethasone which he still on.
[2023-03-16] MEDS: CALCIUM GLUC 2,000 MG/NS 100ML 2,000 MG/100 ML BAG 100 MG IVPB (09:37)
--- NOTE | 2023-03-16 11:41 | PCNFU ---
Nutrition Follow-Up Complete: Inadequate Oral Intake as related to mechanical vent as evidenced by NPO. Goal: Meet estimated nutritional needs. Patient is progressing towards goal. We will continue current goal. Pt current nutrition is Nepro. Nutrition recommendation: recommend goal rate at 50 ml/hr. Last recorded weight is 95 kg, up from 87 kg on admit. Bowel Motility:FMS Labs Reviewed:Cr 5.10,GFR 12, BUN 89, Alb 2.6 Meds Noted:Versed, Protonix Skin:Bilateral Buttock-maceration Additional Notes: Patient remains on mechanical vent. Tube feedings are currently on hold due to elevated, > 500 ml reported. Patient to have IVC filter placement today. Plans for tube feedings to be restarted after procedure. Recommend Nepro goal rate at 50 ml/hr, providing 1980 kcals/89 gms protein/800 ml water. Flush 30 ml q 4 hours Agree with diet orders. Will monitor weight, labs, skin, tube feeding tolerance in ICU rounds and reassessing every Wednesday and Wednesday.
[2023-03-16] MEDS: MEROPENEM 500 MG in SODIUM CHLORIDE 0.9% IV 100 ML 200 ML IVPB ×2 (11:54→23:32)
[2023-03-16 12:05] LABS: Glucose Point of Care 110 mg/dl (65-105)
[2023-03-16] MEDS: MIDAZOLAM 100MG/NS 100ML(*CRX) 100 MG/100 ML BAG IV CONT (12:07)
--- NOTE | 2023-03-16 12:18 | PC.NURSE ---
Pt to metallurgical laboratory assistant for IVC filter placement.
--- NOTE | 2023-03-16 13:09 | WPDHPUPDATE1 ---
History and Physical Update Update Date/Time: 03/16/23 13:09 History and Physical has been reviewed, including an updated exam of the patient. There are NO changes in the patient's condition. Risks, benefits, and alternatives have been discussed and questions answered. Patient agrees to proceed with procedure.
--- NOTE | 2023-03-16 13:25 | PC.NURSE ---
Pt returned from labor economist via bed. No issues noted
--- NOTE | 2023-03-16 13:36 | PC.NURSE ---
Notified of pt being hypertensive today with last BP being 157/97. Pt to receive Midodrine again now. Pt also has medications to treat HTN. RN asked for clarification on medications. New order to hold Midodrine for now, and continue to monitor BP for with no HTN medication treatment at this time.
--- NOTE | 2023-03-16 13:45 | PC.NURSE ---
Pt temperature continues to drop after returning from aquatic laborer. New order to apply Kita chapman.
--- NOTE | 2023-03-16 13:56 | PC.NURSE ---
Notified Dr. Mari of increase residuals with new order to restart tube feedings. New orders placed by
--- NOTE | 2023-03-16 14:08 | P.OP_ITS ---
Procedure Note - Detailed Date of Procedure 03/16/23 Pre-op Diagnosis bilateral pulmonary embolism, lower extremity DVT Post-op Diagnosis Same Procedure Performed placement of Anna retrievable IVC filter under fluoroscopic guidance Surgeon Kim Christensen MD Anesthesia Local Indications 57-year-old male with bilateral pulmonary embolism and lower extremity DVT with failure of anticoagulation therapy secondary to bleeding Findings left femoral vein access Description of Procedure The patient was taken to the laboratory technical specialist and placed in the supine position. The patient was then prepped and draped in normal sterile fashion. A time-out was then to verify the patient's identity as well as the procedure being performed. I began by localizing the area over the left femoral vein. I then gained access with an 18 gauge needle into the left femoral vein. I then threaded the guidewire under sterile Seldinger technique into the left femoral vein and subsequently into the vena cava. This was done and confirmed via fluoroscopic guidance. Once the guidewire was in good position, the needle was removed. I then enlarged the incision around the guidewire in the left groin. Under fluoroscopic guidance and using sterile Seldinger technique I threaded the dilating sheath into position. Once the sheath was noted to be at the top of L3, I removed the guidewire and dilator. I then placed the plunger with the filter through the sheath to the level of L3. The retrievable filter was then deployed under fluoroscopic guidance. Once deployed, it was noted to be in good position. The sheath and plunger were then removed and pressure was held. The patient tolerated the procedure well. He will be transferred back to the ICU in critical condition. Implants Anna vena cava filter Estimated Blood Loss 10 Complications No immediate complications Condition Critical Disposition ICU [facility] Billing Surgery - Charge Forward: Surgery Billing
[2023-03-16] MEDS: METOCLOPRAMIDE HCL 10 MG/10 ML SOLN UDC FEED TUBE ×3 (16:17→23:33)
[2023-03-16 18:16] LABS: Glucose Point of Care 112 mg/dl (65-105)
--- NOTE | 2023-03-16 18:18 | PM.IMPN ---
Progress Note: A&P Assessment and Plan (1) Shock: Code(s): R57.9 - Shock, unspecified Status: Acute Assessment and Plan: Patient developed HoTN in IMU and transferred back to ICU on 03/14. He was fluid responisve initially but worsened requiring central line and pressors. Consider sepsis and/or hypovolemia from anemia/Acute Blood Loss and/or recurrent PE Procalcitonin and lactic acid levels were normal Cultures obtained and abx adjusted Solu-Cortef started. CT scan reviewed showed inflammatory infectious changes and soft tissue muscle in right shoulder with multiple intramuscular collection s/p fluid removal for culture Heparin infusion was discontinued due to drop in Hgb.?Concern for DIC and muti-organ failure PRBC and FFP ordered Continue IV fluids and vasopressors Continue Diflucan, Zyvox and meropenem Appreciate dining room manager input (2) Acute hypoxic respiratory failure: Code(s): J96.01 - Acute respiratory failure with hypoxia Status: Acute Assessment and Plan: Patient presented to the ED from a [place] with altered mental status and found to have bilateral PEs and acute hypoxic respiratory failure -On presentation (03/08), patient unable to protect airway and noted to have a large amount of purulent mat'l in the oropharynx requiring suctioning. He was intubated in the ER. -CXR was clear. CTA chest showing acute PE in all lobes with mucous plugging in right mainstem bronchus. COVID positive. -Consider aspiration and/or mucous plugging and/or PE causing the resp failure -Bronchodilators stopped. Continue anticoagulation. Continue Dexamethasone; Baricitinib stopped 03/10 -On Zosyn and Vanco on admission but narrowed to Zosyn only for possible aspiration -Pulmozyme and Mucomyst started but now stopped -Weaned vent and was able to be extubated on 03/11 Patient moved back to the ICU on 03/14 for HoTN. Condition worsened overnight and required intubation 03/15 ABG 7.197/42/172 on MV. Bicarb ordered and vent adjusted. Vent management per dining room manager. (3) Bilateral pulmonary embolism: Code(s): I26.99 - Other pulmonary embolism without acute cor pulmonale Status: Acute Assessment and Plan: Patient presents with altered mental status and found to have respiratory distress. -CXR was clear but CTA chest showing acute PE in all lobes with mucous plugging in right mainstem bronchus. -Patient with Bilat LE DVT at prior hospital and was on Xarelto at the [facility] prior to admission. -Echo at the outside hosp showed moderately dilated RV with moderately reduced systolic fxn -Echo here showing EF 70%, Grade I diastolic dysfunction and RV hypokinesis -Stool guaiac negative -Doppler here showing acute DVT in left posterior tibial vein and subacute nonocclusive DVT in the left distal femoral vein and right popliteal vein -Per NH: patient was refusing medications which could explain his worsening VTE findings on Xarelto. Heparin held due to drop in HH and concern for DIC. IVC filter placement today (4) ANTWAN (acute kidney injury): Status: Acute Assessment and Plan: Patient with normal renal function on admission at 1.3 but Cr climbed to 2.4 -Etiology probably sepsis and/or obstructing stone and/or contrast and/or ATN -Consider also dehydration. Was on Lasix prior to admission -Renal US showing right proximal ureteral stone measuring 1.6cm causing moderate hydro but with normal renal echotexture. Cr improved to 1.4 but climbed felt related to HoTN and sepsis Cr has climbed to 5.1 and now he is oliguric Metabolic acidosis and hyperkalemia better Monitor UOP, electrolytes and renal function Continue IV fluids (5) Shoulder abscess: Code(s): L02.419 - Cutaneous abscess of limb, unspecified Status: Acute Assessment and Plan: CT chest 03/14 showing: Considerable inflammatory/infectious change in the soft tissues and muscles of
[2023-03-17] VITALS (22 sets, daily range): BP systolic 114–152; BP diastolic 75–101; PULSE 67–77; RESP 20–24; TEMP 36.6–36.9; O2SAT 95–99
[2023-03-17 00:20] LABS: Glucose Point of Care 119 mg/dl (65-105)
[2023-03-17] MEDS: METOCLOPRAMIDE HCL 10 MG/10 ML SOLN UDC FEED TUBE ×4 (05:07→23:45)
[2023-03-17] MEDS: CENTRAL LINE FLUSH 10 ML IV PUSH ×3 (05:07→21:10)
[2023-03-17] MEDS: HYDROCORTISONE SODIUM SUCCINATE 100 MG/2 ML VIAL IV PUSH ×3 (05:07→21:09)
[2023-03-17 05:16] LABS: Hematocrit 24.5 % (42.0-52.0); Mean Corpuscular HGB Conc 32.7 g/dl (32-36); Mean Corpuscular Hemoglobin 30.4 pg (26-34); Mean Corpuscular Volume 93.2 fl (80-100); Mean Platelet Volume 12.2 fl (7.4-10.4); Platelet Count Result 173 k/mm3 (150-375); Red Blood Count 2.63 M/mm3 (4.6-6.20); Red Cell Distribution Width 17.7 % (11.5-14.5); White Blood Count 23.7 K/mm3 (4.5-10.0)
[2023-03-17 05:34] LABS: Albumin Level 2.5 g/dL (3.5-5.1); Alkaline Phosphatase 101 U/L (38-126); Anion Gap 10 mmol/L (8-16); Bilirubin,Total 1.5 mg/dL (0.2-1.3); Blood Urea Nitrogen 115 mg/dL (9-20); Calcium 6.7 mg/dL (8.4-10.2); Carbon Dioxide 23 mmol/L (22-30); Chloride 106 mmol/L (98-107); Glucose 117 mg/dL (65-110); Potassium 4.5 mmol/L (3.4-5.0); Sodium 139 mmol/L (137-145)
[2023-03-17 05:41] LABS: Alanine Aminotransferase 1517 U/L (6-50); Aspartate Amino Transferase 806 U/L (17-59); Estimated CRCL calculation 12 ml/min; Estimated Glomerular Filt Rate 9
--- NOTE | 2023-03-17 08:53 | P.PNINT_ITS ---
Progress Note: A&P Assessment and Plan (1) Shock: Code(s): R57.9 - Shock, unspecified Status: Acute Assessment and Plan: 03/14 patient was transferred to ICU due to hypotension. Hypotension likely secondary to hypovolemia but could be a new sepsis His procalcitonin lactic acid levels were normal nicom assessment showed patient to be fluid responsive and he was given 2 L fluid bolus now Will continue IV fluids Initially after IV fluid bolus patient blood pressure improved but later in the evening patient became hypotensive again A central venous catheter was placed and patient was started on Levophed Labs were performed and showed drop in hemoglobin. Initially it was thought to be dilutional patient had received significant amount IV fluids and there was no obvious sign of bleeding. CT scan was also pending at that 03/15 Overnight patient continued to require increased pressor dose Status limited echo was done this morning as patient has PE and DVT assess for RV function and as per my verbal communication with apparatus cleaner patient does not appear to be in RV failure. CT scan reviewed showed inflammatory infectious changes and soft tissue muscle in right shoulder with multiple intramuscular collection. I spoke to Dr. Ibarra with Radiology and he feels that these are hematoma which may be infected Heparin infusion was discontinued early this morning. Patient is coagulopathic secondary to DIC Patient underwent aspiration of the hematoma to evaluate for any infection and cultures have been sent Patient was transfused 2 units of PRBC, 3 years of FFP. Vitamin K was administered, 20 mg of protamine was given Patient was treated with iV fluids and vasopressors 03/16 improvement in hemodynamics and patient is now off of vasopressors Aspirate, blood cultures and urine culture are negative till now Continue empiric Zyvox and meropenem off further IV fluids (2) Acute hypoxic respiratory failure: Code(s): J96.01 - Acute respiratory failure with hypoxia Status: Acute Assessment and Plan: Patient patient initially presented with altered mental status, bilateral PEs, acute hypoxic respiratory failure, mucus plugging question aspiration -03/08: intubated in the ER and was extubated in the ICU - 03/15 reintubated due to hypoxia and altered mental status. Chest x-ray ABG and vent settings reviewed decrease PEEP to 5 and rate to 18 sedation holiday (3) Bilateral pulmonary embolism: Code(s): I26.99 - Other pulmonary embolism without acute cor pulmonale Status: Acute Assessment and Plan: CTA chest-acute pulmonary embolism in all lobes Patient was on heparin drip which has been discontinued now due to hematoma General surgery consulted a patient underwent IVC filter placement on 03/16. Patient unable to provide any consent and no family available hence procedure will be done as medical necessity in emergent situation Repeat limited echo results discussed with Cardiology Echocardiogram Summary ? 1. Complete two-dimensional, color flow and Doppler transthoracic echocardiogram is performed. ? 2. Normal left ventricular size and with mild concentric hypertrophy, and with hyperdynamic left ventricular systolic function.? Ejection fraction greater than 70%.? Grade 1 diastolic dysfunction is present. ? 3. Right ventricle not well visualized but appears mildly hypokinetic. ? 4. Dilated inferior vena cava consistent with elevated right heart pressure. ? 5. Right ventricular systolic pressure cannot be adequate evaluated by this study. ? 6. No significant valve disease. ? 7. Normal sinus rhythm. ? 8. Technically difficult study due t
[2023-03-17] MEDS: SODIUM ZIRCONIUM CYCLOSILICATE 10 GM POWD.PACK FEED TUBE ×2 (09:11→18:05)
[2023-03-17] MEDS: MINERAL OIL/WHITE PETROLATUM OINTMENT 1 APPLIC EACH EYE ×2 (09:11→21:09)
[2023-03-17] MEDS: FLUCONAZOLE 200 MG/NACL 100 ML 200 MG/100 ML BAG 100 MG IVPB (09:11)
[2023-03-17] MEDS: LINEZOLID 600 MG/300 ML 600 MG/300 ML SOLN 300 MG IVPB ×2 (09:11→21:09)
[2023-03-17] MEDS: PANTOPRAZOLE SODIUM IV 40 MG VIAL IV PUSH (09:11)
--- NOTE | 2023-03-17 11:11 | PCFNICU ---
ICU Rounding Note: Pt current nutrition is Nepro at 20 ml/hr. Nutrition recommendation: goal rate at 50 ml/hr Last recorded weight is 94.8 kg, up from 87 kg on admit. Bowel Motility: FMS Labs Reviewed:Glu 117, Cr 6.5,BUN 115, GFR 9, Alb 2.5,Hct 24.5,Hgb 8.0 Meds Noted:Protonix, Reglan, Diflucan. Skin:Bilateral Buttock-maceration. Additional Notes: Patient remain on mechanical vent. Tube feeding residuals increased overnight per nursing, Reglan started and tube feedings have resumed with trickle feeding of 20 ml/hr. Flush 30 ml q 4 hours. IVC filter placed 03/16. Agree with diet orders at this time. Following daily in ICU rounds. Will monitor weight, labs, skin, tube feeding tolerance in ICU rounds and reassessing every Wednesday and Wednesday.
[2023-03-17 12:10] LABS: Glucose Point of Care 135 mg/dl (65-105)
--- NOTE | 2023-03-17 12:15 | PM.CNNEP ---
Assessment and Plan Assessment and plan (1) ANTWAN (acute kidney injury): Code(s): N17.9 - Acute kidney failure, unspecified Status: Acute Assessment and Plan: presumably normal baseline creatinine/renal function creatinine of1.3mg/dl on admission initial insult secondary to obstructive uropathy as noted by imaging on admssion s/p cystoscopy and ureteral stent placement creatinine improved to 1.4mg/dl worsened again due to hypotension and overal decompensation of 03/15/23 suspect second insult to kidney due to ATN from drop in BP and possible new sepsis follow trend of repeat labs and UOP remains at risk for POSTMASTER RELIEF/dialysis (2) Acute hypoxic respiratory failure: Code(s): J96.01 - Acute respiratory failure with hypoxia Status: Acute Assessment and Plan: initially presented with altered mental status and bilateral PEs in association with hypoxia intubated on 03/08; extubated on 03/11 re-intubated on 03/15/13 continue ventilator support weaning as tolerated (3) Bilateral pulmonary embolism: Code(s): I26.99 - Other pulmonary embolism without acute cor pulmonale Status: Acute Assessment and Plan: on anticoagulation (4) COVID-19: Code(s): U07.1 - COVID-19 Status: Acute Assessment and Plan: positivity noted on admission in ER noted interventions per protocol (5) Sepsis: Qualifiers: Sepsis type: sepsis due to unspecified organism Sepsis acute organ dysfunction status: with acute organ dysfunction Severe sepsis acute organ dysfunction type: acute respiratory failure Acute respiratory failure type: with hypoxia Severe sepsis shock status: without septic shock Qualified Code(s): A41.9 - Sepsis, unspecified organism; R65.20 - Severe sepsis without septic shock; J96.01 - Acute respiratory failure with hypoxia Code(s): A41.9 - Sepsis, unspecified organism Status: Acute Assessment and Plan: noted with acute respiratory failure, tachycardia, tachypnea, normal lactic acid follow repeat culture data follow hemodynamics on antibiotics (6) Hydronephrosis with renal and ureteral calculous obstruction: Status: Acute Assessment and Plan: Renal ultrasound with right proximal ureteral stone measuring 1.6 cm causing moderate hydronephrosis. CT abdomen pelvis - 1. Proximal right ureteral stone near the UPJ measuring 1.8 cm with moderate hydronephrosis status post?cystoscopy, right retrograde pyelogram, and right ureteral stent insertion Urology following as needed (7) Anemia: Code(s): D64.9 - Anemia, unspecified Status: Acute Assessment and Plan: several issues: ANTWAN/ARF intramuscular hematomas and hemodilution previousissues with DIC chronic illness follow trend of H/H Extensive discussion (greater than 20 min) with the multiple resaw operator regarding the patient's multitude of issues and problems including his recent decline in renal function despite all interventions to date probably precipitated by his acute decline /decompensation in the last 24-48 hours. He remains at risk for renal replacement therapy/dialysis if his renal function continues to deteriorate. I will continue follow patient with you while he remains hospitalized and make further recommendations as needed. Thank you for allowing me to participate in care of this patient. History of Present Illness Reason for Consult Consult date: 03/17/23 Reason for consult: acute renal failure Chief Complaint Chief complaint: COVID Pneumonia History of Present Illness Narrative: Most of the information that I obtained is from review of electronic medical records as well as discussion with the physician / nurses involved in the patient's care as he is unable to provide me with any history as he is intubated and on mechanical ventilation. The patient is a 57-year-old male who initially presented to [facility]
--- NOTE | 2023-03-17 12:15 | P.CONNP_ITS ---
Assessment and Plan Assessment and plan (1) ANTWAN (acute kidney injury): Code(s): N17.9 - Acute kidney failure, unspecified Status: Acute Assessment and Plan: * presumably normal baseline creatinine/renal function * creatinine of1.3mg/dl on admission * initial insult secondary to obstructive uropathy as noted by imaging on admssion * s/p cystoscopy and ureteral stent placement * creatinine improved to 1.4mg/dl * worsened again due to hypotension and overal decompensation of 03/15/23 * suspect second insult to kidney due to ATN from drop in BP and possible new sepsis * follow trend of repeat labs and UOP * remains at risk for HYDRAULIC ASSEMBLER/dialysis (2) Acute hypoxic respiratory failure: Code(s): J96.01 - Acute respiratory failure with hypoxia Status: Acute Assessment and Plan: * initially presented with altered mental status and bilateral PEs in association with hypoxia * intubated on 03/08; extubated on 03/11 * re-intubated on 03/15/13 * continue ventilator support * weaning as tolerated (3) Bilateral pulmonary embolism: Code(s): I26.99 - Other pulmonary embolism without acute cor pulmonale Status: Acute Assessment and Plan: * on anticoagulation (4) COVID-19: Code(s): U07.1 - COVID-19 Status: Acute Assessment and Plan: * positivity noted on admission in ER * noted interventions per protocol (5) Sepsis: Qualifiers: Sepsis type: sepsis due to unspecified organism Sepsis acute organ dysfunction status: with acute organ dysfunction Severe sepsis acute organ dysfunction type: acute respiratory failure Acute respiratory failure type: with hypoxia Severe sepsis shock status: without septic shock Qualified Code(s): A41.9 - Sepsis, unspecified organism; R65.20 - Severe sepsis without septic shock; J96.01 - Acute respiratory failure with hypoxia Code(s): A41.9 - Sepsis, unspecified organism Status: Acute Assessment and Plan: * noted with acute respiratory failure, tachycardia, tachypnea, normal lactic acid * follow repeat culture data * follow hemodynamics * on antibiotics (6) Hydronephrosis with renal and ureteral calculous obstruction: Status: Acute Assessment and Plan: * Renal ultrasound with right proximal ureteral stone measuring 1.6 cm causing moderate hydronephrosis. * CT abdomen pelvis - 1. Proximal right ureteral stone near the UPJ measuring 1.8 cm with moderate hydronephrosis * status post?cystoscopy, right retrograde pyelogram, and right ureteral stent insertion * Urology following as needed (7) Anemia: Code(s): D64.9 - Anemia, unspecified Status: Acute Assessment and Plan: * several issues: * ANTWAN/ARF * intramuscular hematomas and hemodilution * previousissues with DIC * chronic illness * follow trend of H/H Extensive discussion (greater than 20 min) with the quality improvement coordinator regarding the patient's multitude of issues and problems including his recent decline in renal function despite all interventions to date probably precipitated by his acute decline /decompensation in the last 24-48 hours. He remains at risk for renal replacement therapy/dialysis if his renal function continues to deteriorate. I will continue follow patient with you while he remains hospitalized and make further recommendations as needed. Thank you for allowing me to participate in care of this patient. History of Present Illness Reason for Consult Consult date: 03/17/23 Reason for consult: acute renal fa
[2023-03-17] MEDS: MEROPENEM 500 MG in SODIUM CHLORIDE 0.9% IV 100 ML 200 ML IVPB ×2 (13:12→23:45)
[2023-03-17 18:18] LABS: Glucose Point of Care 132 mg/dl (65-105)
[2023-03-18] VITALS (35 sets, daily range): BP systolic 111–161; BP diastolic 67–107; PULSE 58–76; RESP 16–24; TEMP 36.1–37.2; O2SAT 96–100
[2023-03-18 00:02] LABS: Glucose Point of Care 145 mg/dl (65-105)
[2023-03-18] MEDS: CENTRAL LINE FLUSH 10 ML IV PUSH ×3 (05:02→20:35)
[2023-03-18] MEDS: HYDROCORTISONE SODIUM SUCCINATE 100 MG/2 ML VIAL IV PUSH (05:02)
[2023-03-18] MEDS: METOCLOPRAMIDE HCL 10 MG/10 ML SOLN UDC FEED TUBE (05:02)
[2023-03-18 05:25] LABS: Hematocrit 24.3 % (42.0-52.0); Hemoglobin 7.9 g/dL (14.0-18.0); Mean Corpuscular HGB Conc 32.5 g/dl (32-36); Mean Corpuscular Hemoglobin 30.7 pg (26-34); Mean Corpuscular Volume 94.6 fl (80-100); Mean Platelet Volume 11.7 fl (7.4-10.4); Platelet Count Result 171 k/mm3 (150-375); Red Blood Count 2.57 M/mm3 (4.6-6.20); White Blood Count 21.1 K/mm3 (4.5-10.0)
[2023-03-18 06:04] LABS: Albumin Level 2.5 g/dL (3.5-5.1); Alkaline Phosphatase 107 U/L (38-126); Anion Gap 14 mmol/L (8-16); Aspartate Amino Transferase 335 U/L (17-59); Bilirubin,Total 1.3 mg/dL (0.2-1.3); Calcium 6.9 mg/dL (8.4-10.2); Carbon Dioxide 21 mmol/L (22-30); Chloride 104 mmol/L (98-107); Estimated CRCL calculation 11 ml/min; Estimated Glomerular Filt Rate 8; Glucose 134 mg/dL (65-110); Magnesium 2.1 mg/dL (1.6-2.3); Potassium 4.7 mmol/L (3.4-5.0); Sodium 139 mmol/L (137-145)
[2023-03-18 06:33] LABS: Hepatitis B Surface Antigen Negative (Negative)
[2023-03-18 06:51] LABS: Hepatitis B Surface Anti Res Negative
[2023-03-18 07:55] LABS: Alanine Aminotransferase 1052 U/L (6-50); Blood Urea Nitrogen 142 mg/dL (9-20)
[2023-03-18] MEDS: FLUCONAZOLE 200 MG/NACL 100 ML 200 MG/100 ML BAG 100 MG IVPB (08:43)
[2023-03-18] MEDS: MINERAL OIL/WHITE PETROLATUM OINTMENT 1 APPLIC EACH EYE ×2 (08:53→20:35)
[2023-03-18] MEDS: PANTOPRAZOLE SODIUM IV 40 MG VIAL IV PUSH (08:53)
[2023-03-18] MEDS: SODIUM ZIRCONIUM CYCLOSILICATE 10 GM POWD.PACK FEED TUBE ×2 (08:53→18:00)
[2023-03-18] MEDS: LINEZOLID 600 MG/300 ML 600 MG/300 ML SOLN 300 MG IVPB ×2 (08:54→20:35)
--- NOTE | 2023-03-18 11:04 | PCFNICU ---
ICU Rounding Note: Pt current nutrition is Nepro at 20 ml/hr. Last recorded weight is 94.8 kg, up from 84 kg on admit. Bowel Motility:FMS Labs Reviewed:GFR 8, BUN 142, Cr 7.3,Glu 134, Alb 2.5 Meds Noted:Reglan IV, Protonix, Diflucan, Marianum. Skin: Bilateral Buttock-Maceration. Additional Notes: Patient remains on a mechanical vent. Tube feeding held over night for elevated residuals. Reglan changed to IV and tube feedings have been restarted at 20 ml/hr. Dialysis planned for today. Following daily in ICU rounds. Will monitor weight, labs, skin, tube feeding tolerance every Wednesday and Wednesday.
[2023-03-18] MEDS: METOCLOPRAMIDE HCL INJ 10 MG/2 ML VIAL IV PUSH ×3 (12:57→23:50)
[2023-03-18] MEDS: MIDAZOLAM HCL (*CRX) 2 MG/2 ML VIAL 4 MG IV PUSH (13:10)
[2023-03-18] MEDS: fentaNYL CITRATE INJ (*CRX) 100 MCG/2 ML VIAL 50 MCG IV PUSH (13:24)
--- NOTE | 2023-03-18 13:52 | WPDPROCEDUR ---
Procedures Central Line Placement Right IJ: Central Line Date: 03/18/23 Central Line Time: 13:30 Performed Emergently - Given emergent patient condition, temporal constraints may have precluded informed consent.: Yes Consent: Patient has worsening renal function and acute renal failure. Needs hemodialysis. No family or friends available. Despite multiple times no p.o. available to provide consent. Patient is intubated and on mechanical ventilation and unable to provide consent. Procedure done as medical necessity as without hemo dialysis patient will likely . Time Out Performed: Yes Patient Position: supine Patient placed on monitor/pulse ox: Yes Provider Prep: mask, sterile gown, sterile gloves, Max. sterile barrier precautions, cap and hand hygiene with conventional soap/water or alcohol based hand rub Central line prep: Povidone-Iodine 1% Local anesthesia used: lidocaine 1% Amount of anesthesia used (ml): 5 Sterile US Technique with sterile gel/sterile probe covers: Yes Central line lumen inserted: triple Length (cm): 16 Depth of Insertion (cm): 16 Post Procedure: sutured in place, good blood return, all ports aspirated, flushed, capped, transparent dressing and aseptic technique maintained throughout procedure Post procedure x-ray: tip of catheter in good position and no pneumothorax seen Patient tolerated procedure: well Complications: none
--- NOTE | 2023-03-18 13:57 | WPDINTPN ---
Progress Note: A&P Assessment and Plan (1) Shock: Code(s): R57.9 - Shock, unspecified Status: Acute Assessment and Plan: 03/14 patient was transferred to ICU due to hypotension. Hypotension likely secondary to hypovolemia but could be a new sepsis His procalcitonin lactic acid levels were normal nicom assessment showed patient to be fluid responsive and he was given 2 L fluid bolus now Will continue IV fluids Initially after IV fluid bolus patient blood pressure improved but later in the evening patient became hypotensive again A central venous catheter was placed and patient was started on Levophed Labs were performed and showed drop in hemoglobin. Initially it was thought to be dilutional patient had received significant amount IV fluids and there was no obvious sign of bleeding. CT scan was also pending at that 03/15 Overnight patient continued to require increased pressor dose Status limited echo was done this morning as patient has PE and DVT assess for RV function and as per my verbal communication with dairy farm supervisor patient does not appear to be in RV failure. CT scan reviewed showed inflammatory infectious changes and soft tissue muscle in right shoulder with multiple intramuscular collection. I spoke to Dr. Ibarra with Radiology and he feels that these are hematoma which may be infected Heparin infusion was discontinued early this morning. Patient is coagulopathic secondary to DIC Patient underwent aspiration of the hematoma to evaluate for any infection and cultures have been sent Patient was transfused 2 units of PRBC, 3 years of FFP. Vitamin K was administered, 20 mg of protamine was given Patient was treated with iV fluids and vasopressors 03/16 improvement in hemodynamics and patient is now off of vasopressors Aspirate, blood cultures and urine culture are negative till now Continue empiric Zyvox and meropenem off further IV fluids (2) Acute hypoxic respiratory failure: Code(s): J96.01 - Acute respiratory failure with hypoxia Status: Acute Assessment and Plan: Patient patient initially presented with altered mental status, bilateral PEs, acute hypoxic respiratory failure, mucus plugging question aspiration -03/08: intubated in the ER and was extubated in the ICU - 03/15 reintubated due to hypoxia and altered mental status. Chest x-ray ABG and vent settings reviewed decrease PEEP to 5 and rate to 18 sedation holiday (3) Bilateral pulmonary embolism: Code(s): I26.99 - Other pulmonary embolism without acute cor pulmonale Status: Acute Assessment and Plan: CTA chest-acute pulmonary embolism in all lobes Patient was on heparin drip which has been discontinued now due to hematoma General surgery consulted a patient underwent IVC filter placement on 03/16. Patient unable to provide any consent and no family available hence procedure will be done as medical necessity in emergent situation Repeat limited echo results discussed with Cardiology Echocardiogram Summary ? 1. Complete two-dimensional, color flow and Doppler transthoracic echocardiogram is performed. ? 2. Normal left ventricular size and with mild concentric hypertrophy, and with hyperdynamic left ventricular systolic function.? Ejection fraction greater than 70%.? Grade 1 diastolic dysfunction is present. ? 3. Right ventricle not well visualized but appears mildly hypokinetic. ? 4. Dilated inferior vena cava consistent with elevated right heart pressure. ? 5. Right ventricular systolic pressure cannot be adequate evaluated by this study. ? 6. No significant valve disease. ? 7. Normal sinus rhythm. ? 8. Technically difficult study due to the patient being on a ventilator etc. (4) COVID-19: Code(s): U07.1 - COVID-19 Status: Acute Assessment and Plan: Patient was positive COVID-19 PCR here in the ER on admission -lungs are clear on chest x-ray accept the mucus plugging and probable aspiration pneumonia -pat
[2023-03-18 14:06] LABS: Glucose Point of Care 124 mg/dl (65-105)
--- NOTE | 2023-03-18 14:50 | P.PNNP_ITS ---
Progress Note: A&P Assessment and Plan (1) ANTWAN (acute kidney injury): Code(s): N17.9 - Acute kidney failure, unspecified Status: Acute Assessment and Plan: * presumably normal baseline creatinine/renal function * creatinine was 1.3mg/dl on admission * initial insult secondary to obstructive uropathy as noted by imaging on admission * s/p cystoscopy and ureteral stent placement * creatinine improved to 1.4mg/dl * worsened again due to hypotension and overal decompensation of 03/15/23 * suspect second insult to kidney due to ATN from drop in BP and possible new sepsis * initiated on PLACING [employer]GE/dialysis today due to clearance and optimization of electrolytes * follow repeat labs and UOP for possible renal recovery (2) Hydronephrosis with renal and ureteral calculous obstruction: Status: Acute Assessment and Plan: * Renal ultrasound with right proximal ureteral stone measuring 1.6 cm causing moderate hydronephrosis. * CT abdomen pelvis - 1. Proximal right ureteral stone near the UPJ measuring 1.8 cm with moderate hydronephrosis * status post?cystoscopy, right retrograde pyelogram, and right ureteral stent insertion * Urology following as needed (3) Acute hypoxic respiratory failure: Code(s): J96.01 - Acute respiratory failure with hypoxia Status: Acute Assessment and Plan: * initially presented with altered mental status and bilateral PEs in asso ciation with hypoxia * intubated on 03/08; extubated on 03/11 * re-intubated on 03/15/13 * continue ventilator support * weaning as tolerated (4) Bilateral pulmonary embolism: Code(s): I26.99 - Other pulmonary embolism without acute cor pulmonale Status: Acute Assessment and Plan: * CTA chest noted acute pulmonary embolism in all lobes * was on heparin drip which has been discontinued now due to hematoma * s/p IVC filter? placement on 03/16 bySurgery * results of last Echo noted (5) COVID-19: Code(s): U07.1 - COVID-19 Status: Acute Assessment and Plan: * positivity noted on admission in ER * lungs are clear on chest x-ray * suspect some mucus plugging and probable aspiration pneumonia * was started on dexamethasone which was later switched to to hydrocortisone during shock * not started on Remdesivir * does not appear to have COVID pneumonia (6) Sepsis: Qualifiers: Sepsis type: sepsis due to unspecified organism Sepsis acute organ dysfunction status: with acute organ dysfunction Severe sepsis acute organ dysfunction type: acute respiratory failure Acute respiratory failure type: with hypoxia Severe sepsis shock status: without septic shock Qualified Code(s): A41.9 - Sepsis, unspecified organism; R65.20 - Severe sepsis without septic shock; J96.01 - Acute respiratory failure with hypoxia Code(s): A41.9 - Sepsis, unspecified organism Status: Acute Assessment and Plan: * resolved * noted with acute respiratory failure, tachycardia, tachypnea on admission * follow repeat culture data * follow hemodynamics * off vasopressor therapy * on antibiotics (7) Anemia: Code(s): D64.9 - Anemia, unspecified Status: Acute Assessment and Plan: * several issues: * ANTWAN/ARF * intramuscular hematomas and hemodilution * previous issues with DIC * chronic illness * Epogen with dialysis * follow trend of H/H Will continue to follow. Subjective Date/time seen: 03/18/23 14:50 Interval history: Follow-up for
--- NOTE | 2023-03-18 14:50 | PM.PNNEP ---
Progress Note: A&P Assessment and Plan (1) ANTWAN (acute kidney injury): Code(s): N17.9 - Acute kidney failure, unspecified Status: Acute Assessment and Plan: presumably normal baseline creatinine/renal function creatinine was 1.3mg/dl on admission initial insult secondary to obstructive uropathy as noted by imaging on admission s/p cystoscopy and ureteral stent placement creatinine improved to 1.4mg/dl worsened again due to hypotension and overal decompensation of 03/15/23 suspect second insult to kidney due to ATN from drop in BP and possible new sepsis initiated on DRY MIXER/dialysis today due to clearance and optimization of electrolytes follow repeat labs and UOP for possible renal recovery (2) Hydronephrosis with renal and ureteral calculous obstruction: Status: Acute Assessment and Plan: Renal ultrasound with right proximal ureteral stone measuring 1.6 cm causing moderate hydronephrosis. CT abdomen pelvis - 1. Proximal right ureteral stone near the UPJ measuring 1.8 cm with moderate hydronephrosis status post?cystoscopy, right retrograde pyelogram, and right ureteral stent insertion Urology following as needed (3) Acute hypoxic respiratory failure: Code(s): J96.01 - Acute respiratory failure with hypoxia Status: Acute Assessment and Plan: initially presented with altered mental status and bilateral PEs in association with hypoxia intubated on 03/08; extubated on 03/11 re-intubated on 03/15/13 continue ventilator support weaning as tolerated (4) Bilateral pulmonary embolism: Code(s): I26.99 - Other pulmonary embolism without acute cor pulmonale Status: Acute Assessment and Plan: CTA chest noted acute pulmonary embolism in all lobes was on heparin drip which has been discontinued now due to hematoma s/p IVC filter? placement on 03/16 bySurgery results of last Echo noted (5) COVID-19: Code(s): U07.1 - COVID-19 Status: Acute Assessment and Plan: positivity noted on admission in ER lungs are clear on chest x-ray suspect some mucus plugging and probable aspiration pneumonia was started on dexamethasone which was later switched to to hydrocortisone during shock not started on Remdesivir does not appear to have COVID pneumonia (6) Sepsis: Qualifiers: Sepsis type: sepsis due to unspecified organism Sepsis acute organ dysfunction status: with acute organ dysfunction Severe sepsis acute organ dysfunction type: acute respiratory failure Acute respiratory failure type: with hypoxia Severe sepsis shock status: without septic shock Qualified Code(s): A41.9 - Sepsis, unspecified organism; R65.20 - Severe sepsis without septic shock; J96.01 - Acute respiratory failure with hypoxia Code(s): A41.9 - Sepsis, unspecified organism Status: Acute Assessment and Plan: resolved noted with acute respiratory failure, tachycardia, tachypnea on admission follow repeat culture data follow hemodynamics off vasopressor therapy on antibiotics (7) Anemia: Code(s): D64.9 - Anemia, unspecified Status: Acute Assessment and Plan: several issues: ANTWAN/ARF intramuscular hematomas and hemodilution previous issues with DIC chronic illness Epogen with dialysis follow trend of H/H Will continue to follow. Subjective Date/time seen: 03/18/23 14:50 Interval history: Follow-up for acute kidney injury/acute renal failure Tolerating hemodialysis treatment at the time of my visit (seen on HD at 2:40PM); stable hemodynamics off vasopressor therapy but remains intubated and on mechanical ventilation - off sedation and opens eyes but does not follow commands; renal function continues to worsen in association with declining urine output hence the decision to proceed with hemodialysis today. Exam Narrative: General: middle aged male intubated/sedated an
[2023-03-18] MEDS: MEROPENEM 500 MG in SODIUM CHLORIDE 0.9% IV 100 ML 200 ML IVPB (17:56)
[2023-03-18 18:08] LABS: Glucose Point of Care 140 mg/dl (65-105)
[2023-03-18 23:58] LABS: Glucose Point of Care 133 mg/dl (65-105)
[2023-03-19] VITALS (33 sets, daily range): BP systolic 118–158; BP diastolic 75–105; PULSE 55–93; RESP 17–23; TEMP 36.8–37.4; O2SAT 91–99
[2023-03-19 05:27] LABS: Alveolar/Arterial O2 Gradient 99.6 mmHg; Base Excess ABG 0.3 mEq/l (+/-2.0); Fractional Inspired Oxygen 30 %; HCO3 ABG 24.3 mEq/l (22.0-26.0); Oxygen Content ABG 14.3 %vol (16.0-22.0); Oxygen Saturation ABG 94.9 % (95.0-100.0); Oxyhemoglobin 92.9 % THb (90.0-100.0); PCO2 ABG 36.8 mmHg (35.0-45.0); PO2 ABG 71.1 mmHg (80.0-100.0); PO2 FiO2 Ratio Arterial Blood 2.37 %; Total Hemoglobin 10.9 g/dL (12.0-18.0); pH ABG 7.437 (7.350-7.450)
[2023-03-19 05:29] LABS: Device VENTILATOR; Modified Allen's Test Pass; Site Drawn LEFT RADIAL
[2023-03-19 05:30] LABS: Arterial Blood Gas PEEP 5 cmH2O; Arterial Blood Gas Tidal Volume 450 ml; Arterial Blood Gas Vent Mode CMV; Arterial Blood Gas Ventilator rate 18 /MIN
[2023-03-19] MEDS: MEROPENEM 500 MG in SODIUM CHLORIDE 0.9% IV 100 ML 200 ML IVPB ×2 (06:14→17:52)
[2023-03-19] MEDS: CENTRAL LINE FLUSH 10 ML IV PUSH ×3 (06:14→21:05)
[2023-03-19] MEDS: METOCLOPRAMIDE HCL INJ 10 MG/2 ML VIAL IV PUSH ×3 (06:14→17:52)
[2023-03-19 06:35] LABS: Hematocrit 24.5 % (42.0-52.0); Hemoglobin 7.7 g/dL (14.0-18.0); Mean Corpuscular HGB Conc 31.4 g/dl (32-36); Mean Corpuscular Hemoglobin 30.2 pg (26-34); Mean Corpuscular Volume 96.1 fl (80-100); Mean Platelet Volume 11.2 fl (7.4-10.4); Platelet Count Result 152 k/mm3 (150-375); Red Blood Count 2.55 M/mm3 (4.6-6.20); Red Cell Distribution Width 16.9 % (11.5-14.5); White Blood Count 19.5 K/mm3 (4.5-10.0)
[2023-03-19 06:45] LABS: Alanine Aminotransferase 688 U/L (6-50); Albumin Level 2.6 g/dL (3.5-5.1); Alkaline Phosphatase 120 U/L (38-126); Anion Gap 9 mmol/L (8-16); Aspartate Amino Transferase 211 U/L (17-59); Bilirubin,Total 1.5 mg/dL (0.2-1.3); Blood Urea Nitrogen 97 mg/dL (9-20); Calcium 7.3 mg/dL (8.4-10.2); Carbon Dioxide 26 mmol/L (22-30); Chloride 101 mmol/L (98-107); Glucose 125 mg/dL (65-110); Potassium 4.1 mmol/L (3.4-5.0); Sodium 136 mmol/L (137-145)
[2023-03-19 06:50] LABS: Estimated CRCL calculation 13 ml/min; Estimated Glomerular Filt Rate 10
[2023-03-19] MEDS: FLUCONAZOLE 200 MG/NACL 100 ML 200 MG/100 ML BAG 100 MG IVPB (08:37)
[2023-03-19] MEDS: PANTOPRAZOLE SODIUM IV 40 MG VIAL IV PUSH (08:38)
[2023-03-19] MEDS: HYDROCORTISONE SODIUM SUCCINATE 100 MG/2 ML VIAL IV PUSH (08:38)
[2023-03-19] MEDS: MINERAL OIL/WHITE PETROLATUM OINTMENT 1 APPLIC EACH EYE ×2 (08:38→21:04)
--- NOTE | 2023-03-19 09:34 | WPDINTPN ---
Progress Note: A&P Assessment and Plan (1) Shock: Code(s): R57.9 - Shock, unspecified Status: Acute Assessment and Plan: 03/14 patient was transferred to ICU due to hypotension. Hypotension likely secondary to hypovolemia but could be a new sepsis His procalcitonin lactic acid levels were normal nicom assessment showed patient to be fluid responsive and he was given 2 L fluid bolus now Will continue IV fluids Initially after IV fluid bolus patient blood pressure improved but later in the evening patient became hypotensive again A central venous catheter was placed and patient was started on Levophed Labs were performed and showed drop in hemoglobin. Initially it was thought to be dilutional patient had received significant amount IV fluids and there was no obvious sign of bleeding. CT scan was also pending at that 03/15 Overnight patient continued to require increased pressor dose Status limited echo was done this morning as patient has PE and DVT assess for RV function and as per my verbal communication with construction supervisor patient does not appear to be in RV failure. CT scan reviewed showed inflammatory infectious changes and soft tissue muscle in right shoulder with multiple intramuscular collection. I spoke to Dr. Ibarra with Radiology and he feels that these are hematoma which may be infected Heparin infusion was discontinued early this morning. Patient is coagulopathic secondary to DIC Patient underwent aspiration of the hematoma to evaluate for any infection and cultures have been sent Patient was transfused 2 units of PRBC, 3 years of FFP. Vitamin K was administered, 20 mg of protamine was given Patient was treated with iV fluids and vasopressors 03/16 improvement in hemodynamics and patient is now off of vasopressors Aspirate, blood cultures and urine culture are negative till now MRSA screen was negative Continue meropenem but will discontinue Zyvox off further IV fluids (2) Acute hypoxic respiratory failure: Code(s): J96.01 - Acute respiratory failure with hypoxia Status: Acute Assessment and Plan: Patient patient initially presented with altered mental status, bilateral PEs, acute hypoxic respiratory failure, mucus plugging question aspiration -03/08: intubated in the ER and was extubated in the ICU - 03/15 reintubated due to hypoxia and altered mental status. Chest x-ray ABG and vent settings reviewed Currently pEEP to 5 and rate to 18 Currently sedation holiday Patient placed on PSV trial for weaning (3) Bilateral pulmonary embolism: Code(s): I26.99 - Other pulmonary embolism without acute cor pulmonale Status: Acute Assessment and Plan: CTA chest-acute pulmonary embolism in all lobes Patient was on heparin drip which has been discontinued now due to hematoma General surgery consulted a patient underwent IVC filter placement on 03/16. Patient unable to provide any consent and no family available hence procedure will be done as medical necessity in emergent situation Repeat limited echo results discussed with Cardiology Echocardiogram Summary ? 1. Complete two-dimensional, color flow and Doppler transthoracic echocardiogram is performed. ? 2. Normal left ventricular size and with mild concentric hypertrophy, and with hyperdynamic left ventricular systolic function.? Ejection fraction greater than 70%.? Grade 1 diastolic dysfunction is present. ? 3. Right ventricle not well visualized but appears mildly hypokinetic. ? 4. Dilated inferior vena cava consistent with elevated right heart pressure. ? 5. Right ventricular systolic pressure cannot be adequate evaluated by this study. ? 6. No significant valve disease. ? 7. Normal sinus rhythm. ? 8. Technically difficult study due to the patient being on a ventilator etc. (4) COVID-19: Code(s): U07.1 - COVID-19 Status: Acute Assessment and Plan: Patient was positive COVID-19 PCR here in the ER on admission -lungs are
[2023-03-19 10:09] LABS: Alveolar/Arterial O2 Gradient 131.7 mmHg; Arterial Blood Gas PEEP 5 cmH2O; Arterial Blood Gas Vent Mode SPONTANEOUS; Base Excess ABG 0.3 mEq/l (+/-2.0); Device VENTILATOR; Fractional Inspired Oxygen 40 %; HCO3 ABG 24.7 mEq/l (22.0-26.0); Modified Allen's Test Pass; Oxygen Content ABG 12.1 %vol (16.0-22.0); Oxyhemoglobin 96.1 % THb (90.0-100.0); PCO2 ABG 39.2 mmHg (35.0-45.0); PO2 ABG 108.4 mmHg (80.0-100.0); PO2 FiO2 Ratio Arterial Blood 2.71 %; Site Drawn LEFT RADIAL; Total Hemoglobin 8.8 g/dL (12.0-18.0); pH ABG 7.418 (7.350-7.450)
[2023-03-19 10:10] LABS: Arterial Blood Gas Pressure Support 5 cmH2O
--- NOTE | 2023-03-19 10:53 | PCNFU ---
Nutrition Follow-Up Complete: Inadequate Oral Intake as related to mechanical vent as evidenced by NPO. goal: Meet estimated nutritional needs. Patient will continue current goal. Pt current nutrition is Nepro at 40 ml/hr. Nutrition recommendation: Banatrol Plus TF BID Last recorded weight is 94.8 kg, up from 87 kg on admit. Bowel Motility:FMS Labs Reviewed:Glu 125, Cr 5.9, BUN 97,GFR 10, Alb 2.6 Meds Noted:Reglan, Decadron, Protonix Skin: WNL Additional Notes: Patient remains on mechanical vent. Tube feedings restarted of Nepro at 20 ml/hr. Recommend goal rate at 50 ml/hr(1980 kcals/89 gms protein/800 ml water). Spoke with Golf Tournament Consultant today, plans for possible extubation. Tube feeding will remain for nutrition. New orders for Banatrol Plus TF BID for stool bulking. Flush 30 ml q 4 hours. Agree with diet orders. Will monitor weight, labs, skin, tube feeding tolerance in ICU rounds and reassessing every Wednesday and Wednesday.
[2023-03-19 12:01] LABS: Glucose Point of Care 121 mg/dl (65-105)
--- NOTE | 2023-03-19 13:09 | P.PNIM_ITS ---
Progress Note: A&P Assessment and Plan (1) Shock: Code(s): R57.9 - Shock, unspecified Status: Acute Assessment and Plan: 03/14 patient was transferred to ICU due to hypotension. Hypotension likely secondary to hypovolemia but could be a new sepsis His procalcitonin lactic acid levels were normal nicom assessment showed patient to be fluid responsive and he was given 2 L fluid bolus now Will continue IV fluids Initially after IV fluid bolus patient blood pressure improved but later in the evening patient became hypotensive again A central venous catheter was placed and patient was started on Levophed Labs were performed and showed drop in hemoglobin. Initially it was thought to be dilutional patient had received significant amount IV fluids and there was no obvious sign of bleeding. CT scan was also pending at that 03/15 Overnight patient continued to require increased pressor dose Status limited echo was done this morning as patient has PE and DVT assess for RV function and as per my verbal communication with dynamic balancer set up worker patient does not appear to be in RV failure. CT scan reviewed showed inflammatory infectious changes and soft tissue muscle in right shoulder with multiple intramuscular collection. I spoke to Dr. Ibarra with Radiology and he feels that these are hematoma which may be infected Heparin infusion was discontinued early this morning. Patient is coagulopathic secondary to DIC Patient underwent aspiration of the hematoma to evaluate for any infection and cultures have been sent Patient was transfused 2 units of PRBC, 3 years of FFP. Vitamin K was administered, 20 mg of protamine was given Patient was treated with iV fluids and vasopressors 03/16 improvement in hemodynamics and patient is now off of vasopressors Aspirate, blood cultures and urine culture are negative till now MRSA screen was negative Continue meropenem but will discontinue Zyvox off further IV fluids (2) Acute hypoxic respiratory failure: Code(s): J96.01 - Acute respiratory failure with hypoxia Status: Acute Assessment and Plan: Patient patient initially presented with altered mental status, bilateral PEs, acute hypoxic respiratory failure, mucus plugging question aspiration -03/08: intubated in the ER and was extubated in the ICU - 03/15 reintubated due to hypoxia and altered mental status. Chest x-ray ABG and vent settings reviewed Currently pEEP to 5 and rate to 18 Currently sedation holiday Patient placed on PSV trial for weaning (3) Bilateral pulmonary embolism: Code(s): I26.99 - Other pulmonary embolism without acute cor pulmonale Status: Acute Assessment and Plan: CTA chest-acute pulmonary embolism in all lobes Patient was on heparin drip which has been discontinued now due to hematoma General surgery consulted a patient underwent IVC filter placement on 03/16. Patient unable to provide any consent and no family available hence procedure will be done as medical necessity in emergent situation Repeat limited echo results discussed with Cardiology Echocardiogram Summary ? 1. Complete two-dimensional, color flow and Doppler transthoracic echocard iogram is performed. ? 2. Normal left ventricular size and with mild concentric hypertrophy, and with hyperdynamic left ventricular systolic function.? Ejection fraction greater than 70%.? Grade 1 diastolic dysfunction is present. ? 3. Right ventricle not well visualized but appears mildly hypokinetic. ? 4. Dilated inferior vena cava consistent with elevated right heart pressure. ? 5. Right ventricular systolic pressure cannot be adequate evaluated by this study. ? 6. No signifi
[2023-03-19] MEDS: EPOETIN ALFA-EPBX 10,000 UNITS/ML VIAL 10000 UNITS IV PUSH (14:24)
--- NOTE | 2023-03-19 14:32 | PM.PNNEP ---
Progress Note: A&P Assessment and Plan (1) ANTWAN (acute kidney injury): Code(s): N17.9 - Acute kidney failure, unspecified Status: Acute Assessment and Plan: presumably normal baseline creatinine/renal function creatinine was 1.3mg/dl on admission initial insult secondary to obstructive uropathy as noted by imaging on admission s/p cystoscopy and ureteral stent placement creatinine improved to 1.4mg/dl worsened again due to hypotension and overal decompensation of 03/15/23 suspect second insult to kidney due to ATN from drop in BP and possible new sepsis initiated on BOOM MAN/dialysis on 03/18 due to clearance and optimization of electrolytes HD again today follow repeat labs and UOP for possible renal recovery (2) Hydronephrosis with renal and ureteral calculous obstruction: Status: Acute Assessment and Plan: renal ultrasound with right proximal ureteral stone measuring 1.6 cm causing moderate hydronephrosis. CT abdomen pelvis - 1. Proximal right ureteral stone near the UPJ measuring 1.8 cm with moderate hydronephrosis status post?cystoscopy, right retrograde pyelogram, and right ureteral stent insertion Urology following as needed (3) Acute hypoxic respiratory failure: Code(s): J96.01 - Acute respiratory failure with hypoxia Status: Acute Assessment and Plan: initially presented with altered mental status and bilateral PEs in association with hypoxia intubated on 03/08; extubated on 03/11 re-intubated on 03/15/13 due to acute decompensation continue ventilator support weaning as tolerated (4) Bilateral pulmonary embolism: Code(s): I26.99 - Other pulmonary embolism without acute cor pulmonale Status: Acute Assessment and Plan: CTA chest noted acute pulmonary embolism in all lobes was on heparin drip which has been discontinued now due to issues with shoulder hematoma s/p IVC filter? placement on 03/16 by Surgery results of last Echo noted (5) COVID-19: Code(s): U07.1 - COVID-19 Status: Acute Assessment and Plan: positivity noted on admission in ER lungs are clear on chest x-ray suspect some mucus plugging and probable aspiration pneumonia was started on dexamethasone which was later switched to to hydrocortisone during shock not started on Remdesivir does not appear to have COVID pneumonia (6) Sepsis: Qualifiers: Sepsis type: sepsis due to unspecified organism Sepsis acute organ dysfunction status: with acute organ dysfunction Severe sepsis acute organ dysfunction type: acute respiratory failure Acute respiratory failure type: with hypoxia Severe sepsis shock status: without septic shock Qualified Code(s): A41.9 - Sepsis, unspecified organism; R65.20 - Severe sepsis without septic shock; J96.01 - Acute respiratory failure with hypoxia Code(s): A41.9 - Sepsis, unspecified organism Status: Acute Assessment and Plan: resolved noted with acute respiratory failure, tachycardia, tachypnea on admission follow repeat culture data follow hemodynamics off vasopressor therapy on antibiotics (7) Anemia: Code(s): D64.9 - Anemia, unspecified Status: Acute Assessment and Plan: several issues: ANTWAN/ARF intramuscular hematomas and hemodilution previous issues with DIC chronic illness Epogen with dialysis follow trend of H/H Will continue to follow. Subjective Date/time seen: 03/19/23 14:32 Interval history: Follow-up for acute kidney injury/acute renal failure Tolerated hemodialysis treatment yesterday without any issue or problems; tolerating hemodialysis treatment at the time of my visit as well (seen on HD at 2:20PM); still with low urine output but otherwise remains hemodynamically stable without need for vasopressor therapy; continue to be on mechanical ventilation. Exam Narrative: General: middle aged male int
[2023-03-19 18:25] LABS: Glucose Point of Care 133 mg/dl (65-105)
[2023-03-20] VITALS (36 sets, daily range): BP systolic 137–165; BP diastolic 88–112; PULSE 21–100; RESP 12–88; TEMP 37–37.7; O2SAT 94–100
[2023-03-20] MEDS: METOCLOPRAMIDE HCL INJ 10 MG/2 ML VIAL IV PUSH ×5 (01:20→23:22)
[2023-03-20 01:29] LABS: Glucose Point of Care 130 mg/dl (65-105)
[2023-03-20] MEDS: MEROPENEM 500 MG in SODIUM CHLORIDE 0.9% IV 100 ML 200 ML IVPB ×2 (06:42→18:23)
[2023-03-20] MEDS: CENTRAL LINE FLUSH 10 ML IV PUSH ×3 (06:43→20:47)
[2023-03-20 06:47] LABS: Hematocrit 27.2 % (42.0-52.0); Hemoglobin 8.6 g/dL (14.0-18.0); Mean Corpuscular HGB Conc 31.6 g/dl (32-36); Mean Corpuscular Hemoglobin 30.6 pg (26-34); Mean Corpuscular Volume 96.8 fl (80-100); Mean Platelet Volume 10.8 fl (7.4-10.4); Platelet Count Result 150 k/mm3 (150-375); Red Blood Count 2.81 M/mm3 (4.6-6.20); Red Cell Distribution Width 18.8 % (11.5-14.5); White Blood Count 22.4 K/mm3 (4.5-10.0)
[2023-03-20 06:59] LABS: Alanine Aminotransferase 528 U/L (6-50); Albumin Level 2.8 g/dL (3.5-5.1); Alkaline Phosphatase 148 U/L (38-126); Anion Gap 7 mmol/L (8-16); Aspartate Amino Transferase 121 U/L (17-59); Bilirubin,Total 1.8 mg/dL (0.2-1.3); Blood Urea Nitrogen 73 mg/dL (9-20); Calcium 7.7 mg/dL (8.4-10.2); Carbon Dioxide 27 mmol/L (22-30); Chloride 102 mmol/L (98-107); Glucose 115 mg/dL (65-110); Potassium 3.8 mmol/L (3.4-5.0); Sodium 136 mmol/L (137-145)
[2023-03-20 07:01] LABS: Estimated CRCL calculation 17 ml/min; Estimated Glomerular Filt Rate 13
[2023-03-20] MEDS: MINERAL OIL/WHITE PETROLATUM OINTMENT 1 APPLIC EACH EYE ×2 (08:00→20:41)
[2023-03-20] MEDS: FLUCONAZOLE 200 MG/NACL 100 ML 200 MG/100 ML BAG 100 MG IVPB (08:00)
[2023-03-20] MEDS: PANTOPRAZOLE SODIUM IV 40 MG VIAL IV PUSH (08:00)
[2023-03-20] MEDS: HYDROCORTISONE SODIUM SUCCINATE 100 MG/2 ML VIAL IV PUSH (08:00)
--- NOTE | 2023-03-20 09:19 | WPDINTPN ---
Progress Note: A&P Assessment and Plan (1) Shock: Code(s): R57.9 - Shock, unspecified Status: Acute Assessment and Plan: 03/14 patient was transferred to ICU due to hypotension. Hypotension likely secondary to hypovolemia but could be a new sepsis His procalcitonin lactic acid levels were normal nicom assessment showed patient to be fluid responsive and he was given 2 L fluid bolus now Will continue IV fluids Initially after IV fluid bolus patient blood pressure improved but later in the evening patient became hypotensive again A central venous catheter was placed and patient was started on Levophed Labs were performed and showed drop in hemoglobin. Initially it was thought to be dilutional patient had received significant amount IV fluids and there was no obvious sign of bleeding. CT scan was also pending at that 03/15 Overnight patient continued to require increased pressor dose Status limited echo was done this morning as patient has PE and DVT assess for RV function and as per my verbal communication with group home paraprofessional patient does not appear to be in RV failure. CT scan reviewed showed inflammatory infectious changes and soft tissue muscle in right shoulder with multiple intramuscular collection. I spoke to Dr. Ibarra with Radiology and he feels that these are hematoma which may be infected Heparin infusion was discontinued early this morning. Patient is coagulopathic secondary to DIC Patient underwent aspiration of the hematoma to evaluate for any infection and cultures have been sent Patient was transfused 2 units of PRBC, 3 years of FFP. Vitamin K was administered, 20 mg of protamine was given Patient was treated with iV fluids and vasopressors 03/16 improvement in hemodynamics and patient is now off of vasopressors Aspirate, blood cultures and urine culture are negative till now MRSA screen was negative Continue meropenem but will discontinue Zyvox off further IV fluids Hemodynamically stable at this time (2) Acute hypoxic respiratory failure: Code(s): J96.01 - Acute respiratory failure with hypoxia Status: Acute Assessment and Plan: Patient patient initially presented with altered mental status, bilateral PEs, acute hypoxic respiratory failure, mucus plugging question aspiration -03/08: intubated in the ER and was extubated in the ICU - 03/15 reintubated due to hypoxia and altered mental status. Chest x-ray ABG and vent settings reviewed Currently pEEP to 5 and rate to 18 Currently sedation holiday Patient placed on PSV trial yesterday and did well from respiratory standpoint but appears weak and encephalopathy ache that he will not be able to protect his airway. Patient will be re trialed and re-evaluated today after dialysis session (3) Bilateral pulmonary embolism: Code(s): I26.99 - Other pulmonary embolism without acute cor pulmonale Status: Acute Assessment and Plan: CTA chest-acute pulmonary embolism in all lobes Patient was on heparin drip which has been discontinued now due to hematoma General surgery consulted a patient underwent IVC filter placement on 03/16. Patient unable to provide any consent and no family available hence procedure will be done as medical necessity in emergent situation Repeat limited echo results discussed with Cardiology Echocardiogram Summary ? 1. Complete two-dimensional, color flow and Doppler transthoracic echocardiogram is performed. ? 2. Normal left ventricular size and with mild concentric hypertrophy, and with hyperdynamic left ventricular systolic function.? Ejection fraction greater than 70%.? Grade 1 diastolic dysfunction is present. ? 3. Right ventricle not well visualized but appears mildly hypokinetic. ? 4. Dilated inferior vena cava consistent with elevated right heart pressure. ? 5. Right ventricular systolic pressure cannot be adequate evaluated by this study. ? 6. No significant valve disease. ? 7. Normal sinus rhythm. ? 8. Technicall
--- NOTE | 2023-03-20 10:06 | P.PNNP_ITS ---
Progress Note: A&P Assessment and Plan (1) ANTWAN (acute kidney injury): Code(s): N17.9 - Acute kidney failure, unspecified Status: Acute Assessment and Plan: * presumably normal baseline creatinine/renal function * creatinine was 1.3mg/dl on admission * initial insult secondary to obstructive uropathy as noted by imaging on admission * s/p cystoscopy and ureteral stent placement * creatinine improved to 1.4mg/dl * worsened again due to hypotension and overal decompensation of 03/15/23 * suspect second insult to kidney due to ATN from drop in BP and possible new sepsis * initiated on CONVENTIONAL MACHINIST/dialysis on 03/18 due to clearance and optimization of electrolytes * HD day before yesterday, yesterday, and today * follow repeat labs and UOP for possible renal recovery (2) Hydronephrosis with renal and ureteral calculous obstruction: Status: Acute Assessment and Plan: * renal ultrasound with right proximal ureteral stone measuring 1.6 cm causing moderate hydronephrosis. * CT abdomen pelvis - 1. Proximal right ureteral stone near the UPJ measuring 1.8 cm with moderate hydronephrosis * status post?cystoscopy, right retrograde pyelogram, and right ureteral stent insertion * Urology following as needed (3) Acute hypoxic respiratory failure: Code(s): J96.01 - Acute respiratory failure with hypoxia Status: Acute Assessment and Plan: * initially presented with altered mental status and bilateral PEs in association with hypoxia * intubated on 03/08; extubated on 03/11 * re-intubated on 03/15/13 due to acute decompensation * continue ventilator support * weaning as tolerated (4) Bilateral pulmonary embolism: Code(s): I26.99 - Other pulmonary embolism without acute cor pulmonale Status: Acute Assessment and Plan: * CTA chest noted acute pulmonary embolism in all lobes * was on heparin drip which has been discontinued now due to issues with shoulder hematoma * s/p IVC filter? placement on 03/16 by Surgery * results of last Echo noted (5) COVID-19: Code(s): U07.1 - COVID-19 Status: Acute Assessment and Plan: * positivity noted on admission in ER * lungs are clear on chest x-ray * suspect some mucus plugging and probable aspiration pneumonia * was started on dexamethasone which was later switched to to hydrocortisone during shock * not started on Remdesivir * does not appear to have COVID pneumonia (6) Sepsis: Qualifiers: Sepsis type: sepsis due to unspecified organism Sepsis acute organ dysfunction status: with acute organ dysfunction Severe sepsis acute organ dysfunction type: acute respiratory failure Acute respiratory failure type: with hypoxia Severe sepsis shock status: without septic shock Qualified Code(s): A41.9 - Sepsis, unspecified organism; R65.20 - Severe sepsis without septic shock; J96.01 - Acute respiratory failure with hypoxia Code(s): A41.9 - Sepsis, unspecified organism Status: Acute Assessment and Plan: * resolved * noted with acute respiratory failure, tachycardia, tachypnea on admission * follow repeat culture data * follow hemodynamics * off vasopressor therapy * on antibiotics (7) Anemia: Code(s): D64.9 - Anemia, unspecified Status: Acute Assessment and Plan: * several issues: * ANTWAN/ARF * intramuscular hematomas and hemodilution * previous issues with DIC * chronic illness * Epogen with dialysis * follow trend of H/H Will continue to follow.
--- NOTE | 2023-03-20 10:06 | PM.PNNEP ---
Progress Note: A&P Assessment and Plan (1) ANTWAN (acute kidney injury): Code(s): N17.9 - Acute kidney failure, unspecified Status: Acute Assessment and Plan: presumably normal baseline creatinine/renal function creatinine was 1.3mg/dl on admission initial insult secondary to obstructive uropathy as noted by imaging on admission s/p cystoscopy and ureteral stent placement creatinine improved to 1.4mg/dl worsened again due to hypotension and overal decompensation of 03/15/23 suspect second insult to kidney due to ATN from drop in BP and possible new sepsis initiated on CAN SORTER/dialysis on 03/18 due to clearance and optimization of electrolytes HD day before yesterday, yesterday, and today follow repeat labs and UOP for possible renal recovery (2) Hydronephrosis with renal and ureteral calculous obstruction: Status: Acute Assessment and Plan: renal ultrasound with right proximal ureteral stone measuring 1.6 cm causing moderate hydronephrosis. CT abdomen pelvis - 1. Proximal right ureteral stone near the UPJ measuring 1.8 cm with moderate hydronephrosis status post?cystoscopy, right retrograde pyelogram, and right ureteral stent insertion Urology following as needed (3) Acute hypoxic respiratory failure: Code(s): J96.01 - Acute respiratory failure with hypoxia Status: Acute Assessment and Plan: initially presented with altered mental status and bilateral PEs in association with hypoxia intubated on 03/08; extubated on 03/11 re-intubated on 03/15/13 due to acute decompensation continue ventilator support weaning as tolerated (4) Bilateral pulmonary embolism: Code(s): I26.99 - Other pulmonary embolism without acute cor pulmonale Status: Acute Assessment and Plan: CTA chest noted acute pulmonary embolism in all lobes was on heparin drip which has been discontinued now due to issues with shoulder hematoma s/p IVC filter? placement on 03/16 by Surgery results of last Echo noted (5) COVID-19: Code(s): U07.1 - COVID-19 Status: Acute Assessment and Plan: positivity noted on admission in ER lungs are clear on chest x-ray suspect some mucus plugging and probable aspiration pneumonia was started on dexamethasone which was later switched to to hydrocortisone during shock not started on Remdesivir does not appear to have COVID pneumonia (6) Sepsis: Qualifiers: Sepsis type: sepsis due to unspecified organism Sepsis acute organ dysfunction status: with acute organ dysfunction Severe sepsis acute organ dysfunction type: acute respiratory failure Acute respiratory failure type: with hypoxia Severe sepsis shock status: without septic shock Qualified Code(s): A41.9 - Sepsis, unspecified organism; R65.20 - Severe sepsis without septic shock; J96.01 - Acute respiratory failure with hypoxia Code(s): A41.9 - Sepsis, unspecified organism Status: Acute Assessment and Plan: resolved noted with acute respiratory failure, tachycardia, tachypnea on admission follow repeat culture data follow hemodynamics off vasopressor therapy on antibiotics (7) Anemia: Code(s): D64.9 - Anemia, unspecified Status: Acute Assessment and Plan: several issues: ANTWAN/ARF intramuscular hematomas and hemodilution previous issues with DIC chronic illness Epogen with dialysis follow trend of H/H Will continue to follow. Subjective Date/time seen: 03/20/23 10:06 Interval history: Follow-up for acute kidney injury/acute renal failure Tolerating dialysis treatment at the time of my visit (seen on 9:55AM); tolerated dialysis yesterday and day before yesterday as well; remains intubated and on ventilator support; stable hemodynamics/vital signs noted; otherwise, no other significant change noted. Exam Narrative: General: middle aged male intubated/sedated and on
[2023-03-20] MEDS: SODIUM CHLORIDE 0.9% IV 1,000 ML 999 ML IV CONT (10:27)
[2023-03-20] MEDS: EPOETIN ALFA-EPBX 10,000 UNITS/ML VIAL 10000 UNITS IV PUSH (11:21)
[2023-03-20] MEDS: HEPARIN SODIUM 5,000 UNITS/ML VIAL 2000 UNITS IV PUSH (11:21)
[2023-03-20] MEDS: ALTEPLASE 2 MG VIAL (CATHFLO) IV PUSH (13:39)
[2023-03-20] MEDS: hydrALAZINE HCL 20 MG/ML VIAL 10 MG IV PUSH (21:33)
[2023-03-20 22:54] LABS: Glucose Point of Care 127 mg/dl (65-105)
[2023-03-20 22:54] LABS: Glucose Point of Care 134 mg/dl (65-105)
[2023-03-20 23:27] LABS: Glucose Point of Care 118 mg/dl (65-105)
[2023-03-21] VITALS (20 sets, daily range): BP systolic 132–174; BP diastolic 98–115; PULSE 88–118; RESP 17–20; TEMP 37.1–37.6; O2SAT 93–100
[2023-03-21] MEDS: METOCLOPRAMIDE HCL INJ 10 MG/2 ML VIAL IV PUSH ×3 (06:47→17:10)
[2023-03-21] MEDS: CENTRAL LINE FLUSH 10 ML IV PUSH ×3 (06:48→20:03)
[2023-03-21] MEDS: MEROPENEM 500 MG in SODIUM CHLORIDE 0.9% IV 100 ML 200 ML IVPB ×2 (06:51→17:11)
[2023-03-21 07:02] LABS: Basophils Absolute Auto 0.1 K/mm3 (0.0-0.1); Basophils Percent Auto 0.3 % (0.2-1.2); Eosinophils Absolute Auto 0.1 K/mm3 (0-0.3); Eosinophils Percent Auto 0.4 % (0-4.4); Hematocrit 30.7 % (42.0-52.0); Hemoglobin 9.7 g/dL (14.0-18.0); Immature Granulocyte Absolute 0.95 K/mm3 (0.00-0.031); Immature Granulocyte Percent A 3.5 % (0-0.5); Lymphocytes Percent Auto 15.4 % (18.3-44.2); Mean Corpuscular HGB Conc 31.6 g/dl (32-36); Mean Corpuscular Hemoglobin 31.2 pg (26-34); Mean Corpuscular Volume 98.7 fl (80-100); Mean Platelet Volume 10.9 fl (7.4-10.4); Monocytes Percent Auto 10.8 % (2.6-8.5); Neutrophils Absolute Auto 18.9 K/mm3 (1.3-6.7); Neutrophils Percent Auto 69.6 % (45.5-73.1); Nucleated Red Blood Cells Absolute Auto 0.8 K/mm3 (0.0-0.012); Nucleated Red Blood Cells Perc 2.8 % (0.0-0.2); Platelet Count Result 161 k/mm3 (150-375); Red Blood Count 3.11 M/mm3 (4.6-6.20); Red Cell Distribution Width 20.2 % (11.5-14.5); White Blood Count 27.2 K/mm3 (4.5-10.0)
[2023-03-21 07:27] LABS: Alanine Aminotransferase 367 U/L (6-50); Albumin Level 2.9 g/dL (3.5-5.1); Alkaline Phosphatase 182 U/L (38-126); Anion Gap 9 mmol/L (8-16); Aspartate Amino Transferase 75 U/L (17-59); Bilirubin,Total 2.2 mg/dL (0.2-1.3); Blood Urea Nitrogen 55 mg/dL (9-20); Calcium 8.3 mg/dL (8.4-10.2); Carbon Dioxide 27 mmol/L (22-30); Chloride 101 mmol/L (98-107); Estimated CRCL calculation 20 ml/min; Estimated Glomerular Filt Rate 16; Glucose 103 mg/dL (65-110); Potassium 3.4 mmol/L (3.4-5.0); Sodium 137 mmol/L (137-145)
[2023-03-21 07:57] LABS: Anisocytosis 2+ (NORMAL); Macrocytosis 1+ (NORMAL); Platelet Estimate Adequate (Adequate); Schistocytes None Seen (NORMAL)
--- NOTE | 2023-03-21 09:00 | WPDINTPN ---
Progress Note: A&P Assessment and Plan (1) Shock: Code(s): R57.9 - Shock, unspecified Status: Acute Assessment and Plan: 03/14 patient was transferred to ICU due to hypotension. Hypotension likely secondary to hypovolemia but could be a new sepsis His procalcitonin lactic acid levels were normal nicom assessment showed patient to be fluid responsive and he was given 2 L fluid bolus now Will continue IV fluids Initially after IV fluid bolus patient blood pressure improved but later in the evening patient became hypotensive again A central venous catheter was placed and patient was started on Levophed Labs were performed and showed drop in hemoglobin. Initially it was thought to be dilutional patient had received significant amount IV fluids and there was no obvious sign of bleeding. CT scan was also pending at that 03/15 Overnight patient continued to require increased pressor dose Status limited echo was done this morning as patient has PE and DVT assess for RV function and as per my verbal communication with slurry tank operator patient does not appear to be in RV failure. CT scan reviewed showed inflammatory infectious changes and soft tissue muscle in right shoulder with multiple intramuscular collection. I spoke to Dr. Ibarra with Radiology and he feels that these are hematoma which may be infected Heparin infusion was discontinued early this morning. Patient is coagulopathic secondary to DIC Patient underwent aspiration of the hematoma to evaluate for any infection and cultures have been sent Patient was transfused 2 units of PRBC, 3 years of FFP. Vitamin K was administered, 20 mg of protamine was given Patient was treated with iV fluids and vasopressors 03/16 improvement in hemodynamics and patient is now off of vasopressors Aspirate, blood cultures and urine culture are negative till now MRSA screen was negative Continue meropenem but will discontinue Zyvox off further IV fluids Hemodynamically stable at this time (2) Acute hypoxic respiratory failure: Code(s): J96.01 - Acute respiratory failure with hypoxia Status: Acute Assessment and Plan: Patient patient initially presented with altered mental status, bilateral PEs, acute hypoxic respiratory failure, mucus plugging question aspiration -03/08: intubated in the ER and was extubated in the ICU - 03/15 reintubated due to hypoxia and altered mental status. Chest x-ray ABG and vent settings reviewed Currently pEEP to 5 and rate to 18 Currently sedation holiday Patient patient has been tolerating PSV trial from respiratory standpoint but appears encephalopathy can weak. He will not be able to protect his airway which was the reason he was intubated. Continue mechanical ventilation at this time. Continue holding all sedatives (3) Bilateral pulmonary embolism: Code(s): I26.99 - Other pulmonary embolism without acute cor pulmonale Status: Acute Assessment and Plan: CTA chest-acute pulmonary embolism in all lobes Patient was on heparin drip which has been discontinued now due to hematoma General surgery consulted a patient underwent IVC filter placement on 03/16. Patient unable to provide any consent and no family available hence procedure will be done as medical necessity in emergent situation Repeat limited echo results discussed with Cardiology Echocardiogram Summary ? 1. Complete two-dimensional, color flow and Doppler transthoracic echocardiogram is performed. ? 2. Normal left ventricular size and with mild concentric hypertrophy, and with hyperdynamic left ventricular systolic function.? Ejection fraction greater than 70%.? Grade 1 diastolic dysfunction is present. ? 3. Right ventricle not well visualized but appears mildly hypokinetic. ? 4. Dilated inferior vena cava consistent with elevated right heart pressure. ? 5. Right ventricular systolic pressure cannot be adequate evaluated by this study. ? 6. No significant valve disease. ? 7. Laila
[2023-03-21] MEDS: ENOXAPARIN 30 MG/0.3 ML SYRINGE SUB-Q (09:30)
[2023-03-21] MEDS: HYDROCORTISONE SODIUM SUCCINATE 100 MG/2 ML VIAL 50 MG IV PUSH (09:31)
[2023-03-21] MEDS: FLUCONAZOLE 200 MG/NACL 100 ML 200 MG/100 ML BAG 100 MG IVPB (09:31)
[2023-03-21] MEDS: MINERAL OIL/WHITE PETROLATUM OINTMENT 1 APPLIC EACH EYE ×2 (09:46→20:03)
[2023-03-21] MEDS: PANTOPRAZOLE SODIUM IV 40 MG VIAL IV PUSH (09:47)
[2023-03-21] MEDS: ALTEPLASE 2 MG VIAL (CATHFLO) IV PUSH ×4 (11:04→23:10)
[2023-03-21 12:48] LABS: Glucose Point of Care 136 mg/dl (65-105)
--- NOTE | 2023-03-21 14:13 | PM.PNNEP ---
Progress Note: A&P Assessment and Plan (1) ANTWAN (acute kidney injury): Code(s): N17.9 - Acute kidney failure, unspecified Status: Acute Assessment and Plan: presumably normal baseline creatinine/renal function creatinine was 1.3mg/dl on admission initial insult secondary to obstructive uropathy as noted by imaging on admission s/p cystoscopy and ureteral stent placement creatinine improved to 1.4mg/dl worsened again due to hypotension and overal decompensation of 03/15/23 suspect second insult to kidney due to ATN from drop in BP and possible new sepsis initiated on WASTE EXAMINER/dialysis on 03/18 due to clearance and optimization of electrolytes HD day yesterday...likely plan HD tomorrow follow repeat labs and UOP for possible renal recovery (2) Hydronephrosis with renal and ureteral calculous obstruction: Status: Acute Assessment and Plan: renal ultrasound with right proximal ureteral stone measuring 1.6 cm causing moderate hydronephrosis. CT abdomen pelvis - 1. Proximal right ureteral stone near the UPJ measuring 1.8 cm with moderate hydronephrosis status post?cystoscopy, right retrograde pyelogram, and right ureteral stent insertion Urology following as needed (3) Acute hypoxic respiratory failure: Code(s): J96.01 - Acute respiratory failure with hypoxia Status: Acute Assessment and Plan: initially presented with altered mental status and bilateral PEs in association with hypoxia intubated on 03/08; extubated on 03/11 re-intubated on 03/15/13 due to acute decompensation continue ventilator support weaning as tolerated (4) Bilateral pulmonary embolism: Code(s): I26.99 - Other pulmonary embolism without acute cor pulmonale Status: Acute Assessment and Plan: CTA chest noted acute pulmonary embolism in all lobes was on heparin drip which has been discontinued now due to issues with shoulder hematoma s/p IVC filter? placement on 03/16 by Surgery results of last Echo noted (5) COVID-19: Code(s): U07.1 - COVID-19 Status: Acute Assessment and Plan: positivity noted on admission in ER lungs are clear on chest x-ray suspect some mucus plugging and probable aspiration pneumonia was started on dexamethasone which was later switched to to hydrocortisone during shock not started on Remdesivir does not appear to have COVID pneumonia (6) Sepsis: Qualifiers: Sepsis type: sepsis due to unspecified organism Sepsis acute organ dysfunction status: with acute organ dysfunction Severe sepsis acute organ dysfunction type: acute respiratory failure Acute respiratory failure type: with hypoxia Severe sepsis shock status: without septic shock Qualified Code(s): A41.9 - Sepsis, unspecified organism; R65.20 - Severe sepsis without septic shock; J96.01 - Acute respiratory failure with hypoxia Code(s): A41.9 - Sepsis, unspecified organism Status: Acute Assessment and Plan: resolved noted with acute respiratory failure, tachycardia, tachypnea on admission follow repeat culture data follow hemodynamics off vasopressor therapy on antibiotics (7) Anemia: Code(s): D64.9 - Anemia, unspecified Status: Acute Assessment and Plan: several issues: ANTWAN/ARF intramuscular hematomas and hemodilution previous issues with DIC chronic illness Epogen with dialysis follow trend of H/H Will continue to follow. Subjective Date/time seen: 03/21/23 14:13 Interval history: Follow-up for acute kidney injury/acute renal failure No real significant change noted at this time -- remains intubated and on mechanical ventilation; tolerated dialysis treatment yesterday as well as day before yesterday and day before that; stable hemodynamics noted; no other issues/events overnight or earlier today. Exam Narrative: General: middle aged male intubated/sedated and on
--- NOTE | 2023-03-21 14:13 | P.PNNP_ITS ---
Progress Note: A&P Assessment and Plan (1) ANTWAN (acute kidney injury): Code(s): N17.9 - Acute kidney failure, unspecified Status: Acute Assessment and Plan: * presumably normal baseline creatinine/renal function * creatinine was 1.3mg/dl on admission * initial insult secondary to obstructive uropathy as noted by imaging on admission * s/p cystoscopy and ureteral stent placement * creatinine improved to 1.4mg/dl * worsened again due to hypotension and overal decompensation of 03/15/23 * suspect second insult to kidney due to ATN from drop in BP and possible new sepsis * initiated on PERFORMANCE MANAGEMENT CONSULTANT/dialysis on 03/18 due to clearance and optimization of electrolytes * HD day yesterday...likely plan HD tomorrow * follow repeat labs and UOP for possible renal recovery (2) Hydronephrosis with renal and ureteral calculous obstruction: Status: Acute Assessment and Plan: * renal ultrasound with right proximal ureteral stone measuring 1.6 cm causing moderate hydronephrosis. * CT abdomen pelvis - 1. Proximal right ureteral stone near the UPJ measuring 1.8 cm with moderate hydronephrosis * status post?cystoscopy, right retrograde pyelogram, and right ureteral stent insertion * Urology following as needed (3) Acute hypoxic respiratory failure: Code(s): J96.01 - Acute respiratory failure with hypoxia Status: Acute Assessment and Plan: * initially presented with altered mental status and bilateral PEs in association with hypoxia * intubated on 03/08; extubated on 03/11 * re-intubated on 03/15/13 due to acute decompensation * continue ventilator support * weaning as tolerated (4) Bilateral pulmonary embolism: Code(s): I26.99 - Other pulmonary embolism without acute cor pulmonale Status: Acute Assessment and Plan: * CTA chest noted acute pulmonary embolism in all lobes * was on heparin drip which has been discontinued now due to issues with shoulder hematoma * s/p IVC filter? placement on 03/16 by Surgery * results of last Echo noted (5) COVID-19: Code(s): U07.1 - COVID-19 Status: Acute Assessment and Plan: * positivity noted on admission in ER * lungs are clear on chest x-ray * suspect some mucus plugging and probable aspiration pneumonia * was started on dexamethasone which was later switched to to hydrocortisone during shock * not started on Remdesivir * does not appear to have COVID pneumonia (6) Sepsis: Qualifiers: Sepsis type: sepsis due to unspecified organism Sepsis acute organ dysfunction status: with acute organ dysfunction Severe sepsis acute organ dysfunction type: acute respiratory failure Acute respiratory failure type: with hypoxia Severe sepsis shock status: without septic shock Qualified Code(s): A41.9 - Sepsis, unspecified organism; R65.20 - Severe sepsis without septic shock; J96.01 - Acute respiratory failure with hypoxia Code(s): A41.9 - Sepsis, unspecified organism Status: Acute Assessment and Plan: * resolved * noted with acute respiratory failure, tachycardia, tachypnea on admission * follow repeat culture data * follow hemodynamics * off vasopressor therapy * on antibiotics (7) Anemia: Code(s): D64.9 - Anemia, unspecified Status: Acute Assessment and Plan: * several issues: * ANTWAN/ARF * intramuscular hematomas and hemodilution * previous issues with DIC * chronic illness * Epogen with dialysis * follow trend of H/H Will continue to follow.
[2023-03-21 17:24] LABS: Glucose Point of Care 134 mg/dl (65-105)
[2023-03-21] MEDS: hydrALAZINE HCL 20 MG/ML VIAL 10 MG IV PUSH (19:59)
[2023-03-21 23:47] LABS: Glucose Point of Care 113 mg/dl (65-105)
[2023-03-22] VITALS (37 sets, daily range): BP systolic 114–157; BP diastolic 85–111; PULSE 97–117; RESP 17–23; TEMP 35.9–37.9; O2SAT 93–100
[2023-03-22] MEDS: METOCLOPRAMIDE HCL INJ 10 MG/2 ML VIAL IV PUSH ×5 (00:34→23:32)
[2023-03-22] MEDS: MEROPENEM 500 MG in SODIUM CHLORIDE 0.9% IV 100 ML 200 ML IVPB ×2 (06:11→18:09)
[2023-03-22] MEDS: CENTRAL LINE FLUSH 10 ML IV PUSH ×3 (06:11→20:12)
[2023-03-22 06:32] LABS: Alanine Aminotransferase 249 U/L (6-50); Albumin Level 2.8 g/dL (3.5-5.1); Alkaline Phosphatase 175 U/L (38-126); Anion Gap 8 mmol/L (8-16); Aspartate Amino Transferase 56 U/L (17-59); Bilirubin,Total 2.3 mg/dL (0.2-1.3); Blood Urea Nitrogen 74 mg/dL (9-20); Calcium 8.2 mg/dL (8.4-10.2); Carbon Dioxide 27 mmol/L (22-30); Chloride 101 mmol/L (98-107); Estimated CRCL calculation 15 ml/min; Estimated Glomerular Filt Rate 11; Glucose 99 mg/dL (65-110); Potassium 3.4 mmol/L (3.4-5.0); Sodium 136 mmol/L (137-145)
[2023-03-22] MEDS: ENOXAPARIN 30 MG/0.3 ML SYRINGE SUB-Q (07:32)
[2023-03-22] MEDS: HYDROCORTISONE SODIUM SUCCINATE 100 MG/2 ML VIAL 50 MG IV PUSH (07:33)
[2023-03-22] MEDS: PANTOPRAZOLE SODIUM IV 40 MG VIAL IV PUSH (07:33)
[2023-03-22] MEDS: FLUCONAZOLE 200 MG/NACL 100 ML 200 MG/100 ML BAG 100 MG IVPB (07:34)
[2023-03-22] MEDS: MINERAL OIL/WHITE PETROLATUM OINTMENT 1 APPLIC EACH EYE ×2 (08:01→20:12)
[2023-03-22 08:51] LABS: Hematocrit 30.5 % (42.0-52.0); Hemoglobin 9.8 g/dL (14.0-18.0); Mean Corpuscular HGB Conc 32.1 g/dl (32-36); Mean Corpuscular Hemoglobin 31.8 pg (26-34); Mean Platelet Volume 11.2 fl (7.4-10.4); Platelet Count Result 146 k/mm3 (150-375); Red Blood Count 3.08 M/mm3 (4.6-6.20); Red Cell Distribution Width 21.4 % (11.5-14.5); White Blood Count 26.9 K/mm3 (4.5-10.0)
[2023-03-22] MEDS: HEPARIN SODIUM 1,000 UNITS/ML VIAL 2000 UNITS IV PUSH (09:33)
--- NOTE | 2023-03-22 10:13 | WPDINTPN ---
Progress Note: A&P Assessment and Plan (1) Shock: Code(s): R57.9 - Shock, unspecified Status: Acute Assessment and Plan: 03/14 patient was transferred to ICU due to hypotension. Hypotension likely secondary to hypovolemia but could be a new sepsis His procalcitonin lactic acid levels were normal nicom assessment showed patient to be fluid responsive and he was given 2 L fluid bolus now Will continue IV fluids Initially after IV fluid bolus patient blood pressure improved but later in the evening patient became hypotensive again A central venous catheter was placed and patient was started on Levophed Labs were performed and showed drop in hemoglobin. Initially it was thought to be dilutional patient had received significant amount IV fluids and there was no obvious sign of bleeding. CT scan was also pending at that 03/15 Overnight patient continued to require increased pressor dose Status limited echo was done this morning as patient has PE and DVT assess for RV function and as per my verbal communication with reimbursement counselor patient does not appear to be in RV failure. CT scan reviewed showed inflammatory infectious changes and soft tissue muscle in right shoulder with multiple intramuscular collection. I spoke to Dr. Ibarra with Radiology and he feels that these are hematoma which may be infected Heparin infusion was discontinued early this morning. Patient is coagulopathic secondary to DIC Patient underwent aspiration of the hematoma to evaluate for any infection and cultures have been sent Patient was transfused 2 units of PRBC, 3 years of FFP. Vitamin K was administered, 20 mg of protamine was given Patient was treated with iV fluids and vasopressors 03/16 improvement in hemodynamics and patient is now off of vasopressors Aspirate, blood cultures and urine culture are negative till now MRSA screen was negative Continue meropenem but have discontinued Zyvox off further IV fluids Hemodynamically stable at this time (2) Acute hypoxic respiratory failure: Code(s): J96.01 - Acute respiratory failure with hypoxia Status: Acute Assessment and Plan: Patient patient initially presented with altered mental status, bilateral PEs, acute hypoxic respiratory failure, mucus plugging question aspiration -03/08: intubated in the ER and was extubated in the ICU - 03/15 reintubated due to hypoxia and altered mental status. Chest x-ray ABG and vent settings reviewed Currently pEEP to 5 and rate to 18 Currently sedation holiday Patient patient has been tolerating PSV trial from respiratory standpoint but appears encephalopathy and weak. He will not be able to protect his airway which was the reason he was intubated. Continue mechanical ventilation at this time. Continue holding all sedatives (3) Bilateral pulmonary embolism: Code(s): I26.99 - Other pulmonary embolism without acute cor pulmonale Status: Acute Assessment and Plan: CTA chest-acute pulmonary embolism in all lobes Patient was on heparin drip which has been discontinued now due to hematoma General surgery consulted a patient underwent IVC filter placement on 03/16. Patient unable to provide any consent and no family available hence procedure will be done as medical necessity in emergent situation Repeat limited echo results discussed with Cardiology Echocardiogram Summary ? 1. Complete two-dimensional, color flow and Doppler transthoracic echocardiogram is performed. ? 2. Normal left ventricular size and with mild concentric hypertrophy, and with hyperdynamic left ventricular systolic function.? Ejection fraction greater than 70%.? Grade 1 diastolic dysfunction is present. ? 3. Right ventricle not well visualized but appears mildly hypokinetic. ? 4. Dilated inferior vena cava consistent with elevated right heart pressure. ? 5. Right ventricular systolic pressure cannot be adequate evaluated by this study. ? 6. No significant valve disease. ? 7. Norm
--- NOTE | 2023-03-22 10:24 | PCFNICU ---
ICU Rounding Note: Pt current nutrition is Nepro @ 20 ml/h. Nutrition recommendation: Advance tube feeding to goal to better meet nutrition needs: Nepro @ 50 ml/h goal: 1980 kcal, 89 g protein, 800 ml free water. Flush 30 ml q 4 hours (98% EER (RUBIN), ~73-87% estimated protein needs @ 1.2-1.4 g pro/kg) Last recorded weight is 93.7 kg. Bowel Motility: Liquid stools per FMS Labs Reviewed: Alb 2.8, Na 136, BUN 74, Cre 5.4 Meds Noted: Reglan, Heparin, protonix Skin: Maceration Additional Notes: TF was reduced to trickle because of previous high residuals and possible extubation however residuals returned to normal and pt remains on vent. Increase tube feeding to goal rate to meet protein energy needs. Remains on Banatrol BID for liquid stools Following daily in ICU rounds. Will monitor weight, labs, skin, tube feeding tolerance in ICU rounds and reassessing every Wednesday and Wednesday. .
--- NOTE | 2023-03-22 10:31 | P.PNNP_ITS ---
Progress Note: A&P Assessment and Plan (1) ANTWAN (acute kidney injury): Code(s): N17.9 - Acute kidney failure, unspecified Status: Acute Assessment and Plan: * presumably normal baseline creatinine/renal function * creatinine was 1.3mg/dl on admission * initial insult secondary to obstructive uropathy as noted by imaging on admission * s/p cystoscopy and ureteral stent placement * creatinine improved to 1.4mg/dl * worsened again due to hypotension and overal decompensation of 03/15/23 * suspect second insult to kidney due to ATN from drop in BP and possible new sepsis * initiated on SENIOR ACCOUNTANT ANALYST/dialysis on 03/18 due to clearance and optimization of electrolytes * HD today * follow repeat labs and UOP for possible renal recovery (2) Hydronephrosis with renal and ureteral calculous obstruction: Status: Acute Assessment and Plan: * renal ultrasound with right proximal ureteral stone measuring 1.6 cm causing moderate hydronephrosis. * CT abdomen pelvis - 1. Proximal right ureteral stone near the UPJ measuring 1.8 cm with moderate hydronephrosis * status post?cystoscopy, right retrograde pyelogram, and right ureteral stent insertion * Urology following as needed (3) Acute hypoxic respiratory failure: Code(s): J96.01 - Acute respiratory failure with hypoxia Status: Acute Assessment and Plan: * initially presented with altered mental status and bilateral PEs in association with hypoxia * intubated on 03/08; extubated on 03/11 * re-intubated on 03/15/13 due to acute decompensation * continue ventilator support * weaning as tolerated -- encephalopathy not helping... (4) Bilateral pulmonary embolism: Code(s): I26.99 - Other pulmonary embolism without acute cor pulmonale Status: Acute Assessment and Plan: * CTA chest noted acute pulmonary embolism in all lobes * was on heparin drip which has been discontinued now due to issues with shoulder hematoma * s/p IVC filter? placement on 03/16 by Surgery * results of last Echo noted (5) COVID-19: Code(s): U07.1 - COVID-19 Status: Acute Assessment and Plan: * positivity noted on admission in ER * lungs are clear on chest x-ray * suspect some mucus plugging and probable aspiration pneumonia * was started on dexamethasone which was later switched to to hydrocortisone during shock * not started on Remdesivir * does not appear to have COVID pneumonia (6) Sepsis: Qualifiers: Sepsis type: sepsis due to unspecified organism Sepsis acute organ dysfunction status: with acute organ dysfunction Severe sepsis acute organ dysfunction type: acute respiratory failure Acute respiratory failure type: with hypoxia Severe sepsis shock status: without septic shock Qualified Code(s): A41.9 - Sepsis, unspecified organism; R65.20 - Severe sepsis without septic shock; J96.01 - Acute respiratory failure with hypoxia Code(s): A41.9 - Sepsis, unspecified organism Status: Acute Assessment and Plan: * resolved * noted with acute respiratory failure, tachycardia, tachypnea on admission * follow repeat culture data * follow hemodynamics * off vasopressor therapy * on antibiotics (7) Anemia: Code(s): D64.9 - Anemia, unspecified Status: Acute Assessment and Plan: * several issues: * ANTWAN/ARF * intramuscular hematomas and hemodilution * previous issues with DIC * chronic illness * Epogen with dialysis * follow trend of H/H Will continue to follow.
--- NOTE | 2023-03-22 10:31 | PM.PNNEP ---
Progress Note: A&P Assessment and Plan (1) NATWAN (acute kidney injury): Code(s): N17.9 - Acute kidney failure, unspecified Status: Acute Assessment and Plan: presumably normal baseline creatinine/renal function creatinine was 1.3mg/dl on admission initial insult secondary to obstructive uropathy as noted by imaging on admission s/p cystoscopy and ureteral stent placement creatinine improved to 1.4mg/dl worsened again due to hypotension and overal decompensation of 03/15/23 suspect second insult to kidney due to ATN from drop in BP and possible new sepsis initiated on DEHYDRATION UNIT OPERATOR/dialysis on 03/18 due to clearance and optimization of electrolytes HD today follow repeat labs and UOP for possible renal recovery (2) Hydronephrosis with renal and ureteral calculous obstruction: Status: Acute Assessment and Plan: renal ultrasound with right proximal ureteral stone measuring 1.6 cm causing moderate hydronephrosis. CT abdomen pelvis - 1. Proximal right ureteral stone near the UPJ measuring 1.8 cm with moderate hydronephrosis status post?cystoscopy, right retrograde pyelogram, and right ureteral stent insertion Urology following as needed (3) Acute hypoxic respiratory failure: Code(s): J96.01 - Acute respiratory failure with hypoxia Status: Acute Assessment and Plan: initially presented with altered mental status and bilateral PEs in association with hypoxia intubated on 03/08; extubated on 03/11 re-intubated on 03/15/13 due to acute decompensation continue ventilator support weaning as tolerated -- encephalopathy not helping... (4) Bilateral pulmonary embolism: Code(s): I26.99 - Other pulmonary embolism without acute cor pulmonale Status: Acute Assessment and Plan: CTA chest noted acute pulmonary embolism in all lobes was on heparin drip which has been discontinued now due to issues with shoulder hematoma s/p IVC filter? placement on 03/16 by Surgery results of last Echo noted (5) COVID-19: Code(s): U07.1 - COVID-19 Status: Acute Assessment and Plan: positivity noted on admission in ER lungs are clear on chest x-ray suspect some mucus plugging and probable aspiration pneumonia was started on dexamethasone which was later switched to to hydrocortisone during shock not started on Remdesivir does not appear to have COVID pneumonia (6) Sepsis: Qualifiers: Sepsis type: sepsis due to unspecified organism Sepsis acute organ dysfunction status: with acute organ dysfunction Severe sepsis acute organ dysfunction type: acute respiratory failure Acute respiratory failure type: with hypoxia Severe sepsis shock status: without septic shock Qualified Code(s): A41.9 - Sepsis, unspecified organism; R65.20 - Severe sepsis without septic shock; J96.01 - Acute respiratory failure with hypoxia Code(s): A41.9 - Sepsis, unspecified organism Status: Acute Assessment and Plan: resolved noted with acute respiratory failure, tachycardia, tachypnea on admission follow repeat culture data follow hemodynamics off vasopressor therapy on antibiotics (7) Anemia: Code(s): D64.9 - Anemia, unspecified Status: Acute Assessment and Plan: several issues: ANTWAN/ARF intramuscular hematomas and hemodilution previous issues with DIC chronic illness Epogen with dialysis follow trend of H/H Will continue to follow. Subjective Date/time seen: 03/22/23 10:31 Interval history: Follow-up for acute kidney injury/acute renal failure Tolerating dialysis treatment at the time of my visit (seen on HD at 10:20AM); off sedation but still remain ecephalopathic making ventilator weaning difficult; remains on intubated and on ventilator support; no real significant change noted. Exam Narrative: General: middle aged male intubated/sedated and on mechanical ventilation Hea
[2023-03-22] MEDS: EPOETIN ALFA-EPBX 10,000 UNITS/ML VIAL 10000 UNITS IV PUSH (12:29)
[2023-03-22] MEDS: HEPARIN SODIUM 1,000 UNITS/ML VIAL 4000 UNITS IV PUSH (13:22)
[2023-03-22 13:37] LABS: Glucose Point of Care 125 mg/dl (65-105)
[2023-03-22 14:09] LABS: Hepatitis B Core Ab Total Nonreactive (Nonreactive)
[2023-03-22 18:39] LABS: Glucose Point of Care 115 mg/dl (65-105)
[2023-03-22 23:44] LABS: Glucose Point of Care 107 mg/dl (65-105)
[2023-03-23] VITALS (22 sets, daily range): BP systolic 126–159; BP diastolic 85–106; PULSE 92–106; RESP 17–22; TEMP 37.1–37.8; O2SAT 93–100
[2023-03-23] MEDS: CENTRAL LINE FLUSH 10 ML IV PUSH ×3 (05:07→20:44)
[2023-03-23 05:16] LABS: Basophils Absolute Auto 0.1 K/mm3 (0.0-0.1); Basophils Percent Auto 0.3 % (0.2-1.2); Eosinophils Absolute Auto 0.5 K/mm3 (0-0.3); Eosinophils Percent Auto 1.8 % (0-4.4); Hematocrit 29.6 % (42.0-52.0); Hemoglobin 9.5 g/dL (14.0-18.0); Immature Granulocyte Absolute 0.86 K/mm3 (0.00-0.031); Immature Granulocyte Percent A 3.3 % (0-0.5); Lymphocytes Absolute Auto 2.64 K/mm3 (0.9-3.2); Lymphocytes Percent Auto 10.1 % (18.3-44.2); Mean Corpuscular HGB Conc 32.1 g/dl (32-36); Mean Corpuscular Hemoglobin 32.1 pg (26-34); Monocytes Absolute Auto 3.1 K/mm3 (0.1-0.6); Monocytes Percent Auto 11.9 % (2.6-8.5); Neutrophils Absolute Auto 18.9 K/mm3 (1.3-6.7); Neutrophils Percent Auto 72.6 % (45.5-73.1); Nucleated Red Blood Cells Absolute Auto 0.2 K/mm3 (0.0-0.012); Nucleated Red Blood Cells Perc 0.7 % (0.0-0.2); Platelet Count Result 154 k/mm3 (150-375); Red Blood Count 2.96 M/mm3 (4.6-6.20); Red Cell Distribution Width 23.1 % (11.5-14.5); White Blood Count 26.1 K/mm3 (4.5-10.0)
[2023-03-23 05:27] LABS: Alanine Aminotransferase 164 U/L (6-50); Albumin Level 2.7 g/dL (3.5-5.1); Alkaline Phosphatase 179 U/L (38-126); Anion Gap 6 mmol/L (8-16); Aspartate Amino Transferase 60 U/L (17-59); Bilirubin,Total 2.3 mg/dL (0.2-1.3); Blood Urea Nitrogen 52 mg/dL (9-20); Carbon Dioxide 28 mmol/L (22-30); Chloride 103 mmol/L (98-107); Glucose 108 mg/dL (65-110); Potassium 3.3 mmol/L (3.4-5.0); Sodium 137 mmol/L (137-145)
[2023-03-23 05:34] LABS: Estimated CRCL calculation 19 ml/min; Estimated Glomerular Filt Rate 15
[2023-03-23 05:54] LABS: Anisocytosis 2+ (NORMAL); Large Platelets Present; Macrocytosis 1+ (NORMAL); Platelet Estimate Adequate (Adequate); Schistocytes None Seen (NORMAL)
[2023-03-23] MEDS: MEROPENEM 500 MG in SODIUM CHLORIDE 0.9% IV 100 ML 200 ML IVPB ×2 (06:07→17:46)
[2023-03-23] MEDS: METOCLOPRAMIDE HCL INJ 10 MG/2 ML VIAL IV PUSH ×4 (06:09→23:33)
[2023-03-23] MEDS: HYDROCORTISONE SODIUM SUCCINATE 100 MG/2 ML VIAL 50 MG IV PUSH (08:00)
[2023-03-23] MEDS: PANTOPRAZOLE SODIUM IV 40 MG VIAL IV PUSH (08:00)
[2023-03-23] MEDS: ENOXAPARIN 30 MG/0.3 ML SYRINGE SUB-Q (08:01)
[2023-03-23] MEDS: FLUCONAZOLE 200 MG/NACL 100 ML 200 MG/100 ML BAG 100 MG IVPB (08:01)
[2023-03-23] MEDS: MINERAL OIL/WHITE PETROLATUM OINTMENT 1 APPLIC EACH EYE ×2 (08:09→20:44)
--- NOTE | 2023-03-23 08:40 | PM.PNNEP ---
Progress Note: A&P Assessment and Plan (1) ANTWAN (acute kidney injury): Code(s): N17.9 - Acute kidney failure, unspecified Status: Acute Assessment and Plan: presumably normal baseline creatinine/renal function creatinine was 1.3mg/dl on admission initial insult secondary to obstructive uropathy as noted by imaging on admission s/p cystoscopy and ureteral stent placement creatinine improved to 1.4mg/dl worsened again due to hypotension and overal decompensation of 03/15/23 suspect second insult to kidney due to ATN from drop in BP and possible new sepsis initiated on COMMUNITY MARKETING COORDINATOR/dialysis on 03/18 due to clearance and optimization of electrolytes HD tomorrow follow repeat labs and UOP for possible renal recovery (2) Hydronephrosis with renal and ureteral calculous obstruction: Status: Acute Assessment and Plan: renal ultrasound with right proximal ureteral stone measuring 1.6 cm causing moderate hydronephrosis. CT abdomen pelvis - 1. Proximal right ureteral stone near the UPJ measuring 1.8 cm with moderate hydronephrosis status post?cystoscopy, right retrograde pyelogram, and right ureteral stent insertion Urology following as needed (3) Acute hypoxic respiratory failure: Code(s): J96.01 - Acute respiratory failure with hypoxia Status: Acute Assessment and Plan: initially presented with altered mental status and bilateral PEs in association with hypoxia intubated on 03/08; extubated on 03/11 re-intubated on 03/15/13 due to acute decompensation continue ventilator support weaning as tolerated -- encephalopathy not helping... (4) Bilateral pulmonary embolism: Code(s): I26.99 - Other pulmonary embolism without acute cor pulmonale Status: Acute Assessment and Plan: CTA chest noted acute pulmonary embolism in all lobes was on heparin drip which has been discontinued now due to issues with shoulder hematoma s/p IVC filter? placement on 03/16 by Surgery results of last Echo noted (5) COVID-19: Code(s): U07.1 - COVID-19 Status: Acute Assessment and Plan: positivity noted on admission in ER lungs are clear on chest x-ray suspect some mucus plugging and probable aspiration pneumonia was started on dexamethasone which was later switched to to hydrocortisone during shock not started on Remdesivir does not appear to have COVID pneumonia (6) Sepsis: Qualifiers: Sepsis type: sepsis due to unspecified organism Sepsis acute organ dysfunction status: with acute organ dysfunction Severe sepsis acute organ dysfunction type: acute respiratory failure Acute respiratory failure type: with hypoxia Severe sepsis shock status: without septic shock Qualified Code(s): A41.9 - Sepsis, unspecified organism; R65.20 - Severe sepsis without septic shock; J96.01 - Acute respiratory failure with hypoxia Code(s): A41.9 - Sepsis, unspecified organism Status: Acute Assessment and Plan: resolved noted with acute respiratory failure, tachycardia, tachypnea on admission follow repeat culture data follow hemodynamics off vasopressor therapy on antibiotics (7) Anemia: Code(s): D64.9 - Anemia, unspecified Status: Acute Assessment and Plan: several issues: ANTWAN/ARF intramuscular hematomas and hemodilution previous issues with DIC chronic illness Epogen with dialysis follow trend of H/H Will continue to follow. Subjective Date/time seen: 03/23/23 08:40 Interval history: Follow-up for acute kidney injury/acute renal failure. Tolerated hemodialysis treatment yesterday without any issue or problems; remains tinubated and on mechanical ventilation; off sedation for several days now -- opens eyes but not following commands or track with eyes; remains hemodynamically stable. Exam Narrative: General: middle aged male intubated/sedated and on mechanical venti
--- NOTE | 2023-03-23 10:06 | WPDNEUROLOGY ---
Neurology EEG Report General Information Date of Study: 03/22/23 TEST eeg DIAGNOSIS Mental status changes CONDITION OF RECORDING unresponsive EEG NUMBER [id number] CLINICAL HISTORY patient has multiple health issues and in ICU on a vent. Has been off all sedation for several days and remains unresponsive. EEG DESCRIPTION Background rhythm consists of low-voltage 9 to 11 hertz per 2nd alpha posteriorly admixed with low-voltage 15 to 18 hertz per 2nd beta and 3 to 4 hertz per 2nd medium voltage delta activity anteriorly. Bilateral symmetrical sleep activity seen with waxing and waning posterior alpha rhythm and persistence of low to medium voltage 3 to 4 hertz per 2nd delta activity anteriorly, hyperventilation not done, photic stimulation not done.Non paroxysmal. Nonfocal. Nonlateralizing. IMPRESSION Abnormal record due to the presence of bihemispheric slow activity which is more prominent anteriorly. Clinical correlation recommended this abnormality could be suggestive of underlying organic or metabolic encephalopathy ,there is no evidence of any paroxysmal discharge.
--- NOTE | 2023-03-23 10:55 | P.PNINT_ITS ---
Progress Note: A&P Assessment and Plan (1) Shock: Code(s): R57.9 - Shock, unspecified Status: Acute Assessment and Plan: RESOLVED 03/14 patient was transferred to ICU due to hypotension. Hypotension likely secondary to hypovolemia but could be a new sepsis His procalcitonin lactic acid levels were normal nicom assessment showed patient to be fluid responsive and he was given 2 L fluid bolus now Will continue IV fluids Initially after IV fluid bolus patient blood pressure improved but later in the evening patient became hypotensive again A central venous catheter was placed and patient was started on Levophed Labs were performed and showed drop in hemoglobin. Initially it was thought to be dilutional patient had received significant amount IV fluids and there was no obvious sign of bleeding. CT scan was also pending at that 03/15 Overnight patient continued to require increased pressor dose Status limited echo was done this morning as patient has PE and DVT assess for RV function and as per my verbal communication with special education resource room teacher patient does not appear to be in RV failure. CT scan reviewed showed inflammatory infectious changes and soft tissue muscle in right shoulder with multiple intramuscular collection. I spoke to Dr. Ibarra with Radiology and he feels that these are hematoma which may be infected Heparin infusion was discontinued early this morning. Patient is coagulopathic secondary to DIC Patient underwent aspiration of the hematoma to evaluate for any infection and cultures have been sent Patient was transfused 2 units of PRBC, 3 years of FFP. Vitamin K was administered, 20 mg of protamine was given Patient was treated with iV fluids and vasopressors 03/16 improvement in hemodynamics and patient is now off of vasopressors Aspirate, blood cultures and urine culture are negative till now MRSA screen was negative Continue meropenem and Diflucan Off all IV fluids Hemodynamically stable at this time (2) Acute hypoxic respiratory failure: Code(s): J96.01 - Acute respiratory failure with hypoxia Status: Acute Assessment and Plan: Patient patient initially presented with altered mental status, bilateral PEs, acute hypoxic respiratory failure, mucus plugging question aspiration -03/08: intubated in the ER and was extubated in the ICU -03/15 reintubated due to hypoxia and altered mental status. Chest x-ray ABG and vent settings reviewed Patient given patient's support ventilation 5/5, 30% FiO2 for greater than 24 hours On no sedation Patient patient has been tolerating PSV trial from respiratory standpoint but appears encephalopathy and weak. He will not be able to protect his airway which was the reason he remains intubated. Continue mechanical ventilation at this time. Continue holding all sedatives (3) Bilateral pulmonary embolism: Code(s): I26.99 - Other pulmonary embolism without acute cor pulmonale Status: Acute Assessment and Plan: CTA chest-acute pulmonary embolism in all lobes Patient was on heparin drip which has been discontinued now due to hematoma General surgery consulted a patient underwent IVC filter placement on 03/16. Patient unable to provide any consent and no family available hence procedure will be done as medical necessity in emergent situation Repeat limited echo results discussed with Cardiology Echocardiogram Summary ? 1. Complete two-dimensional, color flow and Doppler transthoracic echocardiogram is performed. ? 2. Normal left ventricular size and with mild concentric hypertrophy, and with hyperdynamic left ventricular systolic function.? Ejection fraction greater than
--- NOTE | 2023-03-23 10:57 | PCNFU ---
Nutrition Follow-Up Complete: Inadequate Oral Intake as related to mechanical vent as evidenced by NPO. Goal: Meet estimated nutritional needs. Patient is progressing towards goal. We will continue current goal. Pt current nutrition is Nepro at 50 ml/hr. Last recorded weight is 90.1 kg, up from 87 kg on admit. Bowel Motility: FMS-output has slowed down. Labs Reviewed:Cr 4.10, BUN 52, K 3.3, Alb 2.7,Hct 29.6,Hgb 9.5 Meds Noted: Reglan, Diflucan, Protonix Skin:Bilateral Buttock-Maceration Additional Notes:Patient remains on mechanical vent. Tube feedings continue of Nepro at 50ml/hr and tolerating per nursing. Tube Feedings at goal rate providing 1980 kcals/89 gms protein/800 ml water. Banatrol Plus BID ordered for stool bulking. Flush 30 ml q 4 hours. No Sedation, not following any commands at this time. Dialysis treatment 03/22. Agree with diet orders. Will monitor weight, labs, skin, tube feeding tolerance in ICU rounds and reassessing every Wednesday and Wednesday.
[2023-03-23 11:12] LABS: Ammonia < 9 umol/L (9-30)
[2023-03-23 12:19] LABS: Glucose Point of Care 140 mg/dl (65-105)
--- NOTE | 2023-03-23 12:22 | WPDNEURCNPN ---
Assessment and Plan Assessment and plan (1) Acute hypoxic respiratory failure: Code(s): J96.01 - Acute respiratory failure with hypoxia Status: Acute (2) COVID-19: Code(s): U07.1 - COVID-19 Status: Acute (3) Encephalopathy: Code(s): G93.40 - Encephalopathy, unspecified Status: Acute Plan status post cardiopulmonary arrest with renal failure, COVID positive, continues to be on dialysis, continues to have the slow activity over the EEG, and clinical status as described above treatment will be continued as such further repeat EEG will be done at a later date. Consult date: 03/23/23 HPI: Jacky Chavez is a 57 year old maleAdmitted to the hospital through ER for the complaint of change in mental status brought in there from the longterm. About a month ago he was found by the side of the road when he presented to different hospital where he coded, was intubated on 02/22 and extubated on 02/26 it was at [facility] and he was awake alert and could follow the commands there was no history of any allergy to any medication. He had the ongoing history of congestive heart failure, hypertension, DVT, and underlying psychiatric disorder. His CTA of the chest with positive acute pulmonary emboli in all lobes with mucus plugging the right mainstem bronchus and a 5.1cm mass with peripheral calcification left upper quadrant of the abdomen raising the possibility of infarcted spleen head CT scan was negative for the bleed except old lacunar infarct in bilateral basal ganglia. Most recent head CT scan on 10 positive old lacunar infarct in the same distribution that is bilateral basal ganglia but no stroke and no bleed, most recent lab with WBC is 26.1 hemoglobin 9.5 platelet count 154. His protime is 19.8 on 03/16, on 03/23 sodium 137 potassium 3.3 BUN 52 creatinine 4.1 GFR only 15 his initial toxicology screen was negative on 03/08 his serology is negative for hepatitis panel HIV so it was positive for SARs COVID on 03/08. EEG was obtained on 03/23 which is abnormal due to the presence of bihemispheric delta activity without any paroxysmal discharge Patient has been started on hemodialysis on 03/18. and dialysis is being continued Review of Systems Review of Systems: All systems reviewed & are unremarkable except as noted in HPI and below PMFSH Past Medical History Medical History Cardiac arrest [facility] 02/2023 unwitnessed arrest. CHF (congestive heart failure) DVT (deep venous thrombosis) Hypertension Psychiatric disorder Surgical History Surgical History Surgical history unknown Family History Family History Other Unknown family medical history Social History Social History Social History: Specific sulcal history is unknown. Patient is currently residing at [facility] since his hospitalization in late February. Code status: Full code Smoking status: Unknown if ever smoked Additional smoking assessment comments: unknown Alcohol intake: unknown Substance use: unknown Do You Feel Safe in your Home?: Yes Lack of Transportation: No Lack of Food: Never True Current Housing: I Have Housing Concerned About Future Housing: No Difficulty Paying Gas/Electric Bills: No Difficulty Paying for Meds: No Currently Unemployed: No Education: Don't Know Difficulty w/ Childcare or Family Care: No Spiritual care concerns: No Meds Home Medications and Allergies Home Medications Medication Instructions Recorded Confirmed Type acetaminophen 650 mg rectal 650 mg RECTAL Q8H PRN pain 1-3 or 03/09/23 03/09/23 History suppository fever albuterol sulfate 2.5 mg/3 mL 2.5 mg inhalation Q6H 03/09/23 03/09/23 History
[2023-03-23 23:43] LABS: Glucose Point of Care 106 mg/dl (65-105)
[2023-03-24] VITALS (37 sets, daily range): BP systolic 125–175; BP diastolic 80–112; PULSE 72–116; RESP 16–22; TEMP 36.7–37.8; O2SAT 94–100
[2023-03-24 04:52] LABS: Hematocrit 29.9 % (42.0-52.0); Hemoglobin 9.3 g/dL (14.0-18.0); Mean Corpuscular HGB Conc 31.1 g/dl (32-36); Mean Corpuscular Hemoglobin 31.7 pg (26-34); Mean Platelet Volume 10.9 fl (7.4-10.4); Platelet Count Result 215 k/mm3 (150-375); Red Blood Count 2.93 M/mm3 (4.6-6.20); Red Cell Distribution Width 23.1 % (11.5-14.5); White Blood Count 25.9 K/mm3 (4.5-10.0)
[2023-03-24] MEDS: METOCLOPRAMIDE HCL INJ 10 MG/2 ML VIAL IV PUSH ×4 (05:02→23:56)
[2023-03-24] MEDS: CENTRAL LINE FLUSH 10 ML IV PUSH ×3 (05:02→19:37)
[2023-03-24 05:07] LABS: Alanine Aminotransferase 116 U/L (6-50); Albumin Level 2.7 g/dL (3.5-5.1); Alkaline Phosphatase 183 U/L (38-126); Anion Gap 8 mmol/L (8-16); Aspartate Amino Transferase 52 U/L (17-59); Bilirubin,Total 2.3 mg/dL (0.2-1.3); Blood Urea Nitrogen 77 mg/dL (9-20); Carbon Dioxide 27 mmol/L (22-30); Chloride 102 mmol/L (98-107); Glucose 98 mg/dL (65-110); Magnesium 2.3 mg/dL (1.6-2.3); Phosphorus 5.8 mg/dL (2.5-4.5); Potassium 3.3 mmol/L (3.4-5.0); Sodium 137 mmol/L (137-145)
[2023-03-24 05:26] LABS: Estimated CRCL calculation 16 ml/min; Estimated Glomerular Filt Rate 12
[2023-03-24 06:25] LABS: Band Neutrophils Percent 1 % (0-6); Eosinophils Absolute Manual 0.25 K/mm3 (0.02-0.5); Eosinophils Percent Manual 1 % (0-4); Hypochromasia 2+ (NORMAL); Lymphocytes Absolute Manual 1.81 K/mm3 (1.1-4.5); Monocytes Absolute Manual 0.51 K/mm3 (0.1-0.90); Monocytes Percent Manual 2 % (3-9); Neutrophils Absolute Manual 23.31 K/mm3 (1.3-6.7); Neutrophils Percent Manual 89 % (46-73); Platelet Estimate Adequate (Adequate); Polychromasia 1+ (NORMAL); Schistocytes None Seen (NORMAL); Stomatocytes 1+ (NORMAL); Total Cells Counted 100
[2023-03-24] MEDS: ENOXAPARIN 30 MG/0.3 ML SYRINGE SUB-Q (07:22)
[2023-03-24] MEDS: FLUCONAZOLE 100 MG TABLET 200 MG FEED TUBE (07:22)
[2023-03-24] MEDS: PANTOPRAZOLE SODIUM IV 40 MG VIAL IV PUSH (07:22)
[2023-03-24] MEDS: MINERAL OIL/WHITE PETROLATUM OINTMENT 1 APPLIC EACH EYE ×2 (07:23→19:37)
[2023-03-24] MEDS: POTASSIUM CHLORIDE 20 MEQ PACKET (FOR LIQUID) 40 MEQ FEED TUBE (09:00)
[2023-03-24] MEDS: SODIUM CHLORIDE 0.9% IV 1,000 ML 200 ML IV CONT (10:10)
--- NOTE | 2023-03-24 10:53 | PCFNICU ---
ICU Rounding Note: Pt current nutrition is Nepro @ 50 ml/h provides 1980 kcal, 89 g protein, 800 ml free water. Banatrol BID for liquid stools. Nutrition recommendation: Continue with current nutrition care plan and tube feeding orders Last recorded weight is 92.2 kg. Bowel Motility: Liquid stool per FMS Labs Reviewed: Hgb 9.3, Hct 29.9, K+ 3.3, GFR 12, BUN 77, Cre 4.9 Meds Noted: No sedation. Reglan, decadron, protonix Skin: R arm is swollen and weeping Additional Notes: Remains on vent without sedation. getting hemodialysis. Following daily in ICU rounds. Will monitor weight, labs, skin, tube feeding tolerance in ICU rounds and reassessing every Wednesday and Wednesday. .
[2023-03-24] MEDS: EPOETIN ALFA-EPBX 10,000 UNITS/ML VIAL 10000 UNITS IV PUSH (11:37)
--- NOTE | 2023-03-24 12:45 | PM.PNNEP ---
Progress Note: A&P Assessment and Plan (1) ANTWAN (acute kidney injury): Code(s): N17.9 - Acute kidney failure, unspecified Status: Acute Assessment and Plan: presumably normal baseline creatinine/renal function creatinine was 1.3mg/dl on admission initial insult secondary to obstructive uropathy as noted by imaging on admission s/p cystoscopy and ureteral stent placement creatinine improved to 1.4mg/dl worsened again due to hypotension and overal decompensation of 03/15/23 suspect second insult to kidney due to ATN from drop in BP and possible new sepsis initiated on [employer]/dialysis due to clearance and optimization of electrolytes HD today and continue M/W/F schedule follow repeat labs and UOP for possible renal recovery (2) Hydronephrosis with renal and ureteral calculous obstruction: Status: Acute Assessment and Plan: Renal ultrasound with right proximal ureteral stone measuring 1.6 cm causing moderate hydronephrosis. CT abdomen pelvis - 1. Proximal right ureteral stone near the UPJ measuring 1.8 cm with moderate hydronephrosis status post?cystoscopy, right retrograde pyelogram, and right ureteral stent insertion Urology following as needed (3) Acute hypoxic respiratory failure: Code(s): J96.01 - Acute respiratory failure with hypoxia Status: Acute Assessment and Plan: initially presented with altered mental status and bilateral PEs in association with hypoxia intubated on 03/08; extubated on 03/11 re-intubated on 03/15/13 continue ventilator support weaning as tolerated (4) Bilateral pulmonary embolism: Code(s): I26.99 - Other pulmonary embolism without acute cor pulmonale Status: Acute Assessment and Plan: CTA chest noted acute pulmonary embolism in all lobes was on heparin drip which has been discontinued now due to hematoma s/p IVC filter? placement on 03/16 bySurgery results of last Echo noted (5) COVID-19: Code(s): U07.1 - COVID-19 Status: Acute Assessment and Plan: positivity noted on admission in ER lungs are clear on chest x-ray suspect some mucus plugging and probable aspiration pneumonia was started on dexamethasone which was later switched to to hydrocortisone during shock not started on Remdesivir does not appear to have COVID pneumonia (6) Sepsis: Qualifiers: Sepsis type: sepsis due to unspecified organism Sepsis acute organ dysfunction status: with acute organ dysfunction Severe sepsis acute organ dysfunction type: acute respiratory failure Acute respiratory failure type: with hypoxia Severe sepsis shock status: without septic shock Qualified Code(s): A41.9 - Sepsis, unspecified organism; R65.20 - Severe sepsis without septic shock; J96.01 - Acute respiratory failure with hypoxia Code(s): A41.9 - Sepsis, unspecified organism Status: Acute Assessment and Plan: resolved noted with acute respiratory failure, tachycardia, tachypnea on admission follow repeat culture data follow hemodynamics off vasopressor therapy on antibiotics (7) Anemia: Code(s): D64.9 - Anemia, unspecified Status: Acute Assessment and Plan: several issues: ANTWAN/ARF intramuscular hematomas and hemodilution previous issues with DIC chronic illness Epogen with dialysis follow trend of H/H Will continue to follow. Subjective Date/time seen: 03/24/23 12:45 Interval history: Follow-up for acute kidney injury/acute renal failure. Tolerating dialysis treatment at the time of my visit (seen on HD at 12:35PM); remains intubated/sedated and on mechanical ventilation; no evidence of renal recovery noted; remains hemodynamically stable off all vasopressor therapy. Exam Narrative: General: middle aged male intubated and on mechanical ventilation Heart: normal S1 and S2; no rub Lungs: clear anteriolry Abdomen: soft, nontender,
--- NOTE | 2023-03-24 12:45 | P.PNNP_ITS ---
Progress Note: A&P Assessment and Plan (1) ANTWAN (acute kidney injury): Code(s): N17.9 - Acute kidney failure, unspecified Status: Acute Assessment and Plan: * presumably normal baseline creatinine/renal function * creatinine was 1.3mg/dl on admission * initial insult secondary to obstructive uropathy as noted by imaging on admission * s/p cystoscopy and ureteral stent placement * creatinine improved to 1.4mg/dl * worsened again due to hypotension and overal decompensation of 03/15/23 * suspect second insult to kidney due to ATN from drop in BP and possible new sepsis * initiated on [employer]/dialysis due to clearance and optimization of electrolytes * HD today and continue M/W/F schedule * follow repeat labs and UOP for possible renal recovery (2) Hydronephrosis with renal and ureteral calculous obstruction: Status: Acute Assessment and Plan: * Renal ultrasound with right proximal ureteral stone measuring 1.6 cm causing moderate hydronephrosis. * CT abdomen pelvis - 1. Proximal right ureteral stone near the UPJ measuring 1.8 cm with moderate hydronephrosis * status post?cystoscopy, right retrograde pyelogram, and right ureteral stent insertion * Urology following as needed (3) Acute hypoxic respiratory failure: Code(s): J96.01 - Acute respiratory failure with hypoxia Status: Acute Assessment and Plan: * initially presented with altered mental status and bilateral PEs in association with hypoxia * intubated on 03/08; extubated on 03/11 * re-intubated on 03/15/13 * continue ventilator support * weaning as tolerated (4) Bilateral pulmonary embolism: Code(s): I26.99 - Other pulmonary embolism without acute cor pulmonale Status: Acute Assessment and Plan: * CTA chest noted acute pulmonary embolism in all lobes * was on heparin drip which has been discontinued now due to hematoma * s/p IVC filter? placement on 03/16 bySurgery * results of last Echo noted (5) COVID-19: Code(s): U07.1 - COVID-19 Status: Acute Assessment and Plan: * positivity noted on admission in ER * lungs are clear on chest x-ray * suspect some mucus plugging and probable aspiration pneumonia * was started on dexamethasone which was later switched to to hydrocortisone during shock * not started on Remdesivir * does not appear to have COVID pneumonia (6) Sepsis: Qualifiers: Sepsis type: sepsis due to unspecified organism Sepsis acute organ dysfunction status: with acute organ dysfunction Severe sepsis acute organ dysfunction type: acute respiratory failure Acute respiratory failure type: with hypoxia Severe sepsis shock status: without septic shock Qualified Code(s): A41.9 - Sepsis, unspecified organism; R65.20 - Severe sepsis without septic shock; J96.01 - Acute respiratory failure with hypoxia Code(s): A41.9 - Sepsis, unspecified organism Status: Acute Assessment and Plan: * resolved * noted with acute respiratory failure, tachycardia, tachypnea on admission * follow repeat culture data * follow hemodynamics * off vasopressor therapy * on antibiotics (7) Anemia: Code(s): D64.9 - Anemia, unspecified Status: Acute Assessment and Plan: * several issues: * ANTWAN/ARF * intramuscular hematomas and hemodilution * previous issues with DIC * chronic illness * Epogen with dialysis * follow trend of H/H Will continue to follow. Subjective Date/time seen: 03/24/23 12:45 Interv
[2023-03-24] MEDS: METOPROLOL TARTRATE 12.5 MG TABLET FEED TUBE ×2 (13:15→19:37)
[2023-03-24] MEDS: hydrALAZINE 10 MG TABLET PO ×2 (13:16→21:37)
[2023-03-24] MEDS: MEROPENEM 500 MG in SODIUM CHLORIDE 0.9% IV 100 ML 200 ML IVPB (17:19)
[2023-03-24 17:56] LABS: Glucose Point of Care 108 mg/dl (65-105)
--- NOTE | 2023-03-24 19:27 | PM.IMPN ---
Progress Note: A&P Assessment and Plan (1) Shock: Code(s): R57.9 - Shock, unspecified Status: Acute Assessment and Plan: Patient developed HoTN in IMU and transferred back to ICU on 03/14. He was fluid responisve initially but worsened requiring central line and pressors. Consider sepsis and/or hypovolemia from anemia/Acute Blood Loss and/or recurrent PE Procalcitonin and lactic acid levels were normal Cultures obtained and abx adjusted Solu-Cortef started. CT scan reviewed showed inflammatory infectious changes and soft tissue muscle in right shoulder with multiple intramuscular collection s/p fluid removal for culture Heparin infusion was discontinued due to drop in Hgb.?Concern for DIC and muti-organ failure Received 3U FFP and 2U PRBC 03/15 Off IV fluids and vasopressors now and BP stable Continue Diflucan but off all abx now Appreciate opener tender input (2) Acute hypoxic respiratory failure: Code(s): J96.01 - Acute respiratory failure with hypoxia Status: Acute Assessment and Plan: Patient presented to the ED from a [facility] with altered mental status and found to have bilateral PEs and acute hypoxic respiratory failure -On presentation (03/08), patient unable to protect airway and noted to have a large amount of purulent mat'l in the oropharynx requiring suctioning. He was intubated in the ER. -CXR was clear. CTA chest showing acute PE in all lobes with mucous plugging in right mainstem bronchus. COVID positive. -Consider aspiration and/or mucous plugging and/or PE causing the resp failure -Bronchodilators stopped. Continue anticoagulation. Continue Dexamethasone; Baricitinib stopped 03/10 -On Zosyn and Vanco on admission but narrowed to Zosyn only for possible aspiration -Pulmozyme and Mucomyst started but now stopped -Weaned vent and was able to be extubated on 03/11 Patient moved back to the ICU on 03/14 for HoTN. Condition worsened overnight and required intubation 03/15 ABG 7.197/42/172 on MV. Bicarb ordered and vent adjusted. CXR clear. Stable on MV but not fully aware and having trouble extubating Vent management per opener tender. (3) Bilateral pulmonary embolism: Code(s): I26.99 - Other pulmonary embolism without acute cor pulmonale Status: Acute Assessment and Plan: Patient presents with altered mental status and found to have respiratory distress. -CXR was clear but CTA chest showing acute PE in all lobes with mucous plugging in right mainstem bronchus. -Patient with Bilat LE DVT at prior hospital and was on Xarelto at the detention prior to admission. -Echo at the outside hosp showed moderately dilated RV with moderately reduced systolic fxn -Echo here showing EF 70%, Grade I diastolic dysfunction and RV hypokinesis -Stool guaiac negative -Doppler here showing acute DVT in left posterior tibial vein and subacute nonocclusive DVT in the left distal femoral vein and right popliteal vein -Per NH: patient was refusing medications which could explain his worsening VTE findings on Xarelto. Heparin held due to drop in HH and concern for DIC. IVC filter placement 03/16 Hgb stable in the 9 range Follow (4) ANTWAN (acute kidney injury): Status: Acute Assessment and Plan: Patient with normal renal function on admission at 1.3 but Cr climbed to 2.4 -Etiology probably sepsis and/or obstructing stone and/or contrast and/or ATN -Consider also dehydration. Was on Lasix prior to admission -Renal US showing right proximal ureteral stone measuring 1.6cm causing moderate hydro but with normal renal echotexture. Cr improved to 1.4 but climbed felt related to HoTN and sepsis Cr has climbed to 5.1 and became oliguric Nephrology consulted. HD started (5) Shoulder abscess: Code(s): L02.419 - Cutaneous abscess of limb, unspecified Status: Acute Assessment and Plan: CT chest 03/14 showing: Considerable inflamma
[2023-03-25] VITALS (23 sets, daily range): BP systolic 123–155; BP diastolic 80–95; PULSE 76–98; RESP 19–25; TEMP 37.1–37.9; O2SAT 93–100
[2023-03-25 00:40] LABS: Glucose Point of Care 108 mg/dl (65-105)
--- NOTE | 2023-03-25 03:46 | PC.NURSE ---
Upon giving bath to patient, patient was assessed neurologically. Patient was able to move Left arm approximately 8 inches over, however unable to do hand grasp bilaterally nor do a foot push. Patient was told that he was safe and at [facility] in the ICU. Patient was instructed to blink 3 times in a row if he understood. Patient was able to blink 3 times, however after that did not appear to follow anymore commands. Will continue neuro checks.
[2023-03-25 04:57] LABS: Basophils Absolute Auto 0.1 K/mm3 (0.0-0.1); Basophils Percent Auto 0.3 % (0.2-1.2); Eosinophils Absolute Auto 0.5 K/mm3 (0-0.3); Eosinophils Percent Auto 2.8 % (0-4.4); Hematocrit 30.1 % (42.0-52.0); Hemoglobin 9.1 g/dL (14.0-18.0); Immature Granulocyte Absolute 0.47 K/mm3 (0.00-0.031); Immature Granulocyte Percent A 2.5 % (0-0.5); Lymphocytes Percent Auto 8.9 % (18.3-44.2); Mean Corpuscular HGB Conc 30.2 g/dl (32-36); Mean Corpuscular Hemoglobin 31.6 pg (26-34); Mean Corpuscular Volume 104.5 fl (80-100); Mean Platelet Volume 10.3 fl (7.4-10.4); Monocytes Absolute Auto 2.6 K/mm3 (0.1-0.6); Monocytes Percent Auto 13.8 % (2.6-8.5); Neutrophils Absolute Auto 13.8 K/mm3 (1.3-6.7); Neutrophils Percent Auto 71.7 % (45.5-73.1); Nucleated Red Blood Cells Perc 0.2 % (0.0-0.2); Platelet Count Result 241 k/mm3 (150-375); Red Blood Count 2.88 M/mm3 (4.6-6.20); Red Cell Distribution Width 23.8 % (11.5-14.5); White Blood Count 19.2 K/mm3 (4.5-10.0)
[2023-03-25] MEDS: hydrALAZINE 10 MG TABLET PO ×3 (05:04→20:49)
[2023-03-25] MEDS: METOCLOPRAMIDE HCL INJ 10 MG/2 ML VIAL IV PUSH ×3 (05:04→17:50)
[2023-03-25] MEDS: CENTRAL LINE FLUSH 10 ML IV PUSH ×3 (05:04→20:49)
[2023-03-25 05:23] LABS: Alanine Aminotransferase 83 U/L (6-50); Albumin Level 2.5 g/dL (3.5-5.1); Alkaline Phosphatase 204 U/L (38-126); Anion Gap 5 mmol/L (8-16); Aspartate Amino Transferase 65 U/L (17-59); Bilirubin,Total 2.2 mg/dL (0.2-1.3); Blood Urea Nitrogen 56 mg/dL (9-20); Calcium 8.1 mg/dL (8.4-10.2); Carbon Dioxide 28 mmol/L (22-30); Chloride 103 mmol/L (98-107); Estimated CRCL calculation 21 ml/min; Estimated Glomerular Filt Rate 17; Glucose 106 mg/dL (65-110); Magnesium 2.1 mg/dL (1.6-2.3); Phosphorus 4.2 mg/dL (2.5-4.5); Potassium 3.7 mmol/L (3.4-5.0); Sodium 136 mmol/L (137-145)
[2023-03-25 05:35] LABS: Anisocytosis 1+ (NORMAL); Hypochromasia 2+ (NORMAL); Macrocytosis 1+ (NORMAL); Platelet Estimate Adequate (Adequate)
[2023-03-25 05:36] LABS: Schistocytes Rare (NORMAL)
[2023-03-25] MEDS: METOPROLOL TARTRATE 12.5 MG TABLET FEED TUBE ×2 (08:15→20:48)
[2023-03-25] MEDS: ENOXAPARIN 30 MG/0.3 ML SYRINGE SUB-Q (08:15)
[2023-03-25] MEDS: PANTOPRAZOLE SODIUM IV 40 MG VIAL IV PUSH (08:15)
[2023-03-25] MEDS: FLUCONAZOLE 100 MG TABLET 200 MG FEED TUBE (08:15)
[2023-03-25] MEDS: MINERAL OIL/WHITE PETROLATUM OINTMENT 1 APPLIC EACH EYE ×2 (08:16→20:49)
--- NOTE | 2023-03-25 11:23 | PCFNICU ---
ICU Rounding Note: Pt current nutrition is Nepro at 50 ml/hr. Last recorded weight is 90.8 kg, up from 87 kg on admit. Bowel Motility:+Bm reported 03/25 Labs Reviewed:Cr 3.7,BUN 56, GFR 17, Na 136, Alb 2.5, Hct 30.1, Hgb 19.1 Meds Noted:Reglan IV, Lovenox, Diflucan. Skin: Bilateral Buttock-Maceration Additional Notes: Patient remains on mechanical vent. No sedation. Tube feedings are being tolerated of Nepro at 50 ml/hr. Flush 30 ml q 4 hours. Discussions regarding possible PEG/Trach next week. Banatrol discontinued-stools are formed. Agree with diet orders. Following daily in ICU rounds. Will monitor weight, labs, skin, tube feeding tolerance in ICU rounds and reassessing every Wednesday and Wednesday.
[2023-03-25 11:58] LABS: Glucose Point of Care 118 mg/dl (65-105)
--- NOTE | 2023-03-25 12:24 | WPDINTPN ---
Progress Note: A&P Assessment and Plan (1) Shock: Code(s): R57.9 - Shock, unspecified Status: Acute Assessment and Plan: RESOLVED 03/14 patient was transferred to ICU due to hypotension. Hypotension likely secondary to hypovolemia but could be a new sepsis His procalcitonin lactic acid levels were normal nicom assessment showed patient to be fluid responsive and he was given 2 L fluid bolus now Will continue IV fluids Initially after IV fluid bolus patient blood pressure improved but later in the evening patient became hypotensive again A central venous catheter was placed and patient was started on Levophed Labs were performed and showed drop in hemoglobin. Initially it was thought to be dilutional patient had received significant amount IV fluids and there was no obvious sign of bleeding. CT scan was also pending at that 03/15 Overnight patient continued to require increased pressor dose Status limited echo was done this morning as patient has PE and DVT assess for RV function and as per my verbal communication with child welfare specialist patient does not appear to be in RV failure. CT scan reviewed showed inflammatory infectious changes and soft tissue muscle in right shoulder with multiple intramuscular collection. I spoke to Dr. Ibarra with Radiology and he feels that these are hematoma which may be infected Heparin infusion was discontinued early this morning. Patient is coagulopathic secondary to DIC Patient underwent aspiration of the hematoma to evaluate for any infection and cultures have been sent Patient was transfused 2 units of PRBC, 3 years of FFP. Vitamin K was administered, 20 mg of protamine was given Patient was treated with iV fluids and vasopressors 03/16 improvement in hemodynamics and patient is now off of vasopressors Aspirate, blood cultures and urine culture are negative till now MRSA screen was negative Continue meropenem (last dose today 03/24) and Diflucan Off all IV fluids Hemodynamically stable at this time (2) Acute hypoxic respiratory failure: Code(s): J96.01 - Acute respiratory failure with hypoxia Status: Acute Assessment and Plan: Patient patient initially presented with altered mental status, bilateral PEs, acute hypoxic respiratory failure, mucus plugging question aspiration -03/08: intubated in the ER and was extubated in the ICU -03/15 reintubated due to hypoxia and altered mental status. Chest x-ray ABG and vent settings reviewed Patient given patient's support ventilation 5/5, 30% FiO2 for greater than 24 hours On no sedation Patient patient has been tolerating PSV trial from respiratory standpoint but appears encephalopathy and weak. He will not be able to protect his airway which was the reason he remains intubated. Continue mechanical ventilation at this time. Continue holding all sedatives (3) Bilateral pulmonary embolism: Code(s): I26.99 - Other pulmonary embolism without acute cor pulmonale Status: Acute Assessment and Plan: CTA chest-acute pulmonary embolism in all lobes Patient was on heparin drip which has been discontinued now due to hematoma General surgery consulted a patient underwent IVC filter placement on 03/16. Patient unable to provide any consent and no family available hence procedure will be done as medical necessity in emergent situation Repeat limited echo results discussed with Cardiology Echocardiogram Summary ? 1. Complete two-dimensional, color flow and Doppler transthoracic echocardiogram is performed. ? 2. Normal left ventricular size and with mild concentric hypertrophy, and with hyperdynamic left ventricular systolic function.? Ejection fraction greater than 70%.? Grade 1 diastolic dysfunction is present. ? 3. Right ventricle not well visualized but appears mildly hypokinetic. ? 4. Dilated inferior vena cava consistent with elevated right heart pressure. ? 5. Right ventricular systolic pressure cannot be adequate evaluated by this
--- NOTE | 2023-03-25 13:51 | P.PNNP_ITS ---
Progress Note: A&P Assessment and Plan (1) ANTWAN (acute kidney injury): Code(s): N17.9 - Acute kidney failure, unspecified Status: Acute Assessment and Plan: * presumably normal baseline creatinine/renal function * creatinine was 1.3mg/dl on admission * initial insult secondary to obstructive uropathy as noted by imaging on admission * s/p cystoscopy and ureteral stent placement * creatinine improved to 1.4mg/dl * worsened again due to hypotension and overal decompensation of 03/15/23 * suspect second insult to kidney due to ATN from drop in BP and possible new sepsis * On no pressors. * Urine output still very low. Only 250cc yesterday. * he had dialysis yesterday and will get another treatment tomorrow. (2) Hydronephrosis with renal and ureteral calculous obstruction: Status: Acute Assessment and Plan: * Renal ultrasound with right proximal ureteral stone measuring 1.6 cm causing moderate hydronephrosis. * CT abdomen pelvis - 1. Proximal right ureteral stone near the UPJ measuring 1.8 cm with moderate hydronephrosis * status post?cystoscopy, right retrograde pyelogram, and right ureteral stent insertion * Urology following as needed (3) Acute hypoxic respiratory failure: Code(s): J96.01 - Acute respiratory failure with hypoxia Status: Acute Assessment and Plan: * initially presented with altered mental status and bilateral PEs in association with hypoxia * intubated on 03/08; extubated on 03/11 * re-intubated on 03/15/13 * continue ventilator support * On 30% oxygen. * weaning as tolerated (4) Bilateral pulmonary embolism: Code(s): I26.99 - Other pulmonary embolism without acute cor pulmonale Status: Acute Assessment and Plan: * CTA chest noted acute pulmonary embolism in all lobes * was on heparin drip which has been discontinued now due to hematoma * s/p IVC filter? placement on 03/16 bySurgery * results of last Echo noted (5) COVID-19: Code(s): U07.1 - COVID-19 Status: Acute Assessment and Plan: * positivity noted on admission in ER * lungs are clear on chest x-ray * suspect some mucus plugging and probable aspiration pneumonia * was started on dexamethasone which was later switched to to hydrocortisone during shock * not started on Remdesivir * does not appear to have COVID pneumonia (6) Sepsis: Qualifiers: Sepsis type: sepsis due to unspecified organism Sepsis acute organ dysfunction status: with acute organ dysfunction Severe sepsis acute organ dysfunction type: acute respiratory failure Acute respiratory failure type: with hypoxia Severe sepsis shock status: without septic shock Qualified Code(s): A41.9 - Sepsis, unspecified organism; R65.20 - Severe sepsis without septic shock; J96.01 - Acute respiratory failure with hypoxia Code(s): A41.9 - Sepsis, unspecified organism Status: Acute Assessment and Plan: * resolved * noted with acute respiratory failure, tachycardia, tachypnea on admission * follow repeat culture data * follow hemodynamics * off vasopressor therapy * on Meropenem (7) Anemia: Code(s): D64.9 - Anemia, unspecified Status: Acute Assessment and Plan: * several issues: * ANTWAN/ARF * intramuscular hematomas and hemodilution * previous issues with DIC * chronic illness * hemoglobin 9.1 * Epogen with dialysis Will continue to follow. Subjective Date/time seen: 03/25/23 13:51 Interval histo
--- NOTE | 2023-03-25 13:51 | PM.PNNEP ---
Progress Note: A&P Assessment and Plan (1) ANTWAN (acute kidney injury): Code(s): N17.9 - Acute kidney failure, unspecified Status: Acute Assessment and Plan: presumably normal baseline creatinine/renal function creatinine was 1.3mg/dl on admission initial insult secondary to obstructive uropathy as noted by imaging on admission s/p cystoscopy and ureteral stent placement creatinine improved to 1.4mg/dl worsened again due to hypotension and overal decompensation of 03/15/23 suspect second insult to kidney due to ATN from drop in BP and possible new sepsis On no pressors. Urine output still very low. Only 250cc yesterday. he had dialysis yesterday and will get another treatment tomorrow. (2) Hydronephrosis with renal and ureteral calculous obstruction: Status: Acute Assessment and Plan: Renal ultrasound with right proximal ureteral stone measuring 1.6 cm causing moderate hydronephrosis. CT abdomen pelvis - 1. Proximal right ureteral stone near the UPJ measuring 1.8 cm with moderate hydronephrosis status post?cystoscopy, right retrograde pyelogram, and right ureteral stent insertion Urology following as needed (3) Acute hypoxic respiratory failure: Code(s): J96.01 - Acute respiratory failure with hypoxia Status: Acute Assessment and Plan: initially presented with altered mental status and bilateral PEs in association with hypoxia intubated on 03/08; extubated on 03/11 re-intubated on 03/15/13 continue ventilator support On 30% oxygen. weaning as tolerated (4) Bilateral pulmonary embolism: Code(s): I26.99 - Other pulmonary embolism without acute cor pulmonale Status: Acute Assessment and Plan: CTA chest noted acute pulmonary embolism in all lobes was on heparin drip which has been discontinued now due to hematoma s/p IVC filter? placement on 03/16 bySurgery results of last Echo noted (5) COVID-19: Code(s): U07.1 - COVID-19 Status: Acute Assessment and Plan: positivity noted on admission in ER lungs are clear on chest x-ray suspect some mucus plugging and probable aspiration pneumonia was started on dexamethasone which was later switched to to hydrocortisone during shock not started on Remdesivir does not appear to have COVID pneumonia (6) Sepsis: Qualifiers: Sepsis type: sepsis due to unspecified organism Sepsis acute organ dysfunction status: with acute organ dysfunction Severe sepsis acute organ dysfunction type: acute respiratory failure Acute respiratory failure type: with hypoxia Severe sepsis shock status: without septic shock Qualified Code(s): A41.9 - Sepsis, unspecified organism; R65.20 - Severe sepsis without septic shock; J96.01 - Acute respiratory failure with hypoxia Code(s): A41.9 - Sepsis, unspecified organism Status: Acute Assessment and Plan: resolved noted with acute respiratory failure, tachycardia, tachypnea on admission follow repeat culture data follow hemodynamics off vasopressor therapy on Meropenem (7) Anemia: Code(s): D64.9 - Anemia, unspecified Status: Acute Assessment and Plan: several issues: ANTWAN/ARF intramuscular hematomas and hemodilution previous issues with DIC chronic illness hemoglobin 9.1 Epogen with dialysis Will continue to follow. Subjective Date/time seen: 03/25/23 13:51 Interval history: patient is on the ventilator in isolation for COVID. Sedated. Exam Narrative: General: middle aged male intubated and on mechanical ventilation Heart: normal S1 and S2; no rub Or gallop Lungs: mildly coarse bilaterally Abdomen: soft, nontender, nondistended, positive bowel sounds Extremities: trace edema Skin: no rash Objective Data Vital Signs Vital Signs: Vital Signs - 24 hr 03/24/23 16:00 03/24/23 14:00 03/24/23 16:00 Temperature 1
[2023-03-25 18:13] LABS: Glucose Point of Care 97 mg/dl (65-105)
--- NOTE | 2023-03-25 18:40 | PM.IMPN ---
Progress Note: A&P Assessment and Plan (1) Shock: Code(s): R57.9 - Shock, unspecified Status: Acute Assessment and Plan: Patient developed HoTN in IMU and transferred back to ICU on 03/14. He was fluid responisve initially but worsened requiring central line and pressors. Consider sepsis and/or hypovolemia from anemia/Acute Blood Loss and/or recurrent PE Procalcitonin and lactic acid levels were normal Cultures obtained and abx adjusted Solu-Cortef started. CT scan reviewed showed inflammatory infectious changes and soft tissue muscle in right shoulder with multiple intramuscular collection s/p fluid removal for culture Heparin infusion was discontinued due to drop in Hgb.?Concern for DIC and muti-organ failure Received 3U FFP and 2U PRBC 03/15 Off IV fluids and vasopressors now and BP stable Continue Diflucan but off all abx now (Meropenen last dose 03/24) Appreciate medical parasitologist input (2) Acute hypoxic respiratory failure: Code(s): J96.01 - Acute respiratory failure with hypoxia Status: Acute Assessment and Plan: Patient presented to the ED from a [facility] with altered mental status and found to have bilateral PEs and acute hypoxic respiratory failure -On presentation (03/08), patient unable to protect airway and noted to have a large amount of purulent mat'l in the oropharynx requiring suctioning. He was intubated in the ER. -CXR was clear. CTA chest showing acute PE in all lobes with mucous plugging in right mainstem bronchus. COVID positive. -Consider aspiration and/or mucous plugging and/or PE causing the resp failure -Bronchodilators stopped. Continue anticoagulation. Continue Dexamethasone; Baricitinib stopped 03/10 -On Zosyn and Vanco on admission but narrowed to Zosyn only for possible aspiration -Pulmozyme and Mucomyst started but now stopped -Weaned vent and was able to be extubated on 03/11 Patient moved back to the ICU on 03/14 for HoTN. Condition worsened overnight and required intubation 03/15 ABG 7.197/42/172 on MV. Bicarb ordered and vent adjusted. CXR clear. Stable on MV but not fully aware and having trouble extubating Vent management per medical parasitologist. (3) Bilateral pulmonary embolism: Code(s): I26.99 - Other pulmonary embolism without acute cor pulmonale Status: Acute Assessment and Plan: Patient presents with altered mental status and found to have respiratory distress. -CXR was clear but CTA chest showing acute PE in all lobes with mucous plugging in right mainstem bronchus. -Patient with Bilat LE DVT at prior hospital and was on Xarelto at the senior living prior to admission. -Echo at the outside hosp showed moderately dilated RV with moderately reduced systolic fxn -Echo here showing EF 70%, Grade I diastolic dysfunction and RV hypokinesis -Stool guaiac negative -Doppler here showing acute DVT in left posterior tibial vein and subacute nonocclusive DVT in the left distal femoral vein and right popliteal vein -Per NH: patient was refusing medications which could explain his worsening VTE findings on Xarelto. Heparin held due to drop in HH and concern for DIC. IVC filter placement / Hgb stable in the 9 range Follow (4) ANTWAN (acute kidney injury): Status: Acute Assessment and Plan: Patient with normal renal function on admission at 1.3 but Cr climbed to 2.4 -Etiology probably sepsis and/or obstructing stone and/or contrast and/or ATN -Consider also dehydration. Was on Lasix prior to admission -Renal US showing right proximal ureteral stone measuring 1.6cm causing moderate hydro but with normal renal echotexture. Cr improved to 1.4 but climbed felt related to HoTN and sepsis Cr has climbed to 5.1 and became oliguric Nephrology consulted. HD started Apprecaite nephrology input. (5) Shoulder abscess: Code(s): L02.419 - Cutaneous abscess of limb, unspecified Status: Acute Assessmen
[2023-03-25 23:08] LABS: Glucose Point of Care 94 mg/dl (65-105)
[2023-03-26] VITALS (41 sets, daily range): BP systolic 105–157; BP diastolic 73–101; PULSE 68–105; RESP 18–22; TEMP 36.7–37.7; O2SAT 94–100
[2023-03-26] MEDS: METOCLOPRAMIDE HCL INJ 10 MG/2 ML VIAL IV PUSH ×4 (01:00→17:28)
[2023-03-26] MEDS: CENTRAL LINE FLUSH 10 ML IV PUSH ×3 (04:46→20:49)
[2023-03-26] MEDS: hydrALAZINE 10 MG TABLET PO ×2 (05:27→20:44)
[2023-03-26 05:29] LABS: Basophils Percent Auto 0.2 % (0.2-1.2); Eosinophils Absolute Auto 0.5 K/mm3 (0-0.3); Eosinophils Percent Auto 2.9 % (0-4.4); Hematocrit 29.4 % (42.0-52.0); Hemoglobin 9.1 g/dL (14.0-18.0); Immature Granulocyte Absolute 0.35 K/mm3 (0.00-0.031); Immature Granulocyte Percent A 1.9 % (0-0.5); Lymphocytes Absolute Auto 1.54 K/mm3 (0.9-3.2); Lymphocytes Percent Auto 8.3 % (18.3-44.2); Mean Corpuscular Hemoglobin 32.4 pg (26-34); Mean Corpuscular Volume 104.6 fl (80-100); Mean Platelet Volume 10.2 fl (7.4-10.4); Monocytes Absolute Auto 2.6 K/mm3 (0.1-0.6); Monocytes Percent Auto 14.1 % (2.6-8.5); Neutrophils Absolute Auto 13.6 K/mm3 (1.3-6.7); Neutrophils Percent Auto 72.6 % (45.5-73.1); Platelet Count Result 264 k/mm3 (150-375); Red Blood Count 2.81 M/mm3 (4.6-6.20); White Blood Count 18.6 K/mm3 (4.5-10.0)
[2023-03-26 05:46] LABS: Albumin Level 2.6 g/dL (3.5-5.1); Anion Gap 5 mmol/L (8-16); Blood Urea Nitrogen 79 mg/dL (9-20); Calcium 8.3 mg/dL (8.4-10.2); Carbon Dioxide 27 mmol/L (22-30); Chloride 104 mmol/L (98-107); Estimated CRCL calculation 18 ml/min; Estimated Glomerular Filt Rate 14; Glucose 107 mg/dL (65-110); Magnesium 2.3 mg/dL (1.6-2.3); Phosphorus 5.3 mg/dL (2.5-4.5); Sodium 136 mmol/L (137-145)
[2023-03-26 06:18] LABS: Base Excess ABG 2.2 mEq/l (+/-2.0); Carboxyhemoglobin 0.9 % THb (0-2.0); Fractional Inspired Oxygen 30 %; Methemoglobin ABG 0.5 %THb (0-1.5); Oxygen Content ABG 10.1 %vol (16.0-22.0); Oxygen Saturation ABG 91.8 % (95.0-100.0); PCO2 ABG 37.2 mmHg (35.0-45.0); PO2 ABG 58.2 mmHg (80.0-100.0); PO2 FiO2 Ratio Arterial Blood 1.94 %; Reduced Hemoglobin 8.6 %THb (0-5.0); Total Hemoglobin 7.9 g/dL (12.0-18.0); pH ABG 7.463 (7.350-7.450)
[2023-03-26 06:19] LABS: Device VENTILATOR; Modified Allen's Test Pass; Site Drawn LEFT RADIAL
[2023-03-26 06:20] LABS: Arterial Blood Gas PEEP 5 cmH2O; Arterial Blood Gas Pressure Support 5 cmH2O; Arterial Blood Gas Vent Mode SPONTANEOUS
[2023-03-26 06:27] LABS: Anisocytosis 2+ (NORMAL); Hypochromasia 1+ (NORMAL); Macrocytosis 1+ (NORMAL); Platelet Estimate Adequate (Adequate); Schistocytes None Seen (NORMAL)
[2023-03-26] MEDS: ENOXAPARIN 30 MG/0.3 ML SYRINGE SUB-Q (08:15)
[2023-03-26] MEDS: METOPROLOL TARTRATE 12.5 MG TABLET FEED TUBE ×2 (08:15→20:44)
[2023-03-26] MEDS: PANTOPRAZOLE SODIUM IV 40 MG VIAL IV PUSH (08:15)
[2023-03-26] MEDS: FLUCONAZOLE 100 MG TABLET 200 MG FEED TUBE (08:15)
[2023-03-26] MEDS: MINERAL OIL/WHITE PETROLATUM OINTMENT 1 APPLIC EACH EYE ×2 (08:16→20:44)
[2023-03-26] MEDS: EPOETIN ALFA-EPBX 10,000 UNITS/ML VIAL 10000 UNITS IV PUSH (08:56)
--- NOTE | 2023-03-26 11:40 | PCNFU ---
Nutrition Follow-Up Complete: Inadequate Oral Intake as related to mechanical vent as evidenced by NPO. Goal: Meet estimated nutritional needs. Patient is meeting current goal. We will continue goal. Pt current nutrition is Nepro at 50 ml/hr Last recorded weight is 91.2 kg, up from 87 kg on admit Bowel Motility:+BM reported 03/26 Labs Reviewed:Cr 4.4,BUN 79, GFR 14, Na 136, Hct 29.4, Hgb 9.1 Meds Noted:Reglan, Lovenox, Protonix, Lopressor Skin: bilateral buttock-maceration Additional Noted:Patient remains on mechanical vent and tube feedings of Nepro at 50 ml/hr-tolerating per nursing. Tube feedings providing 1980 kcals/89 gms protein/800 ml water. Meeting 100% kcal needs at 23 kcal/kg and 86% protein needs at 1.2-1.4 gm/kg. Flush 30 ml q 4 hours. Patient is getting Dialysis today. Will monitor weight, labs, skin, tube feeding tolerance in ICU rounds and reassessing every Wednesday and Wednesday.
[2023-03-26 12:13] LABS: Glucose Point of Care 99 mg/dl (65-105)
--- NOTE | 2023-03-26 12:55 | WPDINTPN ---
Progress Note: A&P Assessment and Plan (1) Shock: Code(s): R57.9 - Shock, unspecified Status: Acute Assessment and Plan: RESOLVED 03/14 patient was transferred to ICU due to hypotension. Hypotension likely secondary to hypovolemia but could be a new sepsis His procalcitonin lactic acid levels were normal nicom assessment showed patient to be fluid responsive and he was given 2 L fluid bolus now Will continue IV fluids Initially after IV fluid bolus patient blood pressure improved but later in the evening patient became hypotensive again A central venous catheter was placed and patient was started on Levophed Labs were performed and showed drop in hemoglobin. Initially it was thought to be dilutional patient had received significant amount IV fluids and there was no obvious sign of bleeding. CT scan was also pending at that 03/15 Overnight patient continued to require increased pressor dose Status limited echo was done this morning as patient has PE and DVT assess for RV function and as per my verbal communication with devulcanizer operator patient does not appear to be in RV failure. CT scan reviewed showed inflammatory infectious changes and soft tissue muscle in right shoulder with multiple intramuscular collection. I spoke to Dr. Ibarra with Radiology and he feels that these are hematoma which may be infected Heparin infusion was discontinued early this morning. Patient is coagulopathic secondary to DIC Patient underwent aspiration of the hematoma to evaluate for any infection and cultures have been sent Patient was transfused 2 units of PRBC, 3 years of FFP. Vitamin K was administered, 20 mg of protamine was given Patient was treated with iV fluids and vasopressors 03/16 improvement in hemodynamics and patient is now off of vasopressors Aspirate, blood cultures and urine culture are negative till now MRSA screen was negative Status post meropenem (last dose today 03/24) -continue Diflucan (stop date 03/28) Off all IV fluids Hemodynamically stable at this time (2) Acute hypoxic respiratory failure: Code(s): J96.01 - Acute respiratory failure with hypoxia Status: Acute Assessment and Plan: Patient patient initially presented with altered mental status, bilateral PEs, acute hypoxic respiratory failure, mucus plugging question aspiration -03/08: intubated in the ER and was extubated in the ICU -03/15 reintubated due to hypoxia and altered mental status. Chest x-ray ABG and vent settings reviewed Patient given patient's support ventilation 5/5, 30% FiO2 for greater than 24 hours On no sedation Patient patient has been tolerating PSV trial from respiratory standpoint but appears encephalopathy and weak. He will not be able to protect his airway, for that reason he remains intubated. Continue mechanical ventilation at this time. Continue holding all sedatives (3) Bilateral pulmonary embolism: Code(s): I26.99 - Other pulmonary embolism without acute cor pulmonale Status: Acute Assessment and Plan: CTA chest-acute pulmonary embolism in all lobes Patient was on heparin drip which has been discontinued now due to hematoma General surgery consulted a patient underwent IVC filter placement on 03/16. Patient unable to provide any consent and no family available hence procedure will be done as medical necessity in emergent situation Repeat limited echo results discussed with Cardiology Echocardiogram Summary ? 1. Complete two-dimensional, color flow and Doppler transthoracic echocardiogram is performed. ? 2. Normal left ventricular size and with mild concentric hypertrophy, and with hyperdynamic left ventricular systolic function.? Ejection fraction greater than 70%.? Grade 1 diastolic dysfunction is present. ? 3. Right ventricle not well visualized but appears mildly hypokinetic. ? 4. Dilated inferior vena cava consistent with elevated right heart pressure. ? 5. Right ventricular systolic pressure cannot be ad
--- NOTE | 2023-03-26 13:10 | P.PNNP_ITS ---
Progress Note: A&P Assessment and Plan (1) ANTWAN (acute kidney injury): Code(s): N17.9 - Acute kidney failure, unspecified Status: Acute Assessment and Plan: * presumably normal baseline creatinine/renal function * creatinine was 1.3mg/dl on admission * initial insult secondary to obstructive uropathy as noted by imaging on admission * s/p cystoscopy and ureteral stent placement * creatinine improved to 1.4mg/dl * worsened again due to hypotension and overal decompensation of 03/15/23 * suspect second insult to kidney due to ATN from drop in BP and possible new sepsis * On no pressors. * Urine output still very low. Only 550cc over the last 24hours * he finished dialysis today. (2) Hydronephrosis with renal and ureteral calculous obstruction: Status: Acute Assessment and Plan: * Renal ultrasound with right proximal ureteral stone measuring 1.6 cm causing moderate hydronephrosis. * CT abdomen pelvis - 1. Proximal right ureteral stone near the UPJ measuring 1.8 cm with moderate hydronephrosis * status post?cystoscopy, right retrograde pyelogram, and right ureteral stent insertion * Urology following as needed (3) Acute hypoxic respiratory failure: Code(s): J96.01 - Acute respiratory failure with hypoxia Status: Acute Assessment and Plan: * initially presented with altered mental status and bilateral PEs in association with hypoxia * intubated on 03/08; extubated on 03/11 * re-intubated on 03/15/13 * continue ventilator support * On 30% oxygen. * weaning as tolerated (4) Bilateral pulmonary embolism: Code(s): I26.99 - Other pulmonary embolism without acute cor pulmonale Status: Acute Assessment and Plan: * CTA chest noted acute pulmonary embolism in all lobes * was on heparin drip which has been discontinued now due to hematoma * s/p IVC filter? placement on 03/16 bySurgery * results of last Echo noted (5) COVID-19: Code(s): U07.1 - COVID-19 Status: Acute Assessment and Plan: * positivity noted on admission in ER * lungs are clear on chest x-ray * suspect some mucus plugging and probable aspiration pneumonia * was started on dexamethasone which was later switched to to hydrocortisone during shock * not started on Remdesivir * does not appear to have COVID pneumonia (6) Sepsis: Qualifiers: Sepsis type: sepsis due to unspecified organism Sepsis acute organ dysfunction status: with acute organ dysfunction Severe sepsis acute organ dysfunction type: acute respiratory failure Acute respiratory failure type: with hypoxia Severe sepsis shock status: without septic shock Qualified Code(s): A41.9 - Sepsis, unspecified organism; R65.20 - Severe sepsis without septic shock; J96.01 - Acute respiratory failure with hypoxia Code(s): A41.9 - Sepsis, unspecified organism Status: Acute Assessment and Plan: * resolved * noted with acute respiratory failure, tachycardia, tachypnea on admission * Blood cultures are negative. Sputum showed yeast and Klebsiella. Urine showed Shanon back on the 5th * follow hemodynamics * off vasopressor therapy * on Meropenem (7) Anemia: Code(s): D64.9 - Anemia, unspecified Status: Acute Assessment and Plan: * several issues: * ANTWAN/ARF * intramuscular hematomas and hemodilution * previous issues with DIC * chronic illness * hemoglobin 9.1 again * Epogen with dialysis Will continue to follow. Subjective
--- NOTE | 2023-03-26 13:10 | PM.PNNEP ---
Progress Note: A&P Assessment and Plan (1) ANTWAN (acute kidney injury): Code(s): N17.9 - Acute kidney failure, unspecified Status: Acute Assessment and Plan: presumably normal baseline creatinine/renal function creatinine was 1.3mg/dl on admission initial insult secondary to obstructive uropathy as noted by imaging on admission s/p cystoscopy and ureteral stent placement creatinine improved to 1.4mg/dl worsened again due to hypotension and overal decompensation of 03/15/23 suspect second insult to kidney due to ATN from drop in BP and possible new sepsis On no pressors. Urine output still very low. Only 550cc over the last 24hours he finished dialysis today. (2) Hydronephrosis with renal and ureteral calculous obstruction: Status: Acute Assessment and Plan: Renal ultrasound with right proximal ureteral stone measuring 1.6 cm causing moderate hydronephrosis. CT abdomen pelvis - 1. Proximal right ureteral stone near the UPJ measuring 1.8 cm with moderate hydronephrosis status post?cystoscopy, right retrograde pyelogram, and right ureteral stent insertion Urology following as needed (3) Acute hypoxic respiratory failure: Code(s): J96.01 - Acute respiratory failure with hypoxia Status: Acute Assessment and Plan: initially presented with altered mental status and bilateral PEs in association with hypoxia intubated on 03/08; extubated on 03/11 re-intubated on 03/15/13 continue ventilator support On 30% oxygen. weaning as tolerated (4) Bilateral pulmonary embolism: Code(s): I26.99 - Other pulmonary embolism without acute cor pulmonale Status: Acute Assessment and Plan: CTA chest noted acute pulmonary embolism in all lobes was on heparin drip which has been discontinued now due to hematoma s/p IVC filter? placement on 03/16 bySurgery results of last Echo noted (5) COVID-19: Code(s): U07.1 - COVID-19 Status: Acute Assessment and Plan: positivity noted on admission in ER lungs are clear on chest x-ray suspect some mucus plugging and probable aspiration pneumonia was started on dexamethasone which was later switched to to hydrocortisone during shock not started on Remdesivir does not appear to have COVID pneumonia (6) Sepsis: Qualifiers: Sepsis type: sepsis due to unspecified organism Sepsis acute organ dysfunction status: with acute organ dysfunction Severe sepsis acute organ dysfunction type: acute respiratory failure Acute respiratory failure type: with hypoxia Severe sepsis shock status: without septic shock Qualified Code(s): A41.9 - Sepsis, unspecified organism; R65.20 - Severe sepsis without septic shock; J96.01 - Acute respiratory failure with hypoxia Code(s): A41.9 - Sepsis, unspecified organism Status: Acute Assessment and Plan: resolved noted with acute respiratory failure, tachycardia, tachypnea on admission Blood cultures are negative. Sputum showed yeast and Klebsiella. Urine showed Shanon back on the 5th follow hemodynamics off vasopressor therapy on Meropenem (7) Anemia: Code(s): D64.9 - Anemia, unspecified Status: Acute Assessment and Plan: several issues: ANTWAN/ARF intramuscular hematomas and hemodilution previous issues with DIC chronic illness hemoglobin 9.1 again Epogen with dialysis Will continue to follow. Subjective Date/time seen: 03/26/23 13:10 Interval history: Jacky is on the ventilator and sedated. Just received dialysis Exam Narrative: General: middle aged male intubated and on mechanical ventilation Heart: normal S1 and S2; no rub Or gallop Lungs: breath sounds symmetric and mildly coarse Abdomen: soft, nontender, nondistended, positive bowel sounds Extremities: trace edema Skin: no rash or subcu nodules Objective Data Vital Signs Vital Signs
[2023-03-26] MEDS: ACETAMINOPHEN 325 MG TABLET 650 MG FEED TUBE (17:27)
[2023-03-26 18:26] LABS: Glucose Point of Care 113 mg/dl (65-105)
--- NOTE | 2023-03-26 18:40 | PM.IMPN ---
Progress Note: A&P Assessment and Plan (1) Shock: Code(s): R57.9 - Shock, unspecified Status: Acute Assessment and Plan: Patient developed HoTN in IMU and transferred back to ICU on 03/14. He was fluid responisve initially but worsened requiring central line and pressors. Consider sepsis and/or hypovolemia from anemia/Acute Blood Loss and/or recurrent PE Procalcitonin and lactic acid levels were normal Cultures obtained and abx adjusted Solu-Cortef started. CT scan reviewed showed inflammatory infectious changes and soft tissue muscle in right shoulder with multiple intramuscular collection s/p fluid removal for culture Heparin infusion was discontinued due to drop in Hgb.?Concern for DIC and muti-organ failure Received 3U FFP and 2U PRBC 03/15 Off IV fluids and vasopressors now and BP stable Continue Diflucan but off all abx now (Meropenen last dose 03/24) WBC contnues to trend down. Appreciate ferry operator input (2) Acute hypoxic respiratory failure: Code(s): J96.01 - Acute respiratory failure with hypoxia Status: Acute Assessment and Plan: Patient presented to the ED from a [place] with altered mental status and found to have bilateral PEs and acute hypoxic respiratory failure -On presentation (03/08), patient unable to protect airway and noted to have a large amount of purulent mat'l in the oropharynx requiring suctioning. He was intubated in the ER. -CXR was clear. CTA chest showing acute PE in all lobes with mucous plugging in right mainstem bronchus. COVID positive. -Consider aspiration and/or mucous plugging and/or PE causing the resp failure -Bronchodilators stopped. Continue anticoagulation. Continue Dexamethasone; Baricitinib stopped 03/10 -On Zosyn and Vanco on admission but narrowed to Zosyn only for possible aspiration -Pulmozyme and Mucomyst started but now stopped -Weaned vent and was able to be extubated on 03/11 Patient moved back to the ICU on 03/14 for HoTN. Condition worsened overnight and required intubation 03/15 ABG 7.197/42/172 on MV. Bicarb ordered and vent adjusted. CXR clear. Stable on MV but not fully aware and having trouble extubating Vent management per ferry operator. (3) Encephalopathy: Code(s): G93.40 - Encephalopathy, unspecified Status: Acute Assessment and Plan: Encephalopathy present on admission could be related to sepsis and hypoxia. Unclear on baseline mental status but suspected he has untreated psychiatric illness -No neuro exam at time of last discharge. -ammonia levels within normal limits -Head CT showing old lacunar infarcts in the bilateral basal ganglia and moderate nonspecific white matter dz similar to prior CT -not interactive No answer at Tanika Chavez's number. Message left 03/14. Spoke with NH: Patient was AOx1, speech clear and was refusing to eat or take his medications. He was admitted there on 03/05 Now intubated and sedated Ammonia level negative. CT brain negative. Catatonia? Continue to monitor. (4) Bilateral pulmonary embolism: Code(s): I26.99 - Other pulmonary embolism without acute cor pulmonale Status: Acute Assessment and Plan: Patient presents with altered mental status and found to have respiratory distress. -CXR was clear but CTA chest showing acute PE in all lobes with mucous plugging in right mainstem bronchus. -Patient with Bilat LE DVT at prior hospital and was on Xarelto at the senior care prior to admission. -Echo at the outside hosp showed moderately dilated RV with moderately reduced systolic fxn -Echo here showing EF 70%, Grade I diastolic dysfunction and RV hypokinesis -Stool guaiac negative -Doppler here showing acute DVT in left posterior tibial vein and subacute nonocclusive DVT in the left distal femoral vein and right popliteal vein -Per NH: patient was refusing medications which could explain his worsening VTE findings on Xarelto. Heparin held due
[2023-03-27] VITALS (37 sets, daily range): BP systolic 105–152; BP diastolic 75–117; PULSE 80–110; RESP 11–21; TEMP 37–37.6; O2SAT 96–100
[2023-03-27 00:57] LABS: Glucose Point of Care 84 mg/dl (65-105)
[2023-03-27] MEDS: CENTRAL LINE FLUSH 10 ML IV PUSH ×3 (05:38→20:58)
[2023-03-27 05:59] LABS: Basophils Percent Auto 0.3 % (0.2-1.2); Eosinophils Absolute Auto 0.4 K/mm3 (0-0.3); Eosinophils Percent Auto 2.3 % (0-4.4); Hematocrit 30.1 % (42.0-52.0); Hemoglobin 9.5 g/dL (14.0-18.0); Immature Granulocyte Absolute 0.21 K/mm3 (0.00-0.031); Immature Granulocyte Percent A 1.4 % (0-0.5); Lymphocytes Absolute Auto 1.89 K/mm3 (0.9-3.2); Lymphocytes Percent Auto 12.4 % (18.3-44.2); Mean Corpuscular HGB Conc 31.6 g/dl (32-36); Mean Corpuscular Hemoglobin 32.4 pg (26-34); Mean Corpuscular Volume 102.7 fl (80-100); Mean Platelet Volume 10.2 fl (7.4-10.4); Monocytes Absolute Auto 2.1 K/mm3 (0.1-0.6); Monocytes Percent Auto 13.4 % (2.6-8.5); Neutrophils Absolute Auto 10.7 K/mm3 (1.3-6.7); Neutrophils Percent Auto 70.2 % (45.5-73.1); Nucleated Red Blood Cells Perc 0.1 % (0.0-0.2); Platelet Count Result 262 k/mm3 (150-375); Red Blood Count 2.93 M/mm3 (4.6-6.20); Red Cell Distribution Width 22.7 % (11.5-14.5); White Blood Count 15.3 K/mm3 (4.5-10.0)
[2023-03-27] MEDS: hydrALAZINE 10 MG TABLET PO ×3 (05:59→20:58)
[2023-03-27 06:15] LABS: Alanine Aminotransferase 54 U/L (6-50); Albumin Level 2.7 g/dL (3.5-5.1); Alkaline Phosphatase 189 U/L (38-126); Anion Gap 6 mmol/L (8-16); Aspartate Amino Transferase 56 U/L (17-59); Bilirubin,Total 2.3 mg/dL (0.2-1.3); Blood Urea Nitrogen 55 mg/dL (9-20); Calcium 8.2 mg/dL (8.4-10.2); Carbon Dioxide 31 mmol/L (22-30); Chloride 99 mmol/L (98-107); Estimated CRCL calculation 25 ml/min; Estimated Glomerular Filt Rate 20; Glucose 104 mg/dL (65-110); Magnesium 2.1 mg/dL (1.6-2.3); Phosphorus 4.1 mg/dL (2.5-4.5); Potassium 3.6 mmol/L (3.4-5.0); Sodium 136 mmol/L (137-145)
[2023-03-27 08:04] LABS: Anisocytosis 1+ (NORMAL); Hypochromasia 1+ (NORMAL); Platelet Estimate Adequate (Adequate); Schistocytes None Seen (NORMAL)
[2023-03-27] MEDS: METOPROLOL TARTRATE 12.5 MG TABLET FEED TUBE ×2 (08:12→20:58)
[2023-03-27] MEDS: ENOXAPARIN 30 MG/0.3 ML SYRINGE SUB-Q (08:13)
[2023-03-27] MEDS: MINERAL OIL/WHITE PETROLATUM OINTMENT 1 APPLIC EACH EYE ×2 (08:14→20:58)
[2023-03-27] MEDS: FLUCONAZOLE 100 MG TABLET 200 MG FEED TUBE (08:14)
[2023-03-27] MEDS: PANTOPRAZOLE SODIUM IV 40 MG VIAL IV PUSH (08:15)
--- NOTE | 2023-03-27 09:15 | WPDINTPN ---
Progress Note: A&P Assessment and Plan (1) Shock: Code(s): R57.9 - Shock, unspecified Status: Acute Assessment and Plan: RESOLVED 03/14 patient was transferred to ICU due to hypotension. Hypotension likely secondary to hypovolemia but could be a new sepsis His procalcitonin lactic acid levels were normal nicom assessment showed patient to be fluid responsive and he was given 2 L fluid bolus now Will continue IV fluids Initially after IV fluid bolus patient blood pressure improved but later in the evening patient became hypotensive again A central venous catheter was placed and patient was started on Levophed Labs were performed and showed drop in hemoglobin. Initially it was thought to be dilutional patient had received significant amount IV fluids and there was no obvious sign of bleeding. CT scan was also pending at that 03/15 Overnight patient continued to require increased pressor dose Status limited echo was done this morning as patient has PE and DVT assess for RV function and as per my verbal communication with derrick boat operator patient does not appear to be in RV failure. CT scan reviewed showed inflammatory infectious changes and soft tissue muscle in right shoulder with multiple intramuscular collection. I spoke to Dr. Ibarra with Radiology and he feels that these are hematoma which may be infected Heparin infusion was discontinued early this morning. Patient is coagulopathic secondary to DIC Patient underwent aspiration of the hematoma to evaluate for any infection and cultures have been sent Patient was transfused 2 units of PRBC, 3 years of FFP. Vitamin K was administered, 20 mg of protamine was given Patient was treated with iV fluids and vasopressors 03/16 improvement in hemodynamics and patient is now off of vasopressors Aspirate, blood cultures and urine culture are negative till now MRSA screen was negative Status post meropenem (last dose today 03/24) -continue Diflucan (stop date 03/28) Off all IV fluids Hemodynamically stable at this time (2) Acute hypoxic respiratory failure: Code(s): J96.01 - Acute respiratory failure with hypoxia Status: Acute Assessment and Plan: Patient patient initially presented with altered mental status, bilateral PEs, acute hypoxic respiratory failure, mucus plugging question aspiration -03/08: intubated in the ER and was extubated in the ICU -03/15 reintubated due to hypoxia and altered mental status. Chest x-ray ABG and vent settings reviewed Patient given patient's support ventilation 5/5, 30% FiO2 for greater than 24 hours On no sedation Patient patient has been tolerating PSV trial from respiratory standpoint but appears encephalopathy and weak. He will not be able to protect his airway, for that reason he remains intubated. Continue mechanical ventilation at this time. Continue holding all sedatives -patient has a temporary guardian assigned to him he does not have any family members or friends to make decisions. Will call the guardian on 03/30/2023 and update the Guardian regarding patient does current condition and discuss about tracheostomy and PEG tube placement (3) Bilateral pulmonary embolism: Code(s): I26.99 - Other pulmonary embolism without acute cor pulmonale Status: Acute Assessment and Plan: CTA chest-acute pulmonary embolism in all lobes Patient was on heparin drip which has been discontinued now due to hematoma General surgery consulted a patient underwent IVC filter placement on 03/16. Patient unable to provide any consent and no family available hence procedure will be done as medical necessity in emergent situation Repeat limited echo results discussed with Cardiology Echocardiogram Summary ? 1. Complete two-dimensional, color flow and Doppler transthoracic echocardiogram is performed. ? 2. Normal left ventricular size and with mild concentric hypertrophy, and with hyperdynamic left ventricular systolic function.? Ejection fra
--- NOTE | 2023-03-27 09:58 | P.PNNP_ITS ---
Progress Note: A&P Assessment and Plan (1) ANTWAN (acute kidney injury): Code(s): N17.9 - Acute kidney failure, unspecified Status: Acute Assessment and Plan: * presumably normal baseline creatinine/renal function * creatinine was 1.3mg/dl on admission * initial insult secondary to obstructive uropathy as noted by imaging on admission * s/p cystoscopy and ureteral stent placement * creatinine improved to 1.4mg/dl * worsened again due to hypotension and overal decompensation of 03/15/23 * suspect second insult to kidney due to ATN from drop in BP and possible new sepsis * On no pressors. * Still needs dialysis. * Urine output still very low. * He will get another dialysis treatment today. * Hopefully renal function will improve eventually once he gets better otherwise. (2) Hydronephrosis with renal and ureteral calculous obstruction: Status: Acute Assessment and Plan: * Renal ultrasound with right proximal ureteral stone measuring 1.6 cm causing moderate hydronephrosis. * CT abdomen pelvis - 1. Proximal right ureteral stone near the UPJ measuring 1.8 cm with moderate hydronephrosis * status post?cystoscopy, right retrograde pyelogram, and right ureteral stent insertion * Urology following as needed (3) Acute hypoxic respiratory failure: Code(s): J96.01 - Acute respiratory failure with hypoxia Status: Acute Assessment and Plan: * initially presented with altered mental status and bilateral PEs in association with hypoxia * intubated on 03/08; extubated on 03/11 * re-intubated on 03/15/13 * continue ventilator support * On 30% oxygen. * weaning as tolerated (4) Bilateral pulmonary embolism: Code(s): I26.99 - Other pulmonary embolism without acute cor pulmonale Status: Acute Assessment and Plan: * CTA chest noted acute pulmonary embolism in all lobes * was on heparin drip which has been discontinued now due to hematoma * s/p IVC filter? placement on 03/16 bySurgery * results of last Echo with good LV systolic function, grade 1 diastolic dysfunction, and some suggestion of an elevated pulmonary pressure. (5) COVID-19: Code(s): U07.1 - COVID-19 Status: Acute Assessment and Plan: * positivity noted on admission in ER * lungs are clear on chest x-ray * suspect some mucus plugging and probable aspiration pneumonia * was started on dexamethasone which was later switched to to hydrocortisone during shock * not started on Remdesivir * does not appear to have COVID pneumonia (6) Sepsis: Qualifiers: Sepsis type: sepsis due to unspecified organism Sepsis acute organ dysfunction status: with acute organ dysfunction Severe sepsis acute organ dysfunction type: acute respiratory failure Acute respiratory failure type: with hypoxia Severe sepsis shock status: without septic shock Qualified Code(s): A41.9 - Sepsis, unspecified organism; R65.20 - Severe sepsis without septic shock; J96.01 - Acute respiratory failure with hypoxia Code(s): A41.9 - Sepsis, unspecified organism Status: Acute Assessment and Plan: * resolved * noted with acute respiratory failure, tachycardia, tachypnea on admission * Blood cultures are negative. Sputum showed yeast and Klebsiella. Urine showed Shanon back on the 5th * off vasopressor therapy * on Meropenem (7) Anemia: Code(s): D64.9 - Anemia, unspecified Status: Acute Assessment and Plan: * several issues: * ANTWAN/ARF * intramuscular hematomas and hemod
--- NOTE | 2023-03-27 09:58 | PM.PNNEP ---
Progress Note: A&P Assessment and Plan (1) ANTWAN (acute kidney injury): Code(s): N17.9 - Acute kidney failure, unspecified Status: Acute Assessment and Plan: presumably normal baseline creatinine/renal function creatinine was 1.3mg/dl on admission initial insult secondary to obstructive uropathy as noted by imaging on admission s/p cystoscopy and ureteral stent placement creatinine improved to 1.4mg/dl worsened again due to hypotension and overal decompensation of 03/15/23 suspect second insult to kidney due to ATN from drop in BP and possible new sepsis On no pressors. Still needs dialysis. Urine output still very low. He will get another dialysis treatment today. Hopefully renal function will improve eventually once he gets better otherwise. (2) Hydronephrosis with renal and ureteral calculous obstruction: Status: Acute Assessment and Plan: Renal ultrasound with right proximal ureteral stone measuring 1.6 cm causing moderate hydronephrosis. CT abdomen pelvis - 1. Proximal right ureteral stone near the UPJ measuring 1.8 cm with moderate hydronephrosis status post?cystoscopy, right retrograde pyelogram, and right ureteral stent insertion Urology following as needed (3) Acute hypoxic respiratory failure: Code(s): J96.01 - Acute respiratory failure with hypoxia Status: Acute Assessment and Plan: initially presented with altered mental status and bilateral PEs in association with hypoxia intubated on 03/08; extubated on 03/11 re-intubated on 03/15/13 continue ventilator support On 30% oxygen. weaning as tolerated (4) Bilateral pulmonary embolism: Code(s): I26.99 - Other pulmonary embolism without acute cor pulmonale Status: Acute Assessment and Plan: CTA chest noted acute pulmonary embolism in all lobes was on heparin drip which has been discontinued now due to hematoma s/p IVC filter? placement on 03/16 bySurgery results of last Echo with good LV systolic function, grade 1 diastolic dysfunction, and some suggestion of an elevated pulmonary pressure. (5) COVID-19: Code(s): U07.1 - COVID-19 Status: Acute Assessment and Plan: positivity noted on admission in ER lungs are clear on chest x-ray suspect some mucus plugging and probable aspiration pneumonia was started on dexamethasone which was later switched to to hydrocortisone during shock not started on Remdesivir does not appear to have COVID pneumonia (6) Sepsis: Qualifiers: Sepsis type: sepsis due to unspecified organism Sepsis acute organ dysfunction status: with acute organ dysfunction Severe sepsis acute organ dysfunction type: acute respiratory failure Acute respiratory failure type: with hypoxia Severe sepsis shock status: without septic shock Qualified Code(s): A41.9 - Sepsis, unspecified organism; R65.20 - Severe sepsis without septic shock; J96.01 - Acute respiratory failure with hypoxia Code(s): A41.9 - Sepsis, unspecified organism Status: Acute Assessment and Plan: resolved noted with acute respiratory failure, tachycardia, tachypnea on admission Blood cultures are negative. Sputum showed yeast and Klebsiella. Urine showed Shanon back on the 5th off vasopressor therapy on Meropenem (7) Anemia: Code(s): D64.9 - Anemia, unspecified Status: Acute Assessment and Plan: several issues: ANTWAN/ARF intramuscular hematomas and hemodilution previous issues with DIC chronic illness hemoglobin 9.5 today. Epogen with dialysis Will continue to follow. Subjective Date/time seen: 03/27/23 09:58 Interval history: Patient is comfortable on the ventilator. Exam Narrative: General: middle aged male intubated and on mechanical ventilation Heart: normal S1 and S2; no rub Lungs: breath sounds symmetric and mildly coarse Abdomen: soft, nontende
--- NOTE | 2023-03-27 10:55 | PCFNICU ---
ICU Rounding Note: Pt current nutrition is Nepro at 50 ml/hr. Last recorded weight is 87.3 kg, stable Bowel Motility:+Bm reported 03/27 Labs Reviewed:GFR 20, BUN 55, Cr 3.2,Alb 2.7,Na 136, Alb 2.7 Meds Noted:Diflucan, Lopressor Skin: Bilateral Buttock-Maceration. Additional Notes: Patient remains on mechanical vent. Tube feedings are at goal rate of 50 ml/hr of Nepro and tolerating per nursing. Flush 30 ml q hours. Dialysis today. Discussions regrading a guardian for Trach/PEG placement. Will monitor weight, labs, skin, tube feeding tolerance in ICU rounds and reassessing every Wednesday and Wednesday.
--- NOTE | 2023-03-27 11:23 | PC.NURSE ---
Dr. Suarez at bedside to look at patient's right arm (upper and posterior aspects). Dr. Suarez feels as though it looks the same as it has previously. No new orders at this time.
[2023-03-27] MEDS: HEPARIN SODIUM 1,000 UNITS/ML VIAL 5000 UNITS (17:20)
--- NOTE | 2023-03-27 17:20 | PM.IMPN ---
Progress Note: A&P Assessment and Plan (1) Shock: Code(s): R57.9 - Shock, unspecified Status: Acute Assessment and Plan: Patient developed HoTN in IMU and transferred back to ICU on 03/14. He was fluid responisve initially but worsened requiring central line and pressors. Consider sepsis and/or hypovolemia from anemia/Acute Blood Loss and/or recurrent PE Procalcitonin and lactic acid levels were normal Cultures obtained and abx adjusted Solu-Cortef started. CT scan reviewed showed inflammatory infectious changes and soft tissue muscle in right shoulder with multiple intramuscular collection s/p fluid removal for culture Heparin infusion was discontinued due to drop in Hgb.?Concern for DIC and muti-organ failure Received 3U FFP and 2U PRBC 03/15 Off IV fluids and vasopressors now and BP stable Continue Diflucan but off all abx now (Meropenen last dose 03/24) WBC contnues to trend down. Appreciate car mover input (2) Acute hypoxic respiratory failure: Code(s): J96.01 - Acute respiratory failure with hypoxia Status: Acute Assessment and Plan: Patient presented to the ED from a [facility] with altered mental status and found to have bilateral PEs and acute hypoxic respiratory failure -On presentation (03/08), patient unable to protect airway and noted to have a large amount of purulent mat'l in the oropharynx requiring suctioning. He was intubated in the ER. -CXR was clear. CTA chest showing acute PE in all lobes with mucous plugging in right mainstem bronchus. COVID positive. -Consider aspiration and/or mucous plugging and/or PE causing the resp failure -Bronchodilators stopped. Continue anticoagulation. Continue Dexamethasone; Baricitinib stopped 03/10 -On Zosyn and Vanco on admission but narrowed to Zosyn only for possible aspiration -Pulmozyme and Mucomyst started but now stopped -Weaned vent and was able to be extubated on 03/11 Patient moved back to the ICU on 03/14 for HoTN. Condition worsened overnight and required intubation 03/15 ABG 7.197/42/172 on MV. Bicarb ordered and vent adjusted. CXR clear. Stable on MV but not fully aware and having trouble extubating Vent management per car mover. (3) Encephalopathy: Code(s): G93.40 - Encephalopathy, unspecified Status: Acute Assessment and Plan: Encephalopathy present on admission could be related to sepsis and hypoxia. Unclear on baseline mental status but suspected he has untreated psychiatric illness -No neuro exam at time of last discharge. -ammonia levels within normal limits -Head CT showing old lacunar infarcts in the bilateral basal ganglia and moderate nonspecific white matter dz similar to prior CT -not interactive No answer at Tanika Chavez's number. Message left 03/14. Spoke with NH: Patient was AOx1, speech clear and was refusing to eat or take his medications. He was admitted there on 03/05 Now intubated and sedated Ammonia level negative. CT brain 03/23 negative. Related to psychiatric issues? Occult CVA? Continue to monitor. (4) Bilateral pulmonary embolism: Code(s): I26.99 - Other pulmonary embolism without acute cor pulmonale Status: Acute Assessment and Plan: Patient presents with altered mental status and found to have respiratory distress. -CXR was clear but CTA chest showing acute PE in all lobes with mucous plugging in right mainstem bronchus. -Patient with Bilat LE DVT at prior hospital and was on Xarelto at the [facility] prior to admission. -Echo at the outside hosp showed moderately dilated RV with moderately reduced systolic fxn -Echo here showing EF 70%, Grade I diastolic dysfunction and RV hypokinesis -Stool guaiac negative -Doppler here showing acute DVT in left posterior tibial vein and subacute nonocclusive DVT in the left distal femoral vein and right popliteal vein -Per NH: patient was refusing medications which could explain his worsening VTE fi
[2023-03-27 17:37] LABS: Glucose Point of Care 96 mg/dl (65-105)
[2023-03-27] MEDS: ACETAMINOPHEN 325 MG TABLET 650 MG FEED TUBE (20:58)
[2023-03-28] VITALS (22 sets, daily range): BP systolic 99–161; BP diastolic 66–113; PULSE 82–100; RESP 17–20; TEMP 37.2–37.8; O2SAT 94–100
[2023-03-28 05:08] LABS: Basophils Percent Auto 0.2 % (0.2-1.2); Eosinophils Absolute Auto 0.3 K/mm3 (0-0.3); Eosinophils Percent Auto 2.3 % (0-4.4); Hematocrit 30.4 % (42.0-52.0); Hemoglobin 9.1 g/dL (14.0-18.0); Immature Granulocyte Absolute 0.13 K/mm3 (0.00-0.031); Lymphocytes Absolute Auto 1.75 K/mm3 (0.9-3.2); Lymphocytes Percent Auto 13.6 % (18.3-44.2); Mean Corpuscular HGB Conc 29.9 g/dl (32-36); Mean Corpuscular Hemoglobin 31.7 pg (26-34); Mean Corpuscular Volume 105.9 fl (80-100); Mean Platelet Volume 10.1 fl (7.4-10.4); Monocytes Absolute Auto 1.6 K/mm3 (0.1-0.6); Monocytes Percent Auto 12.2 % (2.6-8.5); Neutrophils Absolute Auto 9.1 K/mm3 (1.3-6.7); Neutrophils Percent Auto 70.7 % (45.5-73.1); Platelet Count Result 234 k/mm3 (150-375); Red Blood Count 2.87 M/mm3 (4.6-6.20); Red Cell Distribution Width 22.4 % (11.5-14.5); White Blood Count 12.8 K/mm3 (4.5-10.0)
[2023-03-28 05:16] LABS: Albumin Level 2.7 g/dL (3.5-5.1); Anion Gap 3 mmol/L (8-16); Blood Urea Nitrogen 36 mg/dL (9-20); Calcium 8.1 mg/dL (8.4-10.2); Carbon Dioxide 34 mmol/L (22-30); Chloride 97 mmol/L (98-107); Estimated CRCL calculation 31 ml/min; Estimated Glomerular Filt Rate 27; Glucose 100 mg/dL (65-110); Magnesium 2.1 mg/dL (1.6-2.3); Phosphorus 3.6 mg/dL (2.5-4.5); Potassium 3.5 mmol/L (3.4-5.0); Sodium 134 mmol/L (137-145)
[2023-03-28] MEDS: hydrALAZINE 10 MG TABLET PO ×3 (05:42→19:57)
[2023-03-28] MEDS: CENTRAL LINE FLUSH 10 ML IV PUSH ×3 (05:42→19:56)
[2023-03-28 05:55] LABS: Platelet Estimate Adequate (Adequate)
[2023-03-28 05:57] LABS: Anisocytosis 1+ (NORMAL); Burr Cells 1+ (NORMAL); Hypochromasia 1+ (NORMAL); Schistocytes None Seen (NORMAL)
[2023-03-28] MEDS: FLUCONAZOLE 100 MG TABLET 200 MG FEED TUBE (08:17)
[2023-03-28] MEDS: METOPROLOL TARTRATE 12.5 MG TABLET FEED TUBE ×2 (08:17→19:56)
[2023-03-28] MEDS: ENOXAPARIN 30 MG/0.3 ML SYRINGE SUB-Q (08:17)
[2023-03-28] MEDS: MINERAL OIL/WHITE PETROLATUM OINTMENT 1 APPLIC EACH EYE ×2 (08:18→19:57)
[2023-03-28] MEDS: PANTOPRAZOLE SODIUM IV 40 MG VIAL IV PUSH (08:18)
--- NOTE | 2023-03-28 11:59 | P.PNNP_ITS ---
Progress Note: A&P Assessment and Plan (1) ANTWAN (acute kidney injury): Code(s): N17.9 - Acute kidney failure, unspecified Status: Acute Assessment and Plan: * presumably normal baseline creatinine/renal function * creatinine was 1.3mg/dl on admission * initial insult secondary to obstructive uropathy as noted by imaging on admission * s/p cystoscopy and ureteral stent placement * creatinine improved to 1.4mg/dl * worsened again due to hypotension and overal decompensation of 03/15/23 * suspect second insult to kidney due to ATN from drop in BP and possible new sepsis * urine output very low. * Creatinine increments between treatments. * Not ready to come off dialysis. (2) Hydronephrosis with renal and ureteral calculous obstruction: Status: Acute Assessment and Plan: * Renal ultrasound with right proximal ureteral stone measuring 1.6 cm causing moderate hydronephrosis. * CT abdomen pelvis - 1. Proximal right ureteral stone near the UPJ measuring 1.8 cm with moderate hydronephrosis * status post?cystoscopy, right retrograde pyelogram, and right ureteral stent insertion * Urology following as needed (3) Acute hypoxic respiratory failure: Code(s): J96.01 - Acute respiratory failure with hypoxia Status: Acute Assessment and Plan: * initially presented with altered mental status and bilateral PEs in association with hypoxia * intubated on 03/08; extubated on 03/11 * re-intubated on 03/15/13 * continue ventilator support * On 30% oxygen. * weaning as tolerated * He may need a trach soon. A guardian has recently been established. (4) Bilateral pulmonary embolism: Code(s): I26.99 - Other pulmonary embolism without acute cor pulmonale Status: Acute Assessment and Plan: * CTA chest noted acute pulmonary embolism in all lobes * was on heparin drip which has been discontinued now due to hematoma * s/p IVC filter? placement on 03/16 bySurgery * results of last Echo with good LV systolic function, grade 1 diastolic dysfunction, and some suggestion of an elevated pulmonary pressure. (5) COVID-19: Code(s): U07.1 - COVID-19 Status: Acute Assessment and Plan: * positivity noted on admission in ER * lungs are clear on chest x-ray * suspect some mucus plugging and probable aspiration pneumonia * was started on dexamethasone which was later switched to to hydrocortisone during shock * isolation has timed out. (6) Sepsis: Qualifiers: Sepsis type: sepsis due to unspecified organism Sepsis acute organ dysfunction status: with acute organ dysfunction Severe sepsis acute organ dysfunction type: acute respiratory failure Acute respiratory failure type: with hypoxia Severe sepsis shock status: without septic shock Qualified Code(s): A41.9 - Sepsis, unspecified organism; R65.20 - Severe sepsis without septic shock; J96.01 - Acute respiratory failure with hypoxia Code(s): A41.9 - Sepsis, unspecified organism Status: Acute Assessment and Plan: * resolved * noted with acute respiratory failure, tachycardia, tachypnea on admission * Blood cultures are negative. Sputum showed yeast and Klebsiella. Urine showed Shanon back on the 5th * off vasopressor therapy * White count is barely high * afebrile * on Meropenem (7) Anemia: Code(s): D64.9 - Anemia, unspecified Status: Acute Assessment and Plan: * several issues: * ANTWAN/ARF * intramuscular hematomas and hemodilution * previous issue
--- NOTE | 2023-03-28 11:59 | PM.PNNEP ---
Progress Note: A&P Assessment and Plan (1) ANTWAN (acute kidney injury): Code(s): N17.9 - Acute kidney failure, unspecified Status: Acute Assessment and Plan: presumably normal baseline creatinine/renal function creatinine was 1.3mg/dl on admission initial insult secondary to obstructive uropathy as noted by imaging on admission s/p cystoscopy and ureteral stent placement creatinine improved to 1.4mg/dl worsened again due to hypotension and overal decompensation of 03/15/23 suspect second insult to kidney due to ATN from drop in BP and possible new sepsis urine output very low. Creatinine increments between treatments. Not ready to come off dialysis. (2) Hydronephrosis with renal and ureteral calculous obstruction: Status: Acute Assessment and Plan: Renal ultrasound with right proximal ureteral stone measuring 1.6 cm causing moderate hydronephrosis. CT abdomen pelvis - 1. Proximal right ureteral stone near the UPJ measuring 1.8 cm with moderate hydronephrosis status post?cystoscopy, right retrograde pyelogram, and right ureteral stent insertion Urology following as needed (3) Acute hypoxic respiratory failure: Code(s): J96.01 - Acute respiratory failure with hypoxia Status: Acute Assessment and Plan: initially presented with altered mental status and bilateral PEs in association with hypoxia intubated on 03/08; extubated on 03/11 re-intubated on 03/15/13 continue ventilator support On 30% oxygen. weaning as tolerated He may need a trach soon. A guardian has recently been established. (4) Bilateral pulmonary embolism: Code(s): I26.99 - Other pulmonary embolism without acute cor pulmonale Status: Acute Assessment and Plan: CTA chest noted acute pulmonary embolism in all lobes was on heparin drip which has been discontinued now due to hematoma s/p IVC filter? placement on 03/16 bySurgery results of last Echo with good LV systolic function, grade 1 diastolic dysfunction, and some suggestion of an elevated pulmonary pressure. (5) COVID-19: Code(s): U07.1 - COVID-19 Status: Acute Assessment and Plan: positivity noted on admission in ER lungs are clear on chest x-ray suspect some mucus plugging and probable aspiration pneumonia was started on dexamethasone which was later switched to to hydrocortisone during shock isolation has timed out. (6) Sepsis: Qualifiers: Sepsis type: sepsis due to unspecified organism Sepsis acute organ dysfunction status: with acute organ dysfunction Severe sepsis acute organ dysfunction type: acute respiratory failure Acute respiratory failure type: with hypoxia Severe sepsis shock status: without septic shock Qualified Code(s): A41.9 - Sepsis, unspecified organism; R65.20 - Severe sepsis without septic shock; J96.01 - Acute respiratory failure with hypoxia Code(s): A41.9 - Sepsis, unspecified organism Status: Acute Assessment and Plan: resolved noted with acute respiratory failure, tachycardia, tachypnea on admission Blood cultures are negative. Sputum showed yeast and Klebsiella. Urine showed Shanon back on the 5th off vasopressor therapy White count is barely high afebrile on Meropenem (7) Anemia: Code(s): D64.9 - Anemia, unspecified Status: Acute Assessment and Plan: several issues: ANTWAN/ARF intramuscular hematomas and hemodilution previous issues with DIC chronic illness hemoglobin 9.1 today. Epogen with dialysis Will continue to follow. Subjective Date/time seen: 03/28/23 11:59 Interval history: Patient is on the ventilator. Comfortable. Exam Narrative: General: middle aged male intubated and on mechanical ventilation Heart: normal S1 and S2; no rub Lungs: breath sounds symmetric and mildly coarse Abdomen: soft, nontender, nondistended, p
--- NOTE | 2023-03-28 17:46 | PM.IMPN ---
Progress Note: A&P Assessment and Plan (1) Shock: Code(s): R57.9 - Shock, unspecified Status: Acute Assessment and Plan: Patient developed HoTN in IMU and transferred back to ICU on 03/14. He was fluid responisve initially but worsened requiring central line and pressors. Consider sepsis and/or hypovolemia from anemia/Acute Blood Loss and/or recurrent PE Procalcitonin and lactic acid levels were normal Cultures obtained and abx adjusted Solu-Cortef started. CT scan reviewed showed inflammatory infectious changes in the soft tissue of muscle in right shoulder with multiple intramuscular collection s/p fluid removal for culture Heparin infusion was discontinued due to drop in Hgb.?Concern for DIC and muti-organ failure Received 3U FFP and 2U PRBC 03/15 Off IV fluids and vasopressors now and BP stable Off all abx now (Meropenen last dose 03/24); Completed Diflucan today WBC continues to trend down. Appreciate metal hanger input (2) Acute hypoxic respiratory failure: Code(s): J96.01 - Acute respiratory failure with hypoxia Status: Acute Assessment and Plan: Patient presented to the ED from a [facility] with altered mental status and found to have bilateral PEs and acute hypoxic respiratory failure -On presentation (03/08), patient unable to protect airway and noted to have a large amount of purulent mat'l in the oropharynx requiring suctioning. He was intubated in the ER. -CXR was clear. CTA chest showing acute PE in all lobes with mucous plugging in right mainstem bronchus. COVID positive. -Consider aspiration and/or mucous plugging and/or PE causing the resp failure -Bronchodilators stopped. Continue anticoagulation. Treated with Dexamethasone; Baricitinib stopped 03/10 -Was on Zosyn and Vanco on admission but narrowed to Zosyn only for possible aspiration -Pulmozyme and Mucomyst started but now stopped -Weaned vent and was able to be extubated on 03/11 Patient moved back to the ICU on 03/14 for HoTN. Condition worsened overnight and required intubation 03/15 ABG 7.197/42/172 on MV. Bicarb ordered and vent adjusted. CXR clear. Stable on MV but not fully aware and having trouble extubating Vent management per metal hanger. (3) Encephalopathy: Code(s): G93.40 - Encephalopathy, unspecified Status: Acute Assessment and Plan: Encephalopathy present on admission could be related to sepsis and hypoxia. Unclear on baseline mental status but suspected he has untreated psychiatric illness -No neuro exam at time of last discharge. -ammonia levels within normal limits -Head CT showing old lacunar infarcts in the bilateral basal ganglia and moderate nonspecific white matter dz similar to prior CT -not interactive No answer at Tanika Chavez's number. Message left 03/14. Spoke with NH: Patient was admitted there on 03/05. He was AOx1, speech was clear and he was refusing to eat or take his medications per staff Now intubated Repeat ammonia level negative. Repeat CT brain 03/23 negative for acute change. Related to psychiatric issues? Occult CVA? Continue to monitor. (4) Bilateral pulmonary embolism: Code(s): I26.99 - Other pulmonary embolism without acute cor pulmonale Status: Acute Assessment and Plan: Patient presents with altered mental status and found to have respiratory distress. -CXR was clear but CTA chest showing acute PE in all lobes with mucous plugging in right mainstem bronchus. -Patient with Bilat LE DVT at prior hospital and was on Xarelto at the alf prior to admission. -Echo at the outside hosp showed moderately dilated RV with moderately reduced systolic fxn -Echo here showing EF 70%, Grade I diastolic dysfunction and RV hypokinesis -Stool guaiac negative -LE Doppler here showing acute DVT in left posterior tibial vein and subacute nonocclusive DVT in the left distal femoral vein and right popliteal vein -Per NH: patient was r
[2023-03-29] VITALS (24 sets, daily range): BP systolic 117–148; BP diastolic 79–95; PULSE 82–106; RESP 16–20; TEMP 37.1–38; O2SAT 93–100
[2023-03-29 03:34] LABS: Basophils Percent Auto 0.2 % (0.2-1.2); Eosinophils Absolute Auto 0.3 K/mm3 (0-0.3); Eosinophils Percent Auto 2.3 % (0-4.4); Hematocrit 29.9 % (42.0-52.0); Hemoglobin 9.1 g/dL (14.0-18.0); Immature Granulocyte Absolute 0.07 K/mm3 (0.00-0.031); Immature Granulocyte Percent A 0.6 % (0-0.5); Lymphocytes Absolute Auto 1.55 K/mm3 (0.9-3.2); Lymphocytes Percent Auto 12.6 % (18.3-44.2); Mean Corpuscular HGB Conc 30.4 g/dl (32-36); Mean Corpuscular Hemoglobin 31.9 pg (26-34); Mean Corpuscular Volume 104.9 fl (80-100); Mean Platelet Volume 9.6 fl (7.4-10.4); Monocytes Absolute Auto 1.3 K/mm3 (0.1-0.6); Monocytes Percent Auto 10.5 % (2.6-8.5); Neutrophils Absolute Auto 9.1 K/mm3 (1.3-6.7); Neutrophils Percent Auto 73.8 % (45.5-73.1); Platelet Count Result 228 k/mm3 (150-375); Red Blood Count 2.85 M/mm3 (4.6-6.20); Red Cell Distribution Width 21.7 % (11.5-14.5); White Blood Count 12.3 K/mm3 (4.5-10.0)
[2023-03-29 03:51] LABS: Albumin Level 2.8 g/dL (3.5-5.1); Anion Gap 3 mmol/L (8-16); Blood Urea Nitrogen 57 mg/dL (9-20); Calcium 8.5 mg/dL (8.4-10.2); Carbon Dioxide 33 mmol/L (22-30); Chloride 97 mmol/L (98-107); Estimated CRCL calculation 24 ml/min; Estimated Glomerular Filt Rate 19; Glucose 115 mg/dL (65-110); Magnesium 2.1 mg/dL (1.6-2.3); Phosphorus 4.4 mg/dL (2.5-4.5); Potassium 3.5 mmol/L (3.4-5.0); Sodium 133 mmol/L (137-145)
[2023-03-29] MEDS: hydrALAZINE 10 MG TABLET PO ×3 (06:07→21:12)
[2023-03-29] MEDS: CENTRAL LINE FLUSH 10 ML IV PUSH ×3 (06:07→21:12)
--- NOTE | 2023-03-29 07:54 | PM.PNNEP ---
Progress Note: A&P Assessment and Plan (1) ANTWAN (acute kidney injury): Code(s): N17.9 - Acute kidney failure, unspecified Status: Acute Assessment and Plan: presumably normal baseline creatinine/renal function creatinine was 1.3mg/dl on admission initial insult secondary to obstructive uropathy as noted by imaging on admission s/p cystoscopy and ureteral stent placement creatinine improved to 1.4mg/dl worsened again due to hypotension and overal decompensation of 03/15/23 suspect second insult to kidney due to ATN from drop in BP and possible new sepsis he still is not making very much urine. Creatinine increments between treatments. Will get another dialysis treatment tomorrow (2) Hydronephrosis with renal and ureteral calculous obstruction: Status: Acute Assessment and Plan: Renal ultrasound with right proximal ureteral stone measuring 1.6 cm causing moderate hydronephrosis. CT abdomen pelvis - 1. Proximal right ureteral stone near the UPJ measuring 1.8 cm with moderate hydronephrosis status post?cystoscopy, right retrograde pyelogram, and right ureteral stent insertion Urology following as needed (3) Acute hypoxic respiratory failure: Code(s): J96.01 - Acute respiratory failure with hypoxia Status: Acute Assessment and Plan: initially presented with altered mental status and bilateral PEs in association with hypoxia intubated on 03/08; extubated on 03/11 re-intubated on 03/15/13 continue ventilator support On 30% oxygen. weaning as tolerated He may need a trach soon. A guardian has recently been established. (4) Bilateral pulmonary embolism: Code(s): I26.99 - Other pulmonary embolism without acute cor pulmonale Status: Acute Assessment and Plan: CTA chest noted acute pulmonary embolism in all lobes was on heparin drip which has been discontinued now due to hematoma s/p IVC filter? placement on 03/16 bySurgery results of last Echo with good LV systolic function, grade 1 diastolic dysfunction, and some suggestion of an elevated pulmonary pressure. (5) COVID-19: Code(s): U07.1 - COVID-19 Status: Acute Assessment and Plan: positivity noted on admission in ER lungs are clear on chest x-ray suspect some mucus plugging and probable aspiration pneumonia was started on dexamethasone which was later switched to to hydrocortisone during shock isolation has timed out. (6) Sepsis: Qualifiers: Sepsis type: sepsis due to unspecified organism Sepsis acute organ dysfunction status: with acute organ dysfunction Severe sepsis acute organ dysfunction type: acute respiratory failure Acute respiratory failure type: with hypoxia Severe sepsis shock status: without septic shock Qualified Code(s): A41.9 - Sepsis, unspecified organism; R65.20 - Severe sepsis without septic shock; J96.01 - Acute respiratory failure with hypoxia Code(s): A41.9 - Sepsis, unspecified organism Status: Acute Assessment and Plan: resolved noted with acute respiratory failure, tachycardia, tachypnea on admission Blood cultures are negative. Sputum showed yeast and Klebsiella. Urine showed Shanon back on the 5th off vasopressor therapy White count is barely high afebrile off Meropenem (7) Anemia: Code(s): D64.9 - Anemia, unspecified Status: Acute Assessment and Plan: several issues: ANTWAN/ARF intramuscular hematomas and hemodilution previous issues with DIC chronic illness hemoglobin 9.1 today again. Epogen with dialysis Subjective Date/time seen: 03/29/23 07:54 Interval history: Patient is comfortable in bed. He opens his eyes to me calling his name but does not interact very much. Exam Narrative: General: middle aged male intubated and on mechanical ventilation Heart: normal S1 and S2; no rub or gallop Lungs: hector
--- NOTE | 2023-03-29 07:54 | P.PNNP_ITS ---
Progress Note: A&P Assessment and Plan (1) ANTWAN (acute kidney injury): Code(s): N17.9 - Acute kidney failure, unspecified Status: Acute Assessment and Plan: * presumably normal baseline creatinine/renal function * creatinine was 1.3mg/dl on admission * initial insult secondary to obstructive uropathy as noted by imaging on admission * s/p cystoscopy and ureteral stent placement * creatinine improved to 1.4mg/dl * worsened again due to hypotension and overal decompensation of 03/15/23 * suspect second insult to kidney due to ATN from drop in BP and possible new sepsis * he still is not making very much urine. * Creatinine increments between treatments. * Will get another dialysis treatment tomorrow (2) Hydronephrosis with renal and ureteral calculous obstruction: Status: Acute Assessment and Plan: * Renal ultrasound with right proximal ureteral stone measuring 1.6 cm causing moderate hydronephrosis. * CT abdomen pelvis - 1. Proximal right ureteral stone near the UPJ measuring 1.8 cm with moderate hydronephrosis * status post?cystoscopy, right retrograde pyelogram, and right ureteral stent insertion * Urology following as needed (3) Acute hypoxic respiratory failure: Code(s): J96.01 - Acute respiratory failure with hypoxia Status: Acute Assessment and Plan: * initially presented with altered mental status and bilateral PEs in associa tion with hypoxia * intubated on 03/08; extubated on 03/11 * re-intubated on 03/15/13 * continue ventilator support * On 30% oxygen. * weaning as tolerated * He may need a trach soon. A guardian has recently been established. (4) Bilateral pulmonary embolism: Code(s): I26.99 - Other pulmonary embolism without acute cor pulmonale Status: Acute Assessment and Plan: * CTA chest noted acute pulmonary embolism in all lobes * was on heparin drip which has been discontinued now due to hematoma * s/p IVC filter? placement on 03/16 bySurgery * results of last Echo with good LV systolic function, grade 1 diastolic dysfunction, and some suggestion of an elevated pulmonary pressure. (5) COVID-19: Code(s): U07.1 - COVID-19 Status: Acute Assessment and Plan: * positivity noted on admission in ER * lungs are clear on chest x-ray * suspect some mucus plugging and probable aspiration pneumonia * was started on dexamethasone which was later switched to to hydrocortisone during shock * isolation has timed out. (6) Sepsis: Qualifiers: Sepsis type: sepsis due to unspecified organism Sepsis acute organ dysfunction status: with acute organ dysfunction Severe sepsis acute organ dysfunction type: acute respiratory failure Acute respiratory failure type: with hypoxia Severe sepsis shock status: without septic shock Qualified Code(s): A41.9 - Sepsis, unspecified organism; R65.20 - Severe sepsis without septic shock; J96.01 - Acute respiratory failure with hypoxia Code(s): A41.9 - Sepsis, unspecified organism Status: Acute Assessment and Plan: * resolved * noted with acute respiratory failure, tachycardia, tachypnea on admission * Blood cultures are negative. Sputum showed yeast and Klebsiella. Urine showed Shanon back on the 5th * off vasopressor therapy * White count is barely high * afebrile * off Meropenem (7) Anemia: Code(s): D64.9 - Anemia, unspecified Status: Acute Assessment and Plan: * several issues: * ANTWAN/ARF * intramuscular hematomas and hemod
[2023-03-29] MEDS: PANTOPRAZOLE SODIUM IV 40 MG VIAL IV PUSH (08:05)
[2023-03-29] MEDS: ACETAMINOPHEN 325 MG TABLET 650 MG FEED TUBE (08:05)
[2023-03-29] MEDS: METOPROLOL TARTRATE 12.5 MG TABLET FEED TUBE ×2 (08:05→21:12)
[2023-03-29] MEDS: MINERAL OIL/WHITE PETROLATUM OINTMENT 1 APPLIC EACH EYE ×2 (08:07→21:12)
[2023-03-29] MEDS: ENOXAPARIN 30 MG/0.3 ML SYRINGE SUB-Q (11:15)
--- NOTE | 2023-03-29 11:30 | P.PNINT_ITS ---
Progress Note: A&P Assessment and Plan (1) Shock: Code(s): R57.9 - Shock, unspecified Status: Acute Assessment and Plan: RESOLVED 03/14 patient was transferred to ICU due to hypotension. Hypotension likely secondary to hypovolemia but could be a new sepsis His procalcitonin lactic acid levels were normal nicom assessment showed patient to be fluid responsive and he was given 2 L fluid bolus now Will continue IV fluids Initially after IV fluid bolus patient blood pressure improved but later in the evening patient became hypotensive again A central venous catheter was placed and patient was started on Levophed Labs were performed and showed drop in hemoglobin. Initially it was thought to be dilutional patient had received significant amount IV fluids and there was no obvious sign of bleeding. CT scan was also pending at that 03/15 Overnight patient continued to require increased pressor dose Status limited echo was done this morning as patient has PE and DVT assess for RV function and as per my verbal communication with senior project controls specialist patient does not appear to be in RV failure. CT scan reviewed showed inflammatory infectious changes and soft tissue muscle in right shoulder with multiple intramuscular collection. I spoke to Dr. Ibarra with Radiology and he feels that these are hematoma which may be infected Heparin infusion was discontinued early this morning. Patient is coagulopathic secondary to DIC Patient underwent aspiration of the hematoma to evaluate for any infection and cultures have been sent Patient was transfused 2 units of PRBC, 3 years of FFP. Vitamin K was administered, 20 mg of protamine was given Patient was treated with iV fluids and vasopressors 03/16 improvement in hemodynamics and patient is now off of vasopressors Aspirate, blood cultures and urine culture are negative till now MRSA screen was negative Status post meropenem (last dose today 03/24) -OFF Diflucan (stop date 03/28) Off all IV fluids Hemodynamically stable at this time (2) Acute hypoxic respiratory failure: Code(s): J96.01 - Acute respiratory failure with hypoxia Status: Acute Assessment and Plan: Patient patient initially presented with altered mental status, bilateral PEs, acute hypoxic respiratory failure, mucus plugging question aspiration -03/08: intubated in the ER and was extubated in the ICU -03/15 reintubated due to hypoxia and altered mental status. Chest x-ray ABG and vent settings reviewed Patient given patient's support ventilation 5/5, 30% FiO2 for greater than 24 hours On no sedation Patient patient has been tolerating PSV trial from respiratory standpoint but appears encephalopathy and weak. He will not be able to protect his airway, for that reason he remains intubated. Continue mechanical ventilation at this time. Continue holding all sedatives -patient has a temporary guardian assigned to him he does not have any family members or friends to make decisions. Will call the guardian on 03/30/2023 and update the Guardian regarding patient does current condition and discuss about tracheostomy and PEG tube placement (3) Bilateral pulmonary embolism: Code(s): I26.99 - Other pulmonary embolism without acute cor pulmonale Status: Acute Assessment and Plan: CTA chest-acute pulmonary embolism in all lobes Patient was on heparin drip which has been discontinued now due to hematoma General surgery consulted a patient underwent IVC filter placement on 03/16. Patient unable to provide any consent and no family available hence procedure will be done as medical necessity in emergent situation Repeat limited echo results discussed w
[2023-03-29 11:32] LABS: Partial Thromboplastin Time 29.8 SECONDS (22.3-36.8); Prothrombin Time 14.1 Seconds (11.1-14.7)
[2023-03-30] VITALS (24 sets, daily range): BP systolic 106–162; BP diastolic 60–103; PULSE 90–125; RESP 16–21; TEMP 37–38.7; O2SAT 86–99
--- NOTE | 2023-03-30 02:20 | PC.NURSE ---
Patient able to nod head yes and no on simple questions. However when asked again a few minutes later, patient unable to follow commands.
[2023-03-30 05:19] LABS: Alveolar/Arterial O2 Gradient 82.2 mmHg; Base Excess ABG 4.4 mEq/l (+/-2.0); Carboxyhemoglobin 1.3 % THb (0-2.0); Fractional Inspired Oxygen 30 %; HCO3 ABG 28.8 mEq/l (22.0-26.0); Methemoglobin ABG 0.5 %THb (0-1.5); Oxygen Content ABG 14.4 %vol (16.0-22.0); Oxygen Saturation ABG 96.5 % (95.0-100.0); Oxyhemoglobin 94.5 % THb (90.0-100.0); PCO2 ABG 42.3 mmHg (35.0-45.0); PO2 FiO2 Ratio Arterial Blood 2.73 %; Reduced Hemoglobin 3.7 %THb (0-5.0); Total Hemoglobin 10.8 g/dL (12.0-18.0); pH ABG 7.451 (7.350-7.450)
[2023-03-30 05:20] LABS: Device VENTILATOR; Modified Allen's Test Pass; Site Drawn RIGHT RADIAL
[2023-03-30 05:21] LABS: Arterial Blood Gas PEEP 5 cmH2O; Arterial Blood Gas Pressure Support 5 cmH2O; Arterial Blood Gas Vent Mode SPONTANEOUS
[2023-03-30] MEDS: CENTRAL LINE FLUSH 10 ML IV PUSH ×2 (05:31→13:21)
[2023-03-30] MEDS: hydrALAZINE 10 MG TABLET PO ×2 (05:31→13:21)
[2023-03-30 05:38] LABS: Basophils Percent Auto 0.4 % (0.2-1.2); Eosinophils Absolute Auto 0.3 K/mm3 (0-0.3); Eosinophils Percent Auto 2.6 % (0-4.4); Hematocrit 29.2 % (42.0-52.0); Immature Granulocyte Absolute 0.05 K/mm3 (0.00-0.031); Immature Granulocyte Percent A 0.5 % (0-0.5); Lymphocytes Absolute Auto 1.61 K/mm3 (0.9-3.2); Lymphocytes Percent Auto 14.7 % (18.3-44.2); Mean Corpuscular HGB Conc 30.8 g/dl (32-36); Mean Corpuscular Hemoglobin 32.1 pg (26-34); Mean Corpuscular Volume 104.3 fl (80-100); Mean Platelet Volume 9.7 fl (7.4-10.4); Monocytes Absolute Auto 1.2 K/mm3 (0.1-0.6); Monocytes Percent Auto 10.7 % (2.6-8.5); Neutrophils Absolute Auto 7.8 K/mm3 (1.3-6.7); Neutrophils Percent Auto 71.1 % (45.5-73.1); Platelet Count Result 210 k/mm3 (150-375); Red Cell Distribution Width 21.1 % (11.5-14.5); White Blood Count 10.9 K/mm3 (4.5-10.0)
[2023-03-30 05:51] LABS: Alanine Aminotransferase 74 U/L (6-50); Albumin Level 2.8 g/dL (3.5-5.1); Alkaline Phosphatase 188 U/L (38-126); Anion Gap 7 mmol/L (8-16); Aspartate Amino Transferase 101 U/L (17-59); Bilirubin,Total 2.2 mg/dL (0.2-1.3); Blood Urea Nitrogen 73 mg/dL (9-20); Carbon Dioxide 30 mmol/L (22-30); Chloride 96 mmol/L (98-107); Estimated CRCL calculation 20 ml/min; Estimated Glomerular Filt Rate 16; Glucose 109 mg/dL (65-110); Magnesium 2.1 mg/dL (1.6-2.3); Phosphorus 5.3 mg/dL (2.5-4.5); Potassium 3.7 mmol/L (3.4-5.0); Sodium 133 mmol/L (137-145)
[2023-03-30] MEDS: PANTOPRAZOLE SODIUM IV 40 MG VIAL IV PUSH (08:07)
[2023-03-30] MEDS: ENOXAPARIN 30 MG/0.3 ML SYRINGE SUB-Q (08:07)
[2023-03-30] MEDS: METOPROLOL TARTRATE 12.5 MG TABLET FEED TUBE (08:07)
[2023-03-30] MEDS: MINERAL OIL/WHITE PETROLATUM OINTMENT 1 APPLIC EACH EYE (08:07)
--- NOTE | 2023-03-30 08:59 | P.PNNP_ITS ---
Progress Note: A&P Assessment and Plan (1) ANTWAN (acute kidney injury): Code(s): N17.9 - Acute kidney failure, unspecified Status: Acute Assessment and Plan: * presumably normal baseline creatinine/renal function * creatinine was 1.3mg/dl on admission * initial insult secondary to obstructive uropathy as noted by imaging on admission * s/p cystoscopy and ureteral stent placement * creatinine improved to 1.4mg/dl * worsened again due to hypotension and overal decompensation of 03/15/23 * suspect second insult to kidney due to ATN from drop in BP and possible new sepsis * he still is not making very much urine.. A 475 in the last 24hours. * Creatinine increments between treatments. It lorena from 2.5-3.9 in 2 days. * Will get another dialysis treatment later today * addendum: The patient is on dialysis. Tolerating it well. He was seen at 1:35 p.m.. * Addendum 2.: Dr. Suarez tells me that the guardian has decided to have the patient go comfort measures. Will stop the dialysis. (2) Hydronephrosis with renal and ureteral calculous obstruction: Status: Acute Assessment and Plan: * Renal ultrasound with right proximal ureteral stone measuring 1.6 cm causing moderate hydronephrosis. * CT abdomen pelvis - 1. Proximal right ureteral stone near the UPJ measuring 1.8 cm with moderate hydronephrosis * status post?cystoscopy, right retrograde pyelogram, and right ureteral stent insertion * Urology following as needed (3) Acute hypoxic respiratory failure: Code(s): J96.01 - Acute respiratory failure with hypoxia Status: Acute Assessment and Plan: * initially presented with altered mental status and bilateral PEs in association with hypoxia * intubated on 03/08; extubated on 03/11 * re-intubated on 03/15/13 * continue ventilator support * On 30% oxygen. * weaning as tolerated * He may need a trach soon. A guardian has recently been established. (4) Bilateral pulmonary embolism: Code(s): I26.99 - Other pulmonary embolism without acute cor pulmonale Status: Acute Assessment and Plan: * CTA chest noted acute pulmonary embolism in all lobes * was on heparin drip which has been discontinued now due to hematoma * s/p IVC filter? placement on 03/16 bySurgery * results of last Echo with good LV systolic function, grade 1 diastolic dysfunction, and some suggestion of an elevated pulmonary pressure. (5) COVID-19: Code(s): U07.1 - COVID-19 Status: Acute Assessment and Plan: * positivity noted on admission in ER * lungs are clear on chest x-ray * suspect some mucus plugging and probable aspiration pneumonia * was started on dexamethasone which was later switched to to hydrocortisone during shock * isolation has timed out. (6) Sepsis: Qualifiers: Acute respiratory failure type: with hypoxia Sepsis acute organ dysfunction status: with acute organ dysfunction Sepsis type: sepsis due to unspecified organism Severe sepsis acute organ dysfunction type: acute respiratory failure Severe sepsis shock status: without septic shock Qualified Code(s): A41.9 - Sepsis, unspecified organism; R65.20 - Severe sepsis without septic shock; J96.01 - Acute respiratory failure with hypoxia Code(s): A41.9 - Sepsis, unspecified organism Status: Acute Assessment and Plan: * resolved (7) Anemia: Code(s): D64.9 - Anemia, unspecified Status: Acute Assessment and Plan: * several issues: * ANTWAN/ARF * intramuscular
--- NOTE | 2023-03-30 08:59 | PM.PNNEP ---
Progress Note: A&P Assessment and Plan (1) ANTWAN (acute kidney injury): Code(s): N17.9 - Acute kidney failure, unspecified Status: Acute Assessment and Plan: presumably normal baseline creatinine/renal function creatinine was 1.3mg/dl on admission initial insult secondary to obstructive uropathy as noted by imaging on admission s/p cystoscopy and ureteral stent placement creatinine improved to 1.4mg/dl worsened again due to hypotension and overal decompensation of 03/15/23 suspect second insult to kidney due to ATN from drop in BP and possible new sepsis he still is not making very much urine.. A 475 in the last 24hours. Creatinine increments between treatments. It lorena from 2.5-3.9 in 2 days. Will get another dialysis treatment later today addendum: The patient is on dialysis. Tolerating it well. He was seen at 1:35 p.m.. Addendum 2.: Dr. Suarez tells me that the guardian has decided to have the patient go comfort measures. Will stop the dialysis. (2) Hydronephrosis with renal and ureteral calculous obstruction: Status: Acute Assessment and Plan: Renal ultrasound with right proximal ureteral stone measuring 1.6 cm causing moderate hydronephrosis. CT abdomen pelvis - 1. Proximal right ureteral stone near the UPJ measuring 1.8 cm with moderate hydronephrosis status post?cystoscopy, right retrograde pyelogram, and right ureteral stent insertion Urology following as needed (3) Acute hypoxic respiratory failure: Code(s): J96.01 - Acute respiratory failure with hypoxia Status: Acute Assessment and Plan: initially presented with altered mental status and bilateral PEs in association with hypoxia intubated on 03/08; extubated on 03/11 re-intubated on 03/15/13 continue ventilator support On 30% oxygen. weaning as tolerated He may need a trach soon. A guardian has recently been established. (4) Bilateral pulmonary embolism: Code(s): I26.99 - Other pulmonary embolism without acute cor pulmonale Status: Acute Assessment and Plan: CTA chest noted acute pulmonary embolism in all lobes was on heparin drip which has been discontinued now due to hematoma s/p IVC filter? placement on 03/16 bySurgery results of last Echo with good LV systolic function, grade 1 diastolic dysfunction, and some suggestion of an elevated pulmonary pressure. (5) COVID-19: Code(s): U07.1 - COVID-19 Status: Acute Assessment and Plan: positivity noted on admission in ER lungs are clear on chest x-ray suspect some mucus plugging and probable aspiration pneumonia was started on dexamethasone which was later switched to to hydrocortisone during shock isolation has timed out. (6) Sepsis: Qualifiers: Acute respiratory failure type: with hypoxia Sepsis acute organ dysfunction status: with acute organ dysfunction Sepsis type: sepsis due to unspecified organism Severe sepsis acute organ dysfunction type: acute respiratory failure Severe sepsis shock status: without septic shock Qualified Code(s): A41.9 - Sepsis, unspecified organism; R65.20 - Severe sepsis without septic shock; J96.01 - Acute respiratory failure with hypoxia Code(s): A41.9 - Sepsis, unspecified organism Status: Acute Assessment and Plan: resolved (7) Anemia: Code(s): D64.9 - Anemia, unspecified Status: Acute Assessment and Plan: several issues: ANTWAN/ARF intramuscular hematomas and hemodilution previous issues with DIC chronic illness hemoglobin 9.0 today again. Continues Epogen. Subjective Date/time seen: 03/30/23 08:59 Interval history: Jacky is intubated and sedated. He looks comfortable. He is due for dialysis later today Exam Narrative: General: middle aged male intubated and on mechanical ventilation Heart: normal S1 and S2; no rub Lungs:
--- NOTE | 2023-03-30 11:28 | PCFNICU ---
ICU Rounding Note: Pt current nutrition is Nepro @ goal rate 50 ml/h: 1985 kcal, 89 g protein, 800 ml free water. Nutrition recommendation: Continue current tube feeding orders with no changes. Agree with orders Last recorded weight is 88.6 kg. Bowel Motility: +1 BM today 03/30/23 Labs Reviewed: Hct 9.0, Hct 29.2, Alb 2.8, Na 133, BUN 73, Cre 3.9 Meds Noted: Protonix. No sedation Skin: Maceration. No pressure injury Additional Notes: Continues on mechanical ventilation. Dialysis today. Continue with same tube feeding orders. Following daily in ICU rounds. Will monitor weight, labs, skin, tube feeding tolerance in ICU rounds and reassessing every Wednesday and Wednesday. .
--- NOTE | 2023-03-30 14:28 | P.PNCROSS_ITS ---
Event Note Event Note Event Note: Discussed with the public guardian, Alex Gillette (? REE-Nee_).? [phone]. I updated her patient is condition right from the time of admit to the [facility], also did discuss with her that he was at [facility] for a cardiac arrest. I did tell her that he wait opens his eyes but does not follow simple commands, blink to threat, nods to questions. Only withdraws to pain. Patient is on dialysis and has IVC filter, has a ureteral stent. After discussing at length with the public guardian she stated that she normally goes with the recommendations of the physicians but seems that what we are doing is inhumane. I did tell her that the patient is suffering and will be best for him to be made comfort measures to which she is agreeable. The public guardian stated that she does not have any collaboration with the home, so she does not know what to do once he passes away. I told her that I will discuss it with our care coordination and they will keep her posted. I discussed with care coordination, Carol Ann, updated her with the above. She stated that she is going to talk to her seen ears and get back to me. Carol Ann got back to me stating that we can go ahead and make him comfort measures and that probably the hospital with after bed the cost for his .
[2023-03-30] MEDS: LORazepam INJ (*CRX) 2 MG/ML VIAL IV PUSH ×2 (15:16→19:57)
[2023-03-30] MEDS: MORPHINE SULFATE INJ (*CRX) 10 MG/ML AMP 5 MG IV PUSH (15:17)
--- NOTE | 2023-03-30 15:26 | PC.NURSE ---
After Erick Pedroza talked with guardian, a DNR and comfort measures orders recieved, Dr. Pina seen pt. At 315 meds given as ordered and RT here, pt extubated, ng tube removed,
--- NOTE | 2023-03-30 17:51 | PM.IMPN ---
Progress Note: A&P Assessment and Plan (1) Shock: Code(s): R57.9 - Shock, unspecified Status: Acute (2) Acute hypoxic respiratory failure: Code(s): J96.01 - Acute respiratory failure with hypoxia Status: Acute (3) Encephalopathy: Code(s): G93.40 - Encephalopathy, unspecified Status: Acute (4) Bilateral pulmonary embolism: Code(s): I26.99 - Other pulmonary embolism without acute cor pulmonale Status: Acute (5) ANTWAN (acute kidney injury): Status: Acute (6) Shoulder abscess: Code(s): L02.419 - Cutaneous abscess of limb, unspecified Status: Acute (7) COVID-19: Code(s): U07.1 - COVID-19 Status: Acute (8) Sepsis: Qualifiers: Acute respiratory failure type: with hypoxia Sepsis acute organ dysfunction status: with acute organ dysfunction Sepsis type: sepsis due to unspecified organism Severe sepsis acute organ dysfunction type: acute respiratory failure Severe sepsis shock status: without septic shock Qualified Code(s): A41.9 - Sepsis, unspecified organism; R65.20 - Severe sepsis without septic shock; J96.01 - Acute respiratory failure with hypoxia Code(s): A41.9 - Sepsis, unspecified organism Status: Acute (9) Hydronephrosis with renal and ureteral calculous obstruction: Status: Acute (10) Anemia: Code(s): D64.9 - Anemia, unspecified Status: Acute (11) Elevated LFTs: Code(s): R79.89 - Other specified abnormal findings of blood chemistry Status: Acute (12) Diarrhea: Code(s): R19.7 - Diarrhea, unspecified Status: Acute (13) Localized swelling of left forearm: Code(s): R22.32 - Localized swelling, mass and lump, left upper limb Status: Acute (14) Abdominal mass: Code(s): R19.00 - Intra-abdominal and pelvic swelling, mass and lump, unspecified site Status: Acute (15) Uncontrolled hypertension: Code(s): I10 - Essential (primary) hypertension Status: Acute Plan The guardian was called by the radioisotope technician and updated about the patient's condition. All questions answered. She has decided to proceed with comfort measures for the patient. Patient has since been extubated to room air. Lorazepam and Morphine available as needed. Add rectal Tylenol given the fevers. All other medications have been stopped. Consider Morphine drip if he is tachypneic or appears uncomfortable. Subjective Date/time seen: 03/30/23 17:51 Interval history: 57yo male with psychiatric illnesses recently hospitalized for cardiac arrest and DVT brought in from the [place] for failure to thrive. He was hospitalized at [facility] from 02/15-03/05 for acute metabolic encephalopathy, cardiac arrest, DVT, UE cellulitis bilaterally, ANTWAN, HTN, sepsis, hematoma, HTN urgency, acute diastolic CHF, rhabdomyolysis and psychiatric disorder. Patient remains intubated but off sedation. Opens eyes but not responsive. Plan for terminal extubation today. He only received a partial HD treatment. Review of Systems Review of Systems: ROS unobtainable: Yes unobtainable due to mental status Exam Narrative: AF 99.6 148/93 95 16 98% mv Gen - intubated HEENT - ETT secured, NGT secured Chest - lungs clear anteriorly CV - RRR S1/S2 Abd - Soft, +BS - Wilson secured clear yellow urine in bag Ext - No pedal edema. Neuro - opens eyes but does not respond. Does not follow commands. Skin - cool and dry Objective Data Vital Signs Vital Signs: Vital Signs - 24 hr 03/29/23 18:00 03/29/23 18:00 03/29/23 20:24 Temperature 99 F Pulse Rate 94 94 94 Respiratory Rate 16 Blood Pressure 129/89 Pulse Oximetry 96 97 Oxygen Delivery Mechanical Ventilation Fraction of Inspired Oxygen 30 03/29/23 21:12 03/29/23 20:00 03/29/23 20:00 Temperature Pulse Rate 98 98 Respiratory Rate 16 Blood Pressure Pulse Oximetry 97 Oxygen Delivery Mechanical
[2023-03-30] MEDS: ACETAMINOPHEN 325 MG SUPPOSITORY RECTAL (18:33)
[2023-03-30] MEDS: MORPHINE SULFATE (*CRX) 2 MG/ML INJ IV PUSH (19:58)
--- NOTE | 2023-03-30 22:21 | ADMGEN ---
This patient, Jacky Chavez, was admitted to Medical Room 242-01. Patient/family oriented to hospital policies and general routines including ID bracelet, bed and alarms, visiting hours, pain management, procedures, bathroom and other care routines, personal items, smoking policy, room service/diet, and visiting hours. Information on how to activate the Rapid Response Team has been discussed. Patient/Family are encouraged to report perceived risks to care and to ask questions if they do not understand what they are told or what they should do.
[2023-03-31] MEDS: MORPHINE SULFATE (*CRX) 2 MG/ML INJ IV PUSH ×2 (00:52→09:03)
[2023-03-31] MEDS: LORazepam INJ (*CRX) 2 MG/ML VIAL IV PUSH (00:52)
[2023-03-31 04:58] VITALS: BP 93/60; PULSE 112; RESP 16; TEMP 36.7; O2SAT 90
--- NOTE | 2023-03-31 13:42 | PM.IMPN ---
Progress Note: A&P Assessment and Plan (1) Shock: Code(s): R57.9 - Shock, unspecified Status: Acute (2) Acute hypoxic respiratory failure: Code(s): J96.01 - Acute respiratory failure with hypoxia Status: Acute (3) Encephalopathy: Code(s): G93.40 - Encephalopathy, unspecified Status: Acute (4) Bilateral pulmonary embolism: Code(s): I26.99 - Other pulmonary embolism without acute cor pulmonale Status: Acute (5) ANTWAN (acute kidney injury): Status: Acute (6) Shoulder abscess: Code(s): L02.419 - Cutaneous abscess of limb, unspecified Status: Acute (7) COVID-19: Code(s): U07.1 - COVID-19 Status: Acute (8) Sepsis: Qualifiers: Sepsis type: sepsis due to unspecified organism Sepsis acute organ dysfunction status: with acute organ dysfunction Severe sepsis acute organ dysfunction type: acute respiratory failure Acute respiratory failure type: with hypoxia Severe sepsis shock status: without septic shock Qualified Code(s): A41.9 - Sepsis, unspecified organism; R65.20 - Severe sepsis without septic shock; J96.01 - Acute respiratory failure with hypoxia Code(s): A41.9 - Sepsis, unspecified organism Status: Acute (9) Hydronephrosis with renal and ureteral calculous obstruction: Status: Acute (10) Anemia: Code(s): D64.9 - Anemia, unspecified Status: Acute (11) Elevated LFTs: Code(s): R79.89 - Other specified abnormal findings of blood chemistry Status: Acute (12) Diarrhea: Code(s): R19.7 - Diarrhea, unspecified Status: Acute (13) Localized swelling of left forearm: Code(s): R22.32 - Localized swelling, mass and lump, left upper limb Status: Acute (14) Abdominal mass: Code(s): R19.00 - Intra-abdominal and pelvic swelling, mass and lump, unspecified site Status: Acute (15) Uncontrolled hypertension: Code(s): I10 - Essential (primary) hypertension Status: Acute Plan 03/30: the guardian was called by the manager heavy duty and updated about the patient's condition. All questions answered. She has decided to proceed with comfort measures for the patient. Patient has since been extubated to room air. Lorazepam and Morphine available as needed. Add rectal Tylenol given the fevers. All other medications have been stopped. Consider Morphine drip if he is tachypneic or appears uncomfortable. 03/31: Patient remains comfortable, no change to current management Subjective Date/time seen: 03/31/23 13:42 Interval history: 57yo male with psychiatric illnesses recently hospitalized for cardiac arrest and [place] the [place] for failure to thrive. He was hospitalized at [facility] from 02/15-03/05 for acute metabolic encephalopathy, cardiac arrest, DVT, UE cellulitis bilaterally, ANTWAN, HTN, sepsis, hematoma, HTN urgency, acute diastolic CHF, rhabdomyolysis and psychiatric disorder. Terminal extubation 03/30. No overnight events, no concerns. Review of Systems Review of Systems: ROS unobtainable: Yes unobtainable due to mental status Exam Narrative: General: Essentially unresponsive, does not open eyes to stimulation HEENT: Atraumatic, normocephalic, mucous membranes moist CV: Regular rate and rhythm, S1, S2 Lungs: Clear to auscultation bilaterally, no rales or crackles noted, no wheezes, good air entry Abdomen: Soft, nontender, nondistended Extremities: Normal to inspection, no edema Skin: No rashes noted, no lesions or wounds seen Psych: Unable to assess Objective Data Vital Signs Vital Signs: Vital Signs - 24 hr 03/30/23 14:00 03/30/23 14:00 03/30/23 14:46 Temperature Pulse Rate 101 H 101 H 95 Respiratory Rate 19 Blood Pressure 125/73 Pulse Oximetry 97 98 Oxygen Delivery Mechanical Ventilation Fraction of Inspired Oxygen 30 03/30/23 13:52 03/30/23 14:11 03/30/23 14:45 Temperature 99.2
[2023-03-31 20:00] VITALS: BP 147/84; PULSE 114; RESP 16; TEMP 36.8; O2SAT 96
[2023-04-01 08:14] VITALS: BP 127/70; PULSE 119; RESP 17; TEMP 36.2; O2SAT 92
[2023-04-01 08:55] LABS: Basophils Percent Auto 0.2 % (0.2-1.2); Eosinophils Absolute Auto 0.1 K/mm3 (0-0.3); Eosinophils Percent Auto 0.8 % (0-4.4); Hematocrit 31.9 % (42.0-52.0); Hemoglobin 9.5 g/dL (14.0-18.0); Immature Granulocyte Absolute 0.07 K/mm3 (0.00-0.031); Immature Granulocyte Percent A 0.6 % (0-0.5); Lymphocytes Absolute Auto 0.93 K/mm3 (0.9-3.2); Lymphocytes Percent Auto 7.6 % (18.3-44.2); Mean Corpuscular HGB Conc 29.8 g/dl (32-36); Mean Corpuscular Hemoglobin 31.3 pg (26-34); Mean Corpuscular Volume 104.9 fl (80-100); Mean Platelet Volume 9.5 fl (7.4-10.4); Monocytes Absolute Auto 1.3 K/mm3 (0.1-0.6); Monocytes Percent Auto 10.4 % (2.6-8.5); Neutrophils Absolute Auto 9.8 K/mm3 (1.3-6.7); Neutrophils Percent Auto 80.4 % (45.5-73.1); Platelet Count Result 188 k/mm3 (150-375); Red Blood Count 3.04 M/mm3 (4.6-6.20); White Blood Count 12.2 K/mm3 (4.5-10.0)
[2023-04-01 09:17] LABS: Alanine Aminotransferase 88 U/L (6-50); Albumin Level 3.1 g/dL (3.5-5.1); Alkaline Phosphatase 168 U/L (38-126); Anion Gap 9 mmol/L (8-16); Aspartate Amino Transferase 80 U/L (17-59); Bilirubin,Total 2.7 mg/dL (0.2-1.3); Blood Urea Nitrogen 82 mg/dL (9-20); Carbon Dioxide 29 mmol/L (22-30); Chloride 100 mmol/L (98-107); Estimated CRCL calculation 18 ml/min; Estimated Glomerular Filt Rate 14; Glucose 100 mg/dL (65-110); Potassium 4.9 mmol/L (3.4-5.0); Sodium 138 mmol/L (137-145)
--- NOTE | 2023-04-01 14:45 | PM.IMPN ---
Progress Note: A&P Assessment and Plan (1) Shock: Code(s): R57.9 - Shock, unspecified Status: Acute (2) Acute hypoxic respiratory failure: Code(s): J96.01 - Acute respiratory failure with hypoxia Status: Acute (3) Encephalopathy: Code(s): G93.40 - Encephalopathy, unspecified Status: Acute (4) Bilateral pulmonary embolism: Code(s): I26.99 - Other pulmonary embolism without acute cor pulmonale Status: Acute (5) ANTWAN (acute kidney injury): Status: Acute (6) Shoulder abscess: Code(s): L02.419 - Cutaneous abscess of limb, unspecified Status: Acute (7) COVID-19: Code(s): U07.1 - COVID-19 Status: Acute (8) Sepsis: Qualifiers: Sepsis type: sepsis due to unspecified organism Sepsis acute organ dysfunction status: with acute organ dysfunction Severe sepsis acute organ dysfunction type: acute respiratory failure Acute respiratory failure type: with hypoxia Severe sepsis shock status: without septic shock Qualified Code(s): A41.9 - Sepsis, unspecified organism; R65.20 - Severe sepsis without septic shock; J96.01 - Acute respiratory failure with hypoxia Code(s): A41.9 - Sepsis, unspecified organism Status: Acute (9) Hydronephrosis with renal and ureteral calculous obstruction: Status: Acute (10) Anemia: Code(s): D64.9 - Anemia, unspecified Status: Acute (11) Elevated LFTs: Code(s): R79.89 - Other specified abnormal findings of blood chemistry Status: Acute (12) Diarrhea: Code(s): R19.7 - Diarrhea, unspecified Status: Acute (13) Localized swelling of left forearm: Code(s): R22.32 - Localized swelling, mass and lump, left upper limb Status: Acute (14) Abdominal mass: Code(s): R19.00 - Intra-abdominal and pelvic swelling, mass and lump, unspecified site Status: Acute (15) Uncontrolled hypertension: Code(s): I10 - Essential (primary) hypertension Status: Acute Plan 03/30: the guardian was called by the manager acute and updated about the patient's condition. All questions answered. She has decided to proceed with comfort measures for the patient. Patient has since been extubated to room air. Lorazepam and Morphine available as needed. Add rectal Tylenol given the fevers. All other medications have been stopped. Consider Morphine drip if he is tachypneic or appears uncomfortable. 03/31: Patient remains comfortable, no change to current management 04/01: unchanged Subjective Date/time seen: 04/01/23 14:45 Interval history: 57yo male with psychiatric illnesses recently hospitalized for cardiac arrest and DVT brought in from the [place] for failure to thrive. He was hospitalized at [facility] from 02/15-03/05 for acute metabolic encephalopathy, cardiac arrest, DVT, UE cellulitis bilaterally, ANTWAN, HTN, sepsis, hematoma, HTN urgency, acute diastolic CHF, rhabdomyolysis and psychiatric disorder. Terminal extubation 03/30. No overnight events, no concerns. Unresponsive, resting comfortably. Review of Systems Review of Systems: ROS unobtainable: Yes unobtainable due to mental status Exam Narrative: General: Essentially unresponsive, does not open eyes to stimulation HEENT: Atraumatic, normocephalic, mucous membranes moist CV: Regular rate and rhythm, S1, S2 Lungs: Clear to auscultation bilaterally, no rales or crackles noted, no wheezes, good air entry Abdomen: Soft, nontender, nondistended Extremities: Normal to inspection, no edema, cold extremities Skin: No rashes noted, no lesions or wounds seen Psych: Unable to assess Objective Data Vital Signs Vital Signs: Vital Signs - 24 hr 03/31/23 20:00 03/31/23 20:00 04/01/23 08:14 Temperature 98.2 F 97.2 F L Pulse Rate 114 H 114 H 119 H Respiratory Rate 16 16 17 Blood Pressure 147/84 H 127/70 Pulse Oximetry 96 96 92 Oxygen Delivery Room Air Fraction of Ins
[2023-04-01 20:00] VITALS: BP 138/94; PULSE 107; PULSE 132; RESP 16; RESP 24; TEMP 36.4; O2SAT 89; O2SAT 93
[2023-04-02 08:17] VITALS: O2SAT 87
[2023-04-02 08:23] VITALS: TEMP 37.6
[2023-04-02 09:32] VITALS: TEMP 38.2
[2023-04-02 09:37] VITALS: TEMP 38.2
[2023-04-02] MEDS: ACETAMINOPHEN 325 MG SUPPOSITORY RECTAL (09:37)
--- NOTE | 2023-04-02 09:58 | PM.IMPN ---
Progress Note: A&P Assessment and Plan (1) Shock: Code(s): R57.9 - Shock, unspecified Status: Acute (2) Acute hypoxic respiratory failure: Code(s): J96.01 - Acute respiratory failure with hypoxia Status: Acute (3) Encephalopathy: Code(s): G93.40 - Encephalopathy, unspecified Status: Acute (4) Bilateral pulmonary embolism: Code(s): I26.99 - Other pulmonary embolism without acute cor pulmonale Status: Acute (5) ANTWAN (acute kidney injury): Status: Acute (6) Shoulder abscess: Code(s): L02.419 - Cutaneous abscess of limb, unspecified Status: Acute (7) COVID-19: Code(s): U07.1 - COVID-19 Status: Acute (8) Sepsis: Qualifiers: Sepsis type: sepsis due to unspecified organism Sepsis acute organ dysfunction status: with acute organ dysfunction Severe sepsis acute organ dysfunction type: acute respiratory failure Acute respiratory failure type: with hypoxia Severe sepsis shock status: without septic shock Qualified Code(s): A41.9 - Sepsis, unspecified organism; R65.20 - Severe sepsis without septic shock; J96.01 - Acute respiratory failure with hypoxia Code(s): A41.9 - Sepsis, unspecified organism Status: Acute (9) Hydronephrosis with renal and ureteral calculous obstruction: Status: Acute (10) Anemia: Code(s): D64.9 - Anemia, unspecified Status: Acute (11) Elevated LFTs: Code(s): R79.89 - Other specified abnormal findings of blood chemistry Status: Acute (12) Diarrhea: Code(s): R19.7 - Diarrhea, unspecified Status: Acute (13) Localized swelling of left forearm: Code(s): R22.32 - Localized swelling, mass and lump, left upper limb Status: Acute (14) Abdominal mass: Code(s): R19.00 - Intra-abdominal and pelvic swelling, mass and lump, unspecified site Status: Acute (15) Uncontrolled hypertension: Code(s): I10 - Essential (primary) hypertension Status: Acute Plan 03/30: the guardian was called by the tie tamper and updated about the patient's condition. All questions answered. She has decided to proceed with comfort measures for the patient. Patient has since been extubated to room air. Lorazepam and Morphine available as needed. Add rectal Tylenol given the fevers. All other medications have been stopped. Consider Morphine drip if he is tachypneic or appears uncomfortable. 03/31: Patient remains comfortable, no change to current management 04/01: unchanged Subjective Date/time seen: 04/02/23 09:58 Interval history: 57yo male with psychiatric illnesses recently hospitalized for cardiac arrest and DVT brought in from the [place] for failure to thrive. He was hospitalized at [facility] from 02/15-03/05 for acute metabolic encephalopathy, cardiac arrest, DVT, UE cellulitis bilaterally, ANTWAN, HTN, sepsis, hematoma, HTN urgency, acute diastolic CHF, rhabdomyolysis and psychiatric disorder. Terminal extubation 03/30. No overnight events, no concerns. Unresponsive, resting comfortably. Exam Narrative: General: Essentially unresponsive, does not open eyes to stimulation HEENT: Atraumatic, normocephalic, mucous membranes moist CV: Regular rate and rhythm, S1, S2 Lungs: Clear to auscultation bilaterally, no rales or crackles noted, no wheezes, good air entry Abdomen: Soft, nontender, nondistended Extremities: Normal to inspection, no edema, cold extremities Skin: No rashes noted, no lesions or wounds seen Psych: Unable to assess Objective Data Vital Signs Vital Signs: Vital Signs - 24 hr 04/01/23 20:00 04/01/23 20:00 04/02/23 08:23 Temperature 97.6 F 99.7 F H Pulse Rate 107 H 132 H Respiratory Rate 16 24 H Blood Pressure 138/94 H Pulse Oximetry 93 89 L Oxygen Delivery Room Air Fraction of Inspired Oxygen 30 04/02/23 09:32 04/02/23 09:37 Temperature 100.7 F H 100.7 F H Pulse Rate Respirat
[2023-04-02 10:38] VITALS: BP 157/88; PULSE 135; RESP 40; TEMP 39.3; O2SAT 87
[2023-04-02] MEDS: MORPHINE SULFATE (*CRX) 2 MG/ML INJ IV PUSH (10:40)
[2023-04-02 11:16] VITALS: TEMP 38
--- NOTE | 2023-04-02 11:47 | PM.DS ---
DS: Admitting Diagnosis Discharge Date 04/02/23 Admitting Diagnosis ftt/sob DS: Discharge Diagnosis Discharge Diagnosis (1) Shock: Code(s): R57.9 - Shock, unspecified Status: Acute (2) Acute hypoxic respiratory failure: Code(s): J96.01 - Acute respiratory failure with hypoxia Status: Acute (3) Encephalopathy: Code(s): G93.40 - Encephalopathy, unspecified Status: Acute (4) Bilateral pulmonary embolism: Code(s): I26.99 - Other pulmonary embolism without acute cor pulmonale Status: Acute (5) ANTWAN (acute kidney injury): Status: Acute (6) Shoulder abscess: Code(s): L02.419 - Cutaneous abscess of limb, unspecified Status: Acute (7) COVID-19: Code(s): U07.1 - COVID-19 Status: Acute (8) Sepsis: Qualifiers: Sepsis type: sepsis due to unspecified organism Sepsis acute organ dysfunction status: with acute organ dysfunction Severe sepsis acute organ dysfunction type: acute respiratory failure Acute respiratory failure type: with hypoxia Severe sepsis shock status: without septic shock Qualified Code(s): A41.9 - Sepsis, unspecified organism; R65.20 - Severe sepsis without septic shock; J96.01 - Acute respiratory failure with hypoxia Code(s): A41.9 - Sepsis, unspecified organism Status: Acute (9) Hydronephrosis with renal and ureteral calculous obstruction: Status: Acute (10) Anemia: Code(s): D64.9 - Anemia, unspecified Status: Acute (11) Elevated LFTs: Code(s): R79.89 - Other specified abnormal findings of blood chemistry Status: Acute (12) Diarrhea: Code(s): R19.7 - Diarrhea, unspecified Status: Acute (13) Localized swelling of left forearm: Code(s): R22.32 - Localized swelling, mass and lump, left upper limb Status: Acute (14) Abdominal mass: Code(s): R19.00 - Intra-abdominal and pelvic swelling, mass and lump, unspecified site Status: Acute (15) Uncontrolled hypertension: Code(s): I10 - Essential (primary) hypertension Status: Acute Plan 03/30: the guardian was called by the firearms inspector and updated about the patient's condition. All questions answered. She has decided to proceed with comfort measures for the patient. Patient has since been extubated to room air. Lorazepam and Morphine available as needed. Add rectal Tylenol given the fevers. All other medications have been stopped. Consider Morphine drip if he is tachypneic or appears uncomfortable. 03/31: Patient remains comfortable, no change to current management 04/01: unchanged DS: Summary Hospital Course Hospital Course: 57-year-old male who presented to the ER from [facility] via EMS due to failure to thrive.? The patient's original medical history is not exactly known.? The patient was found on the side of the road on February 04 in taken to [facility] (I am assuming in [place]).? The patient was coded at that time and required intubation and was extubated on the 26 of February.? He was discharged to the [facility] facility on a pureed diet.? According to care home records patient has history of psychiatric illness.? On arrival to ER patient was noted to be tachycardic and hypoxic.? Patient's COVID PCR was positive.? Patient's blood pressures were uncontrolled with systolic blood pressures ranging between 150 and 210.? The patient's temperature was elevated to 99?.? Initially the patient's respiratory rate was in the 20s.? But throughout the course of the ER stay the patient became progressively more tachypneic.? He was mouth breathing his nasal cannula was placed into his oropharynx.? Patient was continuing to desat requiring increasing oxygen up to 5 L and oxygen saturations were only 88%.? Patient had accessory muscle use in nursing staff called.? I went down to assess the patient and the patient had no gag reflex on exam and was not f
== END 2023-04-02 11:53 | disposition hospice, inpatient (51) | DRG 710 ==
LOC: ANHED 21:47 → ANHIMU 23:03 → ANHICU 03-09 05:42 → ANHIMU 03-13 05:46 → ANHICU 03-14 14:47 → ANH2MED 03-30 22:10
PROVIDERS: Emergency Medicine; Internal Medicine; Internal Medicine Nephrology; Surgery; Urology; Admitting Provider Internal Medicine; Emergency Provider Emergency Medicine; PCP Hospitalist; Visit Provider Student in an Organized Health Care Education/Training Program
PROC: BT1D1ZZ Fluoroscopy of Right Kidney, Ureter and Bladder using Low Osmolar Contrast (ICD-10-PCS; CPT 52352; principal; 2023-03-10 15:00)
PROC: 06H03DZ Insertion of Intraluminal Device into Inferior Vena Cava, Percutaneous Approach (ICD-10-PCS; principal; 2023-03-16 12:30)
DX: A41.9 Sepsis, unspecified organism (principal); R57.1 Hypovolemic shock; D65 Disseminated intravascular coagulation [defibrination syndrome]; J96.01 Acute respiratory failure with hypoxia; N17.0 Acute kidney failure with tubular necrosis; U07.1 COVID-19; I26.99 Other pulmonary embolism without acute cor pulmonale; G93.40 Encephalopathy, unspecified; E87.0 Hyperosmolality and hypernatremia; E86.0 Dehydration; Z87.891 Personal history of nicotine dependence; Z79.01 Long term (current) use of anticoagulants; N17.9 Acute kidney failure, unspecified; D62 Acute posthemorrhagic anemia; I50.32 Chronic diastolic (congestive) heart failure; N13.6 Pyonephrosis; R65.20 Severe sepsis without septic shock; I82.442 Acute embolism and thrombosis of left tibial vein; B37.49 Other urogenital candidiasis; I11.0 Hypertensive heart disease with heart failure; M79.81 Nontraumatic hematoma of soft tissue; L02.414 Cutaneous abscess of left upper limb; F99 Mental disorder, not otherwise specified
CPT/HCPCS: 10160; 36415; 36430; 36600; 37191; 70450; 71045; 71250; 71275; 73200; 74176; 74420; 76775; 76942; 80048; 80053; 80069; 80307; 81001; 82140; 82274; 82375; 82436; 82550; 82570; 82607; 82746; 82805; 82948; 83050; 83605; 83735; 83880; 84100; 84145; 84300; 84439; 84443; 84478; 84480; 84484; 85014; 85018; 85025; 85027; 85384; 85610; 85730; 85999; 86140; 86160; 86703; 86704; 86706; 86850; 86900; 86901; 86923; 87040; 87070; 87075; 87077; 87086; 87088; 87106; 87147; 87181; 87186; 87205; 87340; 87449; 87636; 87641; 87899; 92610; 93005; 93306; 93308; 93970; 93971; 94002; 94003; 94640; 95816; 96374; 97162; 97165; 99285; A9270; C1751; C1752; C1758; C1769; C1880; C2617; C8924; C9113; G0257; G0432; J0248; J0360; J0456; J0613; J0696; J1100; J1450; J1644; J1650; J1720; J1940; J2020; J2060; J2185; J2250; J2270; J2543; J2704; J2720; J2765; J2997; J3010; J3370; J3430; J7030; J7042; J7050; J7070; J7120; J7512; P9016; P9017; P9047; Q5105; Q9957; Q9966; Q9967

== ENCOUNTER 2023-04-02 11:54 | HOS | payer OTHER, SELFPAY ==
[2023-04-02 12:18] VITALS: BMI 28.0
[2023-04-02] MEDS: MORPHINE 50 MG/NS 100ML (*CRX) 50 MG/100 ML BAG IV CONT (12:50)
[2023-04-02 15:45] VITALS: BP 129/87; PULSE 122; RESP 20; TEMP 36.9; O2SAT 92
--- NOTE | 2023-04-02 17:43 | PM.IMHP ---
H&P: HPI History of Present Illness Date/Time: 04/02/23 17:43 Chief Complaint: Uncontrolled dyspnea Narrative: This unfortunate 57-year-old gentleman was admitted to [facility] in [place] due to cardiac arrest that was unwitnessed. He had postanoxic encephalopathy but was discharged on a pureed diet to a jail where he was to have rehab. At the jail he was becoming dyspneic and confused and was sent to ensure emergency department. There he was struggling to breathe. He was intubated and had a large amount of purulence secretions. CT the abdomen pelvis revealed bilateral lower lobe infiltrates. He was treated with broad-spectrum antibiotics and pressors for sepsis. He required IV fluids as well. Had a long course in ICU and finally care was deemed futile. On March 30 he was extubated and placed on comfort measures. Because of increasing dyspnea his family opted for symptom management on the inpatient hospice service. Review of Systems Review of Systems: ROS unobtainable: Yes unobtainable due to medical condition PMFSH Past Medical History Medical History (Updated 04/02/23 @ 17:58 by Ji Rubio MD) Cardiac arrest [facility] 02/2023 unwitnessed arrest. CHF (congestive heart failure) DVT (deep venous thrombosis) Hypertension Psychiatric disorder Surgical History Surgical History (Updated 04/02/23 @ 17:57 by Ji Rubio MD) S/P insertion of inferior vena caval filter Surgical history unknown Family History Family History Other Unknown family medical history Social History Social History (Updated 04/02/23 @ 17:57 by Ji Rubio MD) Social History: Patient is currently residing at [facility] since his hospitalization in late February. Code status: DNR Smoking status: Unknown if ever smoked Additional smoking assessment comments: unknown Alcohol intake: unknown Substance use: unknown Do You Feel Safe in your Home?: Yes Lack of Transportation: No Lack of Food: Never True Current Housing: I Have Housing Concerned About Future Housing: No Difficulty Paying Gas/Electric Bills: No Difficulty Paying for Meds: No Currently Unemployed: No Education: Don't Know Difficulty w/ Childcare or Family Care: No Spiritual care concerns: No Meds Home Medications and Allergies Allergies Allergy/AdvReac Type Severity Reaction Status Date / Time No Known Allergies Allergy Verified 03/08/23 18:36 Vital Signs Vital Signs - 24 hr 04/02/23 12:18 Oxygen Delivery Room Air Exam Narrative: Middle-aged gentleman appearing older than his stated age lying comfortably in his hospital bed Neck without JVD Chest coarse breath sounds at bases Heart regular rate without audible murmur S1 and S2 normal, tachycardic Extremities no edema Abdomen hypoactive bowel sounds soft no palpable mass nontender Musculoskeletal no gross deformity to visual inspection Neurologic cranial nerves symmetric to visual inspection Psychiatric no response to verbal stimuli and minimal response to tactile stimuli Assessment and Plan Assessment and plan (1) Palliative care encounter: Code(s): Z51.5 - Encounter for palliative care Status: Acute Assessment and Plan: Meet inpatient hospice criteria due to required continuous IV morphine for control of dyspnea P.r.n. palliative regimen ordered (2) Sepsis: Qualifiers: Sepsis type: sepsis due to unspecified organism Sepsis acute organ dysfunction status: with acute organ dysfunction Severe sepsis acute organ dysfunction type: acute respiratory failure Acute respiratory failure type: with hypoxia Severe sepsis shock status: without septic shock Qualified Code(s): A41.9 - Sepsis, unspecified organism; R65.20 - Severe sepsis without septic shock; J96.01 - Acute respiratory failure with hypoxia Code(s):
[2023-04-02 19:51] VITALS: BP 135/86; PULSE 119; RESP 18; TEMP 38.8; O2SAT 90
[2023-04-02 20:00] VITALS: PULSE 119; RESP 18; O2SAT 90
[2023-04-02 20:52] VITALS: TEMP 38.8
[2023-04-02] MEDS: ACETAMINOPHEN 650 MG SUPPOSITORY RECTAL (20:52)
[2023-04-03 06:06] VITALS: TEMP 39.1
[2023-04-03] MEDS: ACETAMINOPHEN 650 MG SUPPOSITORY RECTAL ×2 (06:09→21:26)
[2023-04-03 08:00] VITALS: TEMP 37.1
--- NOTE | 2023-04-03 10:23 | PM.IMPN ---
Progress Note: A&P Assessment and Plan (1) Palliative care encounter: Code(s): Z51.5 - Encounter for palliative care Status: Acute Assessment and Plan: Meet inpatient hospice criteria due to required continuous IV morphine for control of dyspnea P.r.n. palliative regimen ordered (2) Sepsis: Qualifiers: Acute respiratory failure type: with hypoxia Sepsis acute organ dysfunction status: with acute organ dysfunction Sepsis type: sepsis due to unspecified organism Severe sepsis acute organ dysfunction type: acute respiratory failure Severe sepsis shock status: without septic shock Qualified Code(s): A41.9 - Sepsis, unspecified organism; R65.20 - Severe sepsis without septic shock; J96.01 - Acute respiratory failure with hypoxia Code(s): A41.9 - Sepsis, unspecified organism Status: Acute (3) Bilateral pulmonary embolism: Code(s): I26.99 - Other pulmonary embolism without acute cor pulmonale Status: Acute (4) Encephalopathy: Code(s): G93.40 - Encephalopathy, unspecified Status: Acute (5) COVID-19: Code(s): U07.1 - COVID-19 Status: Acute Subjective Date/time seen: 04/03/23 10:23 Interval history: Remains comfortable on current regimen. Review of Systems Review of Systems: ROS unobtainable: Yes unobtainable due to medical condition Exam Narrative: Middle-aged gentleman appearing older than his stated age lying comfortably in his hospital bed Neck without JVD Chest coarse breath sounds at bases Heart regular rate without audible murmur S1 and S2 normal, tachycardic Extremities no edema Abdomen hypoactive bowel sounds soft no palpable mass nontender Musculoskeletal no gross deformity to visual inspection Neurologic cranial nerves symmetric to visual inspection Psychiatric no response to verbal stimuli and minimal response to tactile stimuli Objective Data Vital Signs Vital Signs: Vital Signs - 24 hr 04/02/23 12:18 04/02/23 15:45 04/02/23 19:51 Temperature 98.4 F 101.9 F H Pulse Rate 122 H 119 H Respiratory Rate 20 18 Blood Pressure 129/87 135/86 Pulse Oximetry 92 90 Oxygen Delivery Room Air 04/02/23 20:52 04/02/23 20:00 04/03/23 06:06 Temperature 101.9 F H 102.3 F H Pulse Rate 119 H Respiratory Rate 18 Blood Pressure Pulse Oximetry 90 Oxygen Delivery Room Air 04/03/23 08:00 04/03/23 08:15 Temperature 98.7 F Pulse Rate Respiratory Rate Blood Pressure Pulse Oximetry Oxygen Delivery Room Air Intake/Output Intake/Output: Intake & Output 03/31/23 04/01/23 04/02/23 04/03/23 23:59 23:59 23:59 23:59 Output Total 500 Balance -500 Meds/Results Medications: Active Medications Generic Name Dose Route Start Last Admin Trade Name Freq PRN Reason Stop Dose Admin Acetaminophen 650 mg 04/02/23 20:14 04/03/23 06:09 Acetaminophen 650 Mg Suppository RECTAL 650 mg Q6H PRN Administration Mild Pain (1-3) or Fever Artificial Tears 0 drop 04/02/23 12:08 Artificial Tears Ophth Soln 15 Ml Bottle EACH EYE Q8H PRN Dry Eye(s) Bisacodyl 10 mg 04/02/23 12:08 Bisacodyl 10 Mg Suppository RECTAL QAM PRN Constipation Glycopyrrolate 0.1 mg 04/02/23 12:07 Glycopyrrolate Inj (*Sp) 0.2 Mg/Ml Vial IV PUSH Q4H PRN SECRETIONS Morphine Sulfate 50 mg in 100 mls @ 2 mls/hr 04/02/23 12:15 04/02/23 12:50 IV CONT 1 mg/hr .Q24H KEVAN 2 mls/hr Administration 1 MG/HR Lorazepam 1 mg 04/02/23 12:07 Lorazepam Inj (*Crx) 2 Mg/Ml Vial IV PUSH Q4H PRN RESTLESSNESS/DYSPNEA Morphine Sulfate 2 mg 04/02/23 12:06 Morphine Sulfate (*Crx) 2 Mg/Ml Inj IV PUSH Q2H PRN PAIN/DYSPNEA Prochlorperazine Edisylate 10 mg 04/02/23 12:10 Prochlorperazine Edisylate 10 Mg/2 Ml Vial IV PUSH Q6H PRN Nausea And Vomiting
[2023-04-03] MEDS: MORPHINE 50 MG/NS 100ML (*CRX) 50 MG/100 ML BAG IV CONT (12:22)
[2023-04-03 17:54] VITALS: BP 131/65; PULSE 116; RESP 20; TEMP 37.7; O2SAT 91
[2023-04-03 20:00] VITALS: BP 110/62; PULSE 118; RESP 18; TEMP 39.1; O2SAT 92
[2023-04-04] MEDS: ACETAMINOPHEN 650 MG SUPPOSITORY RECTAL ×2 (03:20→10:00)
[2023-04-04 04:20] VITALS: TEMP 39.4
--- NOTE | 2023-04-04 08:14 | PM.IMPN ---
Progress Note: A&P Assessment and Plan (1) Palliative care encounter: Code(s): Z51.5 - Encounter for palliative care Status: Acute Assessment and Plan: Meet inpatient hospice criteria due to required continuous IV morphine for control of dyspnea P.r.n. palliative regimen ordered (2) Sepsis: Qualifiers: Sepsis type: sepsis due to unspecified organism Sepsis acute organ dysfunction status: with acute organ dysfunction Severe sepsis acute organ dysfunction type: acute respiratory failure Acute respiratory failure type: with hypoxia Severe sepsis shock status: without septic shock Qualified Code(s): A41.9 - Sepsis, unspecified organism; R65.20 - Severe sepsis without septic shock; J96.01 - Acute respiratory failure with hypoxia Code(s): A41.9 - Sepsis, unspecified organism Status: Acute (3) Bilateral pulmonary embolism: Code(s): I26.99 - Other pulmonary embolism without acute cor pulmonale Status: Acute (4) Encephalopathy: Code(s): G93.40 - Encephalopathy, unspecified Status: Acute (5) COVID-19: Code(s): U07.1 - COVID-19 Status: Acute Subjective Date/time seen: 04/04/23 08:14 Interval history: Remains comfortable on current regimen. Febrile overnight. Review of Systems Review of Systems: ROS unobtainable: Yes unobtainable due to medical condition Exam Narrative: Middle-aged gentleman appearing older than his stated age lying comfortably in his hospital bed Neck without JVD Chest coarse breath sounds at bases Heart regular rate without audible murmur S1 and S2 normal, tachycardic Extremities no edema Abdomen hypoactive bowel sounds soft no palpable mass nontender Musculoskeletal no gross deformity to visual inspection Neurologic cranial nerves symmetric to visual inspection Psychiatric no response to verbal stimuli and minimal response to tactile stimuli Objective Data Vital Signs Vital Signs: Vital Signs - 24 hr 04/03/23 08:15 04/03/23 17:54 04/03/23 20:00 Temperature 99.8 F H 102.4 F H Pulse Rate 116 H 118 H Respiratory Rate 20 18 Blood Pressure 131/65 110/62 Pulse Oximetry 91 92 Oxygen Delivery Room Air 04/03/23 20:00 04/04/23 04:20 Temperature 102.9 F H Pulse Rate 118 H Respiratory Rate 18 Blood Pressure Pulse Oximetry 92 Oxygen Delivery Room Air Intake/Output Intake/Output: Intake & Output 04/01/23 04/02/23 04/03/23 04/04/23 23:59 23:59 23:59 23:59 Intake Total 46.8 Output Total 500 Balance -500 46.8 Meds/Results Medications: Active Medications Generic Name Dose Route Start Last Admin Trade Name Freq PRN Reason Stop Dose Admin Acetaminophen 650 mg 04/02/23 20:14 04/04/23 03:20 Acetaminophen 650 Mg Suppository RECTAL 650 mg Q6H PRN Administration Mild Pain (1-3) or Fever Artificial Tears 0 drop 04/02/23 12:08 Artificial Tears Ophth Soln 15 Ml Bottle EACH EYE Q8H PRN Dry Eye(s) Bisacodyl 10 mg 04/02/23 12:08 Bisacodyl 10 Mg Suppository RECTAL QAM PRN Constipation Glycopyrrolate 0.1 mg 04/02/23 12:07 Glycopyrrolate Inj (*Sp) 0.2 Mg/Ml Vial IV PUSH Q4H PRN SECRETIONS Morphine Sulfate 50 mg in 100 mls @ 2 mls/hr 04/02/23 12:15 04/03/23 12:22 IV CONT 1 mg/hr .Q24H KEVAN 2 mls/hr Administration 1 MG/HR Lorazepam 1 mg 04/02/23 12:07 Lorazepam Inj (*Crx) 2 Mg/Ml Vial IV PUSH Q4H PRN RESTLESSNESS/DYSPNEA Morphine Sulfate 2 mg 04/02/23 12:06 Morphine Sulfate (*Crx) 2 Mg/Ml Inj IV PUSH Q2H PRN PAIN/DYSPNEA Prochlorperazine Edisylate 10 mg 04/02/23 12:10 Prochlorperazine Edisylate 10 Mg/2 Ml Vial IV PUSH Q6H PRN Nausea And Vomiting
[2023-04-04 10:00] VITALS: TEMP 38.1
[2023-04-04 10:30] VITALS: BP 94/58; PULSE 121; RESP 22; TEMP 36.9; O2SAT 90
[2023-04-04 11:00] VITALS: TEMP 36.9
[2023-04-04] MEDS: MORPHINE 50 MG/NS 100ML (*CRX) 50 MG/100 ML BAG IV CONT (13:27)
--- NOTE | 2023-04-05 16:27 | P.DN_ITS ---
Discharge Summary Date and Time Date of : 04/04/23 Time of : 16:20 Provider Pronounced By: Vangie Zhou RN and Jocelin Xavier RN Probable Cause of Probable Cause of : sepsis Summary Hospital Course: Admitted inpatient hospice service for symptom control. Medications titrated to comfort Mr. Chavez peacefully. Additional Data Confirmation of as documented by pronouncing clinician: Heart Tones and Breath Sounds Name of Provider Notified: Dr. Rubio Time Provider Notified: 16:30 Provider Requests Autopsy: No Family Requests Autopsy: No [facility] [employer] [facility] Notified: Yes Date [facility] Notified of : 04/04/23 Time [facility] Notified of : 16:40
== END 2023-04-04 16:20 | disposition expired | DRG 951 ==
PROVIDERS: Admitting Provider Internal Medicine; PCP Hospitalist; Visit Provider Internal Medicine
DX: Z51.5 Encounter for palliative care (principal); A41.9 Sepsis, unspecified organism; R65.20 Severe sepsis without septic shock; J96.01 Acute respiratory failure with hypoxia; U07.1 COVID-19; G93.40 Encephalopathy, unspecified; I11.0 Hypertensive heart disease with heart failure; I50.9 Heart failure, unspecified; Z86.718 Personal history of other venous thrombosis and embolism; Z86.74 Personal history of sudden cardiac arrest; Z66 Do not resuscitate
CPT/HCPCS: A9270; J2270